=== PATIENT | male | born 1945 | race Caucasian/White ===

== ENCOUNTER → 2019-03-28 17:48 | Outpatient (CLI) | payer MEDICARE, SELFPAY ==
--- NOTE | ~2019-03-28 | XR_ITS ---
EXAMINATION: XR knee RT 2V DATE: 03/28/2019 19:00 INDICATION: Right knee pain TECHNIQUE: Anteroposterior, 2 oblique and crosstable lateral views of the right knee were obtained COMPARISON: None. FINDINGS: Slight lateral subluxation and mild genu varus at the right knee with severe joint space narrowing in the medial compartment. Small marginal osteophytes without evident joint space narrowing in the late ral and patellofemoral compartments. Large right knee joint effusion. Few loose osteochondral bodies at the posterior recess of the knee. No fracture. IMPRESSION: 1. Tricompartmental osteoarthritis, severe in the medial compartment, with large right knee joint eff usion. Reviewed, dictated and finalized at location A. OR AUDITOR IMPRESSION: 1. Tricompartmental osteoarthritis, severe in the medial compartment, with larg e right knee joint effusion.
--- NOTE | ~2019-03-28 | MR_ITS ---
EXAMINATION: MR knee RT wo con DATE: 03/28/2019 18:55 INDICATION: Right knee pain TECHNIQUE: Magnetic resonance imaging (MRI) of the right knee was performed without intravenous contr ast. Sequences included coronal PD-weighted FSE, coronal PD-weighted FS FSE, sagittal T2-weighted FS E, sagittal PD-weighted FS FSE and axial PD weighted fat saturated FSE. COMPARISON: None. FINDINGS: Medial compartment: Medial extrusion of the medial meniscus with complex tear of the body and posterior horn. Extensive f ull/near full-thickness chondral ulceration along significant portions of both the medial tibial plat eau and anterior weightbearing medial femoral condyle with underlying subarticular edema. Suggestion of early remodeling of the articular cortices. There is subtle curvilinear low signal underlying the articular cortex at the anterior weightbearing medial femoral condyle suspicious for a nondisplaced s ubarticular stress fracture line related to altered weight distribution. Lateral compartment: Lateral meniscal tear with longitudinal horizontal tear plane extending to the inferior articular ambrocio face near the free edge of the body and posterior horn. Suggestion of some secondary fraying along th e free edge. Small region of deep chondral ulceration along the medial aspect of the anterior weightb earing lateral femoral condyle with mild underlying subarticular edema. Juxtaposed partial-thickness cartilage loss without degenerative subarticular changes along the medial side of the lateral tibial plateau along the shoulder the intercondylar eminence. Shallow chondral fissuring with chondral surfa ce regularity along the lateral aspect of the lateral tibial plateau. Small central/subarticular oste ophytes at the site of an additional small region of deep chondral ulceration at the posterior margin of the weightbearing lateral femoral condyle. Patellofemoral compartment: Partial-thickness cartilage loss with deep fissuring without degenerative subarticular changes at the patellar apical ridge, the medial facet and medial side of the lateral facet. Partial-thickness dari dral fissuring along the medial trochlea. Ligaments and tendons: Anterior and posterior cruciate ligaments are normal. Mild thickening and increased signal at the pro ximal aspect of the medial and fibular collateral ligaments consistent with mild scarring related to chronic sprains. There is a small intrasubstance ganglion cyst extending between the otherwise intact appearing deep and superficial fibers of the proximal medial collateral ligament. The extensor mecha nism is normal. The visualized medial and lateral hamstring tendons as well as the iliotibial band ar e normal. Fluid: Large knee joint effusion with scattered mild to moderate synovitis. Small Alex's cyst. There are a couple loose osteochondral bodies within additional small ganglion cysts at the posterior aspect of t he knee. Extensive likely reactive soft tissue edema about the knee. IMPRESSION: 1. Medial and lateral meniscal tears. 2. Tricompartmental osteoarthritis, severe in the medial compartment and mild with regions of moderat e to high-grade chondromalacia in the lateral and patellofemoral compartments. 3. Prominent marrow edema along the anterior weightbearing medial femoral condyle surrounding a subar ticular likely stress fracture line. Reviewed, dictated and finalized at location A. RATORY DIRECTOR IMPRESSION: 1. Medial and lateral meniscal tears. 2. Tricompartmental osteoarthritis, severe in the medial compartment and mild w ith regions of moderate to high-grade chondromalacia in the lateral and patello femoral compartments. 3. Prominent marrow edema along the anterior weightbearing medial femoral condy le surrounding a subarticular
== END ==
PROVIDERS: Visit Provider Nurse Practitioner Family
DX: M17.11 Unilateral primary osteoarthritis, right knee (principal); S83.281A Other tear of lateral meniscus, current injury, right knee, initial encounter; S83.241A Other tear of medial meniscus, current injury, right knee, initial encounter; X58.XXXA Exposure to other specified factors, initial encounter
CPT/HCPCS: 73560; 73721

== ENCOUNTER → 2019-05-05 10:36 | Outpatient (CLI) | payer MEDICARE, SELFPAY ==
--- NOTE | ~2019-05-05 | XR_ITS ---
XR cervical spine min 6V DATE: 05/05/2019 12:09 INDICATION: Neck pain TECHNIQUE: Standing open-mouth, AP, lateral, swimmer's and bilateral oblique views COMPARISON: 11/19/2014 CT cervical spine FINDINGS: There is straightening of the cervical spine. There is interbody spinal fusion at C3-5 and C6-7. There is posterior cervical spine fusion by pedicle screws and rods at C7-T2. No recent fracture or dislocation or prevertebral soft tissue swelling is evident. C1 and C2 are norm ally aligned and the odontoid process is intact. IMPRESSION: Postoperative fusion of the cervical and upper thoracic spine Reviewed, dictated and finalized at location A.
--- NOTE | ~2019-05-05 | MR_ITS ---
EXAMINATION: MR shoulder RT wo con DATE: 05/05/2019 11:46 INDICATION: Right shoulder pain. TECHNIQUE: Magnetic resonance imaging (MRI) of the right shoulder was performed without intravenous c ontrast. Sequences included axial PD-weighted FS FSE, coronal oblique PD-weighted FS FSE and T2-weigh aydin FS FSE, and sagittal oblique T2-weighted FS FSE and T1-weighted FSE. COMPARISON: Right shoulder radiographs 05/05/2019 FINDINGS: Coracoacromial arch: The acromion undersurface is curved in morphology with anterior hook (type III). There are changes of distal clavicle resection. There is moderate subacromial/subdeltoid bursitis. There are loose bodies in subacromial/subdeltoid bursa measuring up to 2.1 cm. Rotator cuff: There is severe supraspinatus and infraspinatus tendinopathy. There are changes of rotator cuff repai r. There are interstitial tears of supraspinatus and infraspinatus tendons. The supraspinatus tendon tear measures 5 mm proximal to distal and up to 50% tendon thickness. There is mild teres minor tendi nopathy. There is severe subscapularis tendinopathy. There is mild fatty atrophy of teres minor muscl e belly, consistent with quadrilateral space syndrome. Biceps tendon and glenoid labrum: Biceps tendon is in bicipital groove. There is a partial tear of intra-articular biceps tendon. There is maceration of the glenoid labrum. Fluid: There is a small glenohumeral joint effusion with loose bodies measuring up to 2.4 cm. Bones/cartilage: There is extensive full-thickness cartilage loss of humeral head and glenoid with bone volume loss of humeral head and glenoid. IMPRESSION: 1. Advanced right glenohumeral joint osteoarthritis. 2. Severe rotator cuff tendinopathy with partial-thickness rotator cuff tears. 3. Small glenohumeral joint effusion with loose bodies. 4. Moderate subacromial/subdeltoid bursitis with loose bodies. 5. Mild fatty atrophy of teres minor muscle belly, consistent with quadrilateral space syndrome. Reviewed, dictated and finalized at location A. IMPRESSION: 1. Advanced right glenohumeral joint osteoarthritis. 2. Severe rotator cuff tendinopathy with partial-thickness rotator cuff tears. 3. Small glenohumeral joint effusion with loose bodies. 4. Moderate subacromial/subdeltoid bursitis with loose bodies. 5. Mild fatty atrophy of teres minor muscle belly, consistent with quadrilatera l space syndrome.
--- NOTE | ~2019-05-05 | XR_ITS ---
EXAMINATION: XR shoulder RT min 2V DATE: 05/05/2019 12:09 INDICATION: Right shoulder pain. TECHNIQUE: 4 views of right shoulder were obtained. COMPARISON: None. FINDINGS: Bone alignment is normal. No fracture. There is advanced glenohumeral joint osteoarthritis including bone volume loss of glenoid and humeral head. There are loose bodies in the glenohumeral estefania int and subacromial/subdeltoid bursa. There are likely changes of distal clavicle resection. There ar e changes of anterior and posterior fusion procedures in cervicothoracic spine. IMPRESSION: 1. Advanced right glenohumeral joint osteoarthritis with loose bodies. Reviewed, dictated and finalized at location A.
--- NOTE | ~2019-05-05 | MR_ITS ---
EXAMINATION: MR shoulder LT wo con DATE: 05/05/2019 11:46 INDICATION: Left shoulder pain. TECHNIQUE: Magnetic resonance imaging (MRI) of the left shoulder was performed without intravenous co ntrast. Sequences included axial PD-weighted FS FSE, coronal oblique PD-weighted FS FSE and T2-weight ed FS FSE, and sagittal oblique T2-weighted FS FSE and T1-weighted FSE. COMPARISON: Left shoulder radiographs 05/05/2019 FINDINGS: Coracoacromial arch: The acromion undersurface is curved in morphology (type II). There is severe acromioclavicular joint osteoarthritis. There is severe subacromial/subdeltoid bursitis with loose bodies. Rotator cuff: There is severe supraspinatus tendinopathy. There are articular sided and bursal sided partial-thickn ess tears of anterior supraspinatus tendon measuring 12 mm anterior to posterior by 2.1 cm proximal t o distal by up to 50% tendon thickness. There is mild infraspinatus tendinopathy. Teres minor tendon is normal. There is severe subscapularis tendinopathy with articular sided and bursal sided fraying. There is no asymmetric fatty atrophy of the rotator cuff muscle bellies. Biceps tendon and glenoid labrum: There is a complete tear of proximal biceps tendon. There is maceration of the glenoid labrum. Fluid: There is a moderate-sized glenohumeral joint effusion with loose bodies. Bones/cartilage: There is extensive full-thickness cartilage loss of humeral head and glenoid with bone volume loss of humeral head and glenoid. IMPRESSION: 1. Advanced left glenohumeral joint osteoarthritis. 2. Severe rotator cuff tendinopathy with partial-thickness tears. 3. Moderate-sized glenohumeral joint effusion with loose bodies. 4. Severe subacromial/subdeltoid bursitis with loose bodies. 5. Complete tear of proximal biceps tendon. 6. Severe acromioclavicular joint osteoarthritis. Reviewed, dictated and finalized at location A.
--- NOTE | ~2019-05-05 | XR_ITS ---
EXAMINATION: XR shoulder LT min 2V DATE: 05/05/2019 12:09 INDICATION: Left shoulder pain. TECHNIQUE: 4 views of left shoulder were obtained. COMPARISON: None. FINDINGS: Bone alignment is normal. No fracture. There is advanced glenohumeral joint osteoarthritis including bone volume loss of the glenoid. There is mild acromioclavicular joint osteoarthritis. Suba cromial spurring is noted. There are changes of anterior and posterior fusion procedures in cervical thoracic spine. IMPRESSION: 1. Advanced left glenohumeral joint osteoarthritis. Reviewed, dictated and finalized at location A.
== END ==
PROVIDERS: PCP Internal Medicine; Visit Provider Nurse Practitioner Family
DX: M54.2 Cervicalgia (principal); M19.011 Primary osteoarthritis, right shoulder; M24.011 Loose body in right shoulder; M24.012 Loose body in left shoulder; M19.012 Primary osteoarthritis, left shoulder; Z98.1 Arthrodesis status
CPT/HCPCS: 72052; 73030; 73221

== ENCOUNTER 2019-07-12 09:48 | Outpatient (CLI) | payer MEDICARE, SELFPAY ==
--- NOTE | ~2019-07-12 | MR_ITS ---
EXAMINATION: MR lumbar spine wo con DATE: 07/12/2019 10:32 INDICATION: Lumbar radiculopathy TECHNIQUE: Magnetic resonance imaging (MRI) of the lumbar spine was performed without intravenous con trast. Sequences included sagittal T2-weighted FSE, sagittal T2-weighted FS FSE, sagittal T1-weighted FSE, and axial T2-weighted FSE. COMPARISON: 09/24/2017 FINDINGS: 30 degree lumbar dextroscoliosis measured between L1 and L4. 4 mm retrolisthesis L5 on S1. 1-2 mm ret rolisthesis T12 on L1, L2 on L3, L3 on L4 and L4 on L5. Chronic mild anterior wedging at T12 and L1. Severe disc height loss at T12-L1 amount at the left side of L3-L4 and right side of L5-S1, each with degenerative fibrofatty and fibrovascular endplate changes.Marrow signal is otherwise normal. Modera te disc height loss at T11-T12, L1-L2, L2-L3 and L4-L5. The conus medullaris terminates at L2. There is normal signal in the caudal spinal cord. Right renal cyst. The following disc levels are specifica lly discussed: T12-L1: Moderate diffuse disc bulge. There is hypertrophy of the ligamentum flavum. There is severe bilateral facet joint osteoarthritis. There is moderate right and mild to moderate left neural forami nal stenosis. There is moderate central canal stenosis. L1-L2: Disc is mildly bulging with superimposed annular fissure and left paracentral disc extrusion w ith disc material extending a few millimeters caudal to the level of the superior endplate of L2. The re is hypertrophy of the ligamentum flavum. There is moderate bilateral facet joint osteoarthritis. T here is mild to moderate left neural foraminal stenosis. There is mild central canal stenosis. L2-L3: Disc is mildly bulging with superimposed annular fissure and left paracentral disc extrusion w ith disc material extending couple millimeter caudal to the level of the superior endplate of L3. The re is hypertrophy of the ligamentum flavum. There is mild bilateral facet joint osteoarthritis. There is mild left neural foraminal stenosis. There is mild central canal stenosis. L3-L4: Moderate to large diffuse disc bulge with superimposed annular fissure and central disc extrus ion with disc material extending up to 5 recalled the level of the superior endplate of L4. There is severe bilateral facet joint osteoarthritis. Suggestion of bilateral hemilaminotomies with resection of the ligamentum flavum. There is moderate bilateral neural foraminal stenosis. There is moderate ce ntral canal stenosis as well as moderate narrowing of the left and right lateral recesses. L4-L5: Diffuse disc bulge with superimposed annular fissure. There is severe bilateral facet joint os teoarthritis. There is moderate bilateral neural foraminal stenosis. Postoperative change of likely l eft hemilaminotomy with resection of the ligamentum flavum. There is moderate central canal stenosis. L5-S1: Disc is mildly bulging with superimposed annular fissure and small central disc extrusion with disc which will extending up to 3 mm caudal to the level of the superior endplate of S1. There is mo derate left and severe right facet joint osteoarthritis. There is mild left and moderate to severe ri ght neural foraminal stenosis. There is mild central canal stenosis as well as of the right lateral r ecess. IMPRESSION: 1. Moderate lumbar dextroscoliosis. 2. No significant interval change in severe lumbar and thoracolumbar spondylosis. Reviewed, dictated and finalized at location A. IMPRESSION: 1. Moderate lumbar dextroscoliosis. 2. No significant interval change in severe lumbar and thoracolumbar spondylosi s.
== END 2019-07-12 09:49 | disposition home or self-care (01) ==
PROVIDERS: PCP Internal Medicine; Visit Provider Internal Medicine
DX: M47.26 Other spondylosis with radiculopathy, lumbar region (principal); M47.814 Spondylosis without myelopathy or radiculopathy, thoracic region; M41.86 Other forms of scoliosis, lumbar region
CPT/HCPCS: 72148

== ENCOUNTER 2019-09-02 08:43 | Outpatient (CLI) | payer MEDICARE, SELFPAY ==
--- NOTE | ~2019-09-02 | CT_ITS ---
EXAMINATION:CT chest high resolution wo wy DATE: 09/02/2019 09:16 INDICATION: Shortness of breath and cough. TECHNIQUE: Computed tomography (CT) of the chest was performed without intravenous contrast. Automate d exposure control and iterative reconstruction technique were employed. The dose-length product (DLP ) was 405.53 mGy-cm. COMPARISON: Chest CT 09/22/2018 FINDINGS: There is mild atelectasis at right lung lower lobe. A calcified right lung nodule is consis tent with old granulomatous disease. No bronchiectasis or honeycombing. No pleural effusion. The hear t size is normal. There are coronary artery calcifications. No pericardial effusion. There is ectasia of ascending aorta measuring 4.5 cm. There are cysts in right kidney measuring up to 2.2 cm. There i s a small parenchymal calcification in left kidney. There is dextroscoliosis of cervicothoracic spine and levoscoliosis of thoracolumbar spine. There is severe thoracolumbar spondylosis. There are chacko es of anterior and posterior fusion procedures in cervicothoracic spine. IMPRESSION: 1. Mild atelectasis in right lower lobe. No evidence of chronic interstitial lung disease. 2. Stable ectasia of ascending aorta measuring 4.5 cm. Reviewed, dictated and finalized at location A. IMPRESSION: 1. Mild atelectasis in right lower lobe. No evidence of chronic interstitial kika ng disease. 2. Stable ectasia of ascending aorta measuring 4.5 cm.
== END 2019-09-02 08:44 | disposition home or self-care (01) ==
PROVIDERS: PCP Internal Medicine; Visit Provider Nurse Practitioner Family
DX: R05 Cough (principal); R06.02 Shortness of breath; Z77.090 Contact with and (suspected) exposure to asbestos; R91.8 Other nonspecific abnormal finding of lung field
CPT/HCPCS: 71250

== ENCOUNTER 2019-09-11 16:01 | Emergency (ER) | payer MEDICARE, SELFPAY ==
[2019-09-11] VITALS (7 sets, daily range): BP systolic 128–153; BP diastolic 72–87; PULSE 70–96; RESP 15–28; TEMP 36.9–37.2; O2SAT 94–100
--- NOTE | ~2019-09-11 | XR_ITS ---
EXAMINATION: XR chest 1V portable DATE: 09/11/2019 17:19 INDICATION: Shortness of breath. COVID-19 positive. TECHNIQUE: A single frontal view of the chest was obtained. COMPARISON: Chest 2 views 11/23/2014, chest CT 09/02/2019 FINDINGS: There is worsened mild elevation of right hemidiaphragm. There are airspace opacities in ri ght lower lung zone. No pleural effusion or pneumothorax. The heart size is normal. There are changes of anterior and posterior fusion procedures in cervical thoracic spine. IMPRESSION: 1. Airspace opacities in right lower lung zone, consistent with atelectasis versus pneumonia. Reviewed, dictated and finalized at location A. IMPRESSION: 1. Airspace opacities in right lower lung zone, consistent with atelectasis michael brittany pneumonia.
--- NOTE | 2019-09-11 16:24 | ECG_ITS ---
Measurements Intervals [place] Rate: 96 P: MN: 0 QRS: -65 QRSD: 142 T: 82 QT: 358 QTc: 453 Interpretive Statements SINUS RHYTHM ATRIAL COUPLETS, ATRIAL AND VENTRICULAR PREMATURE COMPLEXES LEFT AXIS DEVIATION LEFT BUNDLE BRANCH BLOCK MINIMAL Q WAVES- HIGH LATERAL LEADS BASELINE ARTIFACT- I, AVR, AVL ABNORMAL ECG Electronically Signed On 09-11-2019 16:48:07 CDT by Pablo Noble D.O.
[2019-09-11 16:46] LABS: Alanine Aminotransferase 82 U/L (4-50); Alkaline Phosphatase 202 U/L (38-126); Aspartate Amino Transferase 92 U/L (17-59); Bilirubin,Total 0.6 mg/dL (0.2-1.3); Blood Urea Nitrogen 14 mg/dL (9-20); Calcium 8.5 mg/dL (8.4-10.2); Carbon Dioxide 28 mmol/L (22-30); Chloride 90 mmol/L (98-107); Estimated CRCL calculation 78 ml/min; Estimated Glomerular Filt Rate > 60; Glucose 140 mg/dL (75-110); Sodium 130 mmol/L (137-145)
[2019-09-11 16:49] LABS: Eosinophils Percent Auto 0.5 % (0-4.4); Hematocrit 37.5 % (42.0-52.0); Hemoglobin 13.3 g/dL (14.0-18.0); Immature Granulocyte Absolute 0.01 K/mm3 (0.00-0.031); Immature Granulocyte Percent A 0.2 % (0-0.5); Lymphocytes Absolute Auto 0.47 K/mm3 (0.9-3.2); Lymphocytes Percent Auto 10.9 % (18.3-44.2); Mean Corpuscular HGB Conc 35.5 g/dl (32-36); Mean Corpuscular Hemoglobin 31.4 pg (26-34); Mean Corpuscular Volume 88.7 fl (80-100); Mean Platelet Volume 9.9 fl (7.4-10.4); Monocytes Absolute Auto 0.2 K/mm3 (0.1-0.6); Monocytes Percent Auto 5.1 % (2.6-8.5); Neutrophils Absolute Auto 3.6 K/mm3 (1.3-6.7); Neutrophils Percent Auto 83.3 % (45.5-73.1); Platelet Count Result 182 k/mm3 (150-375); Red Blood Count 4.23 M/mm3 (4.6-6.20); Red Cell Distribution Width 12.6 % (11.5-14.5); White Blood Count 4.3 K/mm3 (4.5-10.0)
[2019-09-11 16:57] LABS: Alveolar/Arterial O2 Gradient 38.3 mmHg; Base Excess ABG 2.1 mEq/l (+/-2.0); Carboxyhemoglobin 0.6 % THb (0-2.0); Fractional Inspired Oxygen 21 %; HCO3 ABG 24.5 mEq/l (22.0-26.0); Methemoglobin ABG 0.3 %THb (0-1.5); Oxygen Content ABG 17.8 %vol (16.0-22.0); Oxygen Saturation ABG 96.1 % (95.0-100.0); Oxyhemoglobin 94.2 % THb (90.0-100.0); PCO2 ABG 31.5 mmHg (35.0-45.0); PO2 ABG 73.7 mmHg (80.0-100.0); PO2 FiO2 Ratio Arterial Blood 3.51 %; Reduced Hemoglobin 4.9 %THb (0-5.0); Total Hemoglobin 13.4 g/dL (12.0-18.0); pH ABG 7.508 (7.350-7.450)
[2019-09-11 16:58] LABS: Device ROOM AIR; Modified Allen's Test Pass; Site Drawn RIGHT RADIAL
[2019-09-11 17:22] LABS: Lactic Acid Reflex 0.8 mmol/L (0.7-2.1)
[2019-09-11 17:25] LABS: CRP 6.7 mg/dL (<1.0); Magnesium 1.8 mg/dL (1.6-2.3)
--- NOTE | 2019-09-11 18:06 | ED.SOB ---
HPI - SOB/Dyspnea General Chief Complaint: Shortness of Breath/Dyspnea Stated Complaint: +COVID, FEELING WORSE Time Seen by Provider: 09/11/19 17:28 Source: patient Mode of arrival: ambulatory History of Present Illness HPI Narrative: This is a 74 year old male with history of hypertension who presents for evaluation of worsening breathing. PAtient reports he has had issues with sinus drainage, cough and chest congestion for several months. He reports 1 week ago he started feeling unwell so his doctor ordered a COVID test. PAtient reports he was found to be positive on . He reports he feels like he is dehydrated and weakness. He reports low grade fevers intermittently. He reports he sees Dr. Gtz. Related Data Home Medications Medication Instructions Recorded Confirmed doxycycline monohydrate 40 mg 40 mg PO DAILY 02/11/19 09/02/19 capsule,immediate - delay release esomeprazole magnesium 40 mg 40 mg PO DAILY 02/11/19 09/02/19 capsule,delayed release latanoprost 0.005 % eye drops 1 drop EACH EYE DAILY 02/11/19 09/02/19 aspirin 325 mg tablet 325 mg PO DAILY 09/02/19 09/02/19 Allergies Allergy/AdvReac Type Severity Reaction Status Date / Time levofloxacin [From Levaquin] Allergy Mild ''not feel Verified 09/11/19 16:39 right'' Review of Systems Review of Systems: All systems reviewed & are unremarkable except as noted in HPI and below Constitutional: Constitutional: Reports chills, Reports fatigue, Reports fever(s) and Reports weakness Cardiovascular: Cardiovascular: Reports chest pain (chronic) and Denies radiating jaw, neck or arm pain Respiratory: Respiratory: Reports cough and Reports dyspnea (chronic) Gastrointestinal: Gastrointestinal: Denies abdominal pain, Reports diarrhea and Denies nausea Musculoskeletal: Musculoskeletal: Reports myalgias and Reports muscle cramps Neurologic: Reports weakness PMFSH Past Medical History Medical History (Updated 09/12/19 @ 00:00 by [employer]) Essential hypertension Seasonal allergic rhinitis due to pollen Family History Family History (Updated 06/26/17 @ 11:50 by DOCTOR UNKNOWN) Mother Cerebrovascular accident Hypertension Father Malignant neoplasm of prostate Depression Patient's father is , Onset Age: 50 Family history of heart disease in male family member before age 55 Sibling Depression Family history of lymphoma Other Family history of malignant neoplasm of male breast Family history of sudden Social History Social History Smoking status: Never smoker Second hand tobacco smoke exposure: Yes Alcohol intake: current Exam Narrative: Exam Narrative: GENERAL: Well-appearing, well-nourished, and in no acute distress. HEAD: Normocephalic, atraumatic EYES: PERRLA and EOMI, conjunctiva clear without discharge s THROAT:Mucous membranes moist, Oropharynx normal without erythema, exudate, peritonsillar swelling or fluctuance NECK: Supple, without lymphadenopathy or mass RESPIRATORY: No respiratory distress, Airway patent, Respirations non-labored, Clear to auscultation without rales, rhonchi or wheeze HEART: Regular rate and rhythm. No murmur heard. Normal peripheral pulses. ABDOMEN: Soft, nontender, nondistended, normal active bowel sounds. No masses. No rebound or guarding, No organomegaly. EXTREMITIES: No edema, normal strength with full range of motion. SKIN: Warm, dry, normal color without rash NEURO: Alert and oriented x3. CN 2-12 grossly intact. No focal deficits. PSYCH: Normal mood and affect. Course Reevaluation(s) Reevaluation #1: PAtient states he feels better after IVF. Date: 09/11/19 Time: 20:37 Consultations Consultation #1: I Discussed case with Dr. Gtz who reviewed xray and CT scan. She agrees patient can be discharge with antibiotics. His chest xray is similar to CT scan performed last week which
[2019-09-11 18:09] LABS: Troponin I 0.019 ng/mL (0.000-0.034)
[2019-09-11] MEDS: SODIUM CHLORIDE 0.9% IV 1,000 ML 999 ML IV CONT (18:35)
[2019-09-11] MEDS: AZITHROMYCIN 250 MG TABLET 500 MG PO (20:21)
[2019-09-11] MEDS: ALBUTEROL SULFATE (*SP) AEROSOL 1 PUFF 6 PUFF INHALATION (20:27)
== END 2019-09-11 21:05 | disposition home or self-care (01) ==
PROVIDERS: Emergency Medicine; Emergency Provider General Practice
DX: U07.1 COVID-19 (principal); E86.0 Dehydration; I10 Essential (primary) hypertension; Z79.82 Long term (current) use of aspirin; R91.8 Other nonspecific abnormal finding of lung field; R00.8 Other abnormalities of heart beat; I44.7 Left bundle-branch block, unspecified; R94.31 Abnormal electrocardiogram [ECG] [EKG]
CPT/HCPCS: 36415; 36600; 71045; 80053; 82375; 82805; 83050; 83605; 83735; 84484; 85025; 86140; 87040; 93005; 96361; 96365; 99284; A9270; J0696; J7030

== ENCOUNTER 2019-09-15 17:52 | Emergency (ER) | payer MEDICARE, SELFPAY ==
[2019-09-15 18:02] VITALS: BP 169/93; PULSE 78; RESP 20; TEMP 36.9; O2SAT 100
[2019-09-15 20:20] LABS: Basophils Percent Auto 0.2 % (0.2-1.2); Eosinophils Absolute Auto 0.1 K/mm3 (0-0.3); Eosinophils Percent Auto 2.1 % (0-4.4); Hematocrit 35.3 % (42.0-52.0); Hemoglobin 12.5 g/dL (14.0-18.0); Immature Granulocyte Absolute 0.02 K/mm3 (0.00-0.031); Immature Granulocyte Percent A 0.4 % (0-0.5); Lymphocytes Absolute Auto 0.85 K/mm3 (0.9-3.2); Lymphocytes Percent Auto 16.4 % (18.3-44.2); Mean Corpuscular HGB Conc 35.4 g/dl (32-36); Mean Corpuscular Hemoglobin 31.4 pg (26-34); Mean Corpuscular Volume 88.7 fl (80-100); Mean Platelet Volume 9.2 fl (7.4-10.4); Monocytes Absolute Auto 0.3 K/mm3 (0.1-0.6); Monocytes Percent Auto 5.4 % (2.6-8.5); Neutrophils Absolute Auto 3.9 K/mm3 (1.3-6.7); Neutrophils Percent Auto 75.5 % (45.5-73.1); Platelet Count Result 286 k/mm3 (150-375); Red Blood Count 3.98 M/mm3 (4.6-6.20); Red Cell Distribution Width 12.6 % (11.5-14.5); White Blood Count 5.2 K/mm3 (4.5-10.0)
[2019-09-15 20:33] LABS: Anion Gap 12.1 mmol/L (7-16); Blood Urea Nitrogen 13 mg/dL (9-20); Calcium 9.1 mg/dL (8.4-10.2); Carbon Dioxide 28 mmol/L (22-30); Chloride 100 mmol/L (98-107); Estimated CRCL calculation 90 ml/min; Estimated Glomerular Filt Rate > 60; Glucose 103 mg/dL (75-110); Potassium 4.1 mmol/L (3.4-5.0); Sodium 136 mmol/L (137-145)
[2019-09-15 20:34] VITALS: BP 142/72; PULSE 60; RESP 19; O2SAT 97
--- NOTE | 2019-09-15 21:14 | ED.GENADULT ---
HPI - General Adult General Chief complaint: Upper Respiratory Infection Stated complaint: weak, dark stools Time Seen by Provider: 09/15/19 19:07 History of Present Illness HPI narrative: Patient is a 74-year-old male who presents ER with multiple complaints. Reports he started having symptoms of COVID-19 on 09/04/2019. He was tested about 1 week ago and it was positive. Since then he has been feeling weak and fatigued. He was seen in the ER and started on an antibiotic. However after 1 dose of antibiotic he had a dark black stool. He then stopped the antibiotic. He has had no additional dark black stools. He reports he has been having some jerking in his lower extremity for which he is taking Valium. This is a chronic issue for the last couple of months. No fevers or chills or sweats. Reports occasional possibility of shortness of breath but is not having to sit and rest for excessive amounts of time. Related Data Home Medications Medication Instructions Recorded Confirmed doxycycline monohydrate 40 mg 40 mg PO DAILY 02/11/19 09/02/19 capsule,immediate - delay release esomeprazole magnesium 40 mg 40 mg PO DAILY 02/11/19 09/02/19 capsule,delayed release latanoprost 0.005 % eye drops 1 drop EACH EYE DAILY 02/11/19 09/02/19 aspirin 325 mg tablet 325 mg PO DAILY 09/02/19 09/02/19 Allergies Allergy/AdvReac Type Severity Reaction Status Date / Time levofloxacin [From Levaquin] Allergy Mild ''not feel Verified 09/15/19 19:24 right'' Review of Systems Review of Systems: All systems reviewed & are unremarkable except as noted in HPI and below Constitutional: Constitutional: Denies chills, Reports fatigue, Denies fever(s) and Reports weakness ENT: Denies nasal congestion and Denies sore throat Cardiovascular: Cardiovascular: Denies chest pain and Denies radiating jaw, neck or arm pain Gastrointestinal: Gastrointestinal: Denies abdominal pain, Denies nausea and Denies vomiting Comments: 1 dark black stool Musculoskeletal: Musculoskeletal: Reports muscle cramps PMFSH Past Medical History Medical History (Updated 09/15/19 @ 21:44 by Go Abdul MD) Essential hypertension Seasonal allergic rhinitis due to pollen Family History Family History (Updated 06/26/17 @ 11:50 by DOCTOR UNKNOWN) Mother Cerebrovascular accident Hypertension Father Malignant neoplasm of prostate Depression Patient's father is , Onset Age: 50 Family history of heart disease in male family member before age 55 Sibling Depression Family history of lymphoma Other Family history of malignant neoplasm of male breast Family history of sudden Social History Social History Smoking status: Never smoker Second hand tobacco smoke exposure: Yes Alcohol intake: current Exam Narrative: Exam Narrative: GENERAL: Well-appearing, well-nourished, and in no acute distress. HEAD: Normocephalic, atraumatic. CHEST: Clear to auscultation. No respiratory distress. HEART: Regular rate and rhythm. Normal peripheral pulses. EXTREMITIES: Normal range of motion. No edema. SKIN: Warm, dry, no rash. NEURO: Alert and oriented x3. PSYCH: Normal mood and affect. Course Course Emergency Course: We will increase his Nexium from once a day to twice a day. Recommend follow-up with his PCP given drop in hemoglobin by one-point. Vital Signs Vital signs: Vital Signs Temperature 98.4 F 09/15/19 18:02 Pulse Rate 78 09/15/19 18:02 Respiratory Rate 20 09/15/19 18:02 Blood Pressure 169/93 H 09/15/19 18:02 Pulse Oximetry 100 09/15/19 18:02 Temperature 98.4 F 09/15/19 18:02 Pulse Rate 60 09/15/19 20:34 Respiratory Rate 19 09/15/19 20:34 Blood Pressure 142/72 H 09/15/19 20:34 Pulse Oximetry 97 09/15/19 20:34 Medical Decision Making Vital Signs Vital Signs: Vital Signs Temperature 98.4 F 09/15/19 18:02 Pulse R
[2019-09-15 22:15] VITALS: BP 194/79; PULSE 56; RESP 17; TEMP 37.2; O2SAT 100
== END 2019-09-15 22:20 | disposition home or self-care (01) ==
PROVIDERS: Emergency Provider Emergency Medicine; PCP Internal Medicine
DX: R53.83 Other fatigue (principal); R19.5 Other fecal abnormalities; U07.1 COVID-19; I10 Essential (primary) hypertension
CPT/HCPCS: 36415; 80048; 85025; 99283

== ENCOUNTER 2019-12-27 14:38 | Outpatient (CLI) | payer MEDICARE, SELFPAY ==
[2019-12-28 23:51] LABS: Amphetamines negative; Barbiturates negative; Benzodiazepines negative; Cocaine Metabolites negative; Marijuana Metabolites negative; PCP negative
== END 2019-12-27 14:39 | disposition home or self-care (01) ==
PROVIDERS: PCP Internal Medicine; Visit Provider Clinical Nurse Specialist
DX: Z79.899 Other long term (current) drug therapy (principal)
CPT/HCPCS: 80307

== ENCOUNTER 2020-01-09 07:38 | Outpatient (CLI) | payer MEDICARE, SELFPAY ==
--- NOTE | ~2020-01-09 | MR_ITS ---
EXAMINATION: MR MRCP wo/w con/w 3D wo ind DATE: 01/09/2020 09:17 INDICATION: Pancreatic IPMN TECHNIQUE: Magnetic resonance imaging (MRI) of the abdomen was performed without and with 17 mL Multi neto intravenous contrast. Sequences included coronal T2-weighted SS-FSE, coronal T2-weighted FS SS- FSE, coronal T2-weighted FS FIESTA, axial T2-weighted FS FIESTA, axial T2-weighted FIESTA, sagittal T 2-weighted SS-FSE, axial T1-weighted dual-echo FSPGR, axial T2-weighted SS-FSE, axial T1-weighted LAV A, axial T2-weighted STIR FSE. Thick-slab T2-weighted FRFSE-XL images were obtained for magnetic reso nance cholangiopancreatography (MRCP). Rotating maximum intensity projection 3-D reconstructions of t he volumetric data were created by the technologist. Postcontrast sequences included a time course of axial T1-weighted LAVA. COMPARISON: 11/23/2018 FINDINGS: ABDOMEN MRI: Heart size is normal. No pericardial or pleural effusion. No significant interval change in a 2 cm ma ss the right hepatic lobe with progressive enhancement which on an earlier MRI dated 08/13/2009 demons trated an interrupted peripheral puddling consistent with a hemangioma. 5 mm T2 hyperintense nonenhan cing cyst in segment 6 of the liver. Gallbladder, spleen and bilateral adrenal glands are normal. Tim ateral renal cysts, the largest on the right measuring 2.4 cm. Again seen is dilation of the main bosch creatic duct which measures up to 9 mm at the head and body of the pancreas. There are multiple dilat ed side branches which is most prominent at the pancreatic head and tail. At the uncinate process the re is an approximately 2.2 x 1.5 x 1.3 cm T2 hyperintense lesion which appears to communicate with th e main pancreatic duct which is T2 hyperintense but subtly less hyperintense than the fluid in the du cts and also likely related to duct demonstrates thin peripheral rim of calcification on CT dated 08/25 which suggests possible intrasubstance a cystic neoplasm with apparent tiny calcification at t he duct suggesting an intraductal papillary mucinous neoplasm (IPMN). No evident associated enhancing solid soft tissue component. Bowels are unremarkable. Bladder is normal. No pathologically enlarged abdominal lymphadenopathy. Approximately 30 degrees lumbar dextroscoliosis with severe spondylosis. ABDOMEN MRCP: Prominent dilation of the main pancreatic duct and multiple pancreatic ductal side branches as previo usly noted. The common bile duct measures up to 8 mm in maximal diameter which is at the upper limits of normal for age. No intraluminal filling defects to suggest obstructing stone or mucosal irregular ities/stricture. No intrahepatic biliary ductal dilation. IMPRESSION: 1. No significant interval change in a 2.2 x 1.5 x 1.3 cm peripherally calcified cystic lesion at the uncinate process of the pancreas with dilatation of the dilated main pancreatic duct. Differential w ould include intraductal papillary mucinous neoplasm (IPMN) and additional dilated pancreatic duct re lated to chronic pancreatitis. Reviewed, dictated and finalized at [facility]. 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 No significant interval change in a 2.2 x 1.5 x 1.3 cm peripherally calcifie d cystic lesion at the uncinate process of the pancreas with dilatation of the dilated main pancreatic duct. Differential would include intraductal papillary mucinous neoplasm (IPMN) and additional dilated pancreatic duct related to hospital product specialist yamil pancreatitis.
[2020-01-09 08:25] LABS: Estimated Glomerular Filt Rate > 60
== END 2020-01-09 07:39 | disposition home or self-care (01) ==
PROVIDERS: PCP Internal Medicine; Visit Provider Internal Medicine Gastroenterology
DX: D13.6 Benign neoplasm of pancreas (principal)
CPT/HCPCS: 74183; 76376; A9577

== ENCOUNTER 2020-02-20 07:47 | Outpatient (CLI) | payer MEDICARE, SELFPAY ==
--- NOTE | 2020-02-27 09:29 | WPDHOMESLEEP ---
Sleep Study - Home Unattended Date of Study: 02/20/20 Ordering Provider: Pablo Noble DO Interpreting Physician: Katheryn Gtz MD Home Sleep Study Type: Apnea Link Air Height: 1.8 m Weight: 86.183 kg Body Mass Index: 26.4 Neck Circumference (inches): 16.3 [place]: 3 Reason for Sleep Study history of DENISE on CPAP, then dental device, still with symptoms Sleep History Mike Barton is a 74 year old man who was referred by Dr Noble for re-evaluation of his sleep apnea. He had a sleep study about 5 years ago, was placed on Which he did not like. He used multiple masks, there was only 1/8 that he could tolerate. He was interested in the Inspire device* see below . A roughly 2 years ago he was put on a dental appliance which did not work. he spoke with Dr. Ferrera who is now at [facility] about using the Inspire. the patient has difficulty falling asleep, he wakes often during the night to use the bathroom, he has excessive daytime sleepiness and he wakes up in the office lead hours. He has seen an ENT about his sleep issues. He snores constantly but he currently sleeps alone so nobody complains about it. He rarely awakens at night with heartburn, belching or coughing. He does not awaken from sleep feeling short of breath. He occasionally has trouble sleep with a cold. He does not wake up gasping for breath at night. He rarely sweats excessively at night. He frequently notices his heart pounding or beating irregularly and night. He does not fall asleep during the day, involuntarily, while driving or during physical effort. He does not have loss of muscle tone with strong emotion. He is retired so does not have difficulties during the day due to excessive sleepiness. He does not have vivid dreamlike scenes upon waking or falling asleep and does not feel paralyzed on waking or falling asleep. He is not afraid to go to sleep. He rarely has nightmares and really remember his dreams. He constantly has racing thoughts, feelings of sadness, depression and anxiety. He frequently has muscular tension in various locations including his neck, back, knees, shoulders with history of surgery in these areas. he really notices parts of his body jerking and he rarely kicks at night. He frequently has crawling and aching feelings in his legs, frequently has numbness in his legs at night due to neuropathy. He rarely has morning jaw pain. He occasionally grind his teeth during sleep. He frequently is bothered by pain during the day, frequently is awakened by pain at night. He constantly wakes up feeling stiff in the morning, frequent was sore achy muscles and constant with pain in the neck and spine. he has palpitations, bowel disturbances, fatigue, sexual problems, insomnia, concentration difficulties. He is now feeling very alone more than ever during COVID. He rarely awakens feeling refreshed in the morning. He has lost 25 lb in the last year. Normal bedtime 10:00 p.m., takes 1 hour to fall asleep, multiple trips to the bathroom at night. He wakes the morning at 6:30 a.m. to 7:00 a.m.. We can does the same. He does not take naps. Naps are not refreshing. He is drowsy in the morning for 2 hours or longer. Habits: caffeine - 2 cups in the am; alcohol a few drinks a day, now cutting back to less; not a smoker. *Inspire device - This FDA-approved implantable upper airway stimulation device functions like a pacemaker and stabilizes a patient's throat during sleep in order to prevent obstruction. The device consists of three components: a programmable neuro-stimulator located in a chest pocket, a pressure sensing lead that detects patient's breathing, and a stimulator lead that delivers mild stimulation to the tongue nerve. This device is surgically implanted. [facility] Past Medical History Medical History (Updated 02/27/20 @ 09:52 by Katheryn Gtz MD) Anxiety CAD (coronary artery disease) Chronic pain Dyslipidemia Essential hypertension IBS (irritable costa
[2020-02-27 09:35] VITALS: BMI 26.4
== END 2020-02-20 07:48 | disposition home or self-care (01) ==
LOC: ANHCSM 07:48
PROVIDERS: PCP Internal Medicine; Visit Provider Internal Medicine Cardiovascular Disease
DX: G47.33 Obstructive sleep apnea (adult) (pediatric) (principal); Z99.89 Dependence on other enabling machines and devices
CPT/HCPCS: 95806

== ENCOUNTER 2020-03-20 14:33 | Outpatient (CLI) | payer MEDICARE, SELFPAY ==
--- NOTE | 2020-03-20 14:37 | ECHO_ITS ---
Patient Info Name: Mike Barton Age: 74 years : 1945 Gender: Male Ht: 71 in Wt: 195 lbs BSA: 2.12 m2 HR: 70 bpm BP: 154 / 100 mmHg Heart Rhythm: Sinus Arrhythmia Technical Quality: Good Exam Date: 03/20/2020 2:51 PM Exam Location: [facility] Pulmonary Patient Status: Outpatient Admit Date: 03/20/2020 Staff Ordering Physician: Katheryn Gtz MD Senior Animal Trainer: Carlos Lott RDCS Attending Provider: Katheryn Gtz MD Referring Physician: Ulisses BERNARD; Exam Type: CA echo doppler color flow Study Info Indications 780.57 - Sleep apnea Complete two-dimensional, color flow and Doppler transthoracic echocardiogram is performed. Strain analysis performed. History/Risk Factors Sleep apnea; Aortic regurgitation, palpitations. Summary 1. Complete two-dimensional, color flow and Doppler transthoracic echocardiogram is performed. 2. Left ventricular chamber dimension is normal. 3. Left ventricular systolic function is preserved, estimated at 50-55%. 4. There is mildly increased left ventricular wall thickness. 5. The left ventricular diastolic function is abnormal. 6. E/e' 11 is mildly elevated. 7. Global longitudinal strain is normal at -17.2%. 8. Left atrial chamber dimension is moderately enlarged. 9. Right atrial chamber dimension is moderately enlarged. 10. There is mild to moderate aortic valve regurgitation. 11. There is mild to moderate mitral valve regurgitation. 12. There is mild tricuspid valve regurgitation. 13. No pulmonary hypertension, estimated pulmonary arterial systolic pressure is 35 mmHg. 14. There is trace pulmonic regurgitation. 15. The aortic root size at the sinus of Valsalva is moderately dilated at 4.6 cm. Left Ventricle E/e' 11 is mildly elevated. Global longitudinal strain is normal at -17.2%. Left ventricular chamber dimension is normal. Left ventricular systolic function is preserved, estimated at 50-55%. There is mildly increased left ventricular wall thickness. The left ventricular diastolic function is abnormal. Right Ventricle Right ventricular systolic function is normal with normal TAPSE 3.4 cm. Right ventricular chamber dimension is normal. Left Atria Left atrial chamber dimension is moderately enlarged. Right Atria Right atrial chamber dimension is moderately enlarged. Aortic Valve The aortic valve is not well visualized. Cannot determine number of aortic valve leaflets. There is no aortic valve stenosis. There is mild to moderate aortic valve regurgitation. Pulmonic Valve There is trace pulmonic regurgitation. Mitral Valve There is no mitral valve stenosis. There is mild to moderate mitral valve regurgitation. Tricuspid Valve There is mild tricuspid valve regurgitation. No pulmonary hypertension, estimated pulmonary arterial systolic pressure is 35 mmHg. Pericardium/Pleural There is no pericardial effusion. Inferior Vena Cava Normal inferior vena cava with >50% collapse upon inspiration consistent with normal right atrial pressure, 5 mmHg. Aorta The aortic root size at the sinus of Valsalva is moderately dilated at 4.6 cm. Left Ventricular Outflow Tract Name Value Normal LVOT 2D LVOT Diameter
== END 2020-03-20 14:34 | disposition home or self-care (01) ==
PROVIDERS: PCP Internal Medicine; Visit Provider Internal Medicine Critical Care Medicine
DX: G47.31 Primary central sleep apnea (principal); I34.0 Nonrheumatic mitral (valve) insufficiency; I35.1 Nonrheumatic aortic (valve) insufficiency; I36.1 Nonrheumatic tricuspid (valve) insufficiency
CPT/HCPCS: 93306

== ENCOUNTER 2020-05-31 10:02 | Outpatient (CLI) | payer MEDICARE, SELFPAY ==
--- NOTE | 2020-05-31 14:20 | P.PCNPFT_ITS ---
PFT Interpretation This is a pulmonary function test with pre and post-bronchodilator spirometry, plethysmography and diffusing capacity. The test was performed and results interpreted in accordance with the 2019 and 2005 ATS/ERS Task Force guidelines respectively using the Global Lung Function Initiative-2012 reference equations. Patient demonstrated good effort and c ooperation. Reproducibility criteria were met. The quality of the pre bronchodilator spirometry maneuver was Grade A and post bronchodilator spirometry maneuver was Grade A. Findings: Spirometry: The contour of the inspiratory and expiratory flow tracing are normal. The pre bronchodilator FVC is 4.52 L, 106% predicted. The pre bronchodilator FEV1 is 3.06 L, 96% predicted. The FEV1: FVC ratio 68%. The post bronchodilator FVC is 4.38 L, representing a 3% decrease. The post bronchodilator FEV 1 is 3.19 L, representing a 4% increase. Plethysmography: The total lung capacity is 8.01 L, 111% predicted. Functional residual capacity is 4.50 L, 116% predicted. The residual volume is 3.49 L, 136% predicted. Diffusing capacity the absolute diffusion capacity is 22.6, 87% predicted. The diffusing capacity corrected for alveolar volume is 3.65, 96% predicted. In comparison to previous study in our laboratory which included only a pre bronchodilator spirometry on 11/09/2017 demonstrated that the FVC is unchanged from 4.30 L to 4.52 L. The FEV1 is unchanged from 3.09 L to 3.06 L. The total lung capacity is unchanged from 8.87 L to 8.01 L. The functional residual capacity is unchanged from 4.90 L to 4.50 L. The residual volume is decreased from 4.56 L to 3.49 L. The absolute diffusion capacity is unchanged from 22.7 to 22.6. The diffusing capacity corrected for alveolar volume is unchanged from 3.79 to 3.65. Impression: There is a mild obstructive abnormality with a normal FEV1 and without significant improvement after inhaling a single dose of albuterol. The increase in residual volume is consistent with air trapping from an obstructive abnormality. The diffusing capacity is normal. When compared to the prior pulmonary function test on 11/09/2017 there has been a greater than anticipated time dependent decrease in the residual volume with no change in the FVC, FEV1, total lung capacity, functional residual capacity, absolute diffusing capacity and the diffusing capacity corrected for alveolar volume. Clinical correlation is recommended. PFT Procedure Performed PFT Procedure Performed Spirometry with Pre/Post Bronchodilator Plethysmography (Lung Vol) Diffusing Cap (DLCO)
== END 2020-05-31 10:03 | disposition home or self-care (01) ==
PROVIDERS: PCP Internal Medicine; Visit Provider Internal Medicine Critical Care Medicine
DX: R06.02 Shortness of breath (principal); R94.2 Abnormal results of pulmonary function studies
CPT/HCPCS: 94060; 94726; 94729

== ENCOUNTER 2020-08-03 07:39 | Outpatient (CLI) | payer MEDICARE, SELFPAY ==
--- NOTE | ~2020-08-03 | CT_ITS ---
EXAMINATION: CT abdomen pelvis w con DATE: 08/03/2020 08:11 INDICATION: Fecal incontinence TECHNIQUE: Computed tomography (CT) of the abdomen and pelvis was performed with 100 cc Omnipaque 350 intravenous contrast. The dose-length product was 573.88 mGy-cm. Automated exposure control and iter ative reconstruction technique were employed. COMPARISON: MRI dated 01/09/2020. FINDINGS: No significant change to hypovascular lesion posterior segment right hepatic lobe, compatib le with hemangioma, measuring 1.8 cm maximum dimension. Gallbladder is moderately distended. Elevated right diaphragm. No significant pleural or pericardial effusion. Heart size is normal. The spleen, a drenal glands are unremarkable. There are small low-density lesions in both kidneys, most of which ar e too small to characterize, likely benign cysts. There is a partially calcified ill-defined mass of the pancreatic head at the uncinate process with dilation of the main pancreatic duct and common bile duct. Nonobstructive bowel gas pattern. Moderate colonic fecal loading. No significant lymphadenopat hy. No vascular abnormalities. Severe lower thoracic and lumbar spondylosis. There is scoliosis. Mode rate osteoarthritis of the hips. IMPRESSION: 1. Poorly circumscribed hypovascular lesion with calcifications, involving the uncinate process of th e pancreatic head, measuring approximately 3.8 x 2.7 cm greatest axial dimension. There is associated dilation of the main pancreatic duct and to lesser extent common bile duct. Differential diagnosis i ncludes intraductal papillary mucinous neoplasm and sequela of chronic pancreatitis. 2: Moderate gallbladder distention. 3: Stable hemangioma right hepatic lobe. Reviewed, dictated and finalized at location B. IMPRESSION: 1. Poorly circumscribed hypovascular lesion with calcifications, involving the uncinate process of the pancreatic head, measuring approximately 3.8 x 2.7 cm g reatest axial dimension. There is associated dilation of the main pancreatic du ct and to lesser extent common bile duct. Differential diagnosis includes intra ductal papillary mucinous neoplasm and sequela of chronic pancreatitis. 2: Moderate gallbladder distention. 3: Stable hemangioma right hepatic lobe.
[2020-08-03 08:02] LABS: Estimated Glomerular Filt Rate > 60
== END 2020-08-03 07:40 | disposition home or self-care (01) ==
PROVIDERS: PCP Internal Medicine; Visit Provider Clinical Nurse Specialist
DX: R15.9 Full incontinence of feces (principal)
CPT/HCPCS: 74177; Q9967

== ENCOUNTER 2020-08-15 11:30 | Outpatient (CLI) | payer MEDICARE, SELFPAY ==
--- NOTE | ~2020-08-15 | NM_ITS ---
EXAMINATION: NM hepatobiliary wo pharm DATE: 08/15/2020 13:53 INDICATION: Unspecified abdominal pain. COMPARISON: CT abdomen and pelvis dated 08/03/2020 TECHNIQUE: 5.1 mCi Tc-99m mebrofenin (Choletec) was administered intravenously. Scintigraphic images of the abdomen were obtained for one hour. At the 1 hour time point, the patient drank 8 oz Ensure, and imaging was continued for 60 minutes. Gallbladder ejection fraction was calculated by the technol ogbijal. FINDINGS: There is normal clearance of radiotracer from the blood pool. There is homogeneous tracer u ptake by the liver. Activity progresses to the bowel and gallbladder. The gallbladder ejection fract ion (GBEF) is 94%. Note that with this technique, normal GBEF >= 33%. IMPRESSION: 1. Normal hepatobiliary scan. Reviewed, dictated and finalized at location A.
== END 2020-08-15 11:31 | disposition home or self-care (01) ==
PROVIDERS: PCP Internal Medicine; Visit Provider Clinical Nurse Specialist
DX: R10.9 Unspecified abdominal pain (principal)
CPT/HCPCS: 78226; A9537

== ENCOUNTER 2020-10-03 06:58 | Day surgery (SDC) | payer MEDICARE, SELFPAY ==
[2020-10-01 11:17] VITALS: BMI 26.4
--- NOTE | 2020-10-03 10:12 | WPDGICN ---
Assessment and Plan Assessment and plan (1) Positive colorectal cancer screening using Cologuard test: Code(s): R19.5 - Other fecal abnormalities Status: Acute Assessment and Plan: Patient found to have positive Cologuard test. For this reason screening colonoscopy will be performed today. High-fiber diet advised otherwise. (2) IPMN (intraductal papillary mucinous neoplasm): Code(s): D49.0 - Neoplasm of unspecified behavior of digestive system Status: Acute Assessment and Plan: Pancreatic cystic lesion consistent with IPMN has been identified. Currently followed at [facility]. (3) Anxiety: Code(s): F41.9 - Anxiety disorder, unspecified Status: Acute GI Consult Note Consult date/time: 10/03/20 10:12 HPI: Mike Barton is a 75 year old male With anxiety. Presents for screening colonoscopy. Patient recently had Cologuard test that was found to be positive. Patient denies any obvious blood in his stools. He has recently been follow-up a pancreatic cyst. [place] to be an IPMN. Sees Dr. Dugan abdomen is [facility] [place] for follow-up of this. Screening colonoscopy to be performed today. Follow-up scan of the pancreas anticipated 6 months follow-up EUS since 1 year suggested. Review of Systems Review of Systems: All systems reviewed & are unremarkable except as noted in HPI and below PMFSH Past Medical History Medical History Anxiety CAD (coronary artery disease) Central sleep apnea Chronic pain Depression Dyslipidemia Essential hypertension IBS (irritable bowel syndrome) IPMN (intraductal papillary mucinous neoplasm) Obstructive sleep apnea PAT (paroxysmal atrial tachycardia) Seasonal allergic rhinitis due to pollen Seasonal allergies Family History Family History Mother Cerebrovascular accident Hypertension Father Malignant neoplasm of prostate Depression Patient's father is , Onset Age: 50 Family history of heart disease in male family member before age 55 Sibling Depression Family history of lymphoma Other Family history of malignant neoplasm of male breast Family history of sudden Social History Social History Smoking status: Never smoker Second hand tobacco smoke exposure: Yes Alcohol intake: current Drinks per week: 10 Substance use: never Living arrangements: alone Gender identity (if verbalized by the patient): Male Spiritual care concerns: No Agree to blood products: Yes Meds Home Medications and Allergies Home Medications Medication Instructions Recorded Confirmed Type latanoprost 0.005 % eye drops 1 drop EACH EYE DAILY 02/11/19 10/01/20 History acetaminophen 650 mg 650 mg PO Q6H PRN 03/29/20 10/01/20 History tablet,extended release fluticasone propionate 50 1 spray INTRANASAL DAILY PRN 03/29/20 10/01/20 History mcg/actuation nasal spray,suspension aspirin 325 mg tablet 81 mg PO DAILY tablet 08/28/20 10/01/20 History minoxidil 5 % topical foam 1 ea TOPICAL DAILY 08/28/20 10/01/20 History diazepam 5 mg tablet 5 mg PO DAILY PRN tablet 09/25/20 10/01/20 History doxazosin 4 mg PO DAILY 10/01/20 10/01/20 History famotidine 20 mg PO DAILY 10/01/20 10/01/20 History lisinopril-hydrochlorothiazide 1 tablet PO DAILY 10/01/20 10/01/20 History Allergies Allergy/AdvReac Type Severity Reaction Status Date / Time levofloxacin [From Levaquin] Allergy Mild ''not feel Verified 10/01/20 11:14 right'' Exam Narrative: Physical exam reveals patient be alert. Vital signs stable. HEENT exam is unremarkable. Patient anicteric. Lungs are clear to auscultation and percussion. Heart is without murmur or extra sounds. Abdominal exam bowel sounds present soft nontender with no organomegaly. Digital external rectal e
[2020-10-03 10:25] VITALS: BP 116/72; PULSE 73; RESP 16; TEMP 35.9; O2SAT 99; BMI 26.6
[2020-10-03] MEDS: LACTATED RINGERS 1,000 ML 150 ML IV CONT (10:40)
--- NOTE | 2020-10-03 10:47 | WPDANESEPPF ---
Anes - Initial Pre Proc Eval Procedure: Operation Date: 10/03/20 11:00 Proposed Procedures p Colonoscopy - Chaim Jackson MD Date/Time: 10/03/20 10:47 Surgeon: Chaim Jackson MD Pre Op Diagnosis: positive cologuard, melena Patient Data Age: 75 Gender: M Height: 1.8 m Weight: 86.5 kg Last Vital Signs Temp 35.9 C L 10/03/20 10:25 Pulse 73 10/03/20 10:25 Resp 16 10/03/20 10:25 BP 116/72 10/03/20 10:25 Pulse Ox 99 10/03/20 10:25 Allergies Allergy/AdvReac Type Severity Reaction Status Date / Time levofloxacin [From Levaquin] Allergy Mild ''not feel Verified 10/03/20 10:24 right'' Home Medications Medication Instructions Recorded Confirmed Type latanoprost 0.005 % eye drops 1 drop EACH EYE DAILY 02/11/19 10/03/20 History acetaminophen 650 mg 650 mg PO Q6H PRN 03/29/20 10/03/20 History tablet,extended release fluticasone propionate 50 1 spray INTRANASAL DAILY PRN 03/29/20 10/03/20 History mcg/actuation nasal spray,suspension aspirin 325 mg tablet 81 mg PO DAILY tablet 08/28/20 10/03/20 History minoxidil 5 % topical foam 1 ea TOPICAL DAILY 08/28/20 10/03/20 History diazepam 5 mg tablet 5 mg PO DAILY PRN tablet 09/25/20 10/03/20 History doxazosin 4 mg PO DAILY 10/01/20 10/03/20 History famotidine 20 mg PO DAILY 10/01/20 10/03/20 History lisinopril-hydrochlorothiazide 1 tablet PO DAILY 10/01/20 10/03/20 History Patient hx anesthesia problems: none Family hx anesthesia problems: none PMFSH Past Medical History Medical History Anxiety CAD (coronary artery disease) Central sleep apnea Chronic pain Depression Dyslipidemia Essential hypertension IBS (irritable bowel syndrome) IPMN (intraductal papillary mucinous neoplasm) Obstructive sleep apnea PAT (paroxysmal atrial tachycardia) Seasonal allergic rhinitis due to pollen Seasonal allergies Family History Family History Mother Cerebrovascular accident Hypertension Father Malignant neoplasm of prostate Depression Patient's father is , Onset Age: 50 Family history of heart disease in male family member before age 55 Sibling Depression Family history of lymphoma Other Family history of malignant neoplasm of male breast Family history of sudden Social History Social History Smoking status: Never smoker Second hand tobacco smoke exposure: Yes Alcohol intake: current Drinks per week: 10 Substance use: never Living arrangements: alone Gender identity (if verbalized by the patient): Male Spiritual care concerns: No Agree to blood products: Yes Anes - Eval Final PreProcedure Day of Procedure 10/03/20 10:47 Patient weight: normal Heart: regular rate and rhythm Lungs: clear to auscultation Airway: Mallampati scale class II Neurological: alert and oriented Last oral intake: >/= 8 hours ASA classification: III Emergent: no Anesthetic plan: proceed Anesthesia type and monitoring: general GIVS and standard monitoring Informed Consent: The patient's anesthetic plan and its attendant risks and benefits were discussed with the patient/family/POA. Questions were solicited and answers provided to the satisfaction of the patient/family/POA.
[2020-10-03 11:30] VITALS: BP 101/69; PULSE 77; RESP 25; O2SAT 98
[2020-10-03 11:40] VITALS: BP 100/70; PULSE 75; RESP 22; O2SAT 94
[2020-10-03 11:49] VITALS: BP 118/72; PULSE 71; RESP 22; O2SAT 100
== END 2020-10-03 12:08 | disposition home or self-care (01) ==
PROVIDERS: PCP Internal Medicine; Visit Provider Internal Medicine Gastroenterology
PROC: 0DJD8ZZ Inspection of Lower Intestinal Tract, Via Natural or Artificial Opening Endoscopic (ICD-10-PCS; CPT 45378; principal; 2020-10-03 11:00)
DX: Z12.11 Encounter for screening for malignant neoplasm of colon (principal); K64.8 Other hemorrhoids; R19.5 Other fecal abnormalities; D49.0 Neoplasm of unspecified behavior of digestive system; F41.9 Anxiety disorder, unspecified; I25.10 Atherosclerotic heart disease of native coronary artery without angina pectoris; I47.1 Supraventricular tachycardia; I10 Essential (primary) hypertension; E78.5 Hyperlipidemia, unspecified; F41.8 Other specified anxiety disorders; G47.33 Obstructive sleep apnea (adult) (pediatric); K58.9 Irritable bowel syndrome, unspecified; Z79.82 Long term (current) use of aspirin
CPT/HCPCS: G0121; J7120

== ENCOUNTER 2020-10-05 09:42 | Outpatient (CLI) | payer MEDICARE, SELFPAY ==
--- NOTE | ~2020-10-05 | NM_ITS ---
EXAMINATION: NM tyler stress w perfusion DATE: 10/05/2020 12:42 INDICATION: Dyspnea on exertion. TECHNIQUE: Rest images were obtained following intravenous administration of 9 mCi Tc99m tetrofosmin (Myoview). The patient was infused intravenously with Lexiscan (regadenoson). Then, 28.2 mCi Tc99m te trofosmin (Myoview) was administered intravenously, and supine and prone stress images were obtained. Data was reconstructed into short axis and horizontal and vertical long axis SPECT images. Gated SPE CT images were also obtained. COMPARISON: Myocardial perfusion imaging 05/19/2016 FINDINGS: There is a large, moderate-severity, fixed perfusion defect involving left ventricular apex , inferior wall, and mid to basal inferoseptal wall, consistent with infarct. No reversible component to suggest ischemia. There is no segmental wall motion abnormality. Left ventricular ejection fract ion measures 44%. IMPRESSION: 1. Large area of moderate-severity infarct involving left ventricular apex, inferior wall, and mid to basal inferoseptal wall. 2. Left ventricular ejection fraction measuring 44%. Reviewed, dictated and finalized at location A. IMPRESSION: 1. Large area of moderate-severity infarct involving left ventricular apex, inf erior wall, and mid to basal inferoseptal wall. 2. Left ventricular ejection fraction measuring 44%.
--- NOTE | 2020-10-05 09:45 | EST_ITS ---
Patient Info Name: Mike Barton Age: 75 years : 1945 Gender: Male Ht: 71 in Wt: 190 lbs BSA: 2.09 m2 Exam Date: 10/05/2020 11:14 AM Exam Location: [facility] Stress Patient Status: Outpatient Admit Date: 10/05/2020 Staff Ordering Physician: Pablo Noble DO Attending Provider: Pablo Noble DO Exercise Technologist: Medina Anguiano RDCS Exercise Physician: Pablo Noble DO Exam Type: CA stress tyler w NM Study Info Indications R06.00 - Dyspnea, unspecified A regadenoson stress test was performed. Summary 1. 1. Negative lexiscan stress test for ischemic ST changes by ECG criteria. 2. 2. Baseline hypertension. 3. 3. Nuclear scan to follow and will be reported separately. Please correlate with it. 4. 4. Patient informed of the above results. Protocol: Lexiscan Stress ECG Details Stage: REST Duration (min): 0 min : 46 sec HR (bpm): 71 SBP (mmHg): 146 DBP (mmHg): 84 Stage: REST Duration (min): 14 min : 10 sec HR (bpm): 69 SBP (mmHg): 146 DBP (mmHg): 84 Stage: STAGE 1 Duration (min): 0 min : 59 sec HR (bpm): 74 SBP (mmHg): 123 DBP (mmHg): 76 Stage: RECOVERY Duration (min): 1 min : 0 sec HR (bpm): 82 SBP (mmHg): 145 DBP (mmHg): 76 Stage: RECOVERY Duration (min): 2 min : 0 sec HR (bpm): 76 SBP (mmHg): 145 DBP (mmHg): 76 Stage: RECOVERY Duration (min): 3 min : 0 sec HR (bpm): 82 SBP (mmHg): 144 DBP (mmHg): 76 Stage: RECOVERY Duration (min): 3 min : 13 sec HR (bpm): 78 SBP (mmHg): 144 DBP (mmHg): 76 Rest HR: 69 bpm Peak HR: 85 bpm Rest Sys BP: 146 mmHg Peak Sys BP: 145 mmHg Max Pred HR: 147 bpm % Max Pred HR: 58 % Target HR: 125 bpm Max RPP: 12,325 bpm*mmHg Termination Reason: Completed protocol Cardiac Symptoms: Shortness of breath Total Time: 1 min : 0 sec Rest Diaz BP: 84 mmHg Peak Diaz BP: 76 mmHg Total Dose: 0.4 mg Resting ECG Sinus rhythm, IVCD, cannot r/o septal infarct, age indeterminate, borderline T wave in high lateral leads. Stress ECG No ST changes. Arrhythmias None. Report Signatures
== END 2020-10-05 09:43 | disposition home or self-care (01) ==
PROVIDERS: PCP Internal Medicine; Visit Provider Internal Medicine Cardiovascular Disease
DX: R06.00 Dyspnea, unspecified (principal); I21.9 Acute myocardial infarction, unspecified
CPT/HCPCS: 78452; 93017; A9502; J2785

== ENCOUNTER 2020-10-26 07:50 | Outpatient (CLI) | payer MEDICARE, SELFPAY ==
--- NOTE | 2020-10-26 07:56 | ECHO_ITS ---
Patient Info Name: Mike Barton Age: 75 years : 1945 Gender: Male Ht: 71 in Wt: 195 lbs BSA: 2.12 m2 HR: 68 bpm BP: 119 / 77 mmHg Technical Quality: Good Exam Date: 10/26/2020 8:16 AM Exam Location: [facility] Patient Status: Outpatient Admit Date: 10/26/2020 Staff Ordering Physician: Pablo Noble DO Dermatologist Managing Partner: Medina Anguiano RDCS Attending Provider: Pablo Noble DO Referring Physician: Real ROMERO; Exam Type: CA echo doppler color flow Study Info Indications R06.02 - Shortness of breath Complete two-dimensional, color flow and Doppler transthoracic echocardiogram is performed. Summary 1. Complete two-dimensional, color flow and Doppler transthoracic echocardiogram is performed. 2. Left ventricular chamber dimension is normal. 3. Left ventricular systolic function is normal, estimated at 60-65%. 4. The left ventricular diastolic function is abnormal. 5. E/e' 13 is mildly elevated. 6. There is mild aortic valve sclerosis. 7. There is mild aortic valve regurgitation. 8. There is mild mitral valve regurgitation. 9. No pulmonary hypertension, estimated pulmonary arterial systolic pressure is 31 mmHg. 10. The aortic root size at the sinus of Valsalva is moderately dilated at 4.6 cm. Left Ventricle E/e' 13 is mildly elevated. Left ventricular chamber dimension is normal. Left ventricular systolic function is normal, estimated at 60-65%. The left ventricular diastolic function is abnormal. Right Ventricle Right ventricular systolic function is normal and with normal TAPSE 2.6 cm. Right ventricular chamber dimension is normal. Left Atria Left atrial chamber dimension is normal. Right Atria Right atrial chamber dimension is normal. Aortic Valve The aortic valve is trileaflet. There is mild aortic valve sclerosis. There is no aortic valve stenosis. There is mild aortic valve regurgitation. Pulmonic Valve There is no pulmonic regurgitation. Mitral Valve There is no mitral valve stenosis. There is mild mitral valve regurgitation. Tricuspid Valve There is no tricuspid valve regurgitation. No pulmonary hypertension, estimated pulmonary arterial systolic pressure is 31 mmHg. Pericardium/Pleural There is no pericardial effusion. Inferior Vena Cava Normal inferior vena cava with >50% collapse upon inspiration consistent with normal right atrial pressure, 5 mmHg. Aorta The aortic root size at the sinus of Valsalva is moderately dilated at 4.6 cm. Left Ventricular Outflow Tract Name Value Normal LVOT 2D LVOT Diameter 2.3 cm LVOT Doppler LVOT Peak Gradient 4 mmHg LVOT Mean Gradient 2 mmHg LVOT VTI 24 cm LVOT VTI/AV VTI Ratio 0.8 LVOT Stroke Volume 98 ml LVOT CO 6.5 l/min LVOT CI 3.1 l/min/m2 Pulmonic Valve Name Value Normal ----
== END 2020-10-26 07:51 | disposition home or self-care (01) ==
PROVIDERS: PCP Internal Medicine; Visit Provider Internal Medicine Cardiovascular Disease
DX: R06.02 Shortness of breath (principal); I34.0 Nonrheumatic mitral (valve) insufficiency
CPT/HCPCS: 93306

== ENCOUNTER 2021-01-23 08:00 | Outpatient (CLI) | payer MEDICARE, SELFPAY ==
--- NOTE | 2021-02-12 15:28 | WPDSLEEPSTUD ---
Sleep Study Date of Study: 11/22/20 <Jeanie Arizmendi DO - Last Filed: 02/12/21 16:15> Ordering Provider: Katheryn Gtz MD <Jeanie Arizmendi DO - Last Filed: 02/12/21 16:15> Interpreting Physician: Jeanie Arizmendi DO <Jeanie Arizmendi DO - Last Filed: 02/12/21 16:15> Sleep Study Type: BiPAP Titration <Jeanie Arizmendi DO - Last Filed: 02/12/21 16:15> Height: 1.8 m <Jeanie Arizmendi DO - Last Filed: 02/12/21 16:15> Weight: 85.275 kg <Jeanie Arizmendi DO - Last Filed: 02/12/21 16:15> Body Mass Index: 26.2 <Jeanie Arizmendi DO - Last Filed: 02/12/21 16:15> Neck Circumference (inches): 16 <Jeanie Arizmendi DO - Last Filed: 02/12/21 16:15> [place]: 7 <Jeanie Arizmendi DO - Last Filed: 02/12/21 16:15> Reason for Sleep Study Patient has central sleep apnea and is currently compliant with PAP Therapy yet still has unrefreshing sleep. <Jeanie Arizmendi DO - Last Filed: 02/12/21 16:15> Sleep History The patient is a 75-year-old male with anxiety, depression, hypertension, coronary artery disease, hyperlipidemia, paroxysmal atrial tachycardia, IBS and known central sleep apnea that had a Pap titration study ordered by Dr. Gtz due to unrefreshing sleep despite being compliant with PAP therapy. The patient states that he rarely awakens from sleep short of breath. He rarely awakens at night with heartburn, belching or cough. He is unsure about his snoring habits. He occasionally has trouble sleeping when he has a cold. He denies waking up gasping for air throughout the night. He rarely sweats excessively at night. He occasionally notices heart palpitations or irregular heartbeats during the night. He denies falling asleep during the day and while driving. He occasionally experiences loss of muscle tone when extremely emotional. He denies sleep paralysis. He rarely experiences vivid dreamlike scenes upon awakening or falling asleep. He rarely has nightmares. He frequently has thoughts racing through his mind. He constantly feels sad, depressed and anxious. He frequently has muscular tension. He frequently notices parts of his body jerk. He occasionally kicks during the night. He constantly has crawling and aching feelings in his legs as well as leg pain during the night. He is unsure if he grinds his teeth but he rarely awakens with morning jaw pain. He is frequently bothered by pain during the day and frequently awakened by pain during the night. He frequently wakes up feeling stiff in the morning with sore and achy muscles. He constantly wakes up with pain in the neck, spine and other joints. The patient currently goes to bed at 9:00 p.m. on weekdays and 10:00 p.m. on the weekends. It occasionally takes him a couple hours to fall asleep. He typically wakes up between 6 and 8 times per night. When he awakens, he will walk around or exercise. He can usually fall asleep within 30 minutes. He will wake up between 70 and 8:00 a.m. on both weekdays and weekends. He typically gets at least 8 hours of sleep per night. He will stay in bed for an hour after waking up in the morning. He currently lives alone. He does not consume any caffeinated beverages within 2 hours of bedtime. He will occasionally do physical exercise before bedtime. He will watch television before falling asleep. He does not take naps in the afternoon or the evening. He drinks up to 2 caffeinated beverages per day. He will have anywhere from 5-15 alcoholic beverages per week. He denies tobacco and recreational drug use. <Jeanie Arizmendi, - Last Filed: 02/12/21 16:15> [facility] Past Medical History Medical History: Medical History Anxiety CAD (coronary artery disease) Central sleep apnea Chronic pain Depression Dyslipidemia Essential hypertension IBS (irritable bowel syndrome) IPMN (intra
[2021-02-12 15:46] VITALS: BMI 26.2
== END 2021-01-24 06:00 | disposition home or self-care (01) ==
LOC: ANHCSM 01-24 15:24
PROVIDERS: PCP Internal Medicine; Visit Provider Internal Medicine Critical Care Medicine
DX: G47.31 Primary central sleep apnea (principal); G25.81 Restless legs syndrome; I48.91 Unspecified atrial fibrillation
CPT/HCPCS: 95811

== ENCOUNTER 2021-02-27 13:36 | Outpatient (CLI) | payer MEDICARE, SELFPAY ==
--- NOTE | ~2021-02-27 | CT_ITS ---
EXAMINATION: CT abdomen pelvis w con DATE: 02/27/2021 14:21 INDICATION: Neoplasm of unspecified behavior of the digestive system TECHNIQUE: Computed tomography (CT) of the abdomen and pelvis was performed with 100 mL Omnipaque-350 intravenous contrast. Automated exposure control and iterative reconstruction technique were employe d. The dose-length product was 451.23 mGy-cm. COMPARISON: 08/03/2020 FINDINGS: Mild linear discoid atelectasis/scarring in the right lower lobe. Heart size is normal. No pericardia l or pleural effusion. Calcified epicardial lymph node consistent with old granulomatous disease. 2 c m hemangioma in the right hepatic lobe with characteristic enhancement pattern on prior MR studies da aydin 08/13/2009 gallbladder, spleen, bilateral adrenal glands are normal. Bilateral renal cysts, the la rgest on the right measuring 2.8 cm. Dilated main pancreatic duct and additional dilated serpiginous duct extending into the uncinate process where there is peripheral focal wall calcification. Diffuse mild pancreatic parenchymal atrophy. Bowels are unremarkable. Prostatomegaly. Bladder is normal. Smal l fat-containing left inguinal hernia. No free intraperitoneal gas or fluid. No pathologically enlarg ed abdominal or pelvic lymphadenopathy. 25 degrees lumbar dextroscoliosis with severe lumbar and lowe r thoracic spondylosis. IMPRESSION: 1. No interval change in dilation of the main pancreatic duct of a serpiginous dark with peripheral c alcification at the uncinate process of the pancreas without evident nodular soft tissue component. D ifferential includes intraductal papillary mucinous neoplasm (IPM and close and dilated ducts related to chronic pancreatitis. Reviewed, dictated and finalized at location B. NSIC SPECIALIST IMPRESSION: 1. No interval change in dilation of the main pancreatic duct of a serpiginous dark with peripheral calcification at the uncinate process of the pancreas with out evident nodular soft tissue component. Differential includes intraductal pa pillary mucinous neoplasm (IPM and close and dilated ducts related to chronic p ancreatitis.
[2021-02-27 14:14] LABS: Estimated Glomerular Filt Rate > 60
== END 2021-02-27 13:37 | disposition home or self-care (01) ==
LOC: ANHIMG 13:43
PROVIDERS: PCP Internal Medicine; Visit Provider Internal Medicine Gastroenterology
DX: D49.0 Neoplasm of unspecified behavior of digestive system (principal)
CPT/HCPCS: 74177; Q9967

== ENCOUNTER → 2021-04-19 06:56 | Outpatient (CLI) | payer MEDICARE, SELFPAY ==
--- NOTE | ~2021-04-19 | MR_ITS ---
EXAMINATION: MR lumbar spine wo con DATE: 04/19/2021 07:37 INDICATION: Low back pain. Right leg pain. TECHNIQUE: Magnetic resonance imaging (MRI) of the lumbar spine was performed without intravenous con trast. Sequences included sagittal T2-weighted FSE, sagittal T2-weighted FS FSE, sagittal T1-weighted FSE, and axial T2-weighted FSE. COMPARISON: Lumbar spine MRI 07/12/2019 FINDINGS: There is 36 degrees dextroscoliosis of lumbar spine. There is 3 mm retrolisthesis of L1 on L2, L2 on L3, and L3 on L4. Vertebral body heights are normal. There is severely decreased disc heigh t at T12-L1 and L1-L2, moderately decreased disc height at L2-L3, and severely decreased disc height from L3-L4 through L5-S1 with endplate remodeling. The distal spinal cord signal intensity is normal. The conus medullaris is at L2. There are cysts in the kidneys measuring up to 2.5 cm on the right. T he following disc levels are specifically discussed: L1-L2: The disc is bulging with superimposed left central extrusion. There is moderate bilateral face t joint osteoarthritis. There is mild left neural foraminal stenosis. There is mild central canal parker nosis. L2-L3: The disc is bulging and has an annular fissure. There is severe right and moderate left facet joint osteoarthritis. There is mild bilateral neural foraminal stenosis. There is mild central canal stenosis. L3-L4: The disc is bulging and has an annular fissure. There is severe bilateral facet joint osteoart hritis. There is mild right and moderate left neural foraminal stenosis. There is mild central canal stenosis. There is moderate stenosis of left lateral recess. L4-L5: The disc is bulging and has an annular fissure. There is severe bilateral facet joint osteoart hritis. There is moderate bilateral neural foraminal stenosis. There is mild central canal stenosis. There is severe stenosis of the lateral recesses. L5-S1: The disc is bulging and has an annular fissure. There is severe right and moderate left facet joint osteoarthritis. There is moderate right and mild left neural foraminal stenosis. There is mild central canal stenosis. IMPRESSION: 1. Severe lumbar spondylosis, stable from 07/12/2019. 2. Lumbar dextroscoliosis. Reviewed, dictated and finalized at location A. LHEAD CONSTRUCTION WORKER
== END ==
PROVIDERS: PCP Internal Medicine
DX: M79.604 Pain in right leg (principal); M47.896 Other spondylosis, lumbar region
CPT/HCPCS: 72148

== ENCOUNTER 2021-06-10 07:51 | Outpatient (CLI) | payer MEDICARE, SELFPAY ==
--- NOTE | ~2021-06-10 | CT_ITS ---
EXAMINATION: CT lumbar spine wo con DATE: 06/10/2021 08:29 INDICATION: Right leg pain. TECHNIQUE: Computed tomography (CT) of the lumbar spine was performed without intravenous contrast. A utomated exposure control and iterative reconstruction technique were employed. The dose-length produ ct was 1266.75 mGy-cm. COMPARISON: Lumbar spine MRI 04/19/2021 FINDINGS: There is a 2.7 cm cyst in right kidney. There is 25 degrees dextroscoliosis of lumbar spine . There is mild chronic anterior wedging of T12 and L1 vertebral bodies. There is severely decreased disc height at T12-L1, moderately decreased disc height at L1-L2 and L2-L3, severely decreased disc h eight at L3-L4, moderately decreased disc height at L4-L5, and severely decreased disc height at L5-S 1 with endplate remodeling. There is Baastrup disease from L2-L3 through L5-S1. The following disc le vels are specifically discussed: L1-L2: The disc is bulging. There is moderate bilateral facet joint osteoarthritis. There is mild lef t neural foraminal stenosis. There is mild central canal stenosis. L2-L3: The disc is bulging. There is severe right and moderate left facet joint osteoarthritis. There is mild bilateral neural foraminal stenosis. There is mild central canal stenosis. L3-L4: The disc is bulging. There is severe bilateral facet joint osteoarthritis. There is mild right and moderate left neural foraminal stenosis. There is mild central canal stenosis. L4-L5: The disc is bulging. There is severe bilateral facet joint osteoarthritis. There is moderate b ilateral neural foraminal stenosis. There is mild central canal stenosis. There is moderate stenosis of the lateral recesses. L5-S1: The disc is bulging. There is severe bilateral facet joint osteoarthritis. There is moderate r ight and mild left neural foraminal stenosis. There is mild central canal stenosis. IMPRESSION: 1. Severe lumbar spondylosis. 2. Lumbar dextroscoliosis. Reviewed, dictated and finalized at location B.
== END 2021-06-10 07:52 | disposition home or self-care (01) ==
LOC: ANHIMG 07:57
PROVIDERS: PCP Internal Medicine; Visit Provider Urology
DX: M47.817 Spondylosis without myelopathy or radiculopathy, lumbosacral region (principal); M79.604 Pain in right leg; N28.1 Cyst of kidney, acquired; M41.9 Scoliosis, unspecified; M48.07 Spinal stenosis, lumbosacral region; M48.55XA Collapsed vertebra, not elsewhere classified, thoracolumbar region, initial encounter for fracture
CPT/HCPCS: 72131

== ENCOUNTER → 2022-03-01 09:02 | Outpatient (CLI) | payer MEDICARE, SELFPAY ==
--- NOTE | ~2022-03-01 | MR_ITS ---
EXAMINATION: MR thoracic spine wo con DATE: 03/01/2022 10:05 INDICATION: Pain in thoracic spine, lower right leg pain since 11/2020, TECHNIQUE: Magnetic resonance imaging (MRI) of the thoracic spine was performed without intravenous c ontrast. COMPARISON: None FINDINGS: Exaggerated thoracic kyphosis. Thoracic scoliosis. Partially visualized posterior fusion hardware, li naveed terminating at the level of T1 and incompletely visualized. Multilevel mild anterior wedge defor mity in the midthoracic spine, presumably chronic based on lack of marrow edema. No suspicious focal or diffuse marrow signal. Multilevel severe disc space narrowing and marginal osteophytosis. Multilev el moderate facet arthropathy. Multilevel mild and moderate degrees of neural foraminal narrowing, mo st notably on the right at T9-10. Multilevel moderate central canal stenosis in the upper thoracic sp ine, from T2-3 through T5-6. And at T11-T12 through T12-S1 The cord is normal in signal and caliber. No suspicious focal or diffuse marrow signal. Conus terminates at L2. IMPRESSION: Multilevel severe degenerative disc disease in the thoracic spine. Multilevel mild and moderate degre es of neural foraminal narrowing and central canal narrowing, detailed above. Reviewed, dictated and finalized at location K. ORK ASSOCIATE IMPRESSION: Multilevel severe degenerative disc disease in the thoracic spine. Multilevel m ild and moderate degrees of neural foraminal narrowing and central canal narrow ing, detailed above.
== END ==
PROVIDERS: PCP Internal Medicine; Visit Provider Nurse Practitioner Family
DX: M51.34 Other intervertebral disc degeneration, thoracic region (principal)
CPT/HCPCS: 72146

== ENCOUNTER → 2022-03-06 13:46 | Outpatient (CLI) | payer MEDICARE, SELFPAY ==
--- NOTE | ~2022-03-06 | US_ITS ---
EXAMINATION: US thyroid DATE: 03/06/2022 14:04 INDICATION: Nontoxic single thyroid nodule. TECHNIQUE: Multiple ultrasound images of the thyroid were obtained. COMPARISON: Ultrasound 10/01/2017, 11/06/2017 FINDINGS: The right thyroid lobe measures 5.0 x 2.1 x 2.4 cm. The left thyroid lobe measures 4.7 x 2.4 x 1.7 c m. In the right thyroid lobe, there is a 1.1 cm mixed cystic and solid, isoechoic, wider than tall n odule with smooth margin without echogenic foci (TI-RADS TR2). In the right thyroid lobe, there is a 1.2 cm mixed cystic and solid, isoechoic, wider than tall nodule with smooth margin without echogenic foci (TR2). In the left thyroid lobe, there is a 1.7 cm solid, hypoechoic, wider than tall nodule wi th ill-defined margin without echogenic foci (TR4), stable from 11/06/17 when biopsy was benign. In th e left thyroid lobe, there is a 9 mm nodule with peripheral calcifications with shadowing that obscur es the nodule (TR4). IMPRESSION: 1. Thyroid nodules, likely not clinically significant. No follow-up is needed. Reviewed, dictated and finalized at location A. E ADMIN
== END ==
PROVIDERS: PCP Internal Medicine; Visit Provider Internal Medicine Endocrinology, Diabetes & Metabolism
DX: E04.1 Nontoxic single thyroid nodule (principal)
CPT/HCPCS: 76536

== ENCOUNTER 2022-03-31 13:44 | Outpatient (CLI) | payer MEDICARE, SELFPAY ==
--- NOTE | ~2022-03-31 | CT_ITS ---
EXAMINATION: CTA chest abdomen pelvis DATE: 03/31/2022 14:25 INDICATION: Ascending aortic aneurysm TECHNIQUE: Computed tomographic angiography (CTA) of the chest was performed with 100 mL Omnipque-350 intravenous contrast. Maximum intensity projection 3D-reconstructions of the aorta and other arterie s were constructed by the technologist on a separate workstation. Subsequent postcontrast images of t he abdomen and pelvis were obtained. The dose-length product (DLP) was 1371.62 mGy-cm. Automated expo sure control and iterative reconstruction technique were employed. COMPARISON: 02/27/2021, 09/22/2018 FINDINGS: CHEST CTA: A stable fusiform aneurysm of the ascending aorta measures 4.3 x 4.2 cm at the level of the main pulm onary artery. There is no thoracic aortic dissection. There is mild atelectasis of the lungs. Chronic elevation of the right hemidiaphragm is noted. No pleural effusion or pneumothorax. No pathologicall y enlarged thoracic lymph nodes are identified. The heart size is normal. There is advanced osteoarth ritis of the shoulders with calcified loose bodies on the right. Severe thoracic spondylosis is noted . There are changes of anterior and posterior fusion of the cervicothoracic spine. ABDOMEN AND PELVIS CTA: There is a 1.9 cm hemangioma of the right hepatic lobe. The gallbladder, spleen, and adrenal glands a re normal. Cysts of the kidneys measure up to 2.6 cm on the right. There is chronic mild dilation of the pancreatic duct in the body of the pancreas with generalized atrophy of the pancreas. There is no significant change in a peripherally calcified cystic lesion in the uncinate process of the pancreas which communicates with the main pancreatic duct. No pathologically enlarged abdominal or pelvic lym ph nodes are identified. No free intraperitoneal gas or evidence of bowel obstruction. There are fat- containing umbilical and left inguinal hernias. There is severe lumbar spondylosis. IMPRESSION: 1. Stable fusiform aneurysm of the ascending aorta without dissection 2. No acute abnormality of the abdomen or pelvis. 3. Stable peripherally calcified cystic lesion in the uncinate process of the pancreas with communica tion with the main pancreatic duct and mild enlargement of the pancreatic duct. Reviewed, dictated and finalized at location B. 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 Stable fusiform aneurysm of the ascending aorta without dissection 2. No acute abnormality of the abdomen or pelvis. 3. Stable peripherally calcified cystic lesion in the uncinate process of the p ancreas with communication with the main pancreatic duct and mild enlargement o f the pancreatic duct.
== END 2022-03-31 13:45 | disposition home or self-care (01) ==
PROVIDERS: PCP Internal Medicine; Visit Provider Internal Medicine Cardiovascular Disease
DX: K86.89 Other specified diseases of pancreas (principal); D49.0 Neoplasm of unspecified behavior of digestive system; I71.21 Aneurysm of the ascending aorta, without rupture
CPT/HCPCS: 71275; 74174; 74177; Q9967

== ENCOUNTER 2022-08-20 09:18 | Inpatient (IN) | payer MEDICARE, SELFPAY ==
[2022-08-20] VITALS (10 sets, daily range): BP systolic 115–139; BP diastolic 72–97; PULSE 69–90; RESP 15–18; TEMP 36.2–37.1; O2SAT 98–100; BMI 29.0; BMI 28.5
--- NOTE | 2022-08-20 10:39 | PC.NURSE ---
This patient, Mike Barton, was admitted to IMU Room 201-[address] at [address] Marino office . Patient/family oriented to hospital policies and general routines including ID bracelet, bed and alarms, visiting hours, pain management, procedures, bathroom and other care routines, personal items, smoking policy, room service/diet, and visiting hours. Information on how to activate the Rapid Response Team has been discussed. Patient/Family are encouraged to report perceived risks to care and to ask questions if they do not understand what they are told or what they should do.
--- NOTE | 2022-08-20 10:59 | ECG_ITS ---
Measurements Intervals Excel Rate: 80 P: 34 HI: 206 QRS: -64 QRSD: 142 T: 90 QT: 387 QTc: 448 Interpretive Statements SINUS RHYTHM WITH OCCASIONAL SUPRAVENTRICULAR PREMATURE COMPLEXES INTRAVENTRICULAR CONDUCTION DELAY [130+ ms QRS DURATION] LEFT AXIS DEVIATION ABNORMAL ECG COMPARED TO ECG 09/11/2019 16:29:43 INTRAVENTRICULAR CONDUCTION DELAY NOW PRESENT MYOCARDIAL INFARCT FINDING NOW PRESENT Electronically Signed On 08-20-2022 14:40:51 CDT by Christopher Smith M.D.
[2022-08-20 11:25] LABS: Hematocrit 39.5 % (42.0-52.0); Hemoglobin 13.5 g/dL (14.0-18.0); Mean Corpuscular HGB Conc 34.2 g/dl (32-36); Mean Corpuscular Hemoglobin 31.5 pg (26-34); Mean Corpuscular Volume 92.1 fl (80-100); Mean Platelet Volume 8.9 fl (7.4-10.4); Platelet Count Result 179 k/mm3 (150-375); Red Blood Count 4.29 M/mm3 (4.6-6.20); Red Cell Distribution Width 13.2 % (11.5-14.5); White Blood Count 5.8 K/mm3 (4.5-10.0)
[2022-08-20 11:38] LABS: Alanine Aminotransferase 27 U/L (6-50); Albumin Level 4.3 g/dL (3.5-5.1); Alkaline Phosphatase 50 U/L (38-126); Anion Gap 3 mmol/L (8-16); Aspartate Amino Transferase 36 U/L (17-59); Blood Urea Nitrogen 19 mg/dL (9-20); Calcium 9.3 mg/dL (8.4-10.2); Carbon Dioxide 34 mmol/L (22-30); Chloride 98 mmol/L (98-107); Estimated CRCL calculation 66 ml/min; Estimated Glomerular Filt Rate > 60; Glucose 83 mg/dL (65-110); Magnesium 2.1 mg/dL (1.6-2.3); Potassium 4.1 mmol/L (3.4-5.0); Sodium 135 mmol/L (137-145)
--- NOTE | 2022-08-20 11:52 | PM.IMHP ---
H&P: HPI History of Present Illness Date/Time: 08/20/22 11:52 Chief Complaint: Sotalol loading Narrative: 77 yr old man presents as a direct admit for Sotalol loading for frequent symptomatic atrial tachycardia. He has a history of PAT, PAF ablation, CAD, DENISE on nasal CPAP (followed by Dr. Gtz), COPD, dyslipidemia, Ascending aortic aneurysm. He had event monitor at [facility] EP a few months ago. He has fatigue and concerned about long acting Diltiazem causing it. He had ablation done at [facility] on 03/08/21 but he still had arrhythmia and had DC cardioversion on 03/20/21. He is on Amiodarone now and no further palpitations. He had right knee surgery on 12/04/20 and it went well. Reports he was diagnosed with pancreatic cyst that is being monitored and was found due to work up for diarrhea. He has chronic vague symptoms only which include low energy, depression, diffuse osteoarthritis.? He uses nasal CPAP and is sleeping well with it.? He can walk miles but limited by right knee pains and right hip pains then PLASENCIA. Denies palpitations, chest pain, sob, orthopnea, PND. CARDIOVASCULAR PROCEDURES ECHO/MUGA: 10/26/20 Echo: EF F60-65%, diastolic dysfunction (E/e' 13), mild AI/MR, Aortic root 4.6 cm. 03/20/20 Echo: EF 50-55%, mild LVH, diastolic dysfunction (E/e' 11), mod biatrial enlargement, mild-mod AI/MR, mild TR, trace PI, Aortic root 4.6 cm. Echo (EF 50-55%, mod LVH, diastolic dysfunction (E/E' 11), mild biatrial enlargement, mild-mod AI, mild MR, Ao root 4.8 cm.) - 09/15/2018 Echo (EF 60%, mild LVH, mild diastolic dysfunction (E/E' 10), mild LAE,mild MR/TR, mild-mod AI, trace PI.) - 11/24/2014 ELECTROPHYSIOLOGY: 03/10/22 13 days event monitor at [facility]: Sinus rhythm, 15% PAC's, .01% PVC's, 6,552 PAT, longest lasting 20 beats and fastest at 223 bpm, 1 pause at 2.6 seconds. 10/30/21 EKG:Sinus rhythm with PAC's, LBBB. 01/21/21 30 day event monitor: Sinus rhythm, HR range 41-178 bpm; average 71; 6% PAC's with intermittent atrial fibrillation with 21% burden, fastest at 178 bpm; episodes of PSVT with <1% burden and fastest at 157 bpm; 3% PVC's. 12/19/20 EKG: Sinus rhythm at 66 bpm, PAC, LBBB. Holter (Sinus rhythm, HR range 43-133 bpm; average 76 bpm; 15,668 PAC's, 1,409 couplets, 215 bigeminy, 849 trigeminy, 71 runs of atrial tachycardia, fastest at 156 bpm and longest 12 beats; 555 PVC's, 2 couplets, 11 trigeminy.) - 11/12/2018 Holter (Sinus rhythm, HR range 40-158 bpm; average HR 70; 19,113 PACs, 199 bigeminy, 1,523 trigeminy, 481 couplets; 37 atrial tachycardia fastest at 222 bpm and longest 149 beats; 393 PVC's, 12 couplets, 1 triple , 3 bigeminy and 3 trigeminy.) - 03/23/2017 EKG (Sinus rhythm at 63 bpm, supraventricular trigeminy, IVCD, delayed precordial r/s transition.) - 03/18/2017 Ablations (Had successful ablation for atrial flutter, atrial fibrillation and AVNRT at [facility].) - 10/19/2015 EVR (Event monitor from 03/07/15-03/28/15: Sinus rhythm HR 50-90 bpm; average 66 bpm; short run of atrial fib with occasional PVC's HR range 120-200 on 03/24/15 at 6:48 bpm while patient was exercising.) - 03/07/2015 EKG (Atrial flutter.) - 11/24/2014 STRESS TESTS: 10/05/20 Lexiscan myoview: Negative for ischemia. Large infarct of apex, inferior wall, mid-basilar inferoseptum. EF 47%. MPI (Lexiscan myoview: Negative for ischemia.) - 05/19/2016 VASCULAR: 03/31/22 CTA chest: Stable 4.3 cm ascending aortic aneurysm. 09/02/19 CTA chest: Stable Ascending aortic aneurysm at 4.5 cm. Thoracic Ao CTA (Ascending aorta 4.7 cm.) - 09/22/2018 Carotid Duplex (<50% stenosis Bilateral ICA.) - 09/06/2018 CT/MRI: Cardiac CTA (BJC: RCA with 30% prox stenosis, LAD with prox with 2 30% stenosis, 1st OM 30% stenosis; Calcium score 223. Ectasia of aortic root at 5.2 cm.) - 02/25/2018 OTHERS: 05/31/20 PFT: Mild COPD. 02/20/20 Sleep study: Mild central apnea. PFTs (Mild ventilatory defect primarily in the small airways.) - 11/09/2017 Sleep Study (Moderate sleep apnea.) - 04/12/2015 Review of Systems Review o
[2022-08-20] MEDS: SOTALOL HCL 80 MG TABLET PO ×2 (12:09→20:31)
[2022-08-20] MEDS: LIPASE/AMYLASE/PROTEASE 12,000 UNITS CAP 3 CAP PO ×3 (12:11→20:30)
[2022-08-20] MEDS: LATANOPROST 0.005% OP SOLN 2.5 ML BTL 1 DROP EACH EYE (20:29)
[2022-08-20] MEDS: PANTOPRAZOLE 40 MG TABLET PO (20:30)
[2022-08-20] MEDS: APIXABAN 5 MG TABLET PO (20:31)
[2022-08-20] MEDS: ACETAMINOPHEN 325 MG TABLET 650 MG PO (20:32)
[2022-08-20] MEDS: DOXAZOSIN MESYLATE 4 MG TABLET PO (20:33)
--- NOTE | 2022-08-20 21:25 | ECG_ITS ---
Measurements Intervals [place] Rate: 75 P: 45 [place]: 215 QRS: -60 QRSD: 146 T: 88 QT: 393 QTc: 441 Interpretive Statements SINUS RHYTHM WITH SINUS ARRHYTHMIA WITH FIRST DEGREE AV BLOCK INTRAVENTRICULAR CONDUCTION DELAY [130+ ms QRS DURATION] COMPARED TO ECG 08/20/2022 14:16:39 FIRST DEGREE AV BLOCK NOW PRESENT Electronically Signed On 08-21-2022 11:42:21 CDT by Sirisha Red M.D.
[2022-08-21] VITALS (13 sets, daily range): BP systolic 106–136; BP diastolic 67–89; PULSE 65–79; RESP 15–16; TEMP 35.9–36.2; O2SAT 97–100
[2022-08-21] MEDS: LIPASE/AMYLASE/PROTEASE 12,000 UNITS CAP 3 CAP PO ×4 (07:50→20:50)
[2022-08-21] MEDS: FAMOTIDINE 20 MG TABLET 40 MG PO (08:00)
[2022-08-21] MEDS: APIXABAN 5 MG TABLET PO ×2 (08:00→20:52)
[2022-08-21] MEDS: SOTALOL HCL 80 MG TABLET PO ×2 (08:00→20:50)
[2022-08-21] MEDS: metFORMIN HCL XR 500 MG TAB.SR.24H PO (08:00)
--- NOTE | 2022-08-21 08:54 | PM.PNCARD ---
Progress Note: A&P Assessment and Plan (1) PAT (paroxysmal atrial tachycardia): Code(s): I47.1 - Supraventricular tachycardia Status: Acute Assessment and Plan: 08/20/22 Started Sotalol loading 80 mg BID. Check EKG 1-2 hours post dose to check QT interval. Stopped Diltiazem. Anticipate 1 more night stay. (2) CAD (coronary artery disease): Qualifiers: Coronary Disease-Associated Artery/Lesion type: unspecified vessel or lesion type [place] vs. transplanted heart: unspecified whether [place] or transplanted heart Associated angina: angina presence unspecified Qualified Code(s): I25.10 - Atherosclerotic heart disease of [place] coronary artery without angina pectoris Code(s): I25.10 - Atherosclerotic heart disease of [place] coronary artery without angina pectoris Status: Acute Assessment and Plan: Stable. (3) Obstructive sleep apnea: Code(s): G47.33 - Obstructive sleep apnea (adult) (pediatric) Status: Acute Assessment and Plan: On CPAP. Followed by Dr. Gtz. (4) Ascending aortic aneurysm: Code(s): I71.21 - Aneurysm of the ascending aorta, without rupture Status: Acute Assessment and Plan: Stable. (5) PAF (paroxysmal atrial fibrillation): Code(s): I48.0 - Paroxysmal atrial fibrillation Status: Acute Assessment and Plan: S/P successful ablation. On Eliquis. Subjective Date/time seen: 08/21/22 08:55 Interval history: Denies chest pain or sob. Exam Const: General: cooperative, healthy appearing and comfortable Orientation/consciousness: oriented to person, oriented to place and oriented to time Resp: Auscultation: clear to auscultation bilaterally, no crackles, no rales, no rhonchi and no wheezes Cardio: Rate: regular rate Rhythm: regular rhythm Heart sounds: no murmurs Peripheral pulses: dorsalis pedis present Neuro: General: oriented to person, oriented to place and oriented to time Extrem: Right lower extremity: no edema Left lower extremity: no edema Objective Data Vital Signs Vital Signs: Vital Signs - 24 hr 08/20/22 10:00 08/20/22 12:09 08/20/22 12:00 Temperature 98 F 98.7 F Pulse Rate 84 82 82 Respiratory Rate 16 16 Blood Pressure 115/72 129/97 H Pulse Oximetry 99 98 Oxygen Delivery 08/20/22 12:00 08/20/22 10:00 08/20/22 12:00 Temperature Pulse Rate 82 78 Respiratory Rate Blood Pressure Pulse Oximetry Oxygen Delivery Room Air 08/20/22 14:00 08/20/22 16:00 08/20/22 16:00 Temperature Pulse Rate 80 90 Respiratory Rate Blood Pressure Pulse Oximetry Oxygen Delivery Room Air 08/20/22 16:00 08/20/22 18:00 08/20/22 19:43 Temperature 97.2 F L Pulse Rate 69 82 82 Respiratory Rate 18 18 Blood Pressure 139/80 Pulse Oximetry 100 100 Oxygen Delivery Room Air 08/20/22 20:00 08/20/22 20:31 08/20/22 20:00 Temperature 97.6 F Pulse Rate 79 82 75 Respiratory Rate 15 Blood Pressure 119/92 H Pulse Oximetry 98 Oxygen Delivery 08/20/22 22:00 08/21/22 00:00 08/21/22 00:00 Temperature 97.2 F L Pulse Rate 77 79 79 Respiratory Rate 16 16 Blood Pressure 129/67 Pulse Oximetry 97 97 Oxygen Delivery CPAP 08/21/22 00:00 08/21/22 02:00 08/21/22 04:00 Temperature Pulse Rate 71 70 70 Respiratory Rate 16 Blood Pressure Pulse Oximetry 97 Oxygen Delivery CPAP 08/21/22 04:00 08/21/22 04:00 08/21/22 06:00 Temperature 96.9 F L Pulse Rate 65 75 67 Respiratory Rate 16 Blood Pressure 121/78 Pulse Oximetry 100 Oxygen Delivery 08/21/22 08:00 08/21/22 08:00 Temperature 96.9 F L Pulse Rate 74 74 Respiratory Rate 16 Blood Pressure 106/72 Pulse Oximetry 99 Oxygen Delivery Intake/Output Intake/Output: Intake & Output 08/18/22 08/19/22 08/20/22 08/21/22 23:59 23:59 23:59 23:59 Intake Total 1302 500 Output Total 0458 9570 Balance -640 -6503 Meds/Result
--- NOTE | 2022-08-21 09:15 | ECG_ITS ---
Measurements Intervals [place] Rate: 73 P: 62 [place]: 218 QRS: -62 QRSD: 143 T: 89 QT: 411 QTc: 455 Interpretive Statements SINUS RHYTHM WITH FIRST DEGREE AV BLOCK WITH OCCASIONAL SUPRAVENTRICULAR PREMATURE COMPLEXES INTRAVENTRICULAR CONDUCTION DELAY [130+ ms QRS DURATION] COMPARED TO ECG 08/20/2022 21:39:32 NO SIGNIFICANT CHANGES Electronically Signed On 08-21-2022 11:49:17 CDT by Sirisha Red M.D.
[2022-08-21] MEDS: LATANOPROST 0.005% OP SOLN 2.5 ML BTL 1 DROP EACH EYE (20:49)
[2022-08-21] MEDS: PANTOPRAZOLE 40 MG TABLET PO (20:51)
[2022-08-21] MEDS: DOXAZOSIN MESYLATE 4 MG TABLET PO (20:52)
[2022-08-21] MEDS: ACETAMINOPHEN 325 MG TABLET 650 MG PO (20:52)
--- NOTE | 2022-08-21 21:49 | ECG_ITS ---
Measurements Intervals [place] Rate: 73 P: 53 [place]: 225 QRS: -60 QRSD: 144 T: 87 QT: 396 QTc: 437 Interpretive Statements SINUS RHYTHM WITH FIRST DEGREE AV BLOCK WITH OCCASIONAL SUPRAVENTRICULAR PREMATURE COMPLEXES INTRAVENTRICULAR CONDUCTION DELAY [130+ ms QRS DURATION] ABNORMAL ECG COMPARED TO ECG 08/21/2022 09:35:56 NO SIGNIFICANT CHANGES Electronically Signed On 08-22-2022 17:04:29 CDT by Sandeep Perez M.D.
[2022-08-22] VITALS: BP 129/76; PULSE 65; PULSE 67; PULSE 70; RESP 15; RESP 16; TEMP 36.3; O2SAT 98; O2SAT 99
[2022-08-22 02:00] VITALS: PULSE 75
[2022-08-22 04:00] VITALS: BP 142/78; PULSE 73; PULSE 77; RESP 16; TEMP 36.3; O2SAT 98; O2SAT 99
[2022-08-22 06:00] VITALS: PULSE 63
--- NOTE | 2022-08-22 07:49 | PM.DS ---
DS: Admitting Diagnosis Discharge Date 08/22/22 Admitting Diagnosis Sotalol loading for symptomatic paroxysmal atrial tachycardia DS: Discharge Diagnosis Discharge Diagnosis Plan Sotalol loading for symptomatic paroxysmal atrial tachycardia DS: Summary Hospital Course Reason for hospitalization: Sotalol loading Hospital Course: 77 yr old man with history of PAF s/p ablation has frequent bouts of PAT, history of CAD, hypertension, DM presents as a direct admit for sotalol loading for 2 nights. He tolerated Sotalol well with serial EKG performed showing normal QTc intervals. Denies chest pain, sob, orthopnea, PND, dizziness. Status at Discharge Functional status at discharge: independent ambulation Overall status at discharge: patient is back to baseline Time Spent with Patient Time attestation: Total time spent providing and/or coordinating discharge services: Time spent: Less than 30 minutes Exam Const: General: cooperative, healthy appearing and comfortable Orientation/consciousness: oriented to person, oriented to place and oriented to time Resp: Auscultation: clear to auscultation bilaterally, no crackles, no rales, no rhonchi and no wheezes Cardio: Rate: regular rate Rhythm: regular rhythm Heart sounds: no murmurs Peripheral pulses: dorsalis pedis present Neuro: General: oriented to person, oriented to place and oriented to time Extrem: Right lower extremity: no edema Left lower extremity: no edema Discharge Plan Discharge Attending physician on discharge: Pablo Noble Discharging Clinician: Pablo Noble Patient Disposition: Home, Self-Care Activity: as tolerated Diet: heart healthy Patient Instructions: Antibiotic Form Stand Alone Forms: General Discharge Information Follow-up/Referrals: Pablo Noble, [Physician] - (F/U with me in 1 week) Discharge Medications: New sotalol 80 mg tablet 80 mg PO BID Qty: 60 5RF Continued minoxidil [Rogaine] 5 % foam 1 ea topical DAILY acetaminophen 500 mg tablet 500 mg PO PRN PRN (Reason: Pain) Patient Comments: Patient takes Long acting 650mg Tylenol 6 times per day latanoprost 0.005 % drops 1 drp EACH EYE HS fluticasone propionate [Flonase Allergy Relief] 50 mcg/actuation spray,suspension 1 spray intranasal DAILY PRN (Reason: Allergic Symptoms) Rx Instructions: administer into each nostril loratadine [Claritin] 10 mg tablet 10 mg PO DAILY eszopiclone [Lunesta] 3 mg tablet 3 mg PO QHS PRN (Reason: insomnia) Qty: 15 1RF metformin 500 mg tablet extended release 24 hr 500 mg PO DAILY famotidine 40 mg tablet 40 mg PO DAILY Qty: 90 3RF Creon 36,000-114,000- 180,000 unit capsule,delayed release(DR/EC) 1 cap PO QID Rx Instructions: administer with meals and/or snacks loperamide [Imodium A-D] 2 mg capsule See Rx Instructions PO DAILY PRN (Reason: loose stool) Qty: 60 3RF Rx Instructions: orally daily PRN; Take 2 tabs at onset of diarrhea, then followed with 1 tab after f/u loose stool. Max 16 mg/day doxazosin 4 mg tablet 4 mg PO HS esomeprazole magnesium 20 mg capsule,delayed release(DR/EC) 20 mg PO QHS Eliquis 5 mg tablet 5 mg PO BID lisinopril-hydrochlorothiazide 20-12.5 mg tablet See Rx Instructions .ROUTE .COMPLEX Qty: 180 2RF Dose Instruction: TAKE 1 TABLET BY MOUTH TWICE A DAY Rx Instructions: TAKE 1 TABLET BY MOUTH ONCE A DAY No Action diltiazem HCl 30 mg tablet 30 mg PO TID Qty: 270 2RF Date of admission: 08/20/22 12:30 Primary Care Provider: Milan Black Admitting Provider: Pablo Noble Attending physician on admission: Pablo Noble Condition: Stable [facility] Discharge Hospital Discharge: 74238 Hosp D/C 30 Min
[2022-08-22 08:00] VITALS: BP 144/79; PULSE 66; PULSE 67; RESP 18; TEMP 36; O2SAT 100
[2022-08-22 08:07] VITALS: PULSE 69
[2022-08-22] MEDS: APIXABAN 5 MG TABLET PO (08:07)
[2022-08-22] MEDS: FAMOTIDINE 20 MG TABLET 40 MG PO (08:07)
[2022-08-22] MEDS: SOTALOL HCL 80 MG TABLET PO (08:07)
[2022-08-22] MEDS: LIPASE/AMYLASE/PROTEASE 12,000 UNITS CAP 3 CAP PO (08:07)
[2022-08-22] MEDS: metFORMIN HCL XR 500 MG TAB.SR.24H PO (08:08)
== END 2022-08-22 09:10 | disposition home or self-care (01) | DRG 310 ==
PROVIDERS: Admitting Provider Internal Medicine Cardiovascular Disease; PCP Internal Medicine; Visit Provider Internal Medicine Cardiovascular Disease
DX: I47.1 Supraventricular tachycardia (principal); I25.10 Atherosclerotic heart disease of native coronary artery without angina pectoris; I10 Essential (primary) hypertension; E11.9 Type 2 diabetes mellitus without complications; I48.0 Paroxysmal atrial fibrillation; G47.33 Obstructive sleep apnea (adult) (pediatric); I71.40 Abdominal aortic aneurysm, without rupture, unspecified; E78.5 Hyperlipidemia, unspecified; M19.90 Unspecified osteoarthritis, unspecified site; K58.0 Irritable bowel syndrome with diarrhea; Z98.1 Arthrodesis status
CPT/HCPCS: 36415; 80053; 83735; 85027; 93005; A9270

== ENCOUNTER → 2022-10-07 12:21 | Outpatient (CLI) | payer MEDICARE, SELFPAY ==
--- NOTE | ~2022-10-07 | DEXA_ITS ---
Bone Density Report Name: MARY RAMOS Age: 77 Sex: Male Ethnicity: White Date of : 1945 Indication: screening for osteoporosis; height loss; Referring Provider: Vernon, Merline Vazquez Study: Bone densitometry was performed. Exam Date: October 07, 2022 Accession number: [id number] Bone Density: Region BMD T-score Z-score Classification AP Spine (L1, L2, L3) 1.611 4.9 5.9 Normal Femoral Neck (Left) 0.799 -1.0 0.4 Normal Total Hip (Left) 1.056 0.2 1.0 Normal Femoral Neck (Right) 0.843 -0.6 0.7 Normal Total Hip (Right) 1.082 0.3 1.2 Normal Total Hip Mean 1.069 0.3 1.1 Normal World Health Organization criteria for BMD impression classify patients as: Normal (T-score at or above -1.0), Osteopenia (T-score between -1.0 and -2.5), or Osteoporosis (T-score at or below -2.5). 10-year Fracture Risk: FRAX not reported because: All T-scores for Spine Total, Hip Total, Femoral Neck at or above -1.0 Clinical Information Provided by Patient: Patient maximum height was 73.5 Drinks caffeinated beverages Impression: The patient has normal bone mass. Discussion: BONE DENSITY IS ABOVE THE MINIMUM DESIRABLE LEVEL AT ALL SKELETAL SITES TESTED. This patient?s bone mineral density is above the minimum desirable level (T-score -1.0 or better) at all sites measured. The patient should follow a healthful lifestyle (good nutrition with adequate calcium and vitamin D, and appropriate weight-bearing exercise). Follow-Up: Consider repeating this study in 5 years or sooner if there is some new clinical indication. Reported by: NOY on 10/07/2022 12:57:00 PM. Reviewed, dictated and finalized at location [facility]
== END ==
PROVIDERS: PCP Internal Medicine; Visit Provider Internal Medicine Endocrinology, Diabetes & Metabolism
DX: M81.0 Age-related osteoporosis without current pathological fracture (principal)
CPT/HCPCS: 77080

== ENCOUNTER 2023-04-02 14:53 | Outpatient (CLI) | payer MEDICARE, SELFPAY ==
--- NOTE | ~2023-04-02 | CT_ITS ---
EXAMINATION: CT abdomen w con DATE: 04/02/2023 16:33 INDICATION: Neoplasm of unspecified behavior of digestive system. TECHNIQUE: Computed tomography (CT) of the abdomen was performed with 100 mL Omnipaque 350 intravenou s contrast. Automated exposure control and iterative reconstruction technique were employed. The dose -length product was 1421.68 mGy-cm. COMPARISON: CT abdomen and pelvis 03/31/2022, 08/03/20, chest CT 09/22/18 FINDINGS: The visualized portions of the lung bases demonstrate mild atelectasis. No pleural effusion . The heart size is normal. There are coronary artery calcifications. No pericardial effusion. There is a 1.8 cm hyperenhancing mass in right hepatic lobe, stable from 08/03/20, likely a benign mass such as a hemangioma. The spleen, gallbladder, and adrenal glands are normal. There is a 3.5 cm cystic ma ss in the uncinate process of the pancreas with peripheral calcifications that communicates with the main pancreatic duct. The pancreatic duct is dilated to 8 mm. There is atrophy of the pancreas. There are cysts in the kidneys measuring up to 2.8 cm on the right. There is a 3 mm stone in left kidney. Aortic atherosclerosis is noted. There are no dilated loops of bowel. There are bilateral hernias of the posterior rectus sheath containing nonobstructed small bowel. There is an umbilical hernia contai robel fat. There are no pathologically enlarged lymph nodes. There is no free intraperitoneal fluid. T here is lumbar dextroscoliosis and severe spondylosis. IMPRESSION: 1. 3.5 cm cystic mass in the uncinate process of the pancreas with peripheral calcifications and comm unication with the main pancreatic duct, which is dilated. Findings stable from 09/22/18. This finding is most likely an intraductal papillary mucinous neoplasm (IPMN). Reviewed, dictated and finalized at location E. AND HAT PRODUCTION SUPERVISOR IMPRESSION: 1. 3.5 cm cystic mass in the uncinate process of the pancreas with peripheral c alcifications and communication with the main pancreatic duct, which is dilated . Findings stable from 09/22/18. This finding is most likely an intraductal daniel llary mucinous neoplasm (IPMN).
[2023-04-02 16:17] LABS: Estimated Glomerular Filt Rate > 60
== END 2023-04-02 14:54 | disposition home or self-care (01) ==
PROVIDERS: PCP Internal Medicine; Visit Provider Nurse Practitioner
DX: D49.0 Neoplasm of unspecified behavior of digestive system (principal)
CPT/HCPCS: 74160; Q9967

== ENCOUNTER 2023-06-04 09:00 | Outpatient (CLI) | payer MEDICARE, SELFPAY ==
--- NOTE | ~2023-06-04 | XR_ITS ---
EXAMINATION: XR abdomen/kub 1V DATE: 06/04/2023 09:44 INDICATION: Calcium kidney stone. Right back pain. TECHNIQUE: A supine view of the abdomen on 2 radiographs was obtained. COMPARISON: CT abdomen and pelvis 04/02/23, pelvis radiograph 01/08/2022 FINDINGS: There are no dilated loops of bowel. There are phleboliths in the pelvis. Surgical clips ov erlie the pelvis. IMPRESSION: 1. No visible urolithiasis. Reviewed, dictated and finalized at location A. IMPRESSION: 1. No visible urolithiasis.
== END 2023-06-04 09:01 | disposition home or self-care (01) ==
LOC: ANHIMG 09:03
PROVIDERS: PCP Internal Medicine; Visit Provider Urology
DX: N20.0 Calculus of kidney (principal)
CPT/HCPCS: 74018

== ENCOUNTER 2023-07-30 09:04 | Outpatient (CLI) | payer MEDICARE, SELFPAY ==
--- NOTE | ~2023-07-30 | US_ITS ---
EXAMINATION: US_VDOPREFBI_US DATE: 07/30/2023 09:58 INDICATION: Encounter for preprocedural cardiovascular exam. TECHNIQUE: Grayscale ultrasound images without and with compression and Doppler ultrasound images of the bilateral lower extremity veins were obtained. COMPARISON: None. FINDINGS: The visualized portions of right common femoral vein, profunda (deep) femoral vein, femoral vein, pop liteal vein, peroneal veins, and posterior tibial veins are patent. Right greater saphenous vein jasmin ures 6 mm in the upper thigh, 4 mm in the lower thigh, and 4 mm in the calf without reflux. Right sma ll saphenous vein measures 2 mm in the upper calf and 2 mm in the lower calf without reflux. The visualized portions of left common femoral vein, profunda femoral vein, femoral vein, popliteal v ein, peroneal veins, and posterior tibial veins are patent. Left greater saphenous vein measures 4 mm in the upper thigh, 4 mm in the lower thigh, and 2 mm in the calf without reflux. Left small sapheno us vein measures 2 mm in the upper calf and 2 mm in the lower calf without reflux. IMPRESSION: 1. No reflux. Reviewed, dictated and finalized at location A. IMPRESSION: 1. No reflux.
== END 2023-07-30 09:05 | disposition home or self-care (01) ==
PROVIDERS: PCP Internal Medicine; Visit Provider Clinical Nurse Specialist
DX: Z01.810 Encounter for preprocedural cardiovascular examination (principal); R60.0 Localized edema
CPT/HCPCS: 93970

== ENCOUNTER 2023-11-23 10:38 | Outpatient (CLI) | payer MEDICARE, SELFPAY ==
--- NOTE | ~2023-11-23 | MR_ITS ---
EXAMINATION: MR brain/brain stem wo/w con DATE: 11/23/2023 12:01 INDICATION: Other amnesia. TECHNIQUE: Magnetic resonance imaging (MRI) of the brain and brainstem was performed without and with 20 mL MultiHance intravenous contrast. COMPARISON: None. FINDINGS: There are scattered areas of nonspecific increased T2-weighted signal intensity in the cere bral white matter. There is no intracranial hemorrhage, acute infarction, or abnormal intracranial ma ss lesion. The ventricles are normal in size. There are likely changes of ocular lens replacement ambrocio geries. The paranasal sinuses are clear. There is a trace left mastoid effusion. IMPRESSION: 1. Moderate nonspecific cerebral white matter disease, which likely represents chronic small vessel i schemic disease. Reviewed, dictated and finalized at location A. IMPRESSION: 1. Moderate nonspecific cerebral white matter disease, which likely represents chronic small vessel ischemic disease.
== END 2023-11-23 10:39 | disposition home or self-care (01) ==
LOC: ANHIMG 10:42
PROVIDERS: PCP Internal Medicine; Visit Provider Clinical Nurse Specialist
DX: R41.3 Other amnesia (principal); R90.82 White matter disease, unspecified
CPT/HCPCS: 70553; A9577

== ENCOUNTER 2024-04-11 12:03 | Outpatient (CLI) | payer MEDICARE, SELFPAY ==
--- NOTE | ~2024-04-11 | MR_ITS ---
EXAMINATION: MR pituitary wo/w con DATE: 04/11/2024 13:03 INDICATION: Disorder of pituitary. TECHNIQUE: Magnetic resonance imaging (MRI) of the brain and brainstem was performed without and with 18 mL MultiHance intravenous contrast. COMPARISON: Brain MRI 11/23/2023 FINDINGS: The pituitary is normal in size with height of 5 mm. The infundibulum is at the midline. Th ere are scattered areas of nonspecific increased T2-weighted signal intensity in the cerebral white m atter. There is no intracranial hemorrhage, acute infarction, or abnormal intracranial mass lesion. T he ventricles are normal in size. There is mild mucosal thickening in the ethmoid sinuses. There are likely changes of ocular lens replacement surgeries. There is a trace left mastoid effusion. IMPRESSION: 1. Normal pituitary. 2. Stable moderate nonspecific cerebral white matter disease, which likely represents chronic small v essel ischemic disease. Reviewed, dictated and finalized at location A. T OR NUT FARMWORKER IMPRESSION: 1. Normal pituitary. 2. Stable moderate nonspecific cerebral white matter disease, which likely repr esents chronic small vessel ischemic disease.
== END 2024-04-11 12:04 | disposition home or self-care (01) ==
PROVIDERS: PCP Internal Medicine; Visit Provider Internal Medicine Endocrinology, Diabetes & Metabolism
DX: E23.7 Disorder of pituitary gland, unspecified (principal); R90.82 White matter disease, unspecified
CPT/HCPCS: 70553; A9577

== ENCOUNTER 2024-04-19 07:45 | Outpatient (CLI) | payer MEDICARE, SELFPAY ==
--- NOTE | ~2024-04-19 | MR_ITS ---
EXAMINATION: MR MRCP wo/w con/w 3D wo ind DATE: 04/19/2024 08:47 INDICATION: Pancreatic intraductal papillary mucinous neoplasm (IPMN). TECHNIQUE: Magnetic resonance imaging (MRI) of the abdomen was performed without and with 15 mL Multi neto intravenous contrast. Sequences included coronal T2-weighted SS-FSE, coronal T2-weighted FS SS- FSE, coronal T2-weighted FS FIESTA, axial T2-weighted FS FIESTA, axial T2-weighted FIESTA, sagittal T 2-weighted SS-FSE, axial T1-weighted dual-echo FSPGR, axial T2-weighted SS-FSE, axial T1-weighted LAV A, axial T2-weighted STIR FSE. Thick-slab T2-weighted FRFSE-XL images were obtained for magnetic reso nance cholangiopancreatography (MRCP). Rotating maximum intensity projection 3-D reconstructions of t he volumetric data were created by the technologist. Postcontrast sequences included a time course of axial T1-weighted LAVA. COMPARISON: CT dated 04/02/2023 and 03/31/2022 and MRI/MRCP dated 01/09/2020 FINDINGS: ABDOMEN MRI: Heart size is normal. No pericardial effusion. Tiny right pleural effusion. 0.9 x 1.6 cm T2 hyperintense lesion in segment 7 of the liver with discontiguous peripheral puddling of contrast which fills in on delayed imaging consistent with a hemangioma. Spleen and bilateral adrenal glands a re normal. The gallbladder is dilated to 5.2 cm diameter but appears otherwise normal with no wall th ickening or cholelithiasis. There are bilateral T2 hyperintense nonenhancing renal cysts the largest on the right measuring 3.3 cm. There is a prominent dilation of the main pancreatic duct which measur es up to 11 mm in maximal diameter with numerous small dilated sidebranches along the duct in the bod y and tail the pancreas likely sequela of chronic pancreatitis. Since the prior MRI there has been in terval coalescence of the previously more serpiginous tubular structure at the uncinate process of th e pancreas which is coalesced into a 2.8 x 2.1 x 2.4 cm cystlike structure with irregular side branch es which also appears contiguous with the main pancreatic duct. There are low signal intensity curvil inear coarse calcifications at the periphery of the cystic lesion which can be better appreciated on the prior CT. No discrete enhancing nodular components to the cystic structure. ABDOMEN MRCP: No intrahepatic biliary ductal dilation. The common bile duct is dilated to 8 mm and the common hepat ic duct up to 9 mm. No intraductal filling defects to suggest choledocholithiasis. There is an approx imately 6 mm long stricture at the distal common bile duct relatively abrupt transition to a luminal diameter of approximately 1 mm before dilating to 6 mm immediately proximal to the ampulla. There is no evident mass surrounding the stricture to elevate suspicion for malignancy. IMPRESSION: 1. Since prior MRI on 01/09/2020 there are has been some interval increase in size and interval coale scence of the previously more serpiginous tubular appearing lesion at the uncinate process of the bosch creas, now appearing more cystlike with irregular peripheral margins suggesting small bilateral side branches which now measures approximately 2.8 x 2.1 x 2.4 cm. This could represent an intraductal pap illary mucinous neoplasm (IPMN) however the additional extensive dilation of the main pancreatic duct throughout the remainder the pancreas with numerous pancreatic ductal side branches throughout its c ourse would favor that this represents evolving sequela of chronic recurrent pancreatitis. 2. Mild dilation of the gallbladder and common hepatic and bile ducts without evident cholelithiasis/ choledocholithiasis but which is likely related to a short stricture in the distal common bile duct. No evident surrounding enhancing mass and would favor scarring related to prior choledocholithiasis a nd pancreatitis as opposed to malignancy. Reviewed, dictated and finalized at location B. KLINE OPERATOR IMPRESSION: 1. Since prior MRI on 01/09/2020 there are has been some interval increase in s ize and interval coalescence of the previously more serpiginous tubular appeari ng lesion at the uncinate process of the pancreas, now appearing more cystlike with irregular peripheral margins suggesting small bilateral side branches whic h now measures approximately 2.8 x 2.1 x 2.4 cm. This could represent an intrad uctal papillary mucinous neoplasm (IPMN) however the additional extensive dilat ion of the main pancreatic duct throughout the remainder the pancreas with nume eugenio pancreatic ductal side branches throughout its course would favor that thi s represents evolving sequela of chronic recurrent pancreatitis. 2. Mild dilation of the gallbladder and common hepatic and bile ducts without e vident cholelithiasis/choledocholithiasis but which is likely related to a shor t stricture in the distal common bile duct. No evident surrounding enhancing ma ss and would favor scarring related to prior choledocholithiasis and pancreatit is as opposed to malignancy.
== END 2024-04-19 07:46 | disposition home or self-care (01) ==
LOC: MICIMG 07:46
PROVIDERS: PCP Internal Medicine; Visit Provider Nurse Practitioner
DX: K86.2 Cyst of pancreas (principal)
CPT/HCPCS: 74183; 76376; A9577

== ENCOUNTER 2024-08-29 15:29 | Emergency (ER) | payer MEDICARE, SELFPAY ==
[2024-08-29 15:32] VITALS: BP 135/65; PULSE 54; RESP 20; TEMP 36.5; O2SAT 97
--- NOTE | 2024-08-29 16:06 | ED_ITS ---
HPI - URI/Sore Throat General Chief Complaint: Upper Respiratory Infection Stated Complaint: Cough/Headache Time Seen by Provider: 08/29/24 15:52 Source: patient and RN notes reviewed Mode of arrival: ambulatory Limitations: no limitations History of Present Illness HPI Narrative: Patient with history of diabetes AFib, presents today with an 8 day history of productive cough, body aches cough, nasal congestion and sinus pressure. Denies fever, chest pain, shortness of breath. He has tried Mucinex, Tylenol, Claritin with some improvement. States his symptoms have improved since onset and he presents today wanting to make sure he does not need an antibiotic. Related Data Home Medications ?Medication ?Instructions ?Recorded ?Confirmed ?Last Taken ?Type latanoprost 0.005 % eye drops 1 drp EACH EYE HS 05/14/22 07/25/24 08/20/22 09:00 History 500 metformin 500 mg tablet 500 mg PO DAILY 12/16/23 07/25/24 Unknown History acetaminophen 500 mg tablet 500 mg PO Q6H PRN 06/01/24 07/25/24 Unknown History (Tylenol Extra Strength) tirzepatide 2.5 mg/0.5 mL 5 mg subcut WEEKLY 06/01/24 07/25/24 Unknown History subcutaneous pen injector (Mounjaro) omeprazole 20 mg capsule,delayed 20 mg PO DAILY 06/23/24 07/25/24 Unknown History release atorvastatin 10 mg tablet mg 08/29/24 Unknown History famotidine 40 mg tablet mg 08/29/24 Unknown History metformin 500 mg tablet,extended mg PO 08/29/24 Unknown History release 24 hr tirzepatide 5 mg/0.5 mL mg subcut 08/29/24 Unknown History subcutaneous pen injector (Mounjaro) Allergies Allergy/AdvReac Type Severity Reaction Status Date / Time levofloxacin (From Levaquin) Allergy Mild ''not feel Verified 08/29/24 15:53 right'' [facility] Past Medical History Medical History Urinary tract infection in male BMI 29.0-29.9,adult Diabetes mellitus without complication Milk intolerance Irritable bowel syndrome with diarrhea Pancreatic cyst Arthritis IBS (irritable bowel syndrome) Fatigue Fecal occult blood test positive Pancreatic insufficiency Dysuria Prediabetes H/O Mohs micrographic surgery for skin cancer Positive colorectal cancer screening using Cologuard test IPMN (intraductal papillary mucinous neoplasm) Depression Central sleep apnea Chronic pain IBS (irritable bowel syndrome) Seasonal allergies Obstructive sleep apnea Dyslipidemia CAD (coronary artery disease) PAT (paroxysmal atrial tachycardia) Anxiety Essential hypertension Seasonal allergic rhinitis due to pollen Surgical History Surgical History H/O cataract extraction History of shoulder surgery S/P ablation operation for arrhythmia 2015 [facility] for a fib; Mar 08, 2021 ablation via pulmonary vein isolation; additional linear ablation for a fib, cardioversion Mar 20 S/P right knee surgery 12/05/2020 Hx of spinal surgery 2009, C3-4, C4-5, C6-7 ant cervical decomp/fusion; 2012 C7-T1 posterior cervical decompression/fusion. H/O right knee surgery Family History Family History Mother Cerebrovascular accident Hypertension Father Malignant neoplasm of prostate Depression Patient's father is , Onset Age: 50 Family history of heart disease in male family member before age 55 Sibling Depression Family history of lymphoma Cancer Other Family history of malignant neoplasm of male breast Family history of sudden Social History Social History Smoking status: Never smoker Second hand tobacco smoke exposure: Yes Alcohol intake: current Drinks per week: 2 Substance use: never Substance use type: does not use Do You Feel Safe in your Home?: Yes Lack of Transportation: No Lack of Food: Never True Current Housing: I Have Housing Concerned About Future Housing: No Difficulty Paying Gas/Electric Bills: No Difficulty Paying for Meds: No Currently Unemployed: No Education: Master's Degree or Higher Difficulty w/ Childcare or Family Care: No Living arrangements: alone Occupation/Education: retired Additional occupation/education comments: [employer] Gender identity (if verbalized by the patient): Male Sexual Orientation (if Verbalized by the Patient): Straight or Heterosexual Spiritual care concerns: No Agree to blood products: Yes Comments At time of signature, I have reviewed and agree with nursing past medical, surgical, social and family history unless otherwise noted. Please see nursing chart for further information. There is no relevant family history pertinent to the presenting complaint Exam Narrative: GENERAL: Well-appearing, well-nourished, and in no acute distress. HEAD: Normocephalic, atraumatic. EYES: EOMI. No redness or drainage. Conjunctivae normal. ENT: Mucous membranes pink and moist. Nares mildly congested. No rhinorrhea. TMs normal bilaterally. Throat normal. Uvula midline. Bilateral frontal and maxillary sinus tenderness. NECK: Normal AROM. Supple. No lymphadenopathy. CHEST: No respiratory distress. Clear to auscultation. HEART: Regular rate and rhythm. No murmur appreciated. EXTREMITIES: Normal range of motion. No edema. SKIN: Warm, dry, no rash. Capillary refill normal. Normal skin turgor. NEURO: No focal deficits. Alert and oriented x3. Gait steady. PSYCH: Normal affect. No signs of depression or anxiety. Course Course Level of Care: Express Care Visit Vital Signs Vital signs: Vital Signs Temperature 97.7 F 08/29/24 15:32 Pulse Rate 54 L 08/29/24 15:32 Respiratory Rate 20 08/29/24 15:32 Blood Pressure 135/65 08/29/24 15:32 Pulse Oximetry 97 08/29/24 15:32 Oxygen Delivery Room Air 08/29/24 15:32 Temperature 97.7 F 08/29/24 15:32 Pulse Rate 54 L 08/29/24 15:32 Respiratory Rate 20 08/29/24 15:32 Blood Pressure 135/65 08/29/24 15:32 Pulse Oximetry 97 08/29/24 15:32 Oxygen Delivery Room Air 08/29/24 15:34 Reviewed MDM - URI/Sore Throat MDM Narrative Medical decision making narrative: 79-year-old male patient complaining of cough, nasal congestion, sinus pressure for 8 days. Symptoms likely viral in etiology as they are improving since onset, but will send prescription for amoxicillin that patient can start in 2 days if symptoms do not continue to improve. Patient agrees with plan. Vital signs stable. Heart rate 54. Patient has AFib and is taking flecainide, diltiazem. Anticipatory guidance given. Differential Diagnosis Differential diagnosis: Likely upper respiratory infection, sinusitis, viral infection, bronchitis and other (Pneumonia) Critical Care Time Critical Care Time Critical Care Time: No Discharge Plan Discharge Clinical Impression: Sinus congestion Cough Qualifiers: Cough type: acute Qualified Code(s): R05.1 - Acute cough Patient Disposition: Home Condition: Stable Instructions: Antibiotic Form, Sinusitis (ED) Additional Instructions: Please start the amoxicillin in 2 days if your symptoms do not seem to continue improving. Do continue taking [id number] medication for your symptoms such as Mucinex, Tylenol, and Claritin. Follow-up with your PCP as needed. Go to the ER if you develop chest pain, shortness of breath, fever greater than 100.3, or difficulty swallowing. Your blood pressure was elevated above 120/80 today at Urgent Care. This puts you above the threshold for follow up. Please schedule a followup visit with your personal physician as soon as possible, for further evaluation and t reatment. Even blood pressure exceeding 120/80 may indicate pre-hypertension. Patient Language: Greenlandic Prescriptions: New amoxicillin 875 mg tablet 875 mg PO Q12H 7 Days Qty: 14 0RF No Action atorvastatin 10 mg tablet famotidine 40 mg tablet metformin 500 mg tablet extended release 24 hr PO Mounjaro 5 mg/0.5 mL pen injector SUBCUT latanoprost 0.005 % drops 1 drp EACH EYE HS metformin 500 mg tablet 500 mg PO DAILY acetaminophen [Tylenol Extra Strength] 500 mg tablet 500 mg PO Q6H PRN Mounjaro 2.5 mg/0.5 mL pen injector 5 mg subcut WEEKLY Rx Instructions: for 4 weeks omeprazole 20 mg capsule,delayed release(DR/EC) 20 mg PO DAILY fluticasone propionate [Flonase Allergy Relief] 50 mcg/actuation spray,suspension 1 spray intranasal DAILY PRN (Reason: Allergic Symptoms) Qty: 16 5RF Rx Instructions: administer into each nostril lisinopril-hydrochlorothiazide 20-12.5 mg tablet See Rx Instructions .ROUTE .COMPLEX Qty: 90 2RF Dose Instruction: TAKE 1 TABLET BY MOUTH TWICE A DAY Rx Instructions: TAKE 1 TABLET BY MOUTH ONCE A DAY Eliquis 5 mg tablet See Rx Instructions .ROUTE .COMPLEX Qty: 180 2RF Dose Instruction: TAKE 1 TABLET BY MOUTH TWICE A DAY Rx Instructions: TAKE 1 TABLET BY MOUTH TWICE A DAY doxazosin 4 mg tablet See Rx Instructions .ROUTE .COMPLEX Qty: 90 1RF Dose Instruction: TAKE 1 TABLET BY MOUTH EVERYDAY AT BEDTIME Rx Instructions: TAKE 1 TABLET BY MOUTH EVERYDAY AT BEDTIME esomeprazole magnesium [Nexium] 20 mg capsule,delayed release(DR/EC) 20 mg PO BID Qty: 60 12RF flecainide 100 mg tablet See Rx Instructions .ROUTE .COMPLEX Qty: 180 2RF Dose Instruction: TAKE 1 TABLET BY MOUTH EVERY 12 HOURS Rx Instructions: TAKE 1 TABLET BY MOUTH EVERY 12 HOURS Creon 36,000-114,000- 180,000 unit capsule,delayed release(DR/EC) See Rx Instructions .ROUTE .COMPLEX Qty: 800 3RF Dose Instruction: TAKE 2 CAPSULES BY MOUTH FOUR TIMES DAILY. ADMINISTER 2 CAPS WITH MEALS AND ONE CAPSULE WITH SNACKS Rx Instructions: TAKE 2 CAPSULES BY MOUTH FOUR TIMES DAILY. ADMINISTER 2 CAPS WITH MEALS AND ONE CAPSULE WITH SNACKS diltiazem HCl [Tiadylt ER] 180 mg capsule,extended release 24hr See Rx Instructions .ROUTE .COMPLEX Qty: 90 2RF Dose Instruction: TAKE 1 CAPSULE BY MOUTH EVERY DAY Rx Instructions: TAKE 1 CAPSULE BY MOUTH EVERY DAY furosemide 20 mg tablet 20 mg PO QAM Qty: 30 5RF Follow-up/Referrals: Milan Black DO [Primary Care Provider] - Time of Disposition: 16:16
== END 2024-08-29 16:26 | disposition home or self-care (01) ==
PROVIDERS: Emergency Provider Nurse Practitioner; PCP Internal Medicine
DX: J34.9 Unspecified disorder of nose and nasal sinuses (principal); R05.1 Acute cough; E11.9 Type 2 diabetes mellitus without complications; Z79.84 Long term (current) use of oral hypoglycemic drugs; I25.10 Atherosclerotic heart disease of native coronary artery without angina pectoris; I10 Essential (primary) hypertension; E78.5 Hyperlipidemia, unspecified; Z85.828 Personal history of other malignant neoplasm of skin
CPT/HCPCS: 99213; G0463

== ENCOUNTER 2024-12-20 13:49 | Emergency (ER) | payer MEDICARE, SELFPAY ==
--- NOTE | 2024-12-20 13:52 | ED.URI ---
HPI - URI/Sore Throat General Chief Complaint: Upper Respiratory Infection Stated Complaint: BODY ACHES Source: patient and RN notes reviewed Mode of arrival: ambulatory Limitations: no limitations History of Present Illness HPI Narrative: Patient is a 79-year-old male who presents to the [facility] with complaints of body aches that have been present for approximately 2 weeks. Patient states that he began having body aches prior to getting a flu shot. He states that the body aches worsened after the flu shot but then started to improve. Patient states that he then got the COVID shot 2 days ago. He states that since he got the COVID shot, the body aches worsen. He also started having fevers, sweats, chills. He states that his symptoms worsened last night. He denies cough, chest pain, shortness of breath. Patient does have history of AFib and is on anticoagulation and rate control. 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 Related Data Home Medications ?Medication ?Instructions ?Recorded ?Confirmed ?Last Taken ?Type latanoprost 0.005 % eye drops 1 drp EACH EYE HS 05/14/22 12/07/24 08/20/22 09:00 History 500 metformin 500 mg tablet 500 mg PO DAILY 12/16/23 12/07/24 Unknown History acetaminophen 650 mg 650 mg PO Q8H 09/22/24 12/07/24 Unknown History tablet,extended release (Tylenol 8 Hour) tirzepatide 7.5 mg/0.5 mL 7.5 mg subcut 09/22/24 12/07/24 Unknown History subcutaneous pen injector (Mounjaro) lisinopril 20 tablet 12/20/24 Unknown History mg-hydrochlorothiazide 12.5 mg tablet Allergies Allergy/AdvReac Type Severity Reaction Status Date / Time levofloxacin (From Levaquin) Allergy Mild ''not feel Verified 12/20/24 13:53 right'' Review of Systems Review of Systems: CONSTITUTIONAL: Reports fever, chills, and sweats. EYES: Denies visual changes, redness, or discharge. ENT: Denies otalgia and sore throat CARDIOVASCULAR: Denies chest pain, palpitations, or edema. RESPIRATORY: Denies cough or dyspnea. GASTROINTESTINAL: Denies abdominal pain, nausea, vomiting, or diarrhea. GENITOURINARY: Denies dysuria or hematuria. SKIN: Denies rash or itching. MUSCULOSKELETAL: Reports generalized body aches. NEUROLOGIC: Denies headache, numbness, or weakness. Pertinent positives per HPI. [facility] Past Medical History Medical History Urinary tract infection in male BMI 29.0-29.9,adult Diabetes mellitus without complication Milk intolerance Irritable bowel syndrome with diarrhea Pancreatic cyst Arthritis IBS (irritable bowel syndrome) Fatigue Fecal occult blood test positive Pancreatic insufficiency Dysuria Prediabetes H/O Mohs micrographic surgery for skin cancer Positive colorectal cancer screening using Cologuard test IPMN (intraductal papillary mucinous neoplasm) Depression Central sleep apnea Chronic pain IBS (irritable bowel syndrome) Seasonal allergies Obstructive sleep apnea Dyslipidemia CAD (coronary artery disease) PAT (paroxysmal atrial tachycardia) Anxiety Essential hypertension Seasonal allergic rhinitis due to pollen Surgical History Surgical History H/O cataract extraction History of shoulder surgery S/P ablation operation for arrhythmia 2015 [facility] for a fib; Mar 08, 2021 ablation via pulmonary vein isolation; additional linear ablation for a fib, cardioversion Mar 20 S/P right knee surgery 12/05/2020 Hx of spinal surgery 2009, C3-4, C4-5, C6-7 ant cervical decomp/fusion; 2012 C7-T1 posterior cervical decompression/fusion. H/O right knee surgery Family History Family History Mother Cerebrovascular accident Hypertension Father Malignant neoplasm of prostate Depression Patient's father is , Onset Age: 50 Family history of heart disease in male family member before age 55 Sibling Depression Family history of lymphoma Cancer Other Family history of malignant neoplasm of male breast Family history of sudden Social History Social History Smoking status: Never smoker Second hand tobacco smoke exposure: Yes Alcohol intake: current Drinks per week: 2 Substance use: never Substance use type: does not use Do You Feel Safe in your Home?: Yes Lack of Transportation: No Lack of Food: Never True Current Housing: I Have Housing Concerned About Future Housing: No Difficulty Paying Gas/Electric Bills: No Difficulty Paying for Meds: No Currently Unemployed: No Education: Master's Degree or Higher Difficulty w/ Childcare or Family Care: No Living arrangements: alone Occupation/Education: retired Additional occupation/education comments: [employer] Gender identity (if verbalized by the patient): Male Sexual Orientation (if Verbalized by the Patient): Straight or Heterosexual Spiritual care concerns: No Agree to blood products: Yes Comments At the time of my signature, I reviewed and agree with the nursing past medical, surgical, social, and family history. There is no relevant family history pertinent to the patient complaint. Exam Narrative: GENERAL: This is a well-nourished, well-developed patient, in no apparent distress. HEAD: normocephalic, atraumatic. EYES: Sclera clear/white. Vision is grossly intact. EARS: External ears normal. Hearing grossly intact. NOSE: External nose normal with no obvious nasal discharge, nares without redness, no rhinorrhea. THROAT: Mucous membranes moist, posterior pharynx clear. NECK: Neck supple, non-tender without lymphadenopathy, masses or thyromegaly. CARDIOVASCULAR: Regular rate and rhythm without murmurs, gallops, or rubs. RESPIRATORY: Clear to auscultation. Breath sounds equal bilaterally. No wheezes, rales, or rhonchi. GASTROINTESTINAL: Abdomen soft, non-tender, nondistended. Bowel sounds are active. No hepato-splenomegaly, or palpable masses. No guarding. SKIN: warm, intact with no suspicious lesions or rash, good texture and turgor. NEURO: awake, alert, and oriented to person, place and time. There were no obvious focal neurologic abnormalities. Course Course Level of Care: Express Care Visit Vital Signs Vital signs: Reviewed MDM - URI/Sore Throat MDM Narrative Medical decision making narrative: Viral illness may last between 7-21 days; antibiotics do not cure viral illness and are NOT recommended at this time. Also, recommend symptomatic treatment includes: rest, fluids, and increase humidity of the air at home. Recommend Acetaminophen as directed on the bottle to reduce fever, pain, headache. Please schedule a follow-up visit with your personal physician for further evaluation and treatment within 3-5days. If your symptoms persist, change or worsen significantly before you can contact your personal physician then please, without delay, go to the emergency department for further evaluation. Differential Diagnosis Differential diagnosis: Likely upper respiratory infection, viral infection, influenza, pharyngitis and other (strep, covid) Lab Data Attestation: I reviewed the patient's lab results. Labs: Lab Results 12/20/24 Range/Units 14:15 POC Grp A Strep Screen Negative (Negative) Critical Care Time Critical Care Time Critical Care Time: No Discharge Plan Discharge Clinical Impression: Myalgia Patient Disposition: Home Condition: Stable Instructions: Viral Syndrome (ED) Additional Instructions: Viral illness may last between 7-21 days; antibiotics do not cure viral illness and are NOT recommended at this time. Also, recommend symptomatic treatment includes: rest, fluids, and increase humidity of the air at home. Recommend Acetaminophen as directed on the bottle to reduce fever, pain, headache. Please schedule a follow-up visit with your personal physician for further evaluation and treatment within 3-5days. If your symptoms persist, change or worsen significantly before you can contact your personal physician then please, without delay, go to the emergency department for further evaluation. Patient Language: Danish Prescriptions: No Action lisinopril-hydrochlorothiazide 20-12.5 mg tablet latanoprost 0.005 % drops 1 drp EACH EYE HS metformin 500 mg tablet 500 mg PO DAILY acetaminophen [Tylenol 8 Hour] 650 mg tablet extended release 650 mg PO Q8H Mounjaro 7.5 mg/0.5 mL pen injector 7.5 mg subcut fluticasone propionate [Flonase Allergy Relief] 50 mcg/actuation spray,suspension 1 spray intranasal DAILY PRN (Reason: Allergic Symptoms) Qty: 16 5RF Rx Instructions: administer into each nostril esomeprazole magnesium [Nexium] 20 mg capsule,delayed release(DR/EC) 20 mg PO BID Qty: 60 12RF flecainide 100 mg tablet See Rx Instructions .ROUTE .COMPLEX Qty: 180 2RF Dose Instruction: TAKE 1 TABLET BY MOUTH EVERY 12 HOURS Rx Instructions: TAKE 1 TABLET BY MOUTH EVERY 12 HOURS Creon 36,000-114,000- 180,000 unit capsule,delayed release(DR/EC) See Rx Instructions .ROUTE .COMPLEX Qty: 800 3RF Dose Instruction: TAKE 2 CAPSULES BY MOUTH FOUR TIMES DAILY. ADMINISTER 2 CAPS WITH MEALS AND ONE CAPSULE WITH SNACKS Rx Instructions: TAKE 2 CAPSULES BY MOUTH FOUR TIMES DAILY. ADMINISTER 2 CAPS WITH MEALS AND ONE CAPSULE WITH SNACKS diltiazem HCl [Tiadylt ER] 180 mg capsule,extended release 24hr See Rx Instructions .ROUTE .COMPLEX Qty: 90 2RF Dose Instruction: TAKE 1 CAPSULE BY MOUTH EVERY DAY Rx Instructions: TAKE 1 CAPSULE BY MOUTH EVERY DAY doxazosin 4 mg tablet See Rx Instructions .ROUTE .COMPLEX Qty: 90 1RF Dose Instruction: TAKE 1 TABLET BY MOUTH EVERYDAY AT BEDTIME Rx Instructions: TAKE 1 TABLET BY MOUTH EVERYDAY AT BEDTIME lisinopril 20 mg tablet 20 mg PO DAILY Qty: 90 2RF Eliquis 5 mg tablet See Rx Instructions .ROUTE .COMPLEX Qty: 180 2RF Dose Instruction: TAKE 1 TABLET BY MOUTH TWICE A DAY Rx Instructions: TAKE 1 TABLET BY MOUTH TWICE A DAY Follow-up/Referrals: Leah Valenzuela APRN, [facility] [Primary Care Provider, Internal Medicine] Time of Disposition: 14:24
[2024-12-20 13:55] VITALS: BP 143/64; PULSE 55; RESP 19; TEMP 37.6; O2SAT 98
[2024-12-20 14:16] LABS: EDSTREPNEGPOS1 Negative (Negative)
[2024-12-20 14:38] LABS: EDCOVIDSCREEN Negative (Negative); EDINFLUASCREEN Negative (Negative); EDINFLUBSCREEN Negative (Negative)
== END 2024-12-20 14:30 | disposition home or self-care (01) ==
PROVIDERS: Emergency Provider Nurse Practitioner; PCP Clinical Nurse Specialist
DX: M79.10 Myalgia, unspecified site (principal); Z20.822 Contact with and (suspected) exposure to COVID-19; I48.91 Unspecified atrial fibrillation; Z79.01 Long term (current) use of anticoagulants; E11.9 Type 2 diabetes mellitus without complications; Z79.84 Long term (current) use of oral hypoglycemic drugs; Z79.85 Long-term (current) use of injectable non-insulin antidiabetic drugs; I25.10 Atherosclerotic heart disease of native coronary artery without angina pectoris; I10 Essential (primary) hypertension; M19.90 Unspecified osteoarthritis, unspecified site; Z85.828 Personal history of other malignant neoplasm of skin
CPT/HCPCS: 87081; 87426; 87804; 87880; 99213; G0463

== ENCOUNTER 2024-12-23 09:19 | Outpatient (CLI) | payer MEDICARE, SELFPAY ==
--- OUTSIDE RECORDS SUMMARY | 2024-12-23 09:44 | XMS_ITS | Clinical Summary ---
Author Organization [facility] Address [address] [place] [id number] Care Team Providers Care Director Product Name Role Phone BreMilan taylor Dre LANDIS Primary Care Provider Allergies Active Allergy Reactions Criticality Noted Date Comments Levofloxacin Dizziness,Other (see comment),Unknown High 08/30/2020 b\ p drop Medications acetaminophen CR (TYLENOL 8 HOUR) 650 MG Tab CR 8 hr tablet 2 tab(s) orally every 8 hours Active TIADYLT ER 180 MG 24 hr capsule Take 1 capsule (180 mg total) by mouth daily. Active doxazosin (CARDURA) 4 MG tablet Take 1 tablet (4 mg total) by mouth nightly at bedtime. Active ELIQUIS 5 MG tablet Take 1 tablet (5 mg total) by mouth 2 (two) times daily. Active esomeprazole (NEXIUM) 20 MG capsule Take 1 capsule (20 mg total) by mouth daily. Active metFORMIN ER (GLUCOPHAGE-XR ) 500 MG 24 hr tablet TAKE 1 TABLET BY MOUTH EVERY DAY AT DINNER FOR 90 DAYS 4 Active CREON 78302-476470 units capsule TAKE 2 CAPSULES BY MOUTH FOUR TIMES DAILY. ADMINISTER 2 CAPS WITH MEALS AND ONE CAPSULE WITH SNACKS Active MOUNJARO 7.5 MG/0.5ML injection DIRECTED SUBCUTANEOUS WEEKLY 5 Active famotidine (PEPCID) 40 MG tablet Take 1 tablet (40 mg total) by mouth nightly as needed for Heartburn. 5 Active lisinopril (PRINIVIL) 20 MG tablet Take 1 tablet (20 mg total) by mouth daily. Active tadalafil (CIALIS) 5 MG tablet Take 1 tablet (5 mg total) by mouth as needed for Erectile Dysfunction. 5 Active flecainide (TAMBOCOR) 100 MG tablet Take 1 tablet (100 mg total) by mouth 2 (two) times daily. 180 tablet 5 Active flecainide (TAMBOCOR) 100 MG tablet Take 1 tablet (100 mg total) by mouth every 12 (twelve) hours. 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 Atypical atrial flutter 02/22/2015 Cardiac arrhythmia 12/14/2014 Dizziness 12/14/2014 Essential hypertension 12/14/2014 Encounters Date Type Department Care Team Description 12/19/2024 Telephone [facility], [place] [address] [place] [address] Irwin Salazar MD Refill Request (FLECAINIDE) 12/05/2024 Results Follow-Up [facility] [address] [place] [address] Yisel Hill RN CTA CHEST 11/23/2024 10:11 AM CDT - 11/23/2024 11:59 PM CDT Hospital [place] [address] Irwin Salazar MD Discharge Disposition: Home or Self Care (Routine Discharge) 11/23/2024 Travel 11/08/2024 Results Follow-Up [facility], [facility] [address] [place] [address] Joyce Martin ANP-BC XA [facility] POSS, USE TRANSESOPHAGEAL ECHO 11/07/2024 12:15 PM CDT Office Visit [facility] [address] [place] [address] Irwin Salazar MD Atrial Fibrillation (2-3MO) 11/07/2024 Travel 11/04/2024 9:23 AM CDT Anesthesia Event [facility] [place] [address] Eliel Kruse MD 11/04/2024 6:51 AM CDT - 11/04/2024 2:11 PM CDT Hospital Encounter [facility] [address] Joyce Martin ANP-BC Discharge Disposition: Home or Self Care (Routine Discharge) 11/04/2024 Travel 10/26/2024 9:04 AM CDT - 10/26/2024 11:59 PM CDT Hospital Encounter [facility] [address] Joyce Martin ANP-BC Discharge Disposition: Home or Self Care (Routine Discharge) 10/26/2024 8:30 AM CDT Procedure Only [facility], [address] [address] Khurram Kaplan MD 10/26/2024 Travel 10/26/2024 Orders Only [facility], [address] [address] Giuliana Muro, ANNELISE 10/03/2024 Hospital Orders Only [facility] [place] [address] Khurram Kaplan MD 10/03/2024 Hospital Orders Only [facility] [place] [address] Khurram Kaplan MD 10/03/2024 Telephone [facility], [address] [address] Joyce Martin, ANP-BC Results 09/29/2024 7:05 AM CDT - 09/29/2024 11:59 PM CDT Hospital Encounter [facility] [place] [address] Irwin Salazar MD Discharge Disposition: Home or Self Care (Routine Discharge) 09/29/2024 Travel from Last 3 Months Immunizations Immunization Administration Dates Next Due Influenza (Generic) 12/09/2018 Influenza Adult (Generic) 11/13/2019,11/12/2017, 09/23/2017 MODERNA COVID-19 (12+) MRNA, LNP-S, PF, 100 MCG/ 0.5 ML DOSE 11/20/2021,07/05/2021 Pneumococcal (Pneumovax 23) 10/20/2020, 5 Pneumococcal (Prevnar 7) 02/23/2013 Shingrix 10/08/2018,05/13/2018 Td (TDVAX) 07/01/2018 Zoster (Zostavax) [address] Unt/0.65Ml 10/08/2018, Social History Tobacco Use Types Packs/Day Years Used Date Smoking Tobacco: Never Smokeless Tobacco: Never Tobacco Cessation:Counseling Given: Not Answered Alcohol Use Standard Drinks/Week Comments Yes 7 (1 standard drink = 0.6 oz pur e alcohol) Sex and Gender Information Value Date Recorded Sex Assigned at Male 08/23/2024 8:48 AM CDT Legal Sex Male 1:55 AM CDT Gender Identity Not on file Sexual Orientation Not on file Last Filed Vital Signs Vital Sign Reading Time Taken Comments Blood Pressure 136/62 11/07/2024 12:29 PM CDT Pulse 57 11/07/2024 12:29 PM CDT Temperature 36.1 C (96.9 F) 11/04/2024 7:29 AM CDT Respiratory Rate 20 11/04/2024 1:30 PM CDT Oxygen Saturation 97% 11/07/2024 12:29 PM CDT Inhaled Oxygen Concentration - - Weight 87.6 kg (193 lb 3.2 oz) 11/07/2024 12:29 PM CDT Height 177.8 cm (5' 10) 11/07/2024 12:29 PM CDT Body Mass Index 27.72 11/07/2024 12:29 PM CDT Plan of Treatment Upcoming Encounters Date Type Department Care Team (Late st Contact Info) Description 01/09/2025 1:15 PM 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 Office Visit [facility] [address] [address] [place] [address] Irwin Salazar MD [facility] [address] [place] [address] Health Maintenance Due Date Last Done Comments ASCVD Statin 1945 Kidney Health Evaluation 1945 Diabetes: Retinopathy Eye Exam 05/23/1965 Hepatitis C 05/23/1965 Hemoglobin A1C 08/08/2011 02/06/2011 Annual Medicare Wellness Visit 05/23/2012 DTaP, Tdap and Td Vaccines (1 - Tdap) 07/02/2018 07/01/2018 Pneumococcal Vaccine: 50+ Years (2 of 2 - PCV) 10/20/2021 10/20/2020, 02/23/2014, 02/23/2013 RSV Immunization or 60+ Years (1 - 1-dose 75+ series) 05/23/2022 COVID-19 Vaccine ( season) 2024 11/20/2021, 07/05/2021, 01/11/2021, Additional history exists Influenza Adult (#1) 2024 11/13/2019, 12/09/2018, 11/12/2017, Additional history exists Lipid Panel 10/26/2025 10/26/2024, 02/06/2011 Zoster Vaccines Completed 10/08/2018, 09/23, 05/13/2018, Additional history exists Hepatitis A Vaccines Aged Out No long er eligible based on patient's age to complete this topic Meningococcal B Vaccine Aged Out No l onger eligible based on patient's age to complete this topic Meningococcal Vaccine Aged Out No rj cristina eligible based on patient's age to complete this topic RSV Immunizations Under 20 Months Aged Out No longer eligible based on patient's age to complete this topic Procedures Procedure Name Priority Date/Time Associated Diagnosis Comments CTA CHEST Routine 11/23/2024 10:56 AM CDT Dilated aortic root XA LHC POSS Routine 11/04/2024 10:27 AM CDT Abnormal stress test Other forms of angina pectoris SOB (shortness of breath) USE TRANSESOPHAGEAL ECHO Routine 025 10:00 AM CDT Moderate aortic regurgitation Mitral regurgitation SOB (shortness of breath) POCT GLUCOSE - DOCKED DEVICE Routine 11/04/2024 7:35 AM CDT ELECTROCARDIOGRAM (NON MIDMARK ACQUIRED) Routine 10/26/2024 9:40 AM CDT Atypical atrial flutter (CMS/HCC HHS/HCC) Paroxysmal atrial fibrillation (CMS/HCC HHS/HCC) Mitral regurgitation Abnormal stress test PROTHROMBIN TIME, VENOUS Routine 025 9:11 AM CDT Moderate aortic regurgitation Abnormal stress test Mitral regurgitation Other forms of angina pectoris SOB (shortness of breath) LIPID PANEL Routine 10/26/2024 9:11 AM CDT Screening for cholesterol level CBC W/DIFF AUTOMATED Routine 10/26/2024 9:11 AM CDT Moderate aortic regurgitation Abnormal stress test Mitral regurgitation Other forms of angina pectoris SOB (shortness of breath) BASIC METABOLIC PANEL Routine 10/26/2024 9:11 AM CDT Moderate aortic regurgitation Abnormal stress test Mitral regurgitation Other forms of angina pectoris SOB (shortness of breath) NM PHARM NUC STRESS TEST 1DAY W TRACING Routine 09/29/2024 9:29 AM CDT Chest pain CARDIOLOGY STRESS TEST ONLY, EXERCISE Routine 09/29/2024 7:05 AM CDT Obstructive sleep apnea syndrome Essential hypertension Dizziness Cardiac arrhythmia Atypical atrial flutter ([facility]/HCC HHS/HCC) LIPID PANEL Routine 02/06/2011 12:00 AM 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 DILATED AORTIC ROOT WITH FUSIFORM DILATATION OF THE ASCENDING THORACIC AORTA DESCRIBED. NO ACUTE THORACIC AORTIC ABNORMALITY DEMONSTRATED. 2. MILD CARDIOMEGALY WITH MODERATE CORONARY ATHEROSCLEROTIC CALCIFICATION. NO PERICARDIAL THICKENING OR PERICARDIAL EFFUSION. 3. NO ACUTE PULMONARY PARENCHYMAL OPACITY OR PLEURAL EFFUSION. Signed: Regino Shaffer MD Referred By: IRWIN SALAZAR Interpreted By: Regino Shaffer MD, 12/04/2024 12:53 PM Narrative 12/04/2024 12:59 PM CDT [address] [address] PATIENT NAME: MIKE RAMOS EXAM: CTA chest DATE OF EXAM: 11/23/2024 COMPARISON EXAM: None INDICATION: Dilated aortic root TECHNIQUE: Axial images obtained from level of lung apices to adrenal glands following intravenous injection of 80 mL Isovue 370 contrast using low-dose CTA thoracic aorta technique with sagittal and coronal MIP reconstruction. FINDINGS: There is no evidence of axillary nor supraclavicular lymphadenopathy. 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 No evidence of mediastinal nor hilar lymphadenopathy. There is moderate coronary atherosclerotic calcification. Cardiac chambers are mildly dilated in symmetrical fashion. No pericardial thickening or pericardial effusion. No significant hiatal hernia. There is evidence of a dilated aortic root. Thoracic aortic measurements as follows: Aortic valve annulus: 3.3 cm Sinus of Valsalva: 5.6 cm Sinotubular junction: 4.3 cm Ascending thoracic aorta: 4.3 cm Thoracic aortic arch: 3.5 cm Proximal descending thoracic aorta: 3.4 cm Distal descending thoracic aorta: 2.5 cm There is no evidence of acute aortic dissection. There is mild atherosclerotic calcification with no evidence of ulcerated plaque or intramural hematoma. Lung parenchymal images demonstrate no significant findings of emphysema nor bronchiectasis. No acute pulmonary parenchymal consolidation. No pleural effusion. 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 Procedure Note Regino Shaffer MD - 12/04/[address] [address] PATIENT NAME: MIKE RAMOS EXAM: CTA chest DATE OF EXAM: 11/23/2024 COMPARISON EXAM: None INDICATION: Dilated aortic root TECHNIQUE: Axial images obtained from level of lung apices to adrenalglands following intravenous injection of 80 mL Isovue 370 contrast usinglow-dose CTA thoracic aorta technique with sagittal and coronal MIPreconstruction. FINDINGS: There is no evidence of axillary nor supraclavicularlymphadenopathy. There are severe changes of chronic degenerativeosteoarthritis involving the glenohumeral joint bilaterally. No evidenceof mediastinal nor hilar lymphadenopathy. There is moderate coronaryatherosclerotic calcification. Cardiac chambers are mildly dilated insymmetrical fashion. No pericardial thickening or pericardial effusion.No significant hiatal hernia. There is evidence of a dilated aortic root. Thoracic aortic measurementsas follows: Aortic valve annulus: 3.3 cm Sinus of Valsalva: 5.6 cm Sinotubular junction: 4.3 cm Ascending thoracic aorta: 4.3 cm Thoracic aortic arch: 3.5 cm Proximal descending thoracic aorta: 3.4 cm Distal descending thoracic aorta: 2.5 cm There is no evidence of acute aortic dissection. There is mildatherosclerotic calcification with no evidence of ulcerated plaque orintramural hematoma. Lung parenchymal images demonstrate no significant findings of emphysemanor bronchiectasis. No acute pulmonary parenchymal consolidation. Nopleural effusion. Advanced chronic changes of degenerative disc diseaseand ossification of the anterior longitudinal ligament noted throughoutthe thoracic spine with thoracolumbar scoliosis convex to the right. IMPRESSION: 1. DILATED AORTIC ROOT WITH FUSIFORM DILATATION OF THE ASCENDING THORACICAORTA DESCRIBED. NO ACUTE THORACIC AORTIC ABNORMALITY DEMONSTRATED. 2. MILD CARDIOMEGALY WITH MODERATE CORONARY ATHEROSCLEROTICCALCIFICATION. NO PERICARDIAL THICKENING OR PERICARDIAL EFFUSION. 3. NO ACUTE PULMONARY PARENCHYMAL OPACITY OR PLEURAL EFFUSION. Signed: Regino Shaffer MD Referred By: IRWIN SALAZAR Interpreted By: Regino Shaffer MD, 12/04/2024 12:53 PM Irwin Salazar MD CT Final Res ult * XA [facility] POSS (11/04/2024 10:27 AM CDT) Anatomical Region Laterality Modality Cardiac Primary Montessori Teacher 11/04/2024 9:00 AM CDT Joyce Martin [facility] Final Resu lt * USE TRANSESOPHAGEAL ECHO (11/04/2024 10:00 AM CDT) Anatomical Region Laterality Modality Cardiac Primary Montessori Teacher 11/04/2024 9:22 AM CDT Narrative 11/07/2024 4:02 PM CDT LUKASZ Report Pat.Name: MIKE RAMOS Trey Pat.ID: [id number] St.Date: 11/04/2024 Refer.: [id number], joyce martin Exam Time: 9:22:00 AM Study Type:TRANSESOPHAGEAL ECHO (LUKASZ) Height: 70 in Weight: 184 lb BSA: 2.01 m2 Age: 3 1945,79Y Sex: M BP: 152/74 HR: 63 bpm Sonogrphr: Shy Lexikaterin [facility] Pat. Stat.:Outpatient Reason for Study:Aortic insufficiency and Mitral Vavle Regurgitation Procedures: 2D, 3 Dimensional imaging with full Doppler and color interigation, Doppler, Color Flow, Transesophageal, Probe # [id number] Race: X ++++++++++++++++++++++++++++++++++++ SUMMARY: ++++++++++++++++++++++++++++++++++++ The left ventricular size is normal. The left ventricular systolic function is normal. Estimated left ventricular ejection fraction is 55-60%. The right ventricular size is normal. Right ventricular systolic function is normal. Aortic root is mildly dilated. The aortic root measures 4.3 cm. Moderate eccentric aortic regurgitation. Moderate mitral regurgitation. There is mild prolapse of the posterior (P2) mitral valve leaflet. Mild to moderate pulmonic regurgitation. Mild to moderate tricuspid regurgitation. ++++++++++++++++++++++++++++++++++++ FINDINGS: ++++++++++++++++++++++++++++++++++++ LUKASZ: The patient was counseled and an informed consent was obtained. The transesophageal echo probe was inserted without difficulty. The patient tolerated the procedure well without any apparent complications. LV: The left ventricular size is normal. The left ventricular systolic function is normal. Estimated left ventricular ejection fraction is 55-60%. WM: Wall motion appears normal in all segments. RV: The right ventricular size is normal. Right ventricular systolic function is normal. LA: Left atrial appendage is normal. IAS: Atrial septum is normal. AO: Aortic root is mildly dilated. The aortic root measures 4.3 cm. AV: The aortic valve is trileaflet. No evidence of aortic valve stenosis. Moderate eccentric aortic regurgitation. MV: Moderate mitral regurgitation. No evidence of mitral valve stenosis. There is mild prolapse of the posterior (P2) mitral valve leaflet. PV: No evidence of pulmonic valve stenosis. Mild to moderate pulmonic regurgitation. TV: Mild to moderate tricuspid regurgitation. No evidence of tricuspid valve stenosis. ++++++++++++++++++++++++++++++++++++ LUKASZ: ++++++++++++++++++++++++++++++++++++ Pre LUKASZ BP HR Post LUKASZ BP HR 152/74 63 57 Meds: Propofol or Diprivan administered by Anesthesia Staff Condition: Good <Electronic Signature> 11/07/2024 04:02 PM Irwin Salazar M.D. Procedure Note Irwin Salazar MD - 11/07/2024 LUKASZ Report Pat.Name: MIKE RAMOS Pat.ID: [id number] .Date: 11/04/2024 Refer.MD: [id number] lori Exam Time: 9:22:00 AM Study Type:TRANSESOPHAGEAL ECHO (LUKASZ) Height: 70 in Weight: 184 lb BSA: 2.01 m2 Age: 3 1945,79Y Sex: M BP: 152/74 HR: 63 bpm Sonogrphr: Milady Begum [facility] Pat. Stat.:Outpatient Reason for Study:Aortic insufficiency and Mitral Vavle Regurgitation Procedures: 2D, 3 Dimensional imaging with full Doppler and color interigation, Doppler, Color Flow, Transesophageal, Probe # [id number] Race: X ++++++++++++++++++++++++++++++++++++ SUMMARY: ++++++++++++++++++++++++++++++++++++ The left ventricular size is normal. The left ventricular systolic function is normal. Estimated left ventricular ejection fraction is 55-60%. The right ventricular size is normal. Right ventricular systolic function is normal. Aortic root is mildly dilated. The aortic root measures 4.3 cm. Moderate eccentric aortic regurgitation. Moderate mitral regurgitation. There is mild prolapse of the posterior (P2) mitral valve leaflet. Mild to moderate pulmonic regurgitation. Mild to moderate tricuspid regurgitation. ++++++++++++++++++++++++++++++++++++ FINDINGS: ++++++++++++++++++++++++++++++++++++ LUKASZ: The patient was counseled and an informed consent was obtained. The transesophageal echo probe was inserted without difficulty. The patient tolerated the procedure well without any apparent complications. LV: The left ventricular size is normal. The left ventricular systolic function is normal. Estimated left ventricular ejection fraction is 55-60%. WM: Wall motion appears normal in all segments. RV: The right ventricular size is normal. Right ventricular systolic function is normal. LA: Left atrial appendage is normal. IAS: Atrial septum is normal. AO: Aortic root is mildly dilated. The aortic root measures 4.3 cm. AV: The aortic valve is trileaflet. No evidence of aortic valve stenosis. Moderate eccentric aortic regurgitation. MV: Moderate mitral regurgitation. No evidence of mitral valve stenosis. There is mild prolapse of the posterior (P2) mitral valve leaflet. PV: No evidence of pulmonic valve stenosis. Mild to moderate pulmonic regurgitation. TV: Mild to moderate tricuspid regurgitation. No evidence of tricuspid valve stenosis. ++++++++++++++++++++++++++++++++++++ LUKASZ: ++++++++++++++++++++++++++++++++++++ Pre LUKASZ BP HR Post LUKASZ BP HR 152/74 63 57 Meds: Propofol or Diprivan administered by Anesthesia Staff Condition: Good <Electronic Signature> 11/07/2024 04:02 PM Irwin Salazar M.D. Joyce Martin ANP-BC ECHO Final Resu lt * (ABNORMAL) POCT glucose (11/04/2024 7:35 AM CDT) GLUCOSE POC 103(H) 70 - 99 mg/dL 11/04/2024 7:36 AM CDT [facility] 11/04/2024 7:35 AM CDT Joyce Erickson Veronica ANP-BC POCT ORDERABLES - DEVICE F inal Result [facility] [address] [place] [address], * ELECTROCARDIOGRAM (10/26/2024 9:40 AM CDT) 10/26/2024 9:40 AM CDT Narrative [facility] - 10/29/2024 6:24 AM CDT [facility] Date: 2024-10-26 Pat Name: MIKE RAMOS Department: 112 Room: Gender: Male 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: shelbi LANDISB: 1945 Requested By: KHURRAM KAPLAN Order Number: [id number] Reading MD: Khurram Kaplan Measurements Intervals [place]asper Rate: 51 P: 71 CT: 205 QRS: -27 QRSD: 166 T: 90 QT: 447 QTc: 415 Interpretive Statements SINUS BRADYCARDIA BORDERLINE LEFT AXIS DEVIATION INTRAVENTRICULAR CONDUCTION DELAY Procedure Note Khurram Kaplan MD - 10/29/2024 [facility] Date: 2024-10-26 Pat Name: MIKE RAMOS Department: 112 Room: Gender: Male 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: shelbi : 1945 Requested By: KHURRAM KAPLAN Order Number: [id number] Reading [place] Kaplan Measurements Intervals [place]asper Rate: 51 P: 71 CT: 205 QRS: -27 QRSD: 166 T: 90 QT: 447 QTc: 415 Interpretive Statements SINUS BRADYCARDIA BORDERLINE LEFT AXIS DEVIATION INTRAVENTRICULAR CONDUCTION DELAY us Khurram Kaplan MD PROCEDURES-ORDERABLE NO CHARGE F inal Result [facility] * (ABNORMAL) PROTHROMBIN TIME, VENOUS (10/26/2024 9:11 AM CDT) PROTIME 14.9(H) 10.2 - 12.9 SEC 10/26/2024 9:47 AM CDT [facility] INR 1.3 10/26/2024 9:47 AM CDT [facility] Comment: Recommended INR Therapeutic Goals: 2.0-3.0 Routine Therapy 2.5-3.5 Mechanical Prosthetic Valves (High Risk) 10/26/2024 9:11 AM CDT us Joyce Martin [facility] Final Resu lt Performing Organization Address City/[facility]/ZIP Co de Phone Number [facility] [address] [place] [id number], [place] [phone] * (ABNORMAL) BASIC METABOLIC PANEL (10/26/2024 9:11 AM CDT) GLUCOSE 109(H) 70 - 99 MG/DL 10/26/2024 9:55 AM CDT [facility] BUN 24(H) 7 - 18 MG/DL 10/26/2024 9:55 AM CDT [facility] CREATININE S/P/B 0.99 0.7 - 1.3 MG/DL 10/26/2024 9:55 AM CDT [facility] SODIUM S/P/B 133(L) 136 - 145 MMOL/L 10/26/2024 9:55 AM CDT [facility] POTASSIUM S/P/B 3.6 3.5 - 5.1 MMOL/L 10/26/2024 9:55 AM CDT [facility] CHLORIDE S/P/B 98 97 - 115 MMOL/L 10/26/2024 9:55 AM CDT [facility] CO2 32.6(H) 21 - 32 MMOL/L 10/26/2024 9:55 AM CDT [facility] CALCIUM S/P/B 9.4 8.5 - 10.1 MG/DL 10/26/2024 9:55 AM CDT [facility] ANION GAP 2.4 2 - 10 MMOL/L 10/26/2024 9:55 AM CDT [facility] BUN CREATININE RATIO 24.2 6 - 26 10/26/2024 9:55 AM CDT [facility] GFR ESTIMATE 78(L) >90 ML/MIN/1.7 3 M2 10/26/2024 9:55 AM CDT [facility] Comment: NOTE: eGFR is not calculated for patients <18 years of age or gender unknown. This is an estimated GFR calculation using the new CKD EPI creatinine equation without race and so does not require a correction factor for race. This estimated GFR should not be used for calculating drug doses. 10/26/2024 9:11 AM CDT Joyce Martin [facility] Final Resu lt [facility] [address] [place] [address], [place] [phone] * LIPID PANEL (10/26/2024 9:11 AM CDT) Only the most recent of2 resultswithin the time period is included. CHOLESTEROL 157 <200 MG/DL 10/26/2024 9:55 AM CDT [facility] TRIGLYCERIDES 73 <150 MG/DL 10/26/2024 9:55 AM CDT [facility] HDL 97 >40.0 MG/DL 10/26/2024 9:55 AM CDT [facility] LDL (CALCULATED) 45 <100 MG/DL 10/27/19 9:55 AM CDT [facility] Comment:CALCULATED USING THE FRIEDEWALD EQUATION NON HDL CHOLESTEROL 60 <130 MG/DL 10/26 9:55 AM CDT [facility] CHOL/HDL RATIO 1.6 0.0 - 4.5 10/26/2024 9:55 AM CDT [facility] VLDL CALCULATION 15 5 - 55 MG/DL 10/26/2024 9:55 AM CDT [facility] LIPID INTERPRETATION 10/26/2024 9:55 AM CDT [facility] Comment: [facility] CONCENSUS REPORT RECOMMENDATIONS: ADULT CHILD LOW RISK: CHOLESTEROL <200 <170 TRIGLYCERIDE <150 --- HDL >=60 --- LDL <100 <110 BORDERLINE: CHOLESTEROL 200-239 170-199 TRIGLYCERIDE 150-199 --- HDL 40-59 --- LDL 100-159 110-129 HIGH RISK: CHOLESTEROL >=240 >=200 TRIGLYCERIDE >=200 --- HDL <40 --- LDL >=160 >=130 10/26/2024 9:11 AM CDT Joyce Martin [facility] Final Resu lt [facility] [address] [place] [address], [place] [phone] * (ABNORMAL) CBC W/DIFF AUTOMATED (10/26/2024 9:11 AM CDT) WBC 5.24 4.5 - 11.0 x10'3/uL 10/26/2024 9:26 AM CDT [facility] RBC 3.93(L) 4.70 - 6.10 x10'6/uL 10/26/2024 9:26 AM CDT [facility] HGB 12.7(L) 14.0 - 18.0 G/DL 10/26/2024 9:26 AM CDT [facility] HCT 35.8(L) 43.0 - 54.0 % 10/26/2024 9:26 AM CDT [facility] MCV 91.1 80.0 - 94.0 FL 10/26/2024 9:26 AM CDT [facility] MCH 32.3(H) 27.0 - 31.0 PG 10/26/2024 9:26 AM CDT [facility] MCHC 35.5 32.0 - 36.0 G/DL 10/26/2024 9:26 AM CDT [facility] RDW 12.5 11.5 - 14.5 % 10/26/2024 9:26 AM CDT [facility] PLT 192 130 - 400 x10'3/uL 10/26/2024 9:26 AM CDT [facility] MPV 8.9(L) 9.3 - 12.2 FL 10/26/2024 9:26 AM CDT [facility] DIFFERENTIAL TYPE AUTOMATED DIFFERENTIAL 10/26/2024 9:26 AM CDT [facility] NEUTROPHILS % 72.4 % 10/26/2024 9:26 AM CDT [facility] LYMPHOCYTES % 20.2 % 10/26/2024 9:26 AM CDT [facility] MONOCYTES % 5.3 % 10/26/2024 9:26 AM CDT [facility] EOSINOPHILS 1.5 % 10/26/2024 9:26 AM CDT [facility] BASOPHILS 0.2 % 10/26/2024 9:26 AM CDT [facility] IMMATURE GRANS % 0.4 % 10/27/19 9:26 AM CDT [facility] ABS. NEUTROPHILS 3.79 1.80 - 7.70 x10'3/uL 10/26/2024 9:26 AM CDT [facility] ABS. LYMPHOCYTES 1.06 1.00 - 4.80 x10'3/uL 10/26/2024 9:26 AM CDT [facility] ABS. MONOCYTES 0.28(L) 0.30 - 0.82 x10'3/uL 10/26/2024 9:26 AM CDT [facility] ABS. EOSINOPHILS 0.08 0.04 - 0.54 x10'3/uL 10/26/2024 9:26 AM CDT [facility] ABS. BASOPHILS 0.01 0.01 - 0.08 x10'3/uL 10/26/2024 9:26 AM CDT [facility] ABS. IMMATURE GRANULOCYTES 0.02 0.00 - 0.49 x10'3/uL 10/26/2024 9:26 AM CDT [facility] 10/26/2024 9:11 AM CDT Joyce Martin [facility] Final Resu lt [facility] [address] [place] [address], * NM PHARM NUC STRESS TEST 1 DAY W TRACING (09/29/2024 9:29 AM CDT) Anatomical Region Laterality Modality Cardiac Nuclear Medicine 09/29/2024 8:15 AM CDT Narrative 09/29/2024 3:31 PM CDT Myocardial Perfusion Imaging Pat.Name: MIKE RAMOS Pat.ID: [id number] .Date: 09/29/2024 Refer.: Sofia Exam Time: 8:15:00 AM Study Type:ROBER NC HT MUSCLE IMAGE SPECT MULTI Height: 70 in Weight: 200 lb BSA: 2.09 m2 Age: 3 1945,79Y Sex: M Sonogrphr: Tristen Esquivel RT(N) Pat. Stat.:Outpatient Reason for Study:Dizziness, Atrial flutter History / Clinical:Dizziness Sleep Apnea Procedures: Nuclear Stress Test with Lexiscan Race: X Surgery: Echocardiogram, LUKASZ, Cardioversion, Ablation ++++++++++++++++++++++++++++++++++++ SUMMARY: ++++++++++++++++++++++++++++++++++++ Stress conclusion: 1. Clinically positive for shortness of breath. 2. Electrocardiographically negative stress test for ischemia. 3. Scintigraphic images to follow. Perfusion conclusion: 1. Good study quality. No motion correction was applied to images. No attenuation is noted. Prone imaging was performed. 2. Moderately abnormal myocardial perfusion SPECT imaging. Images show a large area of irreversibility present in the inferior wall. There is also a moderate area of irreversibility in the apical wall. 3. Normal wall motion with an ejection fraction of 48%. Dilated left ventricle. 4. Stress test with myocardial perfusion imaging shows overall intermediate risk for a cardiac event. ++++++++++++++++++++++++++++++++++++ FINDINGS: ++++++++++++++++++++++++++++++++++++ Protocol: Lexiscan 0.4mg was given as a rapid injection IV over a period of 10 seconds with the radiopharmaceutical injected at 20 seconds. The images were processed using the standard SPECT technique. A gated study was performed on the stress images. Impression: SPECT images demonstrate a large irreversible perfusion abnormality present in the inferior region of moderate intensity. There is also a moderate irreversible perfusion defect present in the apical region of severe intensity. Heart Size: Dilated left ventricle. LV Wall Motion: The LVEF is calculated to be 48%. Gated SPECT images reveal normal wall motion. Transient Ischemic Dilatation: The TID is 0.95. There is no evidence of Transient Ischemic Dilatation. ++++++++++++++++++++++++++++++++++++ STRESS: ++++++++++++++++++++++++++++++++++++ Baseline Vital Signs: ECG: Sinus bradycardia, Left bundle branch block, Septal infarct HR: 56 bmp Rest BP: 148/88 Regadenoson Peak Dose: 0.4 mg Stress Test Results: Max HR: 78 bmp Target HR: 143 bmp % Target: 55 % Max BP: 150/67 Max RPP: [id number] O2 sat: 100 % Symptoms and Complications: Terminated: Protocol completed Symptoms: Shortness of breath, Lightheaded Stress ECG Interp: No significant changes, Sinus rhythm, rare PVC <Signed> 09/29/2024 09:53 AM Zandra Thornton M.D. Stress interpretation <Electronic Signature> 09/29/2024 03:31 PM Irwin Salazar M.D. Nuclear interpretation Procedure Note Irwin Salazar MD - 09/29/2024 Myocardial Perfusion Imaging Pat.Name: MIKE RAMOS Pat.ID: [id number] St.Date: 09/29/2024 Refer.MD: Soifa Exam Time: 8:15:00 AM Study Type:ROBER OR HT MUSCLE IMAGE SPECT MULTI Height: 70 in Weight: 200 lb BSA: 2.09 m2 Age: 3 1945,79Y Sex: M Sonogrphr: Tristen Esquivel RT(N) Pat. Stat.:Outpatient Reason for Study:Dizziness, Atrial flutter History / Clinical:Dizziness Sleep Apnea Procedures: Nuclear Stress Test with Lexiscan Race: X Surgery: Echocardiogram, LUKASZ, Cardioversion, Ablation ++++++++++++++++++++++++++++++++++++ SUMMARY: ++++++++++++++++++++++++++++++++++++ Stress conclusion: 1. Clinically positive for shortness of breath. 2. Electrocardiographically negative stress test for ischemia. 3. Scintigraphic images to follow. Perfusion conclusion: 1. Good study quality. No motion correction was applied to images. No attenuation is noted. Prone imaging was performed. 2. Moderately abnormal myocardial perfusion SPECT imaging. Images show a large area of irreversibility present in the inferior wall. There is also a moderate area of irreversibility in the apical wall. 3. Normal wall motion with an ejection fraction of 48%. Dilated left ventricle. 4. Stress test with myocardial perfusion imaging shows overall intermediate risk for a cardiac event. ++++++++++++++++++++++++++++++++++++ FINDINGS: ++++++++++++++++++++++++++++++++++++ Protocol: Lexiscan 0.4mg was given as a rapid injection IV over a period of 10 seconds with the radiopharmaceutical injected at 20 seconds. The images were processed using the standard SPECT technique. A gated study was performed on the stress images. Impression: SPECT images demonstrate a large irreversible perfusion abnormality present in the inferior region of moderate intensity. There is also a moderate irreversible perfusion defect present in the apical region of severe intensity. Heart Size: Dilated left ventricle. LV Wall Motion: The LVEF is calculated to be 48%. Gated SPECT images reveal normal wall motion. Transient Ischemic Dilatation: The TID is 0.95. There is no evidence of Transient Ischemic Dilatation. ++++++++++++++++++++++++++++++++++++ STRESS: ++++++++++++++++++++++++++++++++++++ Baseline Vital Signs: ECG: Sinus bradycardia, Left bundle branch block, Septal infarct HR: 56 bmp Rest BP: 148/88 Regadenoson Peak Dose: 0.4 mg Stress Test Results: Max HR: 78 bmp Target HR: 143 bmp % Target: 55 % Max BP: 150/67 Max RPP: [id number] O2 sat: 100 % Symptoms and Complications: Terminated: Protocol completed Symptoms: Shortness of breath, Lightheaded Stress ECG Interp: No significant changes, Sinus rhythm, rare PVC <Signed> 09/29/2024 09:53 AM Zandra Thornton M.D. Stress interpretation <Electronic Signature> 09/29/2024 03:31 PM Irwin Salazar M.D. Nuclear interpretation us Irwin Salazar MD NUC MED Final Res ult from Last 3 Months or Most Recently Relevant to [place] [address] [facility] MEDICARE Advance Directives Healthcare Agents on File Name Relationship Healthcare Agent Relationshi p Communication Chandu Henley Friend Health Care Agent Filiberto Schaefer Friend First Alternate Health Care Agent Ranulfo Stuart Friend Second Alternate Health Ca re Agent Care Teams Director Product Relationship Specialty Start Date End Date Milan Black DO [address] [facility] [address] [address] PCP - General INTERNAL MEDICINE 07/26/24
--- OUTSIDE RECORDS SUMMARY | 2024-12-23 09:44 | XMS_ITS | Clinical Summary ---
Author Organization [facility] Address [address] [place] [address] Phone Care Team Providers Care Director Media Name Role Phone Unavailable Unavailable Unavailable Reason for Visit and Chief Complaint GENERAL OFFICE VISIT Plan of Treatment No Plan of Treatment Recorded Assessments Includes: Assessments from this encounter No Assessments Recorded Medical Equipment - Implanted Devices Includes: Current Devices No Medical Equipment Recorded Medications Administered Includes: Administered Medications from this encounter No Administered Medications Recorded Results Includes: Results discussed during this encounter No Results Recorded For Specified Dates History of Present Illness Includes: History of Present Illness from this encounter No History of Present Illness Recorded Social History No Social History Recorded - Smoking Status Unknown Medical History Includes: Medical History addressed during this encounter No Medical History Recorded Family History Includes: Family History addressed during this encounter No Family History Recorded Review of Systems Includes: Review of Systems from this encounter No Review of Systems Recorded Mental Status Includes: Mental Status from this encounter No Mental Status Recorded Functional Status Includes: Functional Status from this encounter No Functional Status Recorded Physical Exam Includes: Physical Exam from this encounter No Physical Exam Recorded Encounters Encounter Provider Location Date Check-In Time Check- Out Time Diagnosis GENERAL OFFICE VISIT [facility] 0 3:35PM 11:59PM Clinical Notes Includes: Clinical Notes from this encounter No Clinical Notes Recorded
--- OUTSIDE RECORDS SUMMARY | 2024-12-23 09:44 | XMS_ITS | Clinical Summary ---
Author Organization [facility] Address [address] [place] [address] Phone Care Team Providers Care Well Logging Operator Mud Analysis Name Role Phone Unavailable Unavailable Unavailable Reason [...] Diagnosis GENERAL OFFICE VISIT [facility] 1 9:46AM 10:52AM Clinical Notes Includes: Clinical Notes from this encounter No Clinical Notes Recorded
--- OUTSIDE RECORDS SUMMARY | 2024-12-23 09:44 | XMS_ITS | Encounter Summary ---
Author Organization [facility] Address [address] [place] [address] Care Team Providers Care Residential Builder Name Role Phone Milan Black DO Primary Care Provider [phone] Encounter Details Date Type Department Care Team (Late st Contact Info) Description 10/03/2024 Hospital Orders Only [facility] [employer] [place], [place] [id number] Kirby Faulkner MD Three [facility]. 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 [address] [place], [place] [phone] Irwin Driscoll MD [facility], [address] [place] [address] documented as of this encounter Visit Diagnoses Not on filedocumented in this encounter Care Teams Residential Builder Relationship Specialty Start Date End Date Milan Black DO [address] [facility] [address] [place], [place] [id number] PCP - General INTERNAL MEDICINE 07/26/24 documented as of this encounter
--- OUTSIDE RECORDS SUMMARY | 2024-12-23 09:44 | XMS_ITS | Encounter Summary ---
Author Organization [facility] Address [address] [place] [address] Care Team Providers Care Carbon Dioxide Operator Name Role Phone Milan Black DO Primary Care Provider Encounter Details Date Type Department Care Team (Late st Contact Info) Description 10/03/[address] [facility] Web Content Manager [place], [place] [phone] Kirby Faulkner MD Three [facility]. 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
--- OUTSIDE RECORDS SUMMARY | 2024-12-23 09:44 | XMS_ITS | Clinical Summary ---
Author Organization [facility] Address [address] [place] [address] Care Team Providers Care Rock Drill Operator Name Role Phone Milan Black DO Primary Care Provider Allergies Active Allergy Reactions Criticality Noted Date Comments Levofloxacin Hypotension High 08/30/2020 Medications doxazosin (CARDURA) 4 mg tablet Take 1 tablet (4 mg total) by mouth daily 3 8 Active fluticasone (FLONASE) 50 mcg/actuation nasal spray SPRAY 2 SPRAYS IN EACH NOSTRIL EVERY DAY 1 8 Active lisinopril-hydr oCHLOROthiazide (PRINZIDE,ZESTO RETIC) 20-12.5 mg per tabletIndicatio ns:hypertension Take 1 tablet by mouth 2 (two) times a day 2 8 Active latanoprost (XALATAN) 0.005 % ophthalmic solutionIndicat ions:Atypical atrial flutter (HCC) Administer into both eyes daily. Active acetaminophen ER (TYLENOL) 650 mg 8 hr tabletIndicatio ns:Atypical atrial flutter (HCC) Take 1 tablet (650 mg total) by mouth every 8 (eight) hours as needed for pain Active diphenoxylate-a tropine (LOMOTIL) 2.5-0.025 mg per tablet 1 Active eszopiclone (LUNESTA) 3 mg tablet Take 1 tablet (3 mg total) by mouth nightly Active [place] 1,000 mcg pellet Insert 1 each (1,000 mcg total) into urethra as needed 1 Active diazePAM (VALIUM) 5 mg tablet Take 1 tablet (5 mg total) by mouth every 6 (six) hours as needed 2 Active Creon 36,000-114,000- 180,000 unit capsule Take 1 capsule by mouth 3 (three) times a day with meals 2 Active loratadine (CLARITIN ORAL) Take by mouth as needed Active loperamide (IMODIUM) 2 mg capsule Take 1 capsule (2 mg total) by mouth as needed for diarrhea Active diltiazem LA (CARDIZEM LA) 240 mg 24 hr tablet Take 180 mg by mouth daily Active metFORMIN (FORTAMET) 500 mg 24 hr tablet Take 1 tablet (500 mg total) by mouth with evening meal Active flecainide (TAMBOCOR) 100 mg tablet Take 1 tablet (100 mg total) by mouth 2 (two) times a day Active tirzepatide (Mounjaro) 5 mg/0.5 mL pen injector injection Inject 0.5 mL (5 mg total) under the skin Active aspirin 81 mg enteric coated tablet Take 1 tablet (81 mg total) by mouth daily 5 Active Eliquis 5 mg tablet Take 1 tablet (5 mg total) by mouth 2 (two) times a day 5 Active Active Problems Problem Noted Date Diagnosed Date Symptomatic varicose veins of left lower extremi ty 03/25/2024 Other secondary scoliosis, thoracolumbar region 08/19/2021 Hyposmia 08/09/2020 Persistent depressive disorder 05/10/2020 Assessment & Plan (05/10/2020 5:23 PM CDT): Trial of Lamotrigine 25 mg daily and increase 50 mg daily. Start for 1 week - before starting Buspirone. ALFA (generalized anxiety disorder) 05/10/2020 Assessment & Plan (05/10/2020 5:22 PM CDT): Trial of buspirone 10 mg twice daily. Osteoarthritis of knee 12/14/2018 Primary localized osteoarthrosis of shoulder reg ion 12/14/2018 Full thickness rotator cuff tear 11/25/2018 Seasonal allergies 04/12/2018 Thyroid nodule 04/12/2018 Severe recurrent major depre ssion without psychotic features 11/19/2016 History of open heart surgery 01/31/2016 Disorder of aorta 10/23/2015 Pulsatile abdomen 10/23/2015 Atypical atrial flutter 02/22/2015 Chronic pain 12/15/2014 Stenosis of intervertebral foramina 12/15/2014 Cardiac arrhythmia 12/14/2014 Glaucoma 12/14/2014 Arthritis 12/14/2014 Muscle pain 12/14/2014 Cephalalgia 12/14/2014 Dizziness 12/14/2014 Memory impairment 12/14/2014 Anxiety 12/14/2014 Suicidal ideation 12/14/2014 Hypertension 12/14/2014 Anaclitic depression 12/14/2014 Osteoarthritis of cervical spine 11/14/2014 Notalgia 05/08/2014 Lumbago 05/08/2014 Arthralgia of hip 05/08/2014 Osteoarthritis of cervical spine without myelopa thy 04/11/2014 Knee pain 02/21/2014 Surgical follow-up care 01/17/2014 Mechanical complication of i nternal orthopedic device, implant or graft 11/15/2013 Cervicalgia 11/11/2013 Non-toxic multinodular goiter 07/09/2013 Overview (05/30/2016): NONTOX MULTINODUL GOITER History of total knee arthroplasty 07/23/2012 Radiculopathy of cervicothoracic region 07/13/19 13 Foraminal stenosis of lumbar region 06/24/2012 Muscle weakness (generalized) 06/23/2012 Overview (03/28/2019): Overview: Bi lat arm weakness Back pain 06/23/2012 Neck pain 06/23/2012 Arthralgia of shoulder 02/20/2010 Overview (06/05/2017): Annotation: bilateral Encounters Date Type Department Care Team Description 12/08/2024 Telephone [facility] Medicine Scheduling [address] [place] [address] Doris Brownlee BS from Last 3 Months Immunizations Immunization Administration Dates Next Due Influenza, Quadrivalent, Hig h Dose, Preservative Free, Intrr 11/17/2019 Influenza, Quadrivalent, Rec ombinant, Egg Free, Preservative Free, Intramuscular 12/09/2018 Influenza, Trivalent, High D ose, Split, Preservative Free, Intramuscular 11/12/2017 Td, adsorbed 07/01/2018 ZOSTER Recombinant 10/08/2018,05/13/2018 Surgical History Surgery Date Site/Laterality Comments KNEE ARTHROPLASTY Knee replacement BACK SURGERY Back surgery SHOULDER SURGERY Shoulder Surgery - (Added by Conv) KNEE SURGERY Knee Surgery - (Added by ) NECK SURGERY Neck Surgery - (Added by ) [place] NJX AA&/STRD TFRML EPI CERVICAL/THORACIC 1 LEVEL Corticosteroid Inj Transforaminal Approach Cervical W/ Fluoroscopic Guidance - 12/14/14- Cervical Selective Nerve Root Injection, Left, C8 (Added by Conv) FLUORO GUIDED ASPIRATION OR INJECTION LARGE JOINT BILATERAL 09/23/2017 Bilateral UPPER GASTROINTESTINAL ENDOSCOPY COLONOSCOPY ABLATION cardiac ablation Medical History Medical History Date Comments Hx Other Medical cervical surger y Hx Other Medical shoulder surger y Disorder of thyroid Thyroid dise ase Paroxysmal atrial fibrillation (HCC) Paroxysmal atrial fibrillation - (Added by Conv) GERD (gastroesophageal reflux disease) Irritable bowel syndrome Liver cyst Kidney cysts Hypertension Asthma Depression Anxiety Allergic rhinitis Bleeds easily CA skin, basal cell IBS (irritable bowel syndrome) Hypertension BPH (benign prostatic hyperplasia) Hiatal hernia Sinusitis Sleep apnea uses bipap PONV (postoperative nausea and vomiting) Cervical stenosis (uterine cervix) Cervical disc disease Gastric reflux Glaucoma Disc disorder of lumbar region Lumbar stenosis Cataract Chronic diarrhea Arthritis Family History Medical History Relation Name Comments Depression Father Arthritis Mother Family history of arthritis - (Added by Conv) Blood Clot Mother Family history of blood clots - (Added by Conv) Cancer Mother Family history of malignant neoplasm - (Added by TW Conv) Heart disease Mother Family history of cardiac disorder - (Added by TW Conv) Stroke Mother Family history of cerebrovascular accident - (Added by TW Conv)/Family history of stroke - (Added by TW Conv) Depression Paternal Grandmother Cancer Sister 1 Thyroid disease Sister 1 Thyroid diso rder; Hypertension Sister 2 Family history of hypertension - (Added by Conv) Colon cancer Neg Hx Colon polyps Neg Hx Relation Name Status Comments Father Mother Paternal Grandmother Sister 1 Sister 2 Social History Tobacco Use Types Packs/Day Years Used Date Smoking Tobacco: Never Smokeless Tobacco: Never Tobacco Cessation:Counseling Given: Not Answered Alcohol Use Standard Drinks/Week Comments Yes 0 (1 standard drink = 0.6 oz pur e alcohol) AUDIT-C Answer Date Recorded Q1: How often do you have a drink containing alcohol? 4 or more times a week 09/09/2024 Q2: How many drinks containi ng alcohol do you have on a typical day when you are drinking? 1 or 2 Q3: How often do you have si x or more drinks on one occasion? Never 09/09/2024 Personal Safety Answer Date Recorded Have you ever been in or are you currently in a harmful physical or emotional relationship or is someone making you feel afraid or unsafe? 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 Gender Identity Not on file Sexual Orientation Not on file Occupation Industry Job Start Date Job End Date Retired Not on file Not on file Not on file Obstetrics History Last Filed Vital Signs Vital Sign Reading Time Taken Comments Blood Pressure 149/71 09/19/2024 11:13 AM CDT Pulse 68 09/19/2024 11:13 AM CDT Temperature 36.5 C (97.7 F) 09/19/2024 9:20 AM CDT Respiratory Rate 14 09/19/2024 11:13 AM CDT Oxygen Saturation 98% 09/19/2024 11:13 AM CDT Inhaled Oxygen Concentration - - Weight 88.5 kg (195 lb) 09/19/2024 9:20 AM CDT Height 177.8 cm (5' 10) 09/19/2024 9:20 AM CDT Body Mass Index 27.98 09/19/2024 9:20 AM CDT Plan of Treatment Health Maintenance Due Date Last Done Comments Depression Screening 1945 Hepatitis C Screening 1945 Hepatitis B Screening 05/23/1965 Pneumococcal vaccine 65+ (1 of 1 - PCV) 05/23/1997 Well Visit 65+ 05/23/2012 DTaP/Tdap/Td Vaccine (1 - Tdap) 07/02/2018 9 Influenza Vaccine (#1) 2024 0, 12/09/2018, 11/12/2017 Fall Risk Assessment 09/19/2025 09/19/2024, 05/08/19 21 Zoster Vaccine Completed 10/08/2018, 05/13/2018 Medical Devices Implanted Type Area Bottle Feeder Device Identifier Shelf Expiration Date Model / Serial / Lot Bilateral Knee Replacement Bilateral: Knee Urolift N/A: Bladder Cervical Spine Fixation- [id number] Implanted:2009 (Quantity not on file) N/A: Spine Cervical Insurance [facility] MEDIC[facility] Address: [facility] [address] [place] [address] [facility] [id number] [facility] MEDICARE ADVANTAGE [facility] MEDICARE [facility] Address: [address] [address] [place] [address] Advance Directives For more information, please contact: [phone] * Full Code (Latest Code Status on File) Date Activated Date Inactivated Comments 09/19/2024 9:08 AM 09/19/2024 3:31 PM * Full Code Date Activated Date Inactivated Comments 10/12/2023 10:00 AM 10/12/2023 4:14 PM * Full Code Date Activated Date Inactivated Comments 09/29/2022 9:41 AM 09/29/2022 4:00 PM * Full Code Date Activated Date Inactivated Comments 10/21/2021 8:13 AM 10/21/2021 3:30 PM * Full Code Date Activated Date Inactivated Comments 08/30/2020 9:03 AM 08/30/2020 5:16 PM Care Teams Rock Drill Operator Relationship Specialty Start Date End Date Milan Black DO PCP - General Internal Medicine 09/29/22
--- OUTSIDE RECORDS SUMMARY | 2024-12-23 09:44 | XMS_ITS | Clinical Summary ---
Author Organization [facility] Address [address] [place] [address] Care Team Providers Care Health Care Manager Name Role Phone BreMilan taylor DO Primary Care Provider [phone] Source Comments [facility],non-owned Affiliates and Associated Physician Practices is amultiple site organization consisting of ambulatory clinics and hospital sitesin [place] and [place]. This disclosure is being madepursuant to the Care Everywhere program and may not contain all information available regarding this patient. Last updated 17.[facility] Allergies No known active allergies Medications * Be aware that medications may not be up to date on this document. Alwaysverify current medications with the patient. lisinopril-hydr ochlorothiazide (PRINZIDE; ZESTORETIC) 10-12.5 MG tablet 2 times daily. Activ e Latanoprost (XALATAN OP) Instill into both eyes once daily. Active Diclofenac Sodium (DICLOFENAC IN PLO) 4 % cmp gel Active esomeprazole (NEXIUM) 40 MG capsule Take 40 mg by mouth daily before breakfast. Active doxazosin (CARDURA) 4 MG tablet Take 4 mg by mouth at bedtime. Active testosterone (ANDROGEL) 20.25 MG/ACT (1.62%) gel Use 2 Pump as instructed once daily. Apply to shoulders and upper arms Active diclofenac sodium (VOLTAREN) 50 MG tablet TBEC Take 1 Tab by mouth 2 times daily. 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 07/13/19 13 Foraminal stenosis of lumbar region 06/24/2012 Neck pain 06/23/2012 Back pain 06/23/2012 Muscle weakness (generalized) 06/23/2012 Overview (06/23/2012): Bi lat arm weakness Family History Medical History Relation Name Comments Stroke Mother Relation Name Status Comments Father Alive (Age 49) Mother (Age 70) Social History Tobacco Use Types Packs/Day Years Used Date Smoking Tobacco: Never Smokeless Tobacco: Never Tobacco Cessation:Counseling Given: No Alcohol Use Standard Drinks/Week Comments Yes 8.3 (1 standard drink = 0.6 oz p ure alcohol) Sex and Gender Information Value Date Recorded Sex Assigned at Not on file Legal Sex Male 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 Gender Identity Not on file Sexual Orientation Not on file Last Filed Vital Signs Vital Sign Reading Time Taken Comments Blood Pressure 121/80 01/16/2014 1:40 PM BORING MACHINE SET UP OPERATOR Pulse 76 01/16/2014 1:40 PM BORING MACHINE SET UP OPERATOR Temperature 36.3 C (97.4 F) 01/16/2014 1:40 PM BORING MACHINE SET UP OPERATOR Respiratory Rate 16 11/03/2013 8:33 AM CDT Oxygen Saturation 99% 11/03/2013 8:33 AM CDT Inhaled Oxygen Concentration - - Weight 88.5 kg (195 lb) 01/16/2014 1:40 PM BORING MACHINE SET UP OPERATOR Height 182.9 cm (6') 01/16/2014 1:40 PM BORING MACHINE SET UP OPERATOR Body Mass Index 26.45 01/16/2014 1:40 PM BORING MACHINE SET UP OPERATOR Plan of Treatment Health Maintenance Due Date Last Done Comments HEPATITIS C SCREENING 05/19/1965 DTAP/TDAP/TD VACCINES (1 - Tdap) 05/23/1966 PNEUMOCOCCAL VACCINE 50+ (1 of 1 - PCV) 05/23/1997 ZOSTER VACCINE (1 of 2) 05/23/1997 Respiratory Syncytial Virus (RSV) Vaccine Pt: or over 60 yrs (1 - 1-dose 75+ series) 05/23/2022 DEPRESSION SCREENING 02/24/2024 COVID-19 VACCINE (1 - 2023-2 5 season) 2024 INFLUENZA VACCINE (#1) 2024 HEPATITIS B VACCINE Aged Out No longe r eligible based on patient's age to complete this topic HIB VACCINE Aged Out No longer eligi ble based on patient's age to complete this topic HPV VACCINE Aged Out No longer eligi ble based on patient's age to complete this topic MENINGOCOCCAL (Group B) VACC INE SHARED DECISION-MAKING Aged Out No longer eligibl e based on patient's age to complete this topic MENINGOCOCCAL GROUPS A/C/Y/W VACCINE Aged Out No longer eligible b ased on patient's age to complete this topic Medical Devices Implanted Type Area Boating Safety Officer Device Identifier Shelf Expiration Date Model / Serial / Lot [id number] Implanted:Qty: 1 on 07/06/2012 by Juvenal Andres MD at [facility] N/A: Neck [employer] 09/26/2019 [id number] / / [id number] Alexander Putty Implanted:Qty: 1 on 07/06/2012 at [facility] [employer] [facility] 12/22/2013 [id number] / / [id number] Insurance MEDICARE MANAGED MEDICARE [facility]V [facility] Care Address: [facility] [address] [place] [address] Advance Directives Documents on File Type Date Recorded Patient Clinical Nurse Leader Expl anation Adv Directive/Living Will/POA 07/08/2012 6:29 AM * FULL RESUSCITATION (Latest Code Status on File) Date Activated Date Inactivated Comments 07/06/2012 5:38 PM 07/06/2012 11:37 PM Care Teams Health Care Manager Relationship Specialty Start Date End Date Milan Black DO PCP - General 07/10/20
--- OUTSIDE RECORDS SUMMARY | 2024-12-23 09:44 | XMS_ITS ---
Author Organization [facility] Address [address] [place] [address] Phone Care Team Providers Care Creative Coordinator Name Role Phone Unavailable Unavailable Unavailable Plan of Treatment No Plan of Treatment Recorded Assessments Includes: Assessments for all patient encounters No Assessments Recorded Medical Equipment - Implanted Devices Includes: Current and historical Devices No Medical Equipment Recorded Medications Administered Includes: Administered Medications in patient's chart No Administered Medications Recorded Results Includes: Results from 12/24/2023 through 12/23/2024 No Results Recorded For Specified Dates History of Present Illness History of Present Illness not supported for this document type No History of Present Illness Recorded Social History No Social History Recorded - Smoking Status Unknown Medical History Includes: Medical History in patient's chart No Medical History Recorded Family History Includes: Family History in patient's chart No Family History Recorded Review of Systems Review of Systems not supported for this document type No Review of Systems Recorded Mental Status No Mental Status Recorded Functional Status No Functional Status Recorded Physical Exam Physical Exam not supported for this document type No Physical Exam Recorded Clinical Notes Includes: Signed Clinical Notes starting from 03/14/2022 No Clinical Notes Recorded
--- OUTSIDE RECORDS SUMMARY | 2024-12-23 09:44 | XMS_ITS | Clinical Summary ---
Author Organization [facility] Address [address] [place] [address] Care Team Providers Care Svp Of Digital Name Role Phone Brebrandon Milan Esdras Primary Care Provider Social History Tobacco Use Types Packs/Day Years Used Date Smoking Tobacco: Never Assessed Sex and Gender Information Value Date Recorded Sex Assigned at Not on file Legal Sex Male 11:23 AM CDT Gender Identity Not on file Sexual Orientation Not on file Plan of Treatment Health Maintenance Due Date Last Done Comments Hepatitis C Virus (HCV) Screening 1945 TdaP Immunization 1945 Pneumococcal Immunization (50+ years) (2 of 2 - PCV) 10/20/2021 10/20/2020, 02/23/2014, 02/23/2013 Influenza Immunization (#1) 2024 10/0 08/2022, 11/15/2021, 11/06/2020, Additional history exists SARS-COV-2 Immunization (2024- season) 2024 12/03/2022, 11/20/2021, 07/05/2021, Additional history exists DTaP/Tdap/Td Immunization Discontinued 07/01/2018 Zoster Immunization Completed 10/08/2018, 9 Respiratory Syncytial Virus (RSV) Immunization (Adult) Completed 12/17/2022 Hepatitis B Immunization Aged Out No longer eligible based on patient's age to complete this topic Human Papillomavirus (HPV) Immunization Aged Out No longer eligible based on patient's age to complete this topic Meningococcal Immunization (ACWY) Aged Out No longer eligible based on patient's age to complete this topic Rotavirus Immunization Aged Out No lo nger eligible based on patient's age to complete this topic Insurance [employer] Care Teams Svp Of Digital Relationship Specialty Start Date End Date Milan Black DO [address] [address] PCP - General Internal Medicine 01/09/23
--- OUTSIDE RECORDS SUMMARY | 2024-12-23 09:44 | XMS_ITS ---
Care Plan - [facility] Created on: December 23, 2024 MARY RAMOS : 1945 Sex: Male Author Organization [facility] Address [address] [place] [address] Phone Care Team Providers Care Machine Operator Farmworker Name Role Phone Unavailable Unavailable Unavailable
--- OUTSIDE RECORDS SUMMARY | 2024-12-23 09:44 | XMS_ITS | Clinical Summary ---
Author Organization [facility] [id number] [place] [address] [address] [address] [place] [address] Care Team Providers Care Pot Washer Name Role Phone Milan Black DO Primary Care Provider Allergies Active Allergy Reactions Criticality Noted Date Comments Levofloxacin Other (See Comments),Dizziness,Hypotension High 08/30/2020 b\ p drop Medications acetaminophen (TYLENOL ARTHRITIS) 650 mg Extended Release tablet Take 650 mg by mouth. 2 Active albuterol sulfate HFA 90 mcg/actuation aerosol inhaler Take 2 Puffs by inhalation every 4 hours as needed. Active Eliquis 5 mg tablet Take 5 mg by mouth 2 times daily. 1 Active diazePAM (VALIUM) 2 mg tablet Take 2 mg by mouth every 6 hours as needed. 4 Active diltiaZEM (CARDIZEM LA) 120 mg Extended Release 24 hour tablet Take 120 mg by mouth daily. 4 Active famotidine (PEPCID) 40 mg tablet Take 1 Tablet by mouth daily. Active metFORMIN (GLUCOPHAGE XR) 500 mg Extended Release 24 hour tablet Take 500 mg by mouth daily with breakfast. Active sotaloL (BETAPACE) 80 mg tablet Take 1 Tablet by mouth 2 times daily. Active Active Problems No known active problems Encounters Date Type Department Care Team Description 12/14/2024 External Device Data [facility] ABSTRACTION Provider, Abstract 12/13/2024 External Device Data [facility]STRACTION Provider, Abstract 11/29/2024 External Device Data [facility] ABSTRACTION Provider, Abstract 11/08/2024 External Device Data [facility]STRACTION Provider, Abstract 11/08/2024 External Device Data [facility] ABSTRACTION Provider, Abstract 10/25/2024 External Device Data [facility] ABSTRACTION Provider, Abstract 10/11/2024 External Device Data [facility] ABSTRACTION Provider, Abstract 10/11/2024 External Device Data [facility] ABSTRACTION Provider, Abstract from Last 3 Months Family History Medical History Relation Name Comments Cancer Brother Depression Brother Depression Father Depression Mother Hypertension Mother Cancer Sister Depression Sister Relation Name Status Comments Brother Father Mother Sister Social History Tobacco Use Types Packs/Day Years Used Date Smoking Tobacco: Never Smokeless Tobacco: Never Tobacco Cessation:Counseling Given: No Alcohol Use Standard Drinks/Week Comments Yes 0 (1 standard drink = 0.6 oz pur e alcohol) Sex and Gender Information Value Date Recorded Sex Assigned at Not on file Legal Sex Male 11:53 PM CDT Gender Identity Not on file Sexual Orientation Not on file Last Filed Vital Signs Vital Sign Reading Time Taken Comments Blood Pressure 147/74 11/10/2023 1:35 PM CDT Pulse 61 11/10/2023 1:35 PM CDT Temperature - - Respiratory Rate - - Oxygen Saturation - - Inhaled Oxygen Concentration - - Weight 95.3 kg (210 lb) 11/10/2023 1:35 PM CDT Height 177.8 cm (5' 10) 11/10/2023 1:35 PM CDT Body Mass Index 30.13 11/10/2023 1:35 PM CDT Plan of Treatment Health Maintenance Due Date Last Done Comments DTAP/TDAP/TD VACCINES (1 - Tdap) 05/23/1966 PNEUMOCOCCAL VACCINE 50+ YEA RS (1 of 1 - PCV) 05/23/1997 RSV VACCINE (60+ or ) (1 - 1-dose 75+ series) 05/23/2022 INFLUENZA VACCINE (#1) 2024 0, 12/09/2018, 11/12/2017 ZOSTER VACCINE Completed 10/08/2018, 05/13/2018 Insurance [facility] [id number] [facility] Care Teams Pot Washer Relationship Specialty Start Date End Date Milan Black DO [address] [address] PCP - General Internal Medicine 10/01/23
[2024-12-23 14:19] LABS: Hematocrit 34.9 % (42.0-52.0); Hemoglobin 11.5 g/dL (14.0-18.0); Immature Granulocyte Percent A 0.2 % (0-0.5); Lymphocytes Absolute Auto 0.88 K/mm3 (0.9-3.2); Mean Corpuscular HGB Conc 33.0 g/dl (32-36); Mean Corpuscular Hemoglobin 31.7 pg (26-34); Mean Corpuscular Volume 96.1 fl (80-100); Nucleated Red Blood Cells Absolute Auto 0.000 K/mm3 (0.0-0.012); Nucleated Red Blood Cells Perc 0.0 % (0.0-0.2); Platelet Count Result 174 k/mm3 (150-375); Red Blood Count 3.63 M/mm3 (4.6-6.20); White Blood Count 4.2 K/mm3 (4.5-10.0)
[2024-12-23 14:46] LABS: Alanine Aminotransferase 19 U/L (6-50); Albumin Level 3.9 g/dL (3.5-5.1); Alkaline Phosphatase 60 U/L (38-126); Anion Gap 7 mmol/L (4-12); Aspartate Amino Transferase 34 U/L (17-59); Bilirubin,Total 0.9 mg/dL (0.2-1.3); Blood Urea Nitrogen 19 mg/dL (9-20); Calcium 9.0 mg/dL (8.4-10.2); Carbon Dioxide 29 mmol/L (22-30); Chloride 101 mmol/L (98-107); Estimated Glomerular Filt Rate > 60; Glucose 117 mg/dL (65-110); Potassium 4.1 mmol/L (3.4-5.0); Sodium 137 mmol/L (137-145); Total Protein 6.4 g/dL (6.3-8.2)
[2024-12-26 16:08] LABS: EBV Nuclear Antigen Ab, IgG 31.1 U/mL (0.0-17.9)
== END 2024-12-23 09:20 | disposition home or self-care (01) ==
LOC: ANHGOSHLAB 09:19
PROVIDERS: PCP Clinical Nurse Specialist; Visit Provider Clinical Nurse Specialist
DX: E78.5 Hyperlipidemia, unspecified (principal); T50.B95A Adverse effect of other viral vaccines, initial encounter; R53.83 Other fatigue; I48.91 Unspecified atrial fibrillation
CPT/HCPCS: 36415; 80053; 85025; 86664; 86665

== ENCOUNTER 2024-12-23 09:32 | Outpatient (CLI) | payer MEDICARE, SELFPAY ==
--- NOTE | ~2024-12-23 | XR_ITS ---
EXAMINATION: XR chest 2V, 12/23/2024 9:38 CDT HISTORY: Shortness of breath, fever, weakness x 3 weeks COMPARISON: No comparisons available. Technique: 2 views obtained. Findings: The lungs are clear, no effusion. No pneumothorax. Heart is normal size. Mediastinal and hilar contours are within normal limits. Bony thorax no acute abnormality. Impression: No acute cardiopulmonary abnormality. Reviewed, dictated and finalized at location P. Impression: No acute cardiopulmonary abnormality.
== END 2024-12-23 09:33 | disposition home or self-care (01) ==
LOC: GOSHIMG 09:33
PROVIDERS: PCP Internal Medicine Cardiovascular Disease; Visit Provider Clinical Nurse Specialist
DX: R06.02 Shortness of breath (principal)
CPT/HCPCS: 71046

== ENCOUNTER 2025-01-03 10:28 | Outpatient (CLI) | payer MEDICARE, SELFPAY ==
--- OUTSIDE RECORDS SUMMARY | 2024-03-16 04:00 | XMS_ITS ---
Author Organization [facility] Address [address] [place] [address] Care Team Providers Care Cell Maker Name Role Phone Merline Junior Primary Care Provider Lizzie Ruggiero Unavailable [phone] REASON FOR VISIT 6 week f/u laura Encounters Encounter Location Date Provider Diagnosis [address] [address] 03/16/2024 Lizzie Ruggiero Plan Of Treatment Next Appt Details Provider Name:Merline Junior, 01:00:00 PM, [address] [place] [address], [phone], Progress Notes * Kong BARTONOB:1945 ( 79 yo M)Acc No.[id number]:03/16/2024 Progress Notes Patient: Mike Benites Provider: Chela Ruggiero NP :1945 A ge:78 Y S ex:Male Date:03/16/2024 Address:[address] [place], [place] [phone] Pcp:Merline Junior Subjective: * Chief Complaints: * 6 week f/u laura * Electronic signature of Zee Ruggiero on 01/03/2025 at 11:02 AM WEB APPLICATION DEVELOPER Sign off status: Pending * Provider: Chela Ruggiero NP Date: 0 03/16/2024 Generated for Printi ng/Faxing/eTransmitting on: 1 03/05/2024 11:02 AM WEB APPLICATION DEVELOPER
--- OUTSIDE RECORDS SUMMARY | 2024-03-17 08:30 | XMS_ITS ---
Author Organization [facility] Address [address] [place], [place] [address] Care Team Providers Care Hearing Therapy Director Name Role Phone Merline Junior Primary Care Provider [phone] REASON FOR VISIT 3 month f/u laura Encounters Encounter Location Date Provider Diagnosis [facility] Dr[facility] Junior [address] [place] [phone] 03/17/2024 Merline Junior Plan Of Treatment Next Appt Details Provider Name:Merline Junior, 01:00:00 PM, [address] [place] [address], [phone], Progress Notes * Kong BARTONOB:1945 ( 79 yo M)Acc No.[id number]:03/17/2024 Progress Notes Patient: Mike Benites Provider: Louisa Junior MD :1945 A ge:78 Y S ex:Male Date:03/17/2024 Address:[address] [place], [place] [phone] Subjective: * Chief Complaints: * 3 month f/u laura * Electronic signature of Kristian Junior MD on 01/03/2025 at 11:01 AM COMPLEX DIRECTOR Sign off status: Pending * Provider: Louisa Junior MD Date: 03/17/2024 Generated for Rita mccarthy/Katharine/eTransmitting on: 03/05/2024 11:01 AM COMPLEX DIRECTOR
--- OUTSIDE RECORDS SUMMARY | 2024-03-24 05:40 | XMS_ITS ---
Author Organization [facility] Address [address] [place], [place] [address] Care Team Providers Care Apron Operator Name Role Phone Vernon Merline Primary Care Provider [phone] REASON FOR VISIT Lab Review Medications Medication SIG (Take, Route, Frequency, Duration) Notes Start Date End Date Status Doxazosin Mesylate 4 MG Tablet 1 tab(s) orally once a day Unknown Mounjaro 2.5 MG/0.5ML Solution Auto-injector inject 2.5 mg subcutaneously once a week; Duration: 30 days Unknown metFORMIN HCl ER 500 MG Tablet Extended Release 24 Hour 1 tablet with evening meal Orally Once a day; Duration: 90 days 01/25/2024 Unknown Eliquis 5 MG Tablet as directed orally 2 times a day Unknown dilTIAZem HCl 240 MG/24 HOURS CAPSULE, EXTENDED RELEASE 1 CAP(S) ORALLY ONCE A DAY *Please review and pick correct strength-formula tion from [employer] options. If intended option is not shown, discontinue and re-order from Quick Search* *Pick strength-form from [employer] for eRX* Unknown NexIUM 40 MG Capsule Delayed Release 1 cap(s) orally once a day Unknown Famotidine 40 MG Tablet 1 tab(s) orally once a day (at bedtime) Unknown Tylenol 8 Hour Arthritis Pain 650 MG Tablet Extended Release 2 tab(s) orally every 8 hours Unknown Xalatan 0.005 % Solution 1 gtt in each eye once a day (in the evening) Unknown Dry Eye Relief PRESERVED SOLUTION 1 GTT IN EACH EYE 4 TIMES A DAY *Please review and pick correct strength-formula tion from [employer] options. If intended option is not shown, discontinue and re-order from Quick Search* *Reorder from [employer] for eRx and Interaction Alerts* Unknown Mounjaro 2.5 MG/0.5ML Solution Auto-injector inject 0.5ml Subcutaneous weekly; Duration: 90 days 02/10/2024 Not-Taking metFORMIN HCl 500 MG Tablet 1 tab(s) orally Once a day Not-Taking dexAMETHasone 1 MG Tablet 1 tab(s) orally at 10 pm night before 8 am cortisol; Duration: 1 days 12/22/2023 Not-Taking Lisinopril-hydroCHL OROthiazide 20-12.5 MG Tablet 1 tab(s) orally once a day Unknown Encounters Encounter Location Date Provider Diagnosis [facility]MO Dr. Junior [address] [place] [phone] 03/24/2024 Merline Junior Plan Of Treatment Next Appt Details Provider Name:Merline Junior, 01:00:00 PM, [address] [place] [address], [phone], Progress Notes * Kong BARTONOB:1945 ( 79 yo M)Acc No.[id number]:03/24/2024 Progress Notes Patient: Mike Benites Provider: Louisa Junior MD :1945 A ge:78 Y S ex:Male Date:03/24/2024 Address:[address] [place] [address] Subjective: * Chief Complaints: * L ab Review * Medications: N ot-TakingMounjaro 2.5 MG/0.5ML Solution Auto-injector inject 0.5ml Subcutaneous weekly metFORMIN HCl 500 MG Tablet 1 tab(s) orally Once a day dexAMETHasone 1 MG Tablet 1 tab(s) orally at 10 pm night before 8 am cortisol Not-Taking Mounjaro 2.5 MG/0.5ML Solution Auto-injector inject 0.5ml Subcutaneous weekly Not-Taking metFORMIN HCl 500 MG Tablet 1 tab(s) orally Once a day Not-Taking dexAMETHasone 1 MG Tablet 1 tab(s) orally at 10 pm night before 8 am cortisol UnknownLisinopril-hydroCHLOROthiazide 20-12.5 MG Tablet 1 tab(s) orally once a day Xalatan 0.005 % Solution 1 gtt in each eye once a day (in the evening) Dry Eye Relief PRESERVED SOLUTION 1 GTT IN EACH EYE 4 TIMES A DAY , Notes to Pharmacist: *Please review and pick correct strength-formulation from [employer] options. If intended option is not shown, discontinue and re-order from Quick Search* *Reorder from [employer] for eRx and Interaction Alerts*Tylenol 8 Hour Arthritis Pain 650 MG Tablet Extended Release 2 tab(s) orally every 8 hours NexIUM 40 MG Capsule Delayed Release 1 cap(s) orally once a day Famotidine 40 MG Tablet 1 tab(s) orally once a day (at bedtime) Eliquis 5 MG Tablet as directed orally 2 times a day dilTIAZem HCl 240 MG/24 HOURS CAPSULE, EXTENDED RELEASE 1 CAP(S) ORALLY ONCE A DAY , Notes to Pharmacist: *Please review and pick correct strength-formulation from [employer] options. If intended option is not shown, discontinue and re-order from Quick Search* *Pick strength-form from [employer] for eRX*Doxazosin Mesylate 4 MG Tablet 1 tab(s) orally once a day Mounjaro 2.5 MG/0.5ML Solution Auto-injector inject 2.5 mg subcutaneously once a week metFORMIN HCl ER 500 MG Tablet Extended Release 24 Hour 1 tablet with evening meal Orally Once a day Unknown Lisinopril-hydroCHLOROthiazide 20-12.5 MG Tablet 1 tab(s) orally once a day Unknown Xalatan 0.005 % Solution 1 gtt in each eye once a day (in the evening) Unknown Dry Eye Relief PRESERVED SOLUTION 1 GTT IN EACH EYE 4 TIMES A DAY , Notes to Pharmacist: *Please review and pick correct strength-formulation from [employer] options. If intended option is not shown, discontinue and re-order from Quick Search* *Reorder from [employer] for eRx and Interaction Alerts*Unknown Tylenol 8 Hour Arthritis Pain 650 MG Tablet Extended Release 2 tab(s) orally every 8 hours Unknown NexIUM 40 MG Capsule Delayed Release 1 cap(s) orally once a day Unknown Famotidine 40 MG Tablet 1 tab(s) orally once a day (at bedtime) Unknown Eliquis 5 MG Tablet as directed orally 2 times a day Unknown dilTIAZem HCl 240 MG/24 HOURS CAPSULE, EXTENDED RELEASE 1 CAP(S) ORALLY ONCE A DAY , Notes to Pharmacist: *Please review and pick correct strength-formulation from [employer] options. If intended option is not shown, discontinue and re-order from Quick Search* *Pick strength-form from [employer] for eRX*Unknown Doxazosin Mesylate 4 MG Tablet 1 tab(s) orally once a day Unknown Mounjaro 2.5 MG/0.5ML Solution Auto-injector inject 2.5 mg subcutaneously once a week Unknown metFORMIN HCl ER 500 MG Tablet Extended Release 24 Hour 1 tablet with evening meal Orally Once a day * Electronic signature of Kristian Junior MD on 01/03/2025 at 11:01 AM X RAY DEVELOPER Sign off status: Pending * Provider: Louisa Junior MD Date: 0 03/24/2024 Generated for Rita mccarthy/Katharine/Filemon on: 03/05/2024 11:01 AM X RAY DEVELOPER
--- OUTSIDE RECORDS SUMMARY | 2024-03-28 04:00 | XMS_ITS ---
Author Organization [facility] Address [address] [place], [place] [address] Care Team Providers Care Microphone Operator Name Role Phone Merline Junior Primary Care Provider REASON FOR VISIT lab f/u laura Encounters Encounter Location Date Provider Diagnosis [facility]MO Dr. Junior [address] [place] [phone] 03/28/2024 Merline Junior Plan Of Treatment Next Appt Details Provider Name:Merline Junior, 01:00:00 PM, [address] [place] [address], [phone], Progress Notes * Kong BARTONOB:1945 ( 79 yo M)Acc No.[id number]:03/28/2024 Progress Notes Patient: Mike Benites Provider: Louisa Junior MD :1945 A ge:78 Y S ex:Male Date:03/28/2024 Address:[address] [place], [place] [phone] Subjective: * Chief Complaints: * L ab f/u laura * Electronic signature of Kristian Junior MD on 01/03/2025 at 11:02 AM PLASTIC MACHINE OPERATOR Sign off status: Pending * Provider: Louisa Junior MD Date: 0 03/28/2024 Generated for Rita mccarthy/Katharine/eTransmitting on: 1 03/05/2024 11:02 AM PLASTIC MACHINE OPERATOR
--- OUTSIDE RECORDS SUMMARY | 2024-09-12 14:40 | XMS_ITS ---
Author Organization [facility] Address [address] [place] [address] Care Team Providers Care Citrus Peeler Name Role Phone Merline Junior Primary Care Provider [phone] Results Component Value Reference Range Flag Notes INSULIN (561) Reviewed date:09/16/2024 08:52:47 AM Interpretation: Performing Lab:[id number] Melisa Vines, [id number] Gregorio Shah MD Notes/Report: FASTING:UNKNOWN FASTING: UNKNOWN INSULIN 9.8 N Reference Range < or = 18.4 Risk: Optimal < or = 18.4 Moderate NA High >18.4 Adult cardiovascular event risk category cut points (optimal, moderate, high) are based on Insulin Reference Interval studies performed at [facility] in 2021. DHEA SULFATE (402) Reviewed date:09/16/2024 08:51:50 AM Interpretation: Performing Lab:[facility][id number] Melisa Vines, [id number] Gregorio Shah MD Notes/Report: FASTING:UNKNOWN FASTING: UNKNOWN DHEA SULFATE 90 3-225 mcg/dL N VITAMIN D Reviewed date:09/15/2024 11:49:20 AM Interpretation: Performing Lab: Notes/Report: VITAMIN D 40.53 30-100 ng/mL VITAMIN B-12 Reviewed date:09/15/2024 11:49:26 AM Interpretation: Performing Lab: Notes/Report: VITAMIN B-12 377 200-1,100 pg/mL T4, FREE Reviewed date:09/15/2024 11:49:35 AM Interpretation: Performing Lab: Notes/Report: T4, FREE 0.93 0.8-1.8 ng/dL T3, FREE Reviewed date:09/15/2024 11:49:41 AM Interpretation: Performing Lab: Notes/Report: T3, FREE 2.68 2.3-4.2 pg/mL A1c% Reviewed date:09/15/2024 11:49:47 AM Interpretation: Performing Lab: Notes/Report: HEMOGLOBIN A1c % 5.47 4.5-6.3 % TSH Reviewed date:09/16/2024 08:51:44 AM Interpretation: Performing Lab: Notes/Report: TSH 0.431 0.40-4.50 mIU/L LIPID PANEL Reviewed date:09/15/2024 11:55:03 AM Interpretation: Performing Lab: Notes/Report: CHOLESTEROL 147 0-200 mg/dL LDL Direct 66.0 0-100 mg/dL TRIGLYCERIDES 60 0-150 mg/dL HDL CHOLESTEROL 77 40 mg/dL CHOL/HDL RATIO 1.91 COMP. METABOLIC Reviewed date:09/15/2024 11:54:58 AM Interpretation: Performing Lab: Notes/Report: SODIUM 137 135-146 mmol/L POTASSIUM 3.7 3.5-5.3 mmol/L CHLORIDE 100 98-110 mmol/L CO2 30 20-32 mmol/L BUN 15 7-25 mg/dL CALCIUM 9.2 8.6-10.3 mg/dL CREATININE 0.95 0.70-1.28 mg/dL GLUCOSE 128 65-139 mg/dL ALK PHOSPHATASE 57 35-144 IU/L ALT 17 9-46 IU/L AST 21 10-35 IU/L TOTAL BILIRUBIN 0.8 0.2-1.2 mg/dL ALBUMIN 4.3 3.6-5.1 g/dL TOTAL PROTEIN 6.3 6.1-8.1 g/dL eGFR 82.3 >60 mL/min BUN/CREA RATIO 15.8 9-28 Ratio GLOBULIN 2.00 2.0-5.0 g/dL A/G RATIO 2.2 1.1-2.5 Ratio CBC + AutoDiff 5 Reviewed date:09/15/2024 11:28:33 AM Interpretation: Performing Lab: Notes/Report: WBC 4.22 3.53-9.52 10*3/ul RBC 3.68 4.33-5.72 10*6/ul L HGB 11.95 12.55-16.99 g/dL L HCT 36.8 38.3-49.3 % L MCV 99.9 78.3-95.5 fL H MCH 32.5 25.9-33.2 pg MCHC 32.5 33-35.3 g/dL L RDW 16.9 12.9-15.9 % H RDW-SD 58.7 38.9-48.3 fL H PLATELETS 184.3 146.5-351.5 10^3/uL MPV 8.51 7.42-10.65 fL LYMPHOCYTES % 15.17 20.23-43.53 % L LYMPHOCYTES # 0.64 1.15-3.13 10^3/uL L MONOCYTES % 4.67 5.23-13.22 % L MONOCYTES # 0.20 0.25-1.06 10^3/uL L EOSINOPHILS % 2.35 0.84-7.67 % EOSINOPHILS # 0.10 0.04-0.42 10^3/uL BASOPHILS % 0.18 0.11-0.53 % BASOPHILS # 0.01 0.01-0.04 10^3/uL NEUTROPHILS % 77.63 40.62-70.51 % H NEUTROPHILS # 3.28 1.85-5.94 10^3/uL REASON FOR VISIT blood draw Medications Medication SIG (Take, Route, Frequency, Duration) Notes Start Date End Date Status Dry Eye Relief PRESERVED SOLUTION 1 GTT IN EACH EYE 4 TIMES A DAY *Please review and pick correct strength-formulatio n from [employer] options. If intended option is not shown, discontinue and re-order from Quick Search* *Reorder from [employer] for eRx and Interaction Alerts* Active Mounjaro 5 MG/0.5ML Solution Auto-injector as directed Subcutaneous Active dilTIAZem HCl ER 180 MG Tablet Extended Release 24 Hour 1 tablet Orally Once a day Active Lisinopril-hydroCHL OROthiazide 20-12.5 MG Tablet 1 tab(s) orally once a day once daily Active Xalatan 0.005 % Solution 1 gtt in each eye once a day (in the evening) Active Eliquis 5 MG Tablet as directed orally 2 times a day Active Doxazosin Mesylate 4 MG Tablet 1 tab(s) orally once a day Active Creon [id number] UNIT Capsule Delayed Release Particles as directed Orally three times daily Acti ve metFORMIN HCl 500 MG Tablet 1 tab(s) orally Once a day; Duration: 90 days Active Mounjaro 7.5 MG/0.5ML Solution Auto-injector as directed Subcutaneous weekly; Duration: 90 days 09/12/2024 Active Tylenol 8 Hour Arthritis Pain 650 MG Tablet Extended Release 2 tab(s) orally every 8 hours Active NexIUM 40 MG Capsule Delayed Release 1 cap(s) orally once a day Active Famotidine 40 MG Tablet 1 tab(s) orally once a day (at bedtime) Active Problems Problem Type SNOMED Code ICD Code Onset Dates Problem Status W/U Status Risk Notes Problem Mixed hyperlipidemia (414058878) Mixed hyperlipidemia (E78.2) Active confirmed Problem Menopausal syndrome (810379926) Menopausal syndrome (N95.1) Active confirmed Encounters Encounter Location Date Provider Diagnosis [facility] [address] [place] [address] 09/12/2024 Merline Junior Mixed hyperlipidemia E78.2 ; Menopausal syndrome N95.1 ; Fatigue R53.83 and Abnormal glucose R73.09 Assessments Encounter Date Diagnosis (ICD Code) Assessment Notes Treatment Notes Treatment Clinical Notes Section Notes 09/12/2024 Mixed hyperlipidemia (ICD-10 - E78.2) 09/12/2024 Menopausal syndrome (ICD-10 - N95.1) 09/12/2024 Fatigue (ICD-10 - R53.83) 09/12/2024 Abnormal glucose (ICD-10 - R73.09) Plan Of Treatment Next Appt Details Provider Name:Merline Junior, 01:00:00 PM, [address] [place] [address], [phone], Progress Notes * Kong BARTONOB:1945 ( 79 yo M)Acc No.[id number]:09/12/2024 Patient: Danita markelMike robles Provider: Louisa Junior MD :1945 A ge:79 Y S ex:Male Date:09/12/2024 Address:[address] [place] [address] Subjective: * Chief Complaints: * B lood draw * Medications: T akingCreon [id number] UNIT Capsule Delayed Release Particles as directed Orally , Notes to Pharmacist: three times dailyMounjaro 5 MG/0.5ML Solution Auto-injector as directed Subcutaneous dilTIAZem HCl ER 180 MG Tablet Extended Release 24 Hour 1 tablet Orally Once a day Lisinopril-hydroCHLOROthiazide 20-12.5 MG Tablet 1 tab(s) orally once a day , Notes to Pharmacist: once dailyXalatan 0.005 % Solution 1 gtt in each eye once a day (in the evening) Dry Eye Relief PRESERVED SOLUTION 1 GTT IN EACH EYE 4 TIMES A DAY , Notes to Pharmacist: *Please review and pick correct strength-formulation from [employer] options. If intended option is not shown, discontinue and re-order from Quick Search* *Reorder from [employer] for eRx and Interaction Alerts*Tylenol 8 Hour Arthritis Pain 650 MG Tablet Extended Release 2 tab(s) orally every 8 hours NexIUM 40 MG Capsule Delayed Release 1 cap(s) orally once a day Famotidine 40 MG Tablet 1 tab(s) orally once a day (at bedtime) Eliquis 5 MG Tablet as directed orally 2 times a day Doxazosin Mesylate 4 MG Tablet 1 tab(s) orally once a day metFORMIN HCl 500 MG Tablet 1 tab(s) orally Once a day Mounjaro 7.5 MG/0.5ML Solution Auto-injector as directed Subcutaneous weekly Taking Creon [address]2625-97033 UNIT Capsule Delayed Release Particles as directed Orally , Notes to Pharmacist: three times dailyTaking Mounjaro 5 MG/0.5ML Solution Auto-injector as directed Subcutaneous Taking dilTIAZem HCl ER 180 MG Tablet Extended Release 24 Hour 1 tablet Orally Once a day Taking Lisinopril-hydroCHLOROthiazide 20-12.5 MG Tablet 1 tab(s) orally once a day , Notes to Pharmacist: once dailyTaking Xalatan 0.005 % Solution 1 gtt in each eye once a day (in the evening) Taking Dry Eye Relief PRESERVED SOLUTION 1 GTT IN EACH EYE 4 TIMES A DAY , Notes to Pharmacist: *Please review and pick correct strength-formulation from [employer] options. If intended option is not shown, discontinue and re-order from Quick Search* *Reorder from [employer] for eRx and Interaction Alerts*Taking Tylenol 8 Hour Arthritis Pain 650 MG Tablet Extended Release 2 tab(s) orally every 8 hours Taking NexIUM 40 MG Capsule Delayed Release 1 cap(s) orally once a day Taking Famotidine 40 MG Tablet 1 tab(s) orally once a day (at bedtime) Taking Eliquis 5 MG Tablet as directed orally 2 times a day Taking Doxazosin Mesylate 4 MG Tablet 1 tab(s) orally once a day Taking metFORMIN HCl 500 MG Tablet 1 tab(s) orally Once a day Taking Mounjaro 7.5 MG/0.5ML Solution Auto-injector as directed Subcutaneous weekly Assessment: * Assessment: 1. M enopausal syndrome - N95.1 (Primary) 2 . M ixed hyperlipidemia - E78.2? 3. F atigue - R53.83 4 . A bnormal glucose - R73.09 ? Plan: * Treatment: Value Reference Range V ITAMIN D 40.53 30-100 - ng/mL * Merline Junior 09/14/2024 04:36 :17 PM CDT >can we please let patient know he does have evidence of low iron/ iron deficiency anemia which can cause fatigue; has he had a colonoscopy in the last few years and if not we might need to get him to a gastric specialist; but from what I understand he will be seeing one so we might need to get him the labwork for his specialists for his visit so they understand his levels are lower otherwise his cholesterol and a1c look great which is great news, thank you 2.?Mixed hyperlipidemia?LAB: LIPID PANEL (Collection Date & Time - 09/12/2024 03:29 PM)* Value Reference Range C HOLESTEROL 147 0-200 - mg/dL * L DL Direct 66.0 0-100 - mg/dL * T RIGLYCERIDES 60 0-150 - mg/dL * H DL CHOLESTEROL 77 40 - mg/dL * C HOL/HDL RATIO 1.91 - Ratio * Vernon Merline 09/14/2024 04:36 :17 PM CDT >can we please let patient know he does have evidence of low iron/ iron deficiency anemia which can cause fatigue; has he had a colonoscopy in the last few years and if not we might need to get him to a gastric specialist; but from what I understand he will be seeing one so we might need to get him the labwork for his specialists for his visit so they understand his levels are lower otherwise his cholesterol and a1c look great which is great news, thank you 3.?Fatigue?LAB: CBC + AutoDiff 5 (Collection Date & Time - 09/12/2024 03:29 PM)* Value Reference Range W BC 4.22 3.53-9.52 - 10*3/ul * R BC 3.68 L 4.33-5.72 - 10*6/ul * H GB 11.95 L 12.55-16.99 - g/dL * H CT 36.8 L 38.3-49.3 - % * M CV 99.9 H 78.3-95.5 - fL * M CH 32.5 25.9-33.2 - pg * M CHC 32.5 L 33-35.3 - g/dL * R DW 16.9 H 12.9-15.9 - % * R DW-SD 58.7 H 38.9-48.3 - fL * P LATELETS 184.3 146.5-351.5 - 10^3/u L * M PV 8.51 7.42-10.65 - fL * L YMPHOCYTES % 15.17 L 20.23-43.53 - % * L YMPHOCYTES # 0.64 L 1.15-3.13 - 10^3/uL * M ONOCYTES % 4.67 L 5.23-13.22 - % * M ONOCYTES # 0.20 L 0.25-1.06 - 10^3/uL * E OSINOPHILS % 2.35 0.84-7.67 - % * E OSINOPHILS # 0.10 0.04-0.42 - 10^3/uL * B ASOPHILS % 0.18 0.11-0.53 - % * B ASOPHILS # 0.01 0.01-0.04 - 10^3/uL * N EUTROPHILS % 77.63 H 40.62-70.51 - % * N EUTROPHILS # 3.28 1.85-5.94 - 10^3/uL * Merline Junior 09/14/2024 04:36 :17 PM CDT >can we please let patient know he does have evidence of low iron/ iron deficiency anemia which can cause fatigue; has he had a colonoscopy in the last few years and if not we might need to get him to a gastric specialist; but from what I understand he will be seeing one so we might need to get him the labwork for his specialists for his visit so they understand his levels are lower otherwise his cholesterol and a1c look great which is great news, thank you ?LAB: COMP. METABOLIC (Collection Date & Time - 09/12/2024 03:29 PM)* Value Reference Range S ODIUM 137 135-146 - mmol/L * P OTASSIUM 3.7 3.5-5.3 - mmol/L * C HLORIDE 100 98-110 - mmol/L * C O2 30 20-32 - mmol/L * B UN 15 7-25 - mg/dL * C ALCIUM 9.2 8.6-10.3 - mg/dL * C REATININE 0.95 0.70-1.28 - mg/dL * G LUCOSE 128 65-139 - mg/dL * A LK PHOSPHATASE 57 35-144 - IU/L * A LT 17 9-46 - IU/L * A ST 21 10-35 - IU/L * T OTAL BILIRUBIN 0.8 0.2-1.2 - mg/dL * A LBUMIN 4.3 3.6-5.1 - g/dL * T OTAL PROTEIN 6.3 6.1-8.1 - g/dL * Merline Junior 09/14/2024 04:36 :17 PM CDT >can we please let patient know he does have evidence of low iron/ iron deficiency anemia which can cause fatigue; has he had a colonoscopy in the last few years and if not we might need to get him to a gastric specialist; but from what I understand he will be seeing one so we might need to get him the labwork for his specialists for his visit so they understand his levels are lower otherwise his cholesterol and a1c look great which is great news, thank you ?LAB: T4, FREE (Collection Date & Time - 09/12/2024 03:29 PM)* Value Reference Range T 4, FREE 0.93 0.8-1.8 - ng/dL * Merline Junior 09/14/2024 04:36 :17 PM CDT >can we please let patient know he does have evidence of low iron/ iron deficiency anemia which can cause fatigue; has he had a colonoscopy in the last few years and if not we might need to get him to a gastric specialist; but from what I understand he will be seeing one so we might need to get him the labwork for his specialists for his visit so they understand his levels are lower otherwise his cholesterol and a1c look great which is great news, thank you ?LAB: T3, FREE (Collection Date & Time - 09/12/2024 03:29 PM)* Value Reference Range T 3, FREE 2.68 2.3-4.2 - pg/mL * Merline Junior 09/14/2024 04:36 :17 PM CDT >can we please let patient know he does have evidence of low iron/ iron deficiency anemia which can cause fatigue; has he had a colonoscopy in the last few years and if not we might need to get him to a gastric specialist; but from what I understand he will be seeing one so we might need to get him the labwork for his specialists for his visit so they understand his levels are lower otherwise his cholesterol and a1c look great which is great news, thank you ?LAB: VITAMIN B-12 (Collection Date & Time - 09/12/2024 03:29 PM)* Value Reference Range V ITAMIN B-12 377 200-1,100 - pg/mL * Merline Junior 09/14/2024 04:36 :17 PM CDT >can we please let patient know he does have evidence of low iron/ iron deficiency anemia which can cause fatigue; has he had a colonoscopy in the last few years and if not we might need to get him to a gastric specialist; but from what I understand he will be seeing one so we might need to get him the labwork for his specialists for his visit so they understand his levels are lower otherwise his cholesterol and a1c look great which is great news, thank you ?LAB: TSH (Collection Date & Time - 09/12/2024 03:29 PM)* Value Reference Range T SH 0.431 0.40-4.50 - mIU/L * Merline Junior 09/14/2024 04:36 :17 PM CDT >can we please let patient know he does have evidence of low iron/ iron deficiency anemia which can cause fatigue; has he had a colonoscopy in the last few years and if not we might need to get him to a gastric specialist; but from what I understand he will be seeing one so we might need to get him the labwork for his specialists for his visit so they understand his levels are lower otherwise his cholesterol and a1c look great which is great news, thank you ?LAB: INSULIN (561) (Collection Date & Time - 09/13/2024 04:25 PM)* Value Reference Range I NSULIN 9.8 - uIU/mL ?LAB: DHEA SULFATE (402) (Collection Date & Time - 09/13/2024 04:25 PM)* Value Reference Range D HEA SULFATE 90 3-225 - mcg/dL 4.?Abnormal glucose?LAB: A1c% (Collection Date & Time - 09/12/2024 03:29 PM)* Value Reference Range H EMOGLOBIN A1c % 5.47 4.5-6.3 - % * Merline Junior 09/14/2024 04:36 :17 PM CDT >can we please let patient know he does have evidence of low iron/ iron deficiency anemia which can cause fatigue; has he had a colonoscopy in the last few years and if not we might need to get him to a gastric specialist; but from what I understand he will be seeing one so we might need to get him the labwork for his specialists for his visit so they understand his levels are lower otherwise his cholesterol and a1c look great which is great news, thank you ?LAB: INSULIN (561) (Collection Date & Time - 09/13/2024 04:25 PM)* Value Reference Range I NSULIN 9.8 - uIU/mL * Procedure Codes: 8 2306 ASSAY OF VITAMIN [id number] VITAMIN [id number] ASSAY OF FREE [id number] FREE ASSAY (FT-3)21670 COMPLETE CBC W/AUTO DIFF [id number] COMPREHEN METABOLIC [id number] LIPID [id number] ASSAY THYROID STIM [id number] GLYCATED HEMOGLOBIN [id number] VENIPUNCT, ROUTINE* Billing Information: * Procedure Codes: 69857 ASSAY OF VITAMIN D. 11325 VITAMIN B-12. 28650 ASSAY OF FREE THYROXINE. 27369 FREE ASSAY (FT-3). 92209 COMPLETE CBC W/AUTO DIFF WBC. 05652 COMPREHEN METABOLIC PANEL. 67200 LIPID PANEL. 36184 ASSAY THYROID STIM HORMONE. 75427 GLYCATED HEMOGLOBIN TEST. 78549 VENIPUNCT, ROUTINE*. * Electronic signature of Kristian Junior MD on 01/03/2025 at 11:01 AM ACCOUNT ADJUSTER Sign off status: Pending * Provider: Louisa Junior MD Date: 0 09/12/2024 Generated for Rita mccarthy/Katharine/Filemon on: 1 03/05/2024 11:01 AM ACCOUNT ADJUSTER
--- OUTSIDE RECORDS SUMMARY | 2025-01-03 11:02 | XMS_ITS | Patient Health Record ---
Author Organization [facility] [employer] [facility] Address [address] [facility] [address] [place] [address] Care Team Providers Care Osteopathic Neurologist Name Role Phone Milan Black DO Primary Care Provider Jyoti Alvarado Unavailable [phone] Erlin Schaefer Unavailable [phone] Laura Schneider Unavailable [phone] Allergies Allergen (clinical drug ingredient) Drug/Non Drug Allergy documented on EMR Reaction Allergy Type Onset Date Status Levaquin light headed Drug Allergy Acti ve Reason For Referral No Information Medications Medication SIG (Take, Route, Frequency, Duration) Notes Start Date End Date Status Sotalol HCl 80 MG Tablet TAKE 1 TABLET B Y MOUTH TWICE A DAY Oral; Duration: 90 Days Active buPROPion HCl ER (XL) 150 MG Tablet Extended Release 24 Hour 1 tablet in the morning Orally Once a day; Duration: 30 days 12/10/2023 Active Cyclobenzaprine HCl 5 MG Tablet TAKE 1 TABLET BY MOUTH THREE TIMES A DAY NEEDED FOR MUSCLE SPASM Oral; Duration: 7 Days PRN Active Doxazosin Mesylate 4 MG Tablet Oral; Duration: 90 Days Active Creon [id number] UNIT Capsule Delayed Release Particles Oral; Duration: 80 Days Active Fluticasone Propionate 50 MCG/ACT Suspension USE 1 SPRAY INTRANASALLY DAILY NEEDED FOR ALLERGIC SYMPTOMS ADMINISTER INTO EACH NOSTRIL Nasal; Duration: 90 Days Not-Taking Famotidine 40 MG Tablet Oral; Duration: 90 Days Active Loperamide HCl 2 MG Capsule TAKE 2 TABS AT ONSET OF DIARRHEA, THEN TAKE 1 TAB AFTER FOR EVERY LOOSE STOOL AFTER. MAX 16 MG/DAY Oral; Duration: 10 days As needed PRN Active Testosterone 50 MG/5GM (1%) Gel Transdermal; Duration: 30 Days Not-Taking Lisinopril-hydroCHLOROthia zide 20-12.5 MG Tablet TAKE 1 TABLET BY MOUTH TWICE A DAY Oral; Duration: 90 Days Active traZODone HCl 50 MG Tablet TAKE 1 TABLET BY MOUTH AT BEDTIME FOR DEPRESSION/ANXIETY Oral; Duration: 30 Days Not-Taking Eliquis 5 MG Tablet one tablet Oral twic e a day; Duration: 90 days Active Fluticasone Propionate 50 MCG/ACT Suspension USE 1 SPRAY INTRANASALLY DAILY NEEDED FOR ALLERGIC SYMPTOMS ADMINISTER INTO EACH NOSTRIL Nasal; Duration: 90 Days Not-Taking Latanoprost 0.005 % Solution Ophthalmic; Duration: 90 Days Active traMADol HCl 50 MG Tablet TAKE 1 TABLET EVERY 6 HOURS NEEDED FOR PAIN Oral; Duration: 7 Days Not-Taking NexIUM 20 MG Capsule Delayed Release 1 capsule 1/2 to 1 hour before morning meal Orally Once a day Active metFORMIN HCl ER 500 MG Tablet Extended Release 24 Hour 1 tablet with evening meal Oral Once a day; Duration: 90 days Active Tylenol 325 MG Tablet 1 tablet as needed Orally every 6 hrs As needed Active Tadalafil 5 MG Tablet Oral; Duration: 90 Days Not-Taking Immunizations Vaccine Route Administration Date Status Comme nts Influenza virus vaccine, quadrivalent (IIV4), split virus, 0.25 mL dosage Unknown 09/23/2017 Administered Influenza virus vaccine, quadrivalent (IIV4), split virus, 0.25 mL dosage Unknown 12/09/2018 Administered Influenza virus vaccine, quadrivalent (IIV4), split virus, 0.25 mL dosage Unknown 11/13/2019 Administered Influenza, high dose seasonal Unknown 11/12/2017 Admini stered Influenza, high-dose seasona l, quadrivalent, preservative free >65 yrs Unknown 11/17/2019 Administered Moderna Covid-19 Vaccine 1st dose Unknown 04/05/2020 Ad ministered Moderna Covid-19 Vaccine 1st dose Unknown 05/14/2020 Ad ministered Moderna Covid-19 Vaccine 1st dose Unknown 01/11/2021 Ad ministered Moderna Covid-19 Vaccine 1st dose Unknown 07/05/2021 Ad ministered Moderna Covid-19 Vaccine 1st dose Unknown 11/20/2021 Ad ministered Pneumococcal conjugate PCV 7 Unknown 02/23/2013 Adminis tered Pneumococcal polysaccharide PPV23 Unknown 02/23/2014 Ad ministered Td (adult), adsorbed Unknown 07/01/2018 Administered Zoster Unknown 05/13/2018 Administered Zoster Unknown 10/08/2018 Administered Social History Tobacco Use: Social History Observation Description Date Details (start date - stop date) Never Smoker NA - NA Sex Assigned At : Social History Observation Description Sex Assigned At Male Social History Tobacco Use: Social Info Question Answer Notes Tobacco Control (Standard) Tobacco use: Nonsmoker Additional Details Category Social Info Options Details Migrated Social History Migrated Social History Alcohol Intake: Occasional 07/06/2018,Tobacco Years: Never smoker 04/26/2018 Drug/Alcohol: Do you smoke marijuana? Den ies Do you drink alcohol? Yes, coupl e 3 times a week maybe Problems Problem Type SNOMED Code ICD Code Onset Dates Problem Status W/U Status Risk Notes Problem Severe recurrent major depression without psychotic features (34171747) Major depressive disorder, recurrent severe without psychotic features (F33.2) 4 Active confirmed Problem Generalized anxiety disorder (14360660) Generalized anxiety disorder (F41.1) 4 Active confirmed Problem Cognitive decline (449923233) Cognitive decline (R41.89) Active confirmed Encounters Encounter Location Date Provider Diagnosis [facility] [employer] [facility] [place] [id number] [address] 01/04/2024 Laura Schneider [facility] [facility] [place] [address] [address] 04/07/2024 Jyoti Hall [facility] [employer] [facility] [address] [address] 06/01/2024 Erlin Schaefer Plan Of Treatment No Information Insurance Providers Payer Name Payer Address Payer Phone Subscriber Number Group Number Insured Name Patient Relationship to Insured Coverage Start Date Coverage End Date [facility] Medicare Replacement/ Advantage - Ppo [address] [address] [place] [address] [id number] DANILO RAMOS Self - patient is the insured Medical (General) History Medical History History ICD Code Problems: Attention deficit hyperactivity disorder, predominantly inattentive type Central sleep apnea syndrome Generalized anxiety disorder Primary erectile dysfunction Primary insomnia Severe recurrent major depression withou t psychotic features atrial flutter Pancreatic cyst Prostate issues diabetic Surgical History Surgery Date(Month/Year) 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
--- OUTSIDE RECORDS SUMMARY | 2025-01-03 11:02 | XMS_ITS | Clinical Summary ---
Author Organization [facility] Address [address] [place] [address] Care Team Providers Care Rail Car Unloader Name Role Phone Milan Black DO Primary Care Provider [phone]- [phone] Allergies Active Allergy Reactions Criticality Noted Date [...] (3 mg total) by mouth nightly Active [place] 1,000 mcg pellet Insert 1 each (1,000 [...] Type Department Care Team Description 12/08/2024 Telephone [facility] Medicine Scheduling [address] [place] [address] Doris Brownlee BS from Last [...] SURGERY Neck Surgery - (Added by ) SD NJX AA&/STRD TFRML EPI CERVICAL/THORACIC 1 LEVEL [...] on file Legal 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:58 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 Gender Identity Not on file Sexual Orientation Not on file Occupation Industry Job Start Date Job End Date Retired Not on file Not on file Not on file Last Filed Vital Signs [...] 10/08/2018, 05/13/2018 Medical Devices Implanted Type Area Nailhead Operator Device Identifier Shelf Expiration Date Model / Serial / Lot Bilateral Knee Replacement Bilateral: Knee Urolift N/A: Bladder Cervical Spine Fixation- 010 Implanted:2009 (Quantity not on file) N/A: Spine Cervical Insurance [facility] MEDICARE ADVANTAGE [facility] MEDICARE [id number] [facility] MEDICARE ADVANTAGE [employer] MEDICARE ADVANTAGE Advance Directives For more information, please contact: [phone] * Full Code (Latest Code Status on [...] 9:03 AM 08/30/2020 5:16 PM Care Teams Rail Car Unloader Relationship Specialty Start Date End Date Milan Black DO PCP - General Internal Medicine 09/29/22
--- OUTSIDE RECORDS SUMMARY | 2025-01-03 11:02 | XMS_ITS | Clinical Summary ---
Author Organization [facility] [employer] Address [address] [place] [address] Care Team Providers Care Delivery Tech Name Role Phone BreMilan taylor DO Primary Care Provider [phone]- [phone] Source Comments [facility] [employer],non-owned Affiliates and Associated Physician Practices is amultiple site organization consisting of ambulatory clinics and hospital sitesin [place], [place], [place] and [place]. This disclosure is being madepursuant to the Care Everywhere program and may not contain all information available regarding this patient. Last updated 17.[facility] [employer] Allergies No known active allergies Medications * [...] on file Legal Sex Male 6:32 AM DRESSMAKING TEACHER Gender Identity Not on file Sexual Orientation Not on file Last Filed Vital Signs Vital Sign Reading Time Taken Comments Blood Pressure 121/80 01/16/2014 1:40 PM DRESSMAKING TEACHER Pulse 76 01/16/2014 1:40 PM DRESSMAKING TEACHER Temperature 36.3 C (97.4 F) 01/16/2014 1:40 PM DRESSMAKING TEACHER Respiratory Rate 16 11/03/2013 8:33 AM CDT Oxygen Saturation 99% 11/03/2013 8:33 AM CDT Inhaled Oxygen Concentration - - Weight 88.5 kg (195 lb) 01/16/2014 1:40 PM DRESSMAKING TEACHER Height 182.9 cm (6') 01/16/2014 1:40 PM DRESSMAKING TEACHER Body Mass Index 26.45 01/16/2014 1:40 PM DRESSMAKING TEACHER Plan of Treatment Health Maintenance Due Date [...] this topic Medical Devices Implanted Type Area Conference Coordinator Device Identifier Shelf Expiration Date Model / Serial / Lot [id number] Implanted:Qty: 1 on 07/06/2012 by Juvenal Andres MD at [facility] N/A: Neck [employer] 09/26/2019 [id number] / / [id number] [place] [employer] Implanted:Qty: 1 on 07/06/2012 at [facility] [employer] 12/22/2013 [id number] / / [id number] Insurance MEDICARE MANAGED MEDICARE [facility] Care Address: [facility] [id number] [place] [address] Advance Directives Documents on File Type Date Recorded Patient Bell Attendant Expl anation Adv Directive/Living Will/POA 07/08/2012 6:29 AM * FULL RESUSCITATION (Latest Code Status on File) Date Activated Date Inactivated Comments 07/06/2012 5:38 PM 07/06/2012 11:37 PM Care Teams Delivery Tech Relationship Specialty Start Date End Date Milan Black DO PCP - General 07/10/20
--- OUTSIDE RECORDS SUMMARY | 2025-01-03 11:02 | XMS_ITS | Clinical Summary ---
Author Organization [facility] Address [address] [place] [address] Care Team Providers Care Market President Name Role Phone Brebrandon Milan Esdras Primary [...] this topic Insurance [employer] Care Teams Market President Relationship Specialty Start Date End Date Milan Black DO [address] [place] [address] PCP - General Internal Medicine 01/09/23
--- OUTSIDE RECORDS SUMMARY | 2025-01-03 11:03 | XMS_ITS | Patient Health Record ---
Author Organization [facility] Address [address] [place] [address] Care Team Providers Care Mill Hand Name Role Phone Merline Junior Primary Care Provider Migration, Provider Unavailable Unavailable Lizzie Ruggiero Unavailable [phone] Allergies Allergen (clinical drug ingredient) Drug/Non Drug Allergy documented on EMR Reaction Allergy Type Onset Date Status levofloxacin levoFLOXacin Unknown Drug Allergy A ctive Results Component Value Reference Range Flag Notes INSULIN (561) Reviewed date:09/16/2024 08:52:47 AM Interpretation: Performing Lab:[facility]-[id number] Melisa Vines, [id number] Gregorio Shah MD Notes/Report: FASTING:UNKNOWN FASTING: UNKNOWN INSULIN 9.8 N Reference Range < or = 18.4 High >18.4 Adult cardiovascular event risk category Risk: Optimal < or = 18.4 Moderate NA cut points (optimal, moderate, high) are based on Insulin Reference Interval studies performed at [facility] in 2021. DHEA SULFATE (402) Reviewed date:09/16/2024 08:51:50 AM Interpretation: Performing Lab:[facility]-[id number] Melisa Vines, [id number] Gregorio Shah MD Notes/Report: FASTING:UNKNOWN FASTING: UNKNOWN DHEA SULFATE 90 3-225 mcg/dL N CBC + AutoDiff 5 Reviewed date:09/15/2024 11:28:33 [...] CHOLESTEROL 77 40 mg/dL CHOL/HDL RATIO 1.91 VITAMIN D Reviewed date:09/15/2024 11:49:20 AM Interpretation: Performing Lab: Notes/Report: VITAMIN D 40.53 30-100 ng/mL T4, FREE Reviewed date:09/15/2024 11:49:35 AM Interpretation: Performing Lab: Notes/Report: T4, FREE 0.93 0.8-1.8 ng/dL T3, FREE Reviewed date:09/15/2024 11:49:41 AM Interpretation: Performing Lab: Notes/Report: T3, FREE 2.68 2.3-4.2 pg/mL VITAMIN B-12 Reviewed date:09/15/2024 11:49:26 AM Interpretation: Performing Lab: Notes/Report: VITAMIN B-12 377 200-1,100 pg/mL TSH Reviewed date:09/16/2024 08:51:44 AM Interpretation: Performing Lab: Notes/Report: TSH 0.431 0.40-4.50 mIU/L A1c% Reviewed date:09/15/2024 11:49:47 AM Interpretation: Performing Lab: Notes/Report: HEMOGLOBIN A1c % 5.47 4.5-6.3 % COPY(IES) SENT TO: Reviewed date:09/16/2024 08:52:53 AM Interpretation: Performing Lab: Notes/Report: FASTING:UNKNOWN FASTING: UNKNOWN COPY(IES) SENT TO: [facility] [address] [place] [address] COPY RECEIVED FROM: Reviewed date:09/22/2024 01:05:14 PM Interpretation: Performing Lab: Notes/Report: FASTING:UNKNOWN FASTING: UNKNOWN COPY RECEIVED FROM: [facility] [id number] [place] [id number] Reason For Referral No Information Medications Medication SIG (Take, Route, Frequency, Duration) Notes Start Date End Date Status Xalatan 0.005 % Solution 1 gtt in each eye once a day (in the evening) Active Eliquis 5 MG Tablet as directed orally 2 times a day Active Doxazosin Mesylate 4 MG Tablet 1 tab(s) orally once a day Active Creon 11599-[address]228 UNIT Capsule Delayed Release Particles as directed Orally three times daily Acti ve metFORMIN HCl 500 MG Tablet 1 tab(s) orally Once a day; Duration: 90 days Active Mounjaro 5 MG/0.5ML Solution Auto-injector as directed Subcutaneous Active Mounjaro 7.5 MG/0.5ML Solution Auto-injector as directed Subcutaneous weekly; Duration: 90 days 09/12/2024 Active Dry Eye Relief PRESERVED SOLUTION 1 GTT IN EACH EYE 4 TIMES A DAY *Please review and pick correct strength-formulat ion from goBalto options. If intended option is not shown, discontinue and re-order from Quick Search* *Reorder from goBalto for eRx and Interaction Alerts* Active Tylenol 8 Hour Arthritis Pain 650 MG Tablet Extended Release 2 tab(s) orally every 8 hours Active NexIUM 20 MG Capsule Delayed Release 1 cap(s) orally once a day Active Famotidine 40 MG Tablet 1 tab(s) orally once a day (at bedtime) Not-Taking dilTIAZem HCl ER 180 MG Tablet Extended Release 24 Hour 1 tablet Orally Once a day Active dexAMETHasone 1 MG Tablet 1 tablet AT 10PM FOR A 9AM LAB DRAW Orally ONCE; Duration: 1 days 09/14/2024 Not-Taking Lisinopril-hydroCHL OROthiazide 20-12.5 MG Tablet 1 tab(s) orally once a day once daily Active Social History Social History Additional Details Category Social Info Options Details Migrated Social History Migrated Social History (Alcohol:):yes (Recreational drug use:):no (Smoking:):no Section Notes: Non-Contributory Problems Problem Type SNOMED Code ICD Code Onset Dates Problem Status W/U Status Risk Notes Problem Hyperglycemia due to type 2 diabetes mellitus (178368157335319) Type 2 diabetes mellitus with hyperglycemia (E11.65) Active confirmed Problem Disorder of pituitary gland (245998919) Disorder of pituitary gland, unspecified (E23.7) Active confirmed Problem Obesity (341627796) Obesity, unspecified (E66.9) Active confirmed Problem Mixed hyperlipidemia (322929975) Mixed hyperlipidemia (E78.2) Active confirmed Problem Obstructive sleep apnea syndrome (disorder) (08852577) Obstructive sleep apnea (adult) (pediatric) (G47.33) Active confirmed Problem Essential hypertension (88655091) Essential (primary) hypertension (I10) Active confirmed Problem Atypical atrial flutter (3734879473254431 7) Atypical atrial flutter (I48.4) Active confirmed Problem Attention deficit hyperactivity disorder, predominantly inattentive type (disorder) (33857614) Attention and concentration deficit (R41.840) Active confirmed Problem Lower urinary tract symptoms due to benign prostatic hypertrophy (93630576421579) Benign prostatic hyperplasia with lower urinary tract symptoms (N40.1) Active confirmed Problem Menopausal syndrome (984611041) Menopausal syndrome (N95.1) Active confirmed Problem Dyslipidemia (512290266) Dyslipidemia (E78.5) Active confirmed Vital Signs Heart Rate 71 /min 12/22/2024 Height-cm 177.8 cm 12/22/2024 Blood pressure diastolic 70 mm Hg 12/22/2024 Weight-kg 87.63 kg 12/22/2024 Height 70 in 12/22/2024 Blood pressure systolic 133 mm Hg 12/22/2024 Weight 193.2 lbs 12/22/2024 BMI 27.72 kg/m2 12/22/2024 Encounters Encounter Location Date Provider Diagnosis [address] [id number] 01/09/2024 Provider Migration Type 2 diabetes mellitus with hyperglycemia E11.65 ; Attention and concentration deficit R41.840 and Other fatigue R53.[address] [phone] 09/12/2024 Merline Junior Mixed hyperlipidemia E78.2 ; Menopausal syndrome N95.1 ; Fatigue R53.83 and Abnormal glucose R73.[address] Junior [id number] [place] [phone] 01/18/2024 Lizzie Ruggiero Type 2 diabetes mellitus with hyperglycemia E11.65 ; Attention and concentration deficit R41.840 ; Atypical atrial flutter I48.4 ; Essential (primary) hypertension I10 ; Benign prostatic hyperplasia with lower urinary tract symptoms N40.1 and Obstructive sleep apnea (adult) (pediatric) G47.[address] Junior [address] [place] [address] 03/24/2024 Merline Junior Type 2 diabetes mellitus with hyperglycemia E11.65 ; Attention and concentration deficit R41.840 ; Obesity, unspecified E66.9 and Disorder of pituitary gland, unspecified E23.[address] Junior [address] [place] [phone] 05/16/2024 Merline Junior Type 2 diabetes mellitus with hyperglycemia E11.65 ; Attention and concentration deficit R41.840 ; Essential (primary) hypertension I10 ; Obstructive sleep apnea (adult) (pediatric) G47.33 ; Dyslipidemia E78.5 and Dietary counseling and surveillance Z71.[address] Junior [address] [place] [phone] 09/12/2024 Merline Junior Type 2 diabetes mellitus with hyperglycemia E11.65 ; Essential (primary) hypertension I10 ; Obstructive sleep apnea (adult) (pediatric) G47.33 ; Dyslipidemia E78.5 ; Dizziness R42 and Dietary counseling and surveillance Z71.[address] Junior [address] [place], [place] [phone] 12/22/2024 Merline Junior Type 2 diabetes mellitus with hyperglycemia E11.65 ; Essential (primary) hypertension I10 ; Mixed hyperlipidemia E78.2 and Dietary counseling and surveillance Z71.3 AMMO [facility] [address] [place] [phone] 01/07/[address] Junior [address] [place] [phone] 01/25/2024 Merline Junior Type 2 diabetes mellitus with hyperglycemia E11.[address] Junior [address] [place] [phone] 02/10/2024 Merline Junior Type 2 diabetes mellitus with hyperglycemia E11.[address] Junior [address] [place] [phone] 03/14/2024 Merline Junior [address] [place] [phone] 03/14/[address] Junior [address] [place] [phone] 03/21/2024 Merline SERRATO [facility] [address] [place] [phone] 03/24/2024 Merline SERRATO [facility] [address] [place] [phone] 03/31/2024 Merline SERRATO [facility] [address] [place] [phone] 04/18/2024 Merline SERRATO [facility] [address] [place] [phone] 05/15/2024 Merline Junior [address] [place] [phone] 07/19/2024 Merline Junior [address] [place] [phone] 07/25/2024 Merline SERRATO [facility] [address] [place] [phone] 09/14/2024 Merline Junior [address] [place] [phone] 09/23/2024 Merline SERRATO [facility] [address] [place] [phone] 12/22/2024 Merline Junior Assessments Encounter Date Diagnosis (ICD Code) Assessment Notes Treatment Notes Treatment Clinical Notes Section Notes 02/10/2024 Type 2 diabetes mellitus with hyperglycemia (ICD-10 - E11.65) 03/24/2024 Type 2 diabetes mellitus with hyperglycemia (ICD-10 - E11.65) 03/24/2024 Attention and concentration deficit (ICD-10 - R41.840) 09/12/2024 Type 2 diabetes mellitus with hyperglycemia (ICD-10 - E11.65) 09/12/2024 Essential (primary) hypertension (ICD-10 - I10) 09/12/2024 Mixed hyperlipidemia (ICD-10 - E78.2) 09/12/2024 Menopausal syndrome (ICD-10 - N95.1) 12/22/2024 Type 2 diabetes mellitus with hyperglycemia (ICD-10 - E11.65) 05/16/2024 Type 2 diabetes mellitus with hyperglycemia (ICD-10 - E11.65) 05/16/2024 Attention and concentration deficit (ICD-10 - R41.840) 01/18/2024 Type 2 diabetes mellitus with hyperglycemia (ICD-10 - E11.65) 01/18/2024 Attention and concentration deficit (ICD-10 - R41.840) 01/09/2024 Type 2 diabetes mellitus with hyperglycemia (ICD-10 - E11.65) 01/09/2024 Attention and concentration deficit (ICD-10 - R41.840) 01/09/2024 Other fatigue (ICD-10 - R53.83) 01/25/2024 Type 2 diabetes mellitus with hyperglycemia (ICD-10 - E11.65) 01/18/2024 Atypical atrial flutter (ICD-10 - I48.4) 05/16/2024 Essential (primary) hypertension (ICD-10 - I10) 12/22/2024 Essential (primary) hypertension (ICD-10 - I10) 09/12/2024 Fatigue (ICD-10 - R53.83) 03/24/2024 Obesity, unspecified (ICD-10 - E66.9) 09/12/2024 Obstructive sleep apnea (adult) (pediatric) (ICD-10 - G47.33) 03/24/2024 Disorder of pituitary gland, unspecified (ICD-10 - E23.7) 09/12/2024 Dyslipidemia (ICD-10 - E78.5) 09/12/2024 Abnormal glucose (ICD-10 - R73.09) 12/22/2024 Mixed hyperlipidemia (ICD-10 - E78.2) 05/16/2024 Obstructive sleep apnea (adult) (pediatric) (ICD-10 - G47.33) 01/18/2024 Essential (primary) hypertension (ICD-10 - I10) 01/18/2024 Benign prostatic hyperplasia with lower urinary tract symptoms (ICD-10 - N40.1) 05/16/2024 Dyslipidemia (ICD-10 - E78.5) 12/22/2024 Dietary counseling and surveillance (ICD-10 - Z71.3) Spent 15 minutes preventative counseling patient on dietary recommendations and changes in setting of hyperglycemia- need to restrict refined sugars and processed foods and incorporate up to 150 minutes of moderate level activity weekly. 09/12/2024 Dizziness (ICD-10 - R42) 05/16/2024 Dietary counseling and surveillance (ICD-10 - Z71.3) Spent 15 minutes preventative counseling patient on dietary recommendations and changes in setting of hyperglycemia- need to restrict refined sugars and processed foods and incorporate up to 150 minutes of moderate level activity weekly. 01/18/2024 Obstructive sleep apnea (adult) (pediatric) (ICD-10 - G47.33) 09/12/2024 Dietary counseling and surveillance (ICD-10 - Z71.3) Spent 15 minutes preventative counseling patient on dietary recommendations and changes in setting of hyperglycemia- need to restrict refined sugars and processed foods and incorporate up to 150 minutes of moderate level activity weekly. 01/18/2024 Other Assessment and Plan: 1. Heart issues and atrial flutter- Continue diltiazem and HCTZ as prescribed- Discontinue metoprolol due to excessive lowering of heart rate- Monitor heart rate and symptoms with the heart monitor for 2 more days- Follow up with watch dial maker Dr. Goins for possible ablation- Avoid Adderall due to heart concerns 2. Weight loss and appetite suppression- Continue Mounjaro for weight loss- Monitor blood sugar levels to prevent hypoglycemia- Encourage high-protein snacks and balanced meals- Goal to lose an additional 20 pounds 3. Diabetes/pre-diabetes- Continue metformin as prescribed- Check blood sugar levels during the visit- Monitor A1c levels regularly 4. Gastrointestinal issues- Continue tirzepatide 2.5 mg dose- Avoid heavy processed or fried foods to prevent nausea- Continue Creon for digestion- Monitor for constipation and adjust Metamucil pills as needed 5. Urinary issues and enlarged prostate- Continue regular urologist visits- Manage symptoms with Depend for leakage- Monitor for urinary infections, especially after long periods of sitting 6. Sleep apnea and related heart issues- Continue using CPAP for central sleep apnea- Monitor heart rate fluctuations and symptoms 7. PTSD, depression, and anxiety- Continue current treatment plan for mental health- Avoid stress and triggers for flashbacks and nightmares 8. Memory and aging concerns- Participate in the [facility] memory and aging study- Monitor for changes in cognitive function and memory 9. Follow-up- Schedule a follow-up appointment in six weeks, around mid-February- [facility] appointment on March 18 Dear Barton, Thank you for visiting today and for your dedication to improving your health. It was great to hear about your progress and discuss your ongoing health management. Here's a summary of the lieberman instructions from today's consultation: - Continue with Mounjaro (tirzepatide) injections, extending the interval as discussed, from every 2.5 days to possibly every 10 days. Monitor for any signs of low blood sugar and adjust the frequency as necessary.- Incorporate high-protein snacks into your diet to manage your appetite and nutritional intake effectively.- Maintain regular monitoring of your heart condition with your watch dial maker, Dr. Goins, and follow his guidance regarding the use of diltiazem and HCTZ for your heart rate and blood pressure.- Discontinue Metoprolol as advised by Dr. Goins due to its effect of lowering your heart rate excessively.- Keep using the heart monitor as prescribed and report any significant changes through the cherri connected to your phone.- Manage constipation by continuing with Metamucil pills, taking four or five with each meal as you have been doing.- Schedule a follow-up appointment in six weeks, around mid-February, to reassess your treatment plan and progress.- We performed a check on your blood sugar levels today as requested. Please feel free to reach out if you have any questions or concerns before our next appointment. Best regards, Lizzie Ruggiero [facility] Patient assessment and plan of care discussed with Dr. Junior. 03/24/2024 Other Assessment and Plan: HypercortisolismPatient' s cortisol level is elevated at 2.1 (cutoff 1.8), with ACTH nearly 40, indicating potential hypercortisolism. This may explain weight fluctuations, anxiety, and sleep issues. Differential diagnoses include pituitary adenoma or other causes of Octavio's syndrome. Previous history of goiter and current thyroid nodules are noted, though thyroid function is currently normal. Order MRI of the pituitary gland Order 24-hour urine cortisol test Order salivary cortisol test (two samples between 11 pm and midnight on different nights) Schedule follow-up in 4-6 weeks to review test results Consider low-dose cortisol young if no pituitary lesion is found Obesity/type 2 DM well controlledPatient's weight has been fluctuating: started at 215 lbs, decreased to 190 lbs, but regained 6-7 lbs over the holidays. Currently on tirzepatide 2.5 mg, reporting increased appetite. Weight gain may be related to potential hypercortisolism. Increase tirzepatide dose to 5 mg Continue weight monitoring Venous InsufficiencyPatient reports unsuccessful sclerotherapy 2 months ago. Presents with a bubble on big toe and another above it, hard spot on left kneecap. Wears compression socks but reports toe discomfort. Veins breaking possibly due to Eliquis use. Referral to vein surgeon (Dr. Henderson) at [facility] for follow-up Sleep ApneaPatient uses Bi-Pap machine but reports occasional issues with water supply and mask fit. Has tried 10 different CPAP masks. Recent nasal dryness due to running machine without water. Encourage consistent use of CPAP with proper water supply Consider referral for mask fitting if issues persist HypogonadismPatient reports consistently low free testosterone levels. Currently receiving testosterone therapy from a men's clinic, applying to scrotum with reported better efficacy. Low testosterone may be related to potential hypercortisolism. Continue current testosterone therapy Reassess testosterone levels after evaluation of cortisol status Atrial FibrillationPatient discontinued Adderall due to cardiac rhythm issues. Previously on sotalol, now taking flecainide 100 mg twice daily for rhythm control. Continue flecainide 100 mg twice daily Monitor for cardiac symptoms Follow-up:Schedule a follow-up appointment in 4 to 6 weeks to review test results and assess the response to interventionsEncourage patient to contact the clinic if any new or worsening symptoms occur Spent 25 minutes preparing to see the patient (ex review of tests/chart), obtaining and / or reviewing separately obtained history, performing a medically appropriate examination and/or evaluation, counseling and educating the patient/family/caregiver , ordering medications, tests, or procedures, referring and communicating with other health career development coordinator/teacher, documenting clinical information in the electronic or other health record, independently interpreting results and communicating results to the patient/family/caregiver and care coordinating patient plan. Patient alert and oriented x 4 and aware of discussion noted above and in agreeance to plan in management of type 2 DM/well controlled, mild obesity/weight management, anxiety/insomnia and concern for elevated cortisol/high ACTH-need for mri pituitary. Due to the nature of telemedicine, the ability to do physical assessment was limited to what can be accomplished by patient directed telehealth visit based on instruction. Those limits are understood by the patient and myself. Impression is based on history, available information, and physical findings accomplished with telehealth visit. Chronic disease/problem list/ medication list reviewed and updated where indicated. Discussed diagnosis, plan including risks, benefits, and options of treatment. Advised to call for new, worsening, or persistent symptoms. Level of patient risk was of moderate complexity due to the documented nature of presentation, the information assessment required and the nature of the development of an evaluation and treatment plan as documented. PMH, FHx, SHx, Surgical Hx, Quality management review carried out and addressed as documented today as part of this visit. Medication list was reviewed and adjusted as indicated. Medication requiring a refill was addressed. Risk and benefits of any new medications were discussed and all questions were answered. 05/16/2024 Other Assessment and Plan: 1. Weight management- Patient is currently on tirzepatide/mounjaro 5 mg for weight management. He has lost 15-17 pounds since starting treatment, with current weight around 195 lbs (down from 210-220 lbs). The patient expresses a desire to reach 175 lbs due to joint issues. He reports good blood sugar control with fasting levels around 100 mg/dL and post-prandial levels around 120 mg/dL. A1C has been consistently under 6%.- Continue tirzepatide 5 mg weekly- Continue metformin (dose not specified)- Consider increasing tirzepatide dose if further weight loss is desired- Monitor A1C and blood glucose levels 2. Obstructive Sleep Apnea- Patient uses CPAP regularly but reports issues with mask fit and comfort. He experiences persistent fatigue, brain fog, and daytime sleepiness despite CPAP use. These symptoms may be contributing to his reported memory issues and missed appointments.- Encourage continued CPAP use- Recommend follow-up with sleep medicine specialist for mask fitting and optimization of therapy 3. Exocrine Pancreatic Insufficiency- Patient has been taking Creon 36,000 units three times daily with meals for 2-3 years due to pancreatic insufficiency. He reports a history of diarrhea prior to starting Creon. A pancreatic cyst in the uncinate process is being monitored, with a recent MRI showing slight enlargement compared to the previous year.- Continue Creon 36,000 units, 2 capsules with each meal and snacks (8 capsules total per day)- Follow up with pancreatic specialist Dr. Romano in September for scope and biopsy 4. Atrial Fibrillation- Patient is on lifelong anticoagulation with Eliquis as recommended by residential case manager. He is also taking diltiazem 180 mg for rate control. Patient reports irregular heartbeats on his home blood pressure monitor.- Continue Eliquis (dose not specified) for lifelong anticoagulation- Continue diltiazem 180 mg daily- Monitor for symptoms of atrial fibrillation and adjust treatment as needed 5. Hypertension- Patient is currently on lisinopril-hydrochloroth iazide 20-12.5 mg once daily. He reports good blood pressure control but with some fluctuations.- Continue lisinopril-hydrochloroth iazide 20-12.5 mg once daily- Encourage home blood pressure monitoring 6. Benign Prostatic Hyperplasia (BPH)- Patient is taking doxazosin at bedtime for BPH symptoms. He reports improved sleep and reduced nocturia with this medication.- Continue doxazosin at bedtime (dose not specified) 7. Shoulder Pain- Patient reports bilateral shoulder pain. Dr. Lozada at [facility] has recommended complete shoulder replacements.- Consider referral to orthopedic surgeon for evaluation and discussion of shoulder replacement options 8. Venous Insufficiency- Patient presents with new bumps on legs, likely related to venous insufficiency. Symptoms started in December, about 3 years after knee replacement surgery. Patient wears toeless compression socks due to discomfort from neuropathy.- Continue use of compression socks as tolerated- Apply diclofenac cream topically to affected areas (use sparingly due to potential drug interactions)- Monitor for progression of symptoms 9. Low Testosterone- Patient reports a history of low free testosterone levels. He has been using testosterone cream as prescribed by his urologist, Dr. Rascon.- Continue testosterone cream as prescribed (application to testicles)- Monitor testosterone levels, including free testosterone Spent 25 minutes preparing to see the patient (ex review of tests/chart), obtaining and / or reviewing separately obtained history, performing a medically appropriate examination and/or evaluation, counseling and educating the patient/family/caregiver , ordering medications, tests, or procedures, referring and communicating with other health career development coordinator/teacher, documenting clinical information in the electronic or other health record, independently interpreting results and communicating results to the patient/family/caregiver and care coordinating patient plan. Patient alert and oriented x 4 and aware of discussion noted above and in agreeance to plan in management of well controlled type 2 DM, hypertension, DENISE/need to stay compliant with therapy/as cortisol likely falsely elevated (MRI pitutiary was normal), dyslipidemia. 09/12/2024 Other Assessment and Plan: 1. Diabetes Mellitus Type 2- Increase Mounjaro to 7.5 mg subcutaneously weekly- Order A1C test- Continue metformin- Advised patient to restart Mounjaro after upcoming procedures, can extend dosing interval to 10-14 days if needed- Follow up after A1C results are available 2. Pancreatic Cyst- Proceed with scheduled pancreatic biopsy and EUS next week- Follow up after procedure for results and further management 3. Gastroesophageal Reflux Disease (GERD)- Continue current PPI therapy- Vocational Aide to evaluate esophagus during upcoming endoscopic procedure 4. Atrial Fibrillation and Atrial Flutter- Continue diltiazem 180 mg- Proceed with scheduled chemical stress test and echocardiogram with new watch dial maker- Order carotid ultrasound 5. Hypertension- Continue lisinopril-HCTZ one pill daily- Continue diltiazem 180 mg- Monitor blood pressure at home 6. Obstructive Sleep Apnea- Continue CPAP use nightly- Advised patient to follow up with DME provider for mask fitting issues 7. Renal Cysts- Advised to limit alcohol intake, particularly in relation to kidney pain- Monitor renal function with upcoming lab work 8. Basal Cell Carcinoma- Follow up with Dr. Walsh for management of new basal cell carcinoma Follow-up:- Order laboratory tests: Complete blood count, A1C, thyroid function tests, cortisol level- Retrieve previous [facility] results from last spring/summer- Follow up after A1C results are available- Follow up after pancreatic biopsy and EUS procedure for results Spent 25 minutes preparing to see the patient (ex review of tests/chart), obtaining and / or reviewing separately obtained history, performing a medically appropriate examination and/or evaluation, counseling and educating the patient/family/caregiver , ordering medications, tests, or procedures, referring and communicating with other health career development coordinator/teacher, documenting clinical information in the electronic or other health record, independently interpreting results and communicating results to the patient/family/caregiver and care coordinating patient plan. Patient alert and oriented x 4 and aware of discussion noted above and in agreeance to plan in management of type 2 DM, hypertension, DENISE, dyslipidemia and dizziness/need for carotid u/s. 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 Possible HypercortisolismAssessme nt: Patient underwent dexamethasone suppression test at [facility] on Thursday with results pending. Previous psychiatric evaluation years ago included cortisol testing. Current symptoms of fatigue, brain fog, depression, weakness, and sleep disturbances are consistent with possible hypercortisolism. Pituitary imaging from last year showed increased white matter activity. Normal cortisol suppression should result in levels of 1 or less; values of 1.2-1.8 would be concerning for inadequate suppression despite appearing low.Plan:- Await dexamethasone suppression test results from [facility]- Will call patient if cortisol levels are abnormal (subclinical 1.0-1.2)-had normal MRI pituitary from 04/19- If moderately positive (1.2-1.8), will order urine and salivary cortisol studies for further evaluation- Consider repeat pituitary imaging given previous findings and current symptomatology Type 2 diabetes mellitusAssessment: Well-controlled diabetes with A1C of 5.6 on current regimen of Mounjaro and metformin. Patient reports stable weight at 189-190 pounds but experiencing significant GI side effects from Mounjaro including severe constipation alternating with diarrhea. Lower dose of 2.5 mg was more effective than current 5 mg dose. Blood glucose levels remain stable.Plan:- Reduce Mounjaro frequency to every 2 weeks to improve GI tolerance- Continue metformin (stopping may worsen constipation)- Continue Metamucil tablets and powder for fiber supplementation- Patient to consider discontinuing Mounjaro given side effects and good glycemic control HypogonadismAssessment: Recent testosterone level of 363 with symptoms of fatigue, weakness, and lack of energy. Patient restarted testosterone cream 2.[address] Black but reports no improvement in symptoms yet. Hemoglobin levels are adequate.Plan:- Continue testosterone cream as prescribed- Monitor response to therapy Atrial fibrillation with valvular diseaseAssessment: Recent cardiac evaluation at [facility] including stress test, cardiac catheterization, and LUKASZ revealed AFib and two leaking heart valves. Coronary vessels are clear. Previous heart monitor showed initial normal results but subsequent testing revealed abnormalities. Possible prior myocardial infarction, potentially COVID-related. Current symptoms include shortness of breath and weakness.Plan:- Continue cardiac monitoring- Valves may require replacement if condition worsens Chronic constipation and diarrheaAssessment: Severe constipation alternating with diarrhea, likely related to Mounjaro therapy. Patient takes Creon for pancreatic insufficiency and multiple fiber supplements. Recent Ex-Lax use resulted in incontinence episode. Previous colonoscopy 3 years ago showed polyps but shop mechanic advised no concern.Plan:- Continue Metamucil tablets and powder- Reduce Mounjaro frequency to improve symptoms- Avoid overuse of stimulant laxatives like Ex-Lax Fatigue and brain fogAssessment: Persistent fatigue, brain fog, lightheadedness, depression, joint pain, and weakness. Unable to perform weight training due to lack of energy. Symptoms may be related to multiple factors including possible [place]'s syndrome, recent vaccinations (flu shot 2.5 weeks ago, COVID shot), or hormonal issues. Recent urgent care visit for fever following vaccinations.Plan:- Continue magnesium supplementation (one pill daily) for muscle function and aches- Await cortisol testing results to evaluate for [place]'s syndrome- Monitor symptom progression Sleep disturbancesAssessment: Difficulty with sleep maintenance due to nocturia, body aches, and environmental factors (noisy neighbor). Uses CPAP device. Has not used Lunesta recently. Sleep issues may be related to cortisol excess if [place]'s syndrome is confirmed.Plan:- Address underlying causes including possible cortisol excess- Patient planning to move due to noise issues- Continue CPAP therapy Spent 25 minutes preparing to see the patient (ex review of tests/chart), obtaining and / or reviewing separately obtained history, performing a medically appropriate examination and/or evaluation, counseling and educating the patient/family/caregiver , ordering medications, tests, or procedures, referring and communicating with other health career development coordinator/teacher, documenting clinical information in the electronic or other health record, independently interpreting results and communicating results to the patient/family/caregiver and care coordinating patient plan. Patient alert and oriented x 4 and aware of discussion noted above and in agreeance to plan in management of type 2 DM, hypertension, mixed dyslipidemia Plan Of Treatment Pending Test Test Name Order Date CAROTID DOPPLER ULTRASOUND [id number] -MRI ABDOMEN W&W/O CONTST 03/24/2024 Next Appt Details Provider Name:Merline Junior, 01:00:00 PM, [address] [place] [address], [id number], Insurance Providers Payer Name Payer Address Payer Phone Subscriber Number Group Number Insured Name Patient Relationship to Insured Coverage Start Date Coverage End Date [facility] [address] [place] [address] [id number] Mike Barton Self - patient is the insured Medical (General) History Medical History History ICD Code hypertension diabetes mallitus Arthritis thyroid disease PTSD Surgical History Surgery Date(Month/Year) Knee surgeries x3 Shoulder surgery x3 Neck Surgery x3 Lower back surgery- 2006
--- OUTSIDE RECORDS SUMMARY | 2025-01-03 11:03 | XMS_ITS | Clinical Summary ---
Author Organization [facility] [id number] [place] [address] Address [address] [place] [address] Care Team Providers Care Cisco Network Architect Name Role Phone Milan Black DO Primary [...] 11/12/2017 ZOSTER VACCINE Completed 10/08/2018, 05/13/2018 Insurance [facility] [id number] [facility] Care Teams Cisco Network Architect Relationship Specialty Start Date End Date Milan Black DO [address] [address] PCP - General Internal Medicine 10/01/23
[2025-01-03 13:07] LABS: Hematocrit 35.3 % (42.0-52.0); Hemoglobin 11.8 g/dL (14.0-18.0); Immature Granulocyte Percent A 0.5 % (0-0.5); Lymphocytes Absolute Auto 0.97 K/mm3 (0.9-3.2); Mean Corpuscular HGB Conc 33.4 g/dl (32-36); Mean Corpuscular Hemoglobin 32.0 pg (26-34); Mean Corpuscular Volume 95.7 fl (80-100); Nucleated Red Blood Cells Absolute Auto 0.000 K/mm3 (0.0-0.012); Nucleated Red Blood Cells Perc 0.0 % (0.0-0.2); Platelet Count Result 199 k/mm3 (150-375); Red Blood Count 3.69 M/mm3 (4.6-6.20); White Blood Count 4.3 K/mm3 (4.5-10.0)
== END 2025-01-03 10:29 | disposition home or self-care (01) ==
LOC: ANHGOSHLAB 10:29
PROVIDERS: PCP Internal Medicine Cardiovascular Disease; Visit Provider Clinical Nurse Specialist
DX: D64.9 Anemia, unspecified (principal)
CPT/HCPCS: 36415; 85025

== ENCOUNTER 2025-01-08 19:08 | Emergency (ER) | payer MEDICARE, SELFPAY ==
--- OUTSIDE RECORDS SUMMARY | 2010-01-03 18:00 | XMS_ITS | Continuity of Care Document ---
Author Organization [facility] [place] Address [address] [place] [phone] Phone Care Team Providers Care Vp Respiratory Name Role Phone Brett Chew Unavailable Unavailable Procedures Procedure Date Visual Field Examination-Professional No Visual Field Examination-Technical Oct-2 Office/outpatient Visit, Est Optic Nerve Head Eval IPO Reduced 15% Fundus Photography W/ Report Office/outpatient Visit, Est Optic Nerve Head Eval IPO Reduced 15% Office/outpatient Visit, Est Optic Nerve Head Eval IPO Reduced 15% No Script Visual Field Examination-Professional Au Visual Field Examination(s) Office/outpatient Visit, Est Optic Nerve Head Eval IPO Reduced 15% No Script No Script Post-op Follow-up Visit Laser Surgery Of Eye Office/outpatient Visit, Est Optic Nerve Head Eval IPO Reduced 15% Script Printed/Phoned Pt Requ Or Pharm N ot Availab Fundus Photography W/ Report Office/outpatient Visit, Est Optic Nerve Head Eval Visual Field Examination(s) Office/outpatient Visit, Est Office/outpatient Visit, Est Visual Field Examination(s) Office/outpatient Visit, Est Fundus Photography W/ Report Advance Directives Directive Yes / No Effective Date File Name No Information Encounters Encounter Description Practice Location Reason(s) For Visit Diagnoses Date Provider Providers Copied [facility]counter [facility] [address] [place] [address] [address], [place], [place], [id number], tel:[phone] [facility] No Information 2-201 0 Jeevan West. [facility] [place] , [address], [place], [place], [facility], . tel:[phone] Referring Provider: Kaya Ceron [facility] [address], [place], [facility]. tel:[phone] [facility], [address] [place] [address] [address], [place], [place], [address], tel:[phone] [facility] No Information 5-201 0 Jeevan West. [facility] [address], [address], [place], [facility], [place]. tel:[phone] Referring Provider: Kaya Ceron [facility] [address], [place], [facility]. tel:[phone] Office/outpat ient Visit, Est [facility], [address] [place] [address] [address], [place], [place], [address], tel:[phone] [facility] No Information 3-201 0 Jeevan West. Kaya [facility] [address], [place], [facility], [place]. tel:[phone] Referring Provider: Kaya Ceron [facility] [address], [place], [facility]. tel:[phone] Office/outpat ient Visit, Est [facility], [address] [place] [address] [address], [place], [place], [address], [place] tel:[phone] [facility] No Information 201 0 Jeevan West. [address] [place], [place] [address]ate Center , [address], [place], [facility], . tel:[phone] Office/outpat ient Visit, Est [facility], [address] [place] [address] [address], [place], [place], [address], [place] tel:[phone] [facility] No Information 200 9 Jeevan West. [address] [place], [place] [address]ate Center , [address], [place], [facility], . tel:[phone] [facility], [address] [place] [address] [address], [place], [place], [address], [place] tel:[phone] SEC [facility] [place] No Information 9 Jeevan West. [address] [place], [place] [address]ate Center , [address], [place], [facility], [place]. tel:[phone] Referring Provider: Brett Santoyo, [facility] [address], [place], [facility]. tel:[phone] [facility], [address] [place] [address] [address], [place], [place], [address], [place] tel:[phone] [facility] [place] No Information 9 Jeevan West. [address] [place], [place] [address]ate Center , [address], [place], [facility], [place]. tel:[phone] Referring Provider: Brett Santoyo, [facility] [address], [place], [facility]. tel:[phone] Office/outpat ient Visit, Est [facility], [address], [place], [place], [address], [place] tel:[phone] [facility] No Information Tom-0 1-200 9 Doivernon Edvenu. [address] [facility] [address] , [address], [place], [address], [place]. tel:[phone] [facility], [address], [place], [place], [address], [place] tel:[phone] [facility] No Information May-1 3-200 9 Doivernon Edvenu. [address] [facility] [address] , [address], [place], [facility], [place]. tel:[phone] [facility], [address], [place], [place], [address], [place] tel:[phone] [facility] No Information May-0 5-200 9 Jeevan Edvenu. [address] [facility] [address] , [address], [place], [facility], [place]. tel:[phone] Office/outpat ient Visit, Est [facility], [address], [place], [place], [address], [place] tel:[phone] [place] [address] No Information Apr-0 1-200 9 Jeevan Edvenu. [address] [facility] [address], [address], [place], [address], [place]. tel:[phone] Referring Provider: Brett Santoyo, [facility] [address], [place], [facility]. tel:[phone] Office/outpat ient Visit, Est [facility], [address], [place], [place], [address], [place] tel:[phone] [place] [address] No Information Oct-2 2-200 8 Jeevan West. [address] [facility] [address], [address], [place], [address], [place]. tel:[phone] [facility], [address], [place], [place], [address], [place] tel:[phone] [facility] No Information 6200 8 Jeevan West. [facility] [address], [address], [place], [facility], . tel:[phone] Referring Provider: Brett Santoyo, Kaya [facility] [address], [place], [facility]. tel:[phone] Office/outpat ient Visit, [facility], [address] [place] [address] [address], [place], [place], [address], [place] tel:[phone] [facility] No Information 200 8 Jeevan West. [facility] [address], [address], [place], [facility], [place]. tel:[phone] Office/outpat ient Visit, [facility], [address] [place] [address] [address], [place], [place], [address], [place] tel:[phone] [facility] No Information Aug-2 9-200 7 Doivernon Edvenu. [facility] [address], [address], [place], [facility], [place]. tel:[phone] [facility], [address], [place], [place], [address], [place] tel:[phone] [facility] No Information May-3 0-200 7 Jeevan West. [facility] [address], [address], [place], [facility], [place]. tel:[phone] Referring Provider: Brett Santoyo, Kaya [facility] [address], [place], [facility]. tel:[phone] Office/outpat ient Visit, [facility], [address] [place] [address] [address], [place], [place], [address], [place] tel:[phone] [facility] No Information Dec-2 7-200 6 Doivernon West. [address] , [address], [place], [address], [place]. tel:[phone] Referring Provider: Kaya Ceron [facility] [address], [place], [address]. tel:[phone] Family History Family Member Type Diagnosis Age At Onset No Information Payers Payer name Insurance type Covered democrat ID Authoriza timelchor(s) [place] [id number] [facility] [place] BL [id number] Social History Type Description Quantity Date Captured Comments Sex Male Smoking Status No Information Chief Complaint And Reason For Visit No Information Reason For Referral Reason For Referral No Information History Of Present Illness Encounter Date Complaint History Of Prese nt Illness No Information Functional Status Date Functional Assessmen t No Information Instructions Date Instruction Additional Infor mation No Information Assessments Type Assessment Date No Information Patient Care Teams Name Effective Dates (start - stop) Status Members No Information
--- OUTSIDE RECORDS SUMMARY | 2010-01-03 18:00 | XMS_ITS | Continuity of Care Document ---
Author Organization [facility] [place] Address [address] [place] [phone] Phone Care Team Providers Care Parts Room Associate Name Role Phone Brett Chew Unavailable Unavailable [...] Diagnoses Date Provider Providers Copied on Encounter [facility], [address] [place] [address] [address], [place], [place], [address], tel:[phone] [facility] No Information 2-201 0 Jeevan West. Kaya [facility] [place] , [address], [place], [facility], . tel:[phone] Referring Provider: Kaya Ceron [facility] [address], [place], [facility]. tel:[phone] [facility], [address] [place] [address] [address], [place], [place], [address], tel:[phone] [facility] No Information 5-201 0 Jeevan West. Kaya [facility] [address], [address], [place], [facility], [place]. tel:[phone] Referring Provider: Kaya [facility]eron [facility] [address], [place], [facility]. tel:[phone] Office/outpat ient Visit, Est [facility], [address] [place] [address] [address], [place], [place], [address], tel:[phone] [facility] No Information 3-201 0 Jeevan West. Kaya [facility] [address], [place], [facility], [place]. tel:[phone] Referring Provider: Kaya [facility]eron [facility] [address], [place], [facility]. tel:[phone] Office/outpat ient Visit, Est [facility], [address] [place] [address] [address], [place], [place], [address], [place] tel:[phone] SEC [facility] No Information 201 0 Jeevan West. [address] [place], [place] [address]ate Center , [address], [place], [facility], . tel:[phone] Office/outpat ient Visit, Est [facility], [address] [place] [address] [address], [place], [place], [address], [place] tel:[phone] SEC [facility] No Information 200 9 Jeevan West. [address] [place], [place] [address]ate Center , [address], [place], [facility], . tel:[phone] [facility], [address] [place] [address] [address], [place], [place], [address], [place] tel:[phone] SEC [facility] [place] No Information 9 Jeevan West. [address] [place], [place] [address]ate Center , [address], [place], [facility], [place]. tel:[phone] Referring Provider: Brett Santoyo, On license of [facility] [address], [place], [facility]. tel:[phone] [facility], [address] [place] [address] [address], [place], [place], [address], [place] tel:[phone] SEC [facility] [place] No Information 9 Jeevan West. [address] [place], [place] [address]ate Center , [address], [place], [facility], [place]. tel:[phone] Referring Provider: Brett Santoyo, On license of [facility] [address], [place], [facility]. tel:[phone] Office/outpat ient Visit, Est [facility], [address] [place] [address], [place], [place], [address], [place] tel:[phone] [facility] No Information Tom-0 1-200 9 Doivernon Edvenu. [address] [facility] , [address], [place], [address], [place]. tel:[phone] [facility], [address] [place] [address], [place], [place], [address], [place] tel:[phone] [facility] No Information May-1 3-200 9 Doivernon Edvenu. [address] [facility] , [address], [place], [facility], [place]. tel:[phone] [facility], [address] [place] [address], [place], [place], [address], [place] tel:[phone] [facility] No Information May-0 5-200 9 Jeevan Edvenu. [address] [facility] , [address], [place], [facility], [place]. tel:[phone] Office/outpat ient Visit, Est [facility], [address] [place] [address], [place], [place], [address], [place] tel:[phone] [place] [address] No Information Apr-0 1-200 9 Jeevan Edvenu. [address] [facility] [address], [address], [place], [address], [place]. tel:[phone] Referring Provider: Brett Santoyo, On license of [facility] [address], [place], [facility]. tel:[phone] Office/outpat ient Visit, Est [facility], [address] [place] [address], [place], [place], [address], [place] tel:[phone] [place] [address] No Information Oct-2 2-200 8 Jeevan West. [address] [facility] [address], [address], [place], [address], [place]. tel:[phone] [facility], [address] [place] [address], [place], [place], [address], [place] tel:[phone] SEC [facility] No Information 6200 8 Jeevan West. On license of [facility] [address], [address], [place], [facility], . tel:[phone] Referring Provider: Brett Santoyo, K[facility] [address], [place], [facility]. tel:[phone] Office/outpat ient Visit, [facility], [address] [place] [address] [address], [place], [place], [address], [place] tel:[phone] SEC [facility] No Information 200 8 Jeevan West. On license of [facility] Denis [address], [address], [place], [facility], [place]. tel:[phone] Office/outpat ient Visit, [facility], [address] [place] [address] [address], [place], [place], [address], [place] tel:[phone] SEC [facility] No Information Aug-2 9-200 7 Doivernon Edvenu. On license of [facility] [address], [address], [place], [facility], [place]. tel:[phone] [facility], [address] [place] [address], [place], [place], [address], [place] tel:[phone] [facility] No Information May-3 0-200 7 Jeevan West. On license of [facility] [address], [address], [place], [facility], [place]. tel:[phone] Referring Provider: Brett Santoyo, [facility] [address], [place], [facility]. tel:[phone] Office/outpat ient Visit, [facility], [address] [place] [address] [address], [place], [place], [address], [place] tel:[phone] SEC [facility] No Information Dec-2 7-200 6 Doivernon West. [address] , [address], [place], [address], [place]. tel:[phone] Referring Provider: Kaya Ceron [facility] [address], [place], [address]. tel:[phone] Family History Family Member Type Diagnosis Age At Onset No Information Payers Payer name Insurance type Covered democrat ID Authoriza timelchor(s) [place] [id number] [facility] Commercial BL [id number] Social History Type Description Quantity Date Captured [...]
--- OUTSIDE RECORDS SUMMARY | 2010-01-03 18:00 | XMS_ITS | Continuity of Care Document ---
Author Organization [facility] Address [address] [facility] [address] [place] [id number] Phone Care Team Providers Care Shipping Team Leader Name Role Phone Brett Chew Unavailable Unavailable [...] Date Provider Providers Copied on Encounter [facility], [address] [place] [address] [address], [place], [place], [id number], tel:[phone] [facility] No Information 2-201 0 Jeevan West. [facility] [place] , [address], [place], [place], [facility], . tel:[phone] Referring Provider: Kaya Ceron [facility] Denis [address]es[address], [place], [facility]. tel:[phone] [facility], [address] [place] [address] [address], [place], [place], [address], tel:[phone] [facility] No Information 5-201 0 Jeevan West. [facility] Denis Montesinos, [address], [place], [place], [facility], [place]. tel:[phone] Referring Provider: Kaya Ceron [facility] [address], [place], [facility]. tel:[phone] Office/outpat ient Visit, Est [facility], [address] [place] [address] [address], [place], [place], [id number], tel:[phone] [facility] No Information 3-201 0 Jeevan West. K[facility] Denis [address], [place], [facility], [place]. tel:[phone] Referring Provider: Kaya Ceron [facility] [address], [place], [facility]. tel:[phone] Office/outpat ient Visit, Est [facility], [address] [place] [address] [address], [place], [place], [address], [place] tel:[phone] [facility] No Information 201 0 Jeevan West. [address] [place], [place] [address]ate Center , [address], [place], [facility], . tel:[phone] Office/outpat ient Visit, Est [facility], [address] [place] [address] [address], [place], [place], [address], [place] tel:[phone] [facility] No Information 200 9 Jeevan West. [address] [place], [place] [address]ate Center , [address], [place], [facility], . tel:[phone] [facility], [address] [place] [address] [address], [place], [place], [address], [place] tel:[phone] [facility] [place] No Information 9 Jeevan West. [address] [place], [place] [address]ate Center , [address], [place], [facility], [place]. tel:[phone] Referring Provider: Brett Santoyo, [facility] [address], [place], [facility]. tel:[phone] [facility], [address] [place] [address] [address], [place], [place], [address], [place] tel:[phone] [facility] [place] No Information 9 Jeevan West. [address] [place], [place] [address]ate Center , [address], [place], [facility], [place]. tel:[phone] Referring Provider: Brett Santoyo, [facility] [address], [place], [facility]. tel:[phone] Office/outpat ient Visit, Est [facility], [address], [place], [place], [address], [place] tel:[phone] [facility] No Information Tom-0 1-200 9 Doivernon Edvenu. [address] [facility] , [address], [place], [address], [place]. tel:[phone] [facility], [address], [place], [place], [address], [place] tel:[phone] [facility] No Information May-1 3-200 9 Doivernon Edvenu. [address] [facility] , [address], [place], [facility], [place]. tel:[phone] [facility], [address], [place], [place], [address], [place] tel:[phone] [facility] No Information May-0 5-200 9 Jeevan Edvenu. [address] [facility] , [address], [place], [facility], [place]. tel:[phone] Office/outpat ient Visit, Est [facility], [address], [place], [place], [address], [place] tel:[phone] [place] [address] No Information Apr-0 1-200 9 Jeevan Edvenu. [address] [facility] Denis [address], [address], [place], [address], [place]. tel:[phone] Referring Provider: Brett Santoyo, [facility] Corporate Denis [address], [place], [facility]. tel:[phone] Office/outpat ient Visit, Est [facility], [address], [place], [place], [address], [place] tel:[phone] [place] [address] No Information Oct-2 2-200 8 Jeevan West. [address] [facility] Denis [address]inos, [address], [place], [address], [place]. tel:[phone] [facility], [address], [place], [place], [address], [place] tel:[phone] [facility] No Information 6200 8 Jeevan West. [facility] Denis Montesinos, [address], [place], [facility], . tel:[phone] Referring Provider: Brett Santoyo, K[facility] [address], [place], [facility]. tel:[phone] Office/outpat ient Visit, [facility], [address] [place] [address] [address], [place], [place], [address], [place] tel:[phone] [facility] No Information 200 8 Jeevan West. [facility] Denis Montesinos, [address], [place], [facility], [place]. tel:[phone] Office/outpat ient Visit, [facility], [address] [place] [address] [address], [place], [place], [address], [place] tel:[phone] [facility] No Information Aug-2 9-200 7 Doivernon Edvenu. [facility] Denis [address]esinos, [address], [place], [facility], [place]. tel:[phone] [facility], [address], [place], [place], [address], [place] tel:[phone] [facility] No Information May-3 0-200 7 Jeevan West. [facility] Denis Montesinos, [address], [place], [facility], [place]. tel:[phone] Referring Provider: Brett Santoyo, [facility] [address], [place], [facility]. tel:[phone] Office/outpat ient Visit, [facility], [address] [place] [address] [address], [place], [place], [address], [place] tel:[phone] [facility] No Information Dec-2 7-200 6 Doivernon West. [address] , [address], [place], [address], [place]. tel:[phone] Referring Provider: Kaya Ceron [facility] [address], [place], [address]. tel:[phone] Family History Family Member Type Diagnosis Age At Onset No Information Payers Payer name Insurance type Covered libertarian ID Authoriza timelchor(s) [place] [id number] [facility] Commercial [place] [id number] Social History Type Description Quantity Date Captured [...]
--- OUTSIDE RECORDS SUMMARY | 2010-01-03 18:00 | XMS_ITS | Continuity of Care Document ---
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 Kaya [facility] [place] , [address], [place], [facility], . tel:[phone] Referring Provider: Kaya Ceron [facility] [address], [place], [facility]. tel:[phone] [facility], [address] [place] [address] [address], [place], [place], [address], tel:[phone] [facility] No Information 5-201 0 Jeevan West. Kaya [facility] Denis [place], [address], [place], [facility], [place]. tel:[phone] Referring Provider: Kaya Ceron [facility] [address], [place], [facility]. tel:[phone] Office/outpat ient Visit, Est [facility], [address] [place] [address] [address], [place], [place], [address], tel:[phone] [facility] No Information 3-201 0 Jeevan West. Kaya [facility] [address], [place], [facility], [place]. tel:[phone] Referring Provider: Kaya Ceron [facility] [address], [place], [facility]. tel:[phone] Office/outpat ient Visit, Est [facility], [address] [place] [address] [address], [place], [place], [address], [place] tel:[phone] [facility] No Information 201 0 Jeevan West. [address] [place], [place] [address]ate Center , [address], [place], [facility], . tel:[phone] Office/outpat ient Visit, Est [facility], [address] [place] [address] [address], [place], [place], [address], [place] tel:[phone] [facility] No Information 200 9 Jeevan West. [address] [place], [place] [address]ate Center , [address], [place], [facility], . tel:[phone] [facility], [address] [place] [address] [address], [place], [place], [address], [place] tel:[phone] [facility] [place] No Information 9 Jeevan West. [address] [place], [place] [address]ate Center , [address], [place], [facility], [place]. tel:[phone] Referring Provider: Brett Santoyo, [facility] [address], [place], [facility]. tel:[phone] [facility], [address] [place] [address] [address], [place], [place], [address], [place] tel:[phone] [facility] [place] No Information 9 Jeevan West. [address] [place], [place] [address]ate Center , [address], [place], [facility], [place]. tel:[phone] Referring Provider: Brett Santoyo, [facility] [address], [place], [facility]. tel:[phone] Office/outpat ient Visit, Est [facility], [address], [place], [place], [address], [place] tel:[phone] [facility] No Information Tom-0 1-200 9 Doivernon Edvenu. [address] [facility] [address] , [address], [place], [address], [place]. tel:[phone] [facility], [address], [place], [place], [address], [place] tel:[phone] [facility] No Information May-1 3-200 9 Doivernon Edvenu. [address] [facility] , [address], [place], [facility], [place]. tel:[phone] [facility], [address], [place], [place], [address], [place] tel:[phone] [facility] No Information May-0 5-200 9 Jeevan Edvenu. [address] [facility] , [address], [place], [facility], [place]. tel:[phone] Office/outpat ient Visit, Est [facility], [address], [place], [place], [address], [place] tel:[phone] [place] [address] No Information Apr-0 1-200 9 Jeevan Edvenu. [address] [facility] [address], [address], [place], [address], [place]. tel:[phone] Referring Provider: Brett Santoyo, [facility] Corporate Denis [address], [place], [facility]. tel:[phone] Office/outpat ient Visit, Est [facility], [address], [place], [place], [address], [place] tel:[phone] [place] [address] No Information Oct-2 2-200 8 Jeevan West. [address] [facility] Denis [address]es[address], [address], [place], [address], [place]. tel:[phone] [facility], [address], [place], [place], [address], [place] tel:[phone] [facility] No Information 6200 8 Jeevan West. [facility] Denis [place]inos, [address], [place], [facility], . tel:[phone] Referring Provider: Brett Santoyo, Kaya [facility] [address], [place], [facility]. tel:[phone] Office/outpat ient Visit, [facility], [address] [place] [address] [address], [place], [place], [address], [place] tel:[phone] [facility] No Information 200 8 Jeevan West. [facility] Denis [address]inos, [address], [place], [facility], [place]. tel:[phone] Office/outpat ient Visit, [facility], [address] [place] [address] [address], [place], [place], [address], [place] tel:[phone] [facility] No Information Aug-2 9-200 7 Doivernon Edvenu. [facility] Denis [address], [address], [place], [facility], [place]. tel:[phone] [facility], [address], [place], [place], [address], [place] tel:[phone] [facility] No Information May-3 0-200 7 Jeevan West. [facility] Denis [address], [address], [place], [facility], [place]. tel:[phone] Referring Provider: Brett Santoyo, Kaya [facility] [address], [place], [facility]. tel:[phone] Office/outpat ient Visit, [facility], [address] [place] [address] [address], [place], [place], [address], [place] tel:[phone] [facility] No Information Dec-2 7-200 6 Doivernon West. [address] , [address], [place], [address], [place]. tel:[phone] Referring Provider: Kaya Ceron [facility] [address], [place], [address]. tel:[phone] Family History Family Member Type Diagnosis Age At Onset No Information Payers Payer name Insurance type Covered alliance party ID Authoriza timelchor(s) [place] [id number] [facility] Commercial [place] [id number] Social History Type Description Quantity Date Captured [...]
--- OUTSIDE RECORDS SUMMARY | 2010-01-03 18:00 | XMS_ITS | Continuity of Care Document ---
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 Kaya [facility] [place] , [address], [place], [facility], . tel:[phone] Referring Provider: Kaya Ceron [facility] [address], [place], [facility]. tel:[phone] [facility], [address] [place] [address] [address], [place], [place], [address], tel:[phone] [facility] No Information 5-201 0 Jeevan West. Kaya [facility] Denis [address]es[address], [address], [place], [facility], [place]. tel:[phone] Referring Provider: Kaya Ceron [facility] [address], [place], [facility]. tel:[phone] Office/outpat ient Visit, Est [facility], [address] [place] [address] [address], [place], [place], [address], tel:[phone] [facility] No Information 3-201 0 Jeevan West. Kaya [facility] [address], [place], [facility], [place]. tel:[phone] Referring Provider: Kaya Ceron [facility] [address], [place], [facility]. tel:[phone] Office/outpat ient Visit, Est [facility], [address] [place] [address] [address], [place], [place], [address], [place] tel:[phone] [facility] No Information 201 0 Jeevan West. [address] [place], [place] [address]ate Center , [address], [place], [facility], . tel:[phone] Office/outpat ient Visit, Est [facility], [address] [place] [address] [address], [place], [place], [address], [place] tel:[phone] [facility] No Information 200 9 Jeevan West. [address] [place], [place] [address]ate Center , [address], [place], [facility], . tel:[phone] [facility], [address] [place] [address] [address], [place], [place], [address], [place] tel:[phone] [facility] [place] No Information 9 Jeevan West. [address] [place], [place] [address]ate Center , [address], [place], [facility], [place]. tel:[phone] Referring Provider: Brett Santoyo, [facility] Center [address], [place], [facility]. tel:[phone] [facility], [address] [place] [address] [address], [place], [place], [address], [place] tel:[phone] [facility] [place] No Information 9 Jeevan West. [address] [place], [place] [address]ate Center , [address], [place], [facility], [place]. tel:[phone] Referring Provider: Brett Santoyo, [facility] Center [address], [place], [facility]. tel:[phone] Office/outpat ient Visit, Est [facility], [address], [place], [place], [address], [place] tel:[phone] [facility] No Information Tom-0 1-200 9 Doivernon Edvenu. 2421 [facility] Center , [address], [place], [address], [place]. tel:[phone] [facility], [address], [place], [place], [address], [place] tel:[phone] [facility] No Information May-1 3-200 9 Doivernon Edvenu. 2421 [facility] Center , [address], [place], [facility], [place]. tel:[phone] [facility], [address], [place], [place], [address], [place] tel:[phone] [facility] No Information May-0 5-200 9 Jeevan Edvenu. 2421 [facility] Center , [address], [place], [facility], [place]. tel:[phone] Office/outpat ient Visit, Est [facility], [address], [place], [place], [address], [place] tel:[phone] [place] [address] No Information Apr-0 1-200 9 Jeevan Edvenu. 2421 [facility] Denis Montesinos, [address], [place], [address], [place]. tel:[phone] Referring Provider: Brett Santoyo, [facility] [address], [place], [facility]. tel:[phone] Office/outpat ient Visit, Est [facility], [address], [place], [place], [address], [place] tel:[phone] [place] [address] No Information Oct-2 2-200 8 Jeevan West. 2421 [facility] Denis Montesinos, [address], [place], [address], [place]. tel:[phone] [facility], [address], [place], [place], [address], [place] tel:[phone] [facility] No Information 6200 8 Jeevan West. [facility] Denis Montesinos, [address], [place], [facility], . tel:[phone] Referring Provider: Brett Santoyo, Kaya [facility] [address], [place], [facility]. tel:[phone] Office/outpat ient Visit, [facility], [address] [place] [address] [address], [place], [place], [address], [place] tel:[phone] [facility] No Information 200 8 Jeevan West. [facility] Denis Montesinos, [address], [place], [facility], [place]. tel:[phone] Office/outpat ient Visit, [facility], [address] [place] [address] [address], [place], [place], [address], [place] tel:[phone] [facility] No Information Aug-2 9-200 7 Doivernon Edvenu. [facility] Denis [address]es[address], [address], [place], [facility], [place]. tel:[phone] [facility], [address], [place], [place], [address], [place] tel:[phone] [facility] No Information May-3 0-200 7 Jeevan West. [facility] Denis [address]esinos, [address], [place], [facility], [place]. tel:[phone] Referring Provider: Brett Santoyo, Kaya [facility] [address], [place], [facility]. tel:[phone] Office/outpat ient Visit, [facility], [address] [place] [address] [address], [place], [place], [address], [place] tel:[phone] [facility] No Information Dec-2 7-200 6 Doivernon West. [address] Center , [address], [place], [address], [place]. tel:[phone] Referring Provider: Kaya Ceron [facility] Center [address], [place], [address]. tel:[phone] Family History Family Member Type Diagnosis Age At Onset No Information Payers Payer name Insurance type Covered constitution party ID Authoriza timelchor(s) [place] [id number] [facility] Commercial BL [id number] Social History Type Description Quantity Date Captured [...]
--- OUTSIDE RECORDS SUMMARY | 2010-01-03 18:00 | XMS_ITS | Continuity of Care Document ---
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 Kaya [facility] [place] , [address], [place], [facility][note 2], . tel:[phone] Referring Provider: Kaya Ceron [facility] Denis [address]es[address], [place], [facility][note 2]. tel:[phone] [facility], [address] [place] [address] [address], [place], [place], [address], tel:[phone] [facility] No Information 5-201 0 Jeevan West. Kaya [facility] e[facility]nis [address]es[place], [address], [place], [facility][note 2], [place]. tel:[phone] Referring Provider: Kaya Ceron [facility] Denis [address], [place], [facility][note 2]. tel:[phone] Office/outpat ient Visit, Est [facility], [address] [place] [address] [address], [place], [place], [address], tel:[phone] [facility] No Information 3-201 0 Jeevan West. Kaya [facility] Denis [address]es[address], [place], [facility][note 2], [place]. tel:[phone] Referring Provider: Kaya Ceron [facility] Denis [address], [place], [facility][note 2]. tel:[phone] Office/outpat ient Visit, Est [facility], [address] [place] [address] [address], [place], [place], [address], [place] tel:[phone] [facility] No Information 201 0 Jeevan West. [address] [place], [place] [address]ate Center , [address], [place], [facility][note 2], . tel:[phone] Office/outpat ient Visit, Est [facility], [address] [place] [address] [address], [place], [place], [address], [place] tel:[phone] [facility] No Information 200 9 Jeevan West. [address] [place], [place] [address]ate Center , [address], [place], [facility][note 2], . tel:[phone] [facility], [address] [place] [address] [address], [place], [place], [address], [place] tel:[phone] [facility] [place] No Information 9 Jeevan West. [address] [place], [place] [address]ate Center , [address], [place], [facility][note 2], [place]. tel:[phone] Referring Provider: Brett Santoyo, [facility] [address], [place], [facility][note 2]. tel:[phone] [facility], [address] [place] [address] [address], [place], [place], [address], [place] tel:[phone] [facility] [place] No Information 9 Jeevan West. [address] [place], [place] [address]ate Center , [address], [place], [facility][note 2], [place]. tel:[phone] Referring Provider: Brett Santoyo, [facility] [address], [place], [facility][note 2]. tel:[phone] Office/outpat ient Visit, Est [facility], [address], [place], [place], [address], [place] tel:[phone] [facility] No Information Tom-0 1-200 9 Doivernon Edvenu. 24[address] [facility] , [address], [place], [address], [place]. tel:[phone] [facility], [address], [place], [place], [address], [place] tel:[phone] [facility] No Information May-1 3-200 9 Doivernon Edvenu. 2421 [facility] , [address], [place], [facility][note 2], [place]. tel:[phone] [facility], [address], [place], [place], [address], [place] tel:[phone] [facility] No Information May-0 5-200 9 Jeevan Edvenu. 24[address] [facility] Center , [address], [place], [facility][note 2], [place]. tel:[phone] Office/outpat ient Visit, Est [facility], [address], [place], [place], [address], [place] tel:[phone] [place] [address] No Information Apr-0 1-200 9 Jeevan Edvenu. 24[address] [facility] Denis [address]esinos, [address], [place], [address], [place]. tel:[phone] Referring Provider: Brett Santoyo, [facility] Denis [address], [place], [facility][note 2]. tel:[phone] Office/outpat ient Visit, Est [facility], [address], [place], [place], [address], [place] tel:[phone] [place] [address] No Information Oct-2 2-200 8 Jeevan West. 24[address] [facility] Denis [place], [address], [place], [address], [place]. tel:[phone] [facility], [address], [place], [place], [address], [place] tel:[phone] [facility] No Information 6200 8 Jeevan West. [facility] Denis [place], [address], [place], [facility][note 2], . tel:[phone] Referring Provider: Brett Santoyo, Kaya [facility] [address], [place], [facility][note 2]. tel:[phone] Office/outpat ient Visit, [facility], [address] [place] [address] [address], [place], [place], [address], [place] tel:[phone] [facility] No Information 200 8 Jeevan West. [facility] Denis Montesinos, [address], [place], [facility][note 2], [place]. tel:[phone] Office/outpat ient Visit, [facility], [address] [place] [address] [address], [place], [place], [address], [place] tel:[phone] [facility] No Information Aug-2 9-200 7 Doivernon Edvenu. [facility] Denis [place]esinos, [address], [place], [facility][note 2], [place]. tel:[phone] [facility], [address], [place], [place], [address], [place] tel:[phone] [facility] No Information May-3 0-200 7 Jeevan West. [facility] Denis [place], [address], [place], [facility][note 2], [place]. tel:[phone] Referring Provider: Brett Santoyo, K[facility] [address], [place], [facility][note 2]. tel:[phone] Office/outpat ient Visit, [facility], [address] [place] [address] [address], [place], [place], [address], [place] tel:[phone] [facility] No Information Dec-2 7-200 6 Doivernon West. [address] , [address], [place], [address], [place]. tel:[phone] Referring Provider: Kaya Ceron [facility] [address], [place], [address]. tel:[phone] Family History Family Member Type Diagnosis Age At Onset No Information Payers Payer name Insurance type Covered constitution party ID Authoriza timelchor(s) [place] [id number] [facility] Commercial BL [id number] Social History Type Description Quantity Date Captured [...]
--- OUTSIDE RECORDS SUMMARY | 2010-01-03 18:00 | XMS_ITS | Continuity of Care Document ---
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 [facility] [place] , [address], [place], [place], [facility], . tel:[phone] Referring Provider: Kaya Ceron [facility] Denis [address]es[address], [place], [facility]. tel:[phone] [facility], [address] [place] [address] [address], [place], [place], [address], tel:[phone] [facility] No Information 5-201 0 Jeevan West. [facility] Denis Montesinos, [address], [place], [facility], [place]. tel:[phone] Referring Provider: Kaya [facility] [address], [place], [facility]. tel:[phone] Office/outpat ient Visit, Est [facility], [address] [place] [address] [address], [place], [place], [address], tel:[phone] [facility] No Information 3-201 0 Jeevan West. [facility] Denis [address], [place], [facility], [place]. tel:[phone] Referring Provider: Kaya [facility]eron [facility] Denis [address], [place], [facility]. tel:[phone] Office/outpat ient Visit, Est [facility], [address] [place] [address] [address], [place], [place], [address], [place] tel:[phone] [facility] No Information 201 0 Jeevan West. [address] [place], [place] [address]ate Center , [address], [place], [facility], . tel:[phone] Office/outpat ient Visit, [facility], [address] [place] [address] [address], [place], [place], [address], [place] tel:[phone] [facility] No Information 200 9 Jeevan West. [address] [place], [place] [address]ate Center , [address], [place], [facility], . tel:[phone] [facility], [address] [place] [address] [address], [place], [place], [address], [place] tel:[phone] [facility] [place] No Information 9 Jeevan West. [address] [place], [place] [address]ate Center , [address], [place], [facility], [place]. tel:[phone] Referring Provider: Brett Santoyo, [facility] [address], [place], [facility]. tel:[phone] [facility], [address] [place] [address] [address], [place], [place], [address], [place] tel:[phone] [facility] [place] No Information 9 Jeevan West. [address] [place], [place] [address]ate Center , [address], [place], [facility], [place]. tel:[phone] Referring Provider: Brett Santoyo, [facility] [address], [place], [facility]. tel:[phone] Office/outpat ient Visit, [facility], [address], [place], [place], [address], [place] tel:[phone] [facility] No Information Tom-0 1-200 9 Doivernon Edvenu. [address] [facility] , [address], [place], [address], [place]. tel:[phone] [facility], [address], [place], [place], [address], [place] tel:[phone] [facility] No Information May-1 3-200 9 Doivernon Edvenu. [address] [facility] , [address], [place], [facility], [place]. tel:[phone] [facility], [address], [place], [place], [address], [place] tel:[phone] [facility] No Information May-0 5-200 9 Jeevan Edvenu. [address] [facility] , [address], [place], [facility], [place]. tel:[phone] Office/outpat ient Visit, [facility], [address], [place], [place], [address], [place] tel:[phone] [place] [address] No Information Apr-0 1-200 9 Jeevan Edvenu. [address] [facility] Denis Montesinos, [address], [place], [address], [place]. tel:[phone] Referring Provider: Brett Santoyo, [facility] [address], [place], [facility]. tel:[phone] Office/outpat ient Visit, [facility], [address] [address], [place], [place], [address], [place] tel:[phone] [place] [address] No Information Oct-2 2-200 8 Jeevan West. [address] [facility] Denis Montesinos, [address], [place], [address], [place]. tel:[phone] [facility], [address], [place], [place], [address], [place] tel:[phone] [facility] No Information 6200 8 Jeevan West. [facility] Denis Montesinos, [address], [place], [facility], . tel:[phone] Referring Provider: Bertt Santoyo, [facility] [address], [place], [facility]. tel:[phone] Office/outpat ient Visit, [email or web address], [address] [place] [address] [address], [place], [place], [address], [place] tel:[phone] [facility] No Information 200 8 Jeevan West. [facility] Denis Montesinos, [address], [place], [facility], [place]. tel:[phone] Office/outpat ient Visit, [facility], [address] [place] [address] [address], [place], [place], [address], [place] tel:[phone] [facility] No Information Aug-2 9-200 7 Doivernon Edvenu. [facility] Denis Montesinos, [address], [place], [facility], [place]. tel:[phone] [facility], [address] [address], [place], [place], [address], [place] tel:[phone] [facility] No Information May-3 0-200 7 Jeevan West. [facility] Deins Montesinos, [address], [place], [facility], [place]. tel:[phone] Referring Provider: Brett Santoyo, [facility] Denis [address], [place], [facility]. tel:[phone] Office/outpat ient Visit, [facility], [address] [place] [address] [address], [place], [place], [address], [place] tel:[phone] [facility] No Information Dec-2 7-200 6 Doivernon West. [address] , [address], [place], [address], [place]. tel:[phone] Referring Provider: Kaya Ceron [facility] [address], [place], [address]. tel:[phone] Family History Family Member Type Diagnosis Age At Onset No Information Payers Payer name Insurance type Covered green party ID Authoriza timelchor(s) [place] [id number] [facility] [place] [id number] Social History Type Description Quantity Date Captured [...]
--- OUTSIDE RECORDS SUMMARY | 2016-10-24 01:30 | XMS_ITS | Continuity of Care Document ---
Author Organization [email or web address] [place] Address [address] [place] [address] [address] [place] [address] Phone Care Team Providers Care Engineering Production Liaison Name Role Phone Gio MS, OTR/L, CHT, Laura Unavailable Unavailable Procedures Procedure Date Therapeutic Exercise Therapeutic Activities Manual Therapy Hot or Cold Pack Carrying, Moving And Handling Objects-Cu rrent Carrying, Moving And Handling Objects-Go al Carrying, Moving And Handling Objects-Di scharge Therapeutic Exercise Therapeutic Activities Hot or Cold Pack Carrying, Moving And Handling Objects-Cu rrent Carrying, Moving And Handling Objects-Go al Therapeutic Exercise Therapeutic Activities Manual Therapy Therapeutic Exercise Therapeutic Activities Manual Therapy Therapeutic Exercise Therapeutic Activities Neuromuscular Re-Ed Manual Therapy Hot or Cold Pack Carrying, Moving And Handling Objects-Cu rrent Carrying, Moving And Handling Objects-Go al Therapeutic Exercise Therapeutic Activities Neuromuscular Re-Ed Manual Therapy Hot or Cold Pack Therapeutic Exercise Therapeutic Activities Neuromuscular Re-Ed Hot or Cold Pack Therapeutic Activities Manual Therapy [facility] Cool Caleb Thumb Splint OT Evaluation Moderate Complexity Therapeutic Exercise Hot or Cold Pack Carrying, Moving And Handling Objects-Cu rrent Carrying, Moving And Handling Objects-Go al OT RE-EVALUATION THERAPEUTIC EXERCISES NEUROMUSCULAR RE-ED FUNC ACTIVITY Carrying, Moving And Handling Objects-Di scharge Carrying, Moving And Handling Objects-Go al Medications Name Dose Freq Route DOC Jan Theraputty THERAPEUTIC EXERCISES NEUROMUSCULAR RE-ED FUNC ACTIVITY Medications Name Dose Freq Route DOC Jan THERAPEUTIC EXERCISES NEUROMUSCULAR RE-ED FUNC ACTIVITY Medications Name Dose Freq Route DOC Jan OT RE-EVALUATION THERAPEUTIC EXERCISES NEUROMUSCULAR RE-ED FUNC ACTIVITY Carrying, Moving And Handling Objects-Cu rrent Carrying, Moving And Handling Objects-Go al Medications Name Dose Freq Route DOC Jan THERAPEUTIC EXERCISES NEUROMUSCULAR RE-ED FUNC ACTIVITY Medications Name Dose Freq Route DOC Jan THERAPEUTIC EXERCISES NEUROMUSCULAR RE-ED FUNC ACTIVITY Medications Name Dose Freq Route DOC Jan THERAPEUTIC EXERCISES NEUROMUSCULAR RE-ED FUNC ACTIVITY Medications Name Dose Freq Route DOC Jan THERAPEUTIC EXERCISES NEUROMUSCULAR RE-ED FUNC ACTIVITY Medications Name Dose Freq Route DOC Jan THERAPEUTIC EXERCISES NEUROMUSCULAR RE-ED FUNC ACTIVITY Medications Name Dose Freq Route DOC Jan THERAPEUTIC EXERCISES NEUROMUSCULAR RE-ED FUNC ACTIVITY Medications Name Dose Freq Route DOC Dec THERAPEUTIC EXERCISES NEUROMUSCULAR RE-ED FUNC ACTIVITY Medications Name Dose Freq Route DOC Dec OT RE-EVALUATION THERAPEUTIC EXERCISES NEUROMUSCULAR RE-ED FUNC ACTIVITY Carrying, Moving And Handling Objects-Cu rrent Carrying, Moving And Handling Objects-Go al Medications Name Dose Freq Route DOC Dec THERAPEUTIC EXERCISES NEUROMUSCULAR RE-ED FUNC ACTIVITY Medications Name Dose Freq Route DOC Dec THERAPEUTIC EXERCISES NEUROMUSCULAR RE-ED FUNC ACTIVITY Medications Name Dose Freq Route DOC Dec THERAPEUTIC EXERCISES NEUROMUSCULAR RE-ED FUNC ACTIVITY Medications Name Dose Freq Route DOC Dec THERAPEUTIC EXERCISES NEUROMUSCULAR RE-ED FUNC ACTIVITY THERAPEUTIC EXERCISES NEUROMUSCULAR RE-ED FUNC ACTIVITY Medications Name Dose Freq Route DOC Dec THERAPEUTIC EXERCISES NEUROMUSCULAR RE-ED FUNC ACTIVITY Medications Name Dose Freq Route DOC Nov THERAPEUTIC EXERCISES NEUROMUSCULAR RE-ED FUNC ACTIVITY Medications Name Dose Freq Route DOC Nov OT EVALUATION THERAPEUTIC EXERCISES NEUROMUSCULAR RE-ED FUNC ACTIVITY Carrying, Moving And Handling Objects-Cu rrent Carrying, Moving And Handling Objects-Go al Medications Name Dose Freq Route DOC Nov Pain Assess Positive DOC 2013 BMI High F/U Plan DOC No Falls or 1 Fall w/o Injury Screened f or Fall Risk Functional Outcome Assessmen t documented, deficits identified, treatment plan es Advance Directives Directive Yes / No Effective Date File Name No Information Encounters Encounter Description Practice Location Reason(s) For Visit Diagnoses Date Provider Providers Copied on Encounter [facility] [address], [place], [place], [address], tel:[phone] [place] No Information 7 Hauschild Laura. [address] [place] [address], [address], [place], [place], [facility], [place]. tel:[phone] [place] [address] [address] [facility] [address], [place], [place], [address], tel:[phone] [place] No Information 7 Hauschild Laura. [address] [place] [address], [address], [place], [facility], . tel:[phone] [place] [address] [address] [facility], [place], [place], [address], tel:[phone] [place] No Information 7 Hauschild Laura. [address] [place] [address], [address], [place], [facility], [place]. tel:[phone] [place] [address] [address] [facility], [place], [place], [address], tel:[phone] [place] No Information 7 Hauschild Laura. [address] [place] [address], [address], [place], [facility], [place]. tel:[phone] [place] [address] [address] [facility], [place], [place], [address], [place] tel:[phone] [place] No Information 7 Hauschild Laura. [address] [place] [address], [address], [place], [facility], [place]. tel:[phone] [place], [place] [address] [facility], [place], [place], [address], tel:[phone] [place] No Information 0 7 ePri Seymour. . [facility], [address] [facility], [place], [place], [address], tel:[phone] [place] No Information 4201 7 Hauschild Laura. [address] [place] [address], [address], [place], [facility], . tel:[phone] [place] [address] [address] [facility], [place], [place], [address], tel:[phone] [place] No Information 7201 7 Hauschild Laura. [address] [place] [address], [address], [place], [facility], . tel:[phone] [place] [address] [place] [address], [place], [address], tel:[phone] [place] Pain in left finger(s)Stif fness of left hand, not elsewhere classifiedOth symptoms and signs involving the musculoskelet al systemOther specified health statusUnil primary osteoarth of first carpometacarp joint, l hand 0-201 7 Hauschild Laura. [address] [place] [address], [address], [place], [facility], . tel:[phone] [place] [address] [address] [facility] [address], [place], [address], tel:[phone] [place] No Information 9-201 4 Hauschild Laura. [address] [place] [address], [address], [place], [facility], [place]. tel:[phone] [place], [place] [address] [facility], [place], [address], tel:[phone] [place] No Information 6-201 4 Hauschild Laura. [address] [place] [address], [address], [place], [facility], . tel:[phone] [place] [address], [address], [place], [place], [address], [place] tel:[phone] [place] No Information Dec-2 2-201 4 Hauschild Laura. [address] [place] [address], [address], [place], [address], [place]. tel:[phone] [facility] [address], [place], [place], [address], [place] tel:[phone] [place] No Information Dec-1 9-201 4 Hauschild Laura. [address] [place] [address], [address], [place], [address], [place]. tel:[phone] [place] [address], [address], [place], [place], [address], [place] tel:[phone] [place] No Information Dec-1 5-201 4 Hauschild Laura. [address] [place] [address], [address], [place], [address], [place]. tel:[phone] [place] [address] [place], [place] [address], [place], [place], [address], [place] tel:[phone] [place] No Information Dec-1 2-201 4 Hauschild Laura. [address] [place] [address], [address], [place], [address], [place]. [phone] [place] [address] [facility] [address], [place], [place], [address], [place] tel:[phone] [place] No Information Dec-0 8-201 4 Hauschild Laura. [address] [place] [address], [address], [place], [address], [place]. tel:[phone] [place] [address], [address], [place], [place], [address], [place] tel:[phone] [place] No Information Dec-0 5-201 4 Hauschild Laura. [address] [place] [address], [address], [place], [address], [place]. tel:[phone] [facility], [address], [place], [place], [address], [place] tel:[phone] [place] No Information Dec-0 1-201 4 Hauschild Laura. [address] [place] [address], [address], [place], [address], [place]. tel:[phone] [facility], [address], [place], [place], [address], [place] tel:[phone] [place] No Information Nov-2 8-201 4 Hauschild Laura. [address] [place] [address], [address], [place], [address], [place]. tel:[phone] [facility], [address], [place], [place], [address], [place] tel:[phone] [place] No Information Nov-2 4-201 4 Faye Perkins. [address] [place] [address], [address], [place], [address], [place]. tel:[phone] [place] [address], [address], [place], [place], [address], [place] tel:[phone] [place] No Information Dec-2 1-201 4 Hauschild Laura. [address] [place] [address], [address], [place], [address], [place]. tel:[phone] [facility], [place], [place], [address], [place] tel:[phone] [place] No Information 7-201 4 Hauschild Laura. [address] [place] [address], [address], [place], [address], [place]. tel:[phone] [facility], [address], [place], [place], [address], [place] tel:[phone] [place] No Information Nov-1 4-201 4 Hauschild Laura. [address] [place] [address], [address], [place], [address], [place]. tel:[phone] [place] [address], [address], [place], [address], [place] tel:[phone] [place] No Information Nov-1 0-201 4 Hauschild Laura. [address] [place] [address], [address], [place], [facility], [place]. tel:[phone] [place] [address] [facility] [address], [place], [place], [address], [place] tel:[phone] [place] No Information Nov-0 7-201 4 Tenny Annie. [address] [place] [address], [address], [place], [facility], [place]. tel:[phone] [place] [address], [facility] [address], [place], [place], [address], tel:[phone] [place] No Information Nov-0 3-201 4 Hauschild Laura. [address] [place] [address], [address], [place], [facility], [place]. tel:[phone] [place] [address], [address], [place], [place], [address], [place] tel:[phone] [place] No Information Oct-3 1-201 4 Hauschild Laura. [address] [place] [address], [address], [place], [facility], [place]. tel:[phone] [place] [address] [address], [place], [place], [address], [place] tel:[phone] [place] No Information Nov-2 7-201 4 Hauschild Laura. [address] [place] [address], [address], [place], [facility], [place]. tel:[phone] [place] [address], [address], [place], [address], [place] tel:[phone] [place] Pain in joint involving hand Oct-2 3-201 4 Hauschild Laura. [address] [place] [address], [address], [place], [address], [place]. tel:[phone] Family History Family Member Type Diagnosis Age At Onset No Information Payers Payer name Insurance type Covered alliance party ID Authoriza timelchor(s) [place] [id number] [facility] [id number] Social History Type Description Quantity Date Captured [...]
--- OUTSIDE RECORDS SUMMARY | 2016-10-24 01:30 | XMS_ITS | Continuity of Care Document ---
Author Organization [facility] Address [address] [place] [address] [address] [place] [address] Phone Care Team Providers Care Client Portfolio Manager Name Role Phone Gio MS, OTR/L, CHT, [...] Diagnoses Date Provider Providers Copied on Encounter [facility] [address], [place], [place], [id number], tel:[phone] [place] No Information 7 Hauschild Laura. [address] [place] [address], [address], [place], [place], [facility], [place]. tel:[phone] [place] [address] 2121 [facility] 300, [place], [place], [address], tel:[phone] [place] No Information 7 Hauschild Laura. [address] [place] [address], [address], [place], [facility], . tel:[phone] [place] [address] [address] [facility], [place], [place], [address], tel:[phone] [place] No Information 7 Hauschild Laura. [address] [place] [address], [address], [place], [facility], [place]. tel:[phone] [place] [address] [address] [facility], [place], [place], [address], tel:[phone] [place] No Information 7 Hauschild Laura. [address] [place] [address], [address], [place], [facility], [place]. tel:[phone] [place] [address] [address] [facility], [place], [address], [place] tel:[phone] [place] No Information 7 Hauschild Laura. [address] [place] [address], [address], [place], [facility], [place]. tel:[phone] [place] [address] [facility], [place], [place], [address], tel:[phone] [place] No Information 0 7 Peri Seymour. . [facility], [address] [facility], [place], [place], [address], tel:[phone] [place] No Information 4201 7 Hauschild Laura. [address] [place] [address], [address], [place], [facility], . tel:[phone] [place] [address] [address] [facility], [place], [place], [address], tel:[phone] [place] No Information 7201 7 Hauschild Laura. [address] [place] [address], [address], [place], [facility], . tel:[phone] [place] [address] [place] [address], [place], [address], tel:[phone] [place] Pain in left finger(s)Stif fness of left hand, not elsewhere classifiedOth symptoms and signs involving the musculoskelet al systemOther specified health statusUnil primary osteoarth of first carpometacarp joint, l hand 0-201 7 Hauschild Laura. [address] [place] [address], [address], [place], [facility], . tel:[phone] [place] [address] 2121 [facility] [address], [address], tel:[phone] [place] No Information 9-201 4 Hauschild Laura. [address] [place] [address], [address], [place], [facility], [place]. tel:[phone] [employer] [address] [facility], [place], [place], [address], tel:[phone] [place] No Information 6-201 4 Hauschild Laura. [address] [place] [address], [address], [place], [facility], . tel:[phone] [place] [address], [address], [place], [place], [address], [place] tel:[phone] [place] No Information Dec-2 2-201 4 Hauschild Laura. [address] [place] [address], [address], [place], [address], [place]. tel:[phone] [facility] [address], [place], [place], [address], [place] tel:[phone] [place] No Information Dec-1 9-201 4 Hauschild Laura. [address] [place] [address], [address], [place], [address], [place]. tel:[phone] [place] [address], [address], [place], [place], [address], [place] tel:[phone] [place] No Information Dec-1 5-201 4 Hauschild Laura. [address] [place] [address], [address], [place], [address], [place]. tel:[phone] [place] [address] [place], [place] [address], [place], [address], [place] tel:[phone] [place] No Information Dec-1 2-201 4 Hauschild Laura. [address] [place] [address], [address], [place], [address], [place]. [phone] [place] [address] [facility] [address], [place], [place], [address], [place] tel:[phone] [place] No Information Dec-0 8-201 4 Hauschild Laura. [address] [place] [address], [address], [place], [address], [place]. tel:[phone] [place] [address], [address], [place], [place], [address], [place] tel:[phone] [place] No Information Dec-0 5-201 4 Hauschild Laura. [address] [place] [address], [address], [place], [address], [place]. tel:[phone] [facility], [address], [place], [place], [address], [place] tel:[phone] [place] No Information Dec-0 1-201 4 Hauschild Laura. [address] [place] [address], [address], [place], [address], [place]. tel:[phone] [facility], [address], [place], [place], [address], [place] tel:[phone] [place] No Information Nov-2 8-201 4 Hauschild Laura. [address] [place] [address], [address], [place], [address], [place]. tel:[phone] [facility], [address], [place], [place], [address], [place] tel:[phone] [place] No Information Nov-2 4-201 4 Faye Perkins. [address] [place] [address], [address], [place], [address], [place]. tel:[phone] [place] [address], [address], [place], [place], [address], [place] tel:[phone] [place] No Information Dec-2 1-201 4 Hauschild Laura. [address] [place] [address], [address], [place], [address], [place]. tel:[phone] [facility], [place], [place], [address], [place] tel:[phone] [place] No Information 7-201 4 Hauschild Laura. [address] [place] [address], [address], [place], [address], [place]. tel:[phone] [facility], [address], [place], [place], [address], [place] tel:[phone] [place] No Information Nov-1 4-201 4 Hauschild Laura. [address] [place] [address], [address], [place], [address], [place]. tel:[phone] [place] [address], [address], [place], [place], [address], [place] tel:[phone] [place] No Information Nov-1 0-201 4 Hauschild Laura. [address] [place] [address], [address], [place], [facility], [place]. tel:[phone] [place] [address] [facility] [address], [place], [place], [address], [place] tel:[phone] [place] No Information Nov-0 7-201 4 Tenny Annie. [address] [place] [address], [address], [place], [facility], [place]. tel:[phone] [place] [address], [facility] [address], [place], [place], [address], tel:[phone] [place] No Information Nov-0 3-201 4 Hauschild Laura. [address] [place] [address], [address], [place], [facility], [place]. tel:[phone] [place] [address], [address], [place], [place], [address], [place] tel:[phone] [place] No Information Oct-3 1-201 4 Hauschild Laura. [address] [place] [address], [address], [place], [facility], [place]. tel:[phone] [place] [address] [address], [place], [place], [address], [place] tel:[phone] [place] No Information Nov-2 7-201 4 Hauschild Laura. [address] [place] [address], [address], [place], [facility], [place]. tel:[phone] [place] [address], [address], [place], [place], [address], [place] tel:[phone] [place] Pain in joint involving hand Oct-2 3-201 4 Hauschild Laura. [address] [place] [address], [address], [place], [address], [place]. tel:[phone] Family History Family Member Type Diagnosis Age At Onset No Information Payers Payer name Insurance type Covered alliance party ID Authoriza timelchor(s) [place] [id number] [facility] [id number] Social History Type Description Quantity Date Captured [...]
--- OUTSIDE RECORDS SUMMARY | 2016-10-24 01:30 | XMS_ITS | Continuity of Care Document ---
Author Organization [facility] Address [address] [place] [address] [address] [place] [address] Phone Care Team Providers Care Captain Fishing Vessel Name Role Phone Gio MS, OTR/L, CHT, [...] Diagnoses Date Provider Providers Copied on Encounter [facility] [address], [place], [place], [address], tel:[phone] [place] No Information 7 Hauschild Laura. [address] [place] [address], [address], [place], [facility], [place]. tel:[phone] [place] [address] 2121 [facility] 300, [place], [place], [address], tel:[phone] [place] No Information 7 Hauschild Laura. [address] [place] [address], [address], [place], [facility], . tel:[phone] [place] [address] [address] [facility], [place], [place], [address], tel:[phone] [place] No Information 7 Hauschild Laura. [address] [place] [address], [address], [place], [facility], [place]. tel:[phone] [place] [address] [address] [facility] [address], [place], [place], [address], tel:[phone] [place] No Information 7 Hauschild Laura. [address] [place] [address], [address], [place], [facility], [place]. tel:[phone] [place] [address] [address] [facility], [place], [place], [address], [place] tel:[phone] [place] No Information 7 Hauschild Laura. [address] [place] [address], [address], [place], [facility], [place]. tel:[phone] [place] [address] [facility], [place], [place], [address], tel:[phone] [place] No Information 0 7 Peri Seymour. . [facility], [address] [facility], [place], [place], [address], tel:[phone] [place] No Information 4201 7 Hauschild Laura. [address] [place] [address], [address], [place], [facility], . tel:[phone] [place] [address] [address] [facility], [place], [place], [address], tel:[phone] [place] No Information 7201 7 Hauschild Laura. [address] [place] [address], [address], [place], [facility], . tel:[phone] [place] [address] [place] [address], [place], [address], tel:[phone] [place] Pain in left finger(s)Stif fness of left hand, not elsewhere classifiedOth symptoms and signs involving the musculoskelet al systemOther specified health statusUnil primary osteoarth of first carpometacarp joint, l hand 0-201 7 Hauschild Laura. [address] [place] [address], [address], [place], [facility], . tel:[phone] [place] [address] 2121 [facility] [address], [address], tel:[phone] [place] No Information 9-201 4 Hauschild Laura. [address] [place] [address], [address], [place], [facility], [place]. tel:[phone] [place], [place] [address] [facility], [place], [place], [address], tel:[phone] [place] No Information 6-201 4 Hauschild Laura. [address] [place] [address], [address], [place], [facility], . tel:[phone] [place] [address], [address], [place], [place], [address], [place] tel:[phone] [place] No Information Dec-2 2-201 4 Hauschild Laura. [address] [place] [address], [address], [place], [address], [place]. tel:[phone] [facility] [address], [place], [place], [address], [place] tel:[phone] [place] No Information Dec-1 9-201 4 Hauschild Laura. [address] [place] [address], [address], [place], [address], [place]. tel:[phone] [place] [address], [address], [place], [place], [address], [place] tel:[phone] [place] No Information Dec-1 5-201 4 Hauschild Laura. [address] [place] [address], [address], [place], [address], [place]. tel:[phone] [place] [address] [place], [place] [address], [place], [place], [address], [place] tel:[phone] [place] No Information Dec-1 2-201 4 Hauschild Laura. [address] [place] [address], [address], [place], [address], [place]. [phone] [place] [address] [facility] [address], [place], [place], [address], [place] tel:[phone] [place] No Information Dec-0 8-201 4 Hauschild Laura. [address] [place] [address], [address], [place], [address], [place]. tel:[phone] [place] [address], [address], [place], [place], [address], [place] tel:[phone] [place] No Information Dec-0 5-201 4 Hauschild Laura. [address] [place] [address], [address], [place], [address], [place]. tel:[phone] [facility], [address], [place], [place], [address], [place] tel:[phone] [place] No Information Dec-0 1-201 4 Hauschild Laura. [address] [place] [address], [address], [place], [address], [place]. tel:[phone] [facility], [address], [place], [place], [address], [place] tel:[phone] [place] No Information Nov-2 8-201 4 Hauschild Laura. [address] [place] [address], [address], [place], [address], [place]. tel:[phone] [facility], [address], [place], [place], [address], [place] tel:[phone] [place] No Information Nov-2 4-201 4 Faye Perkins. [address] [place] [address], [address], [place], [address], [place]. tel:[phone] [place] [address], [address], [place], [place], [address], [place] tel:[phone] [place] No Information Dec-2 1-201 4 Hauschild Laura. [address] [place] [address], [address], [place], [address], [place]. tel:[phone] [facility], [place], [place], [address], [place] tel:[phone] [place] No Information 7-201 4 Hauschild Laura. [address] [place] [address], [address], [place], [address], [place]. tel:[phone] [facility], [address], [place], [place], [address], [place] tel:[phone] [place] No Information Nov-1 4-201 4 Hauschild Laura. [address] [place] [address], [address], [place], [address], [place]. tel:[phone] [place] [address], [address], [place], [place], [address], [place] tel:[phone] [place] No Information Nov-1 0-201 4 Hauschild Laura. [address] [place] [address], [address], [place], [facility], [place]. tel:[phone] [place] [address] [facility] [address], [place], [place], [address], [place] tel:[phone] [place] No Information Nov-0 7-201 4 Tenny Annie. [address] [place] [address], [address], [place], [facility], [place]. tel:[phone] [place] [address], [facility] [address], [place], [place], [address], tel:[phone] [place] No Information Nov-0 3-201 4 Hauschild Laura. [address] [place] [address], [address], [place], [facility], [place]. tel:[phone] [place] [address], [address], [place], [place], [address], [place] tel:[phone] [place] No Information Oct-3 1-201 4 Hauschild Laura. [address] [place] [address], [address], [place], [facility], [place]. tel:[phone] [place] [address] [address], [place], [place], [address], [place] tel:[phone] [place] No Information Nov-2 7-201 4 Hauschild Laura. [address] [place] [address], [address], [place], [facility], [place]. tel:[phone] [place] [address], [address], [place], [place], [address], [place] tel:[phone] [place] Pain in joint involving hand Oct-2 3-201 4 Hauschild Laura. [address] [place] [address], [address], [place], [address], [place]. tel:[phone] Family History Family Member Type Diagnosis Age At Onset No Information Payers Payer name Insurance type Covered constitution party ID Authoriza timelchor(s) [place] [id number] [facility] [id number] Social History Type Description Quantity Date Captured [...]
--- OUTSIDE RECORDS SUMMARY | 2016-10-24 01:30 | XMS_ITS | Continuity of Care Document ---
Author Organization [employer] [place] Address [address] [place] [address] [address] [place] [address] Phone Care Team Providers Care Rn Interventional Name Role Phone Gio MS, OTR/L, CHT, [...] Diagnoses Date Provider Providers Copied on Encounter [facility] [address], [place], [place], [address], tel:[phone] [place] No Information 7 Hauschild Laura. [address] [place] [address], [address], [place], [place], [facility], [place]. tel:[phone] [place] [address] 2121 [facility] 300, [place], [place], [address], tel:[phone] [place] No Information 7 Hauschild Laura. [address] [place] [address], [address], [place], [facility], . tel:[phone] [place] [address] [address] [facility], [place], [place], [address], tel:[phone] [place] No Information 7 Hauschild Laura. [address] [place] [address], [address], [place], [facility], [place]. tel:[phone] [place] [address] [address] [facility], [place], [place], [address], tel:[phone] [place] No Information 7 Hauschild Laura. [address] [place] [address], [address], [place], [facility], [place]. tel:[phone] [place] [address] [address] [facility], [place], [place], [address], [place] tel:[phone] [place] No Information 7 Hauschild Laura. [address] [place] [address], [address], [place], [facility], [place]. tel:[phone] [place], [place] [address] [facility], [place], [place], [address], tel:[phone] [place] No Information 0 7 Peri Seymour. . [facility], [address] [facility], [place], [place], [address], tel:[phone] [place] No Information 4201 7 Hauschild Laura. [address] [place] [address], [address], [place], [facility], . tel:[phone] [place] [address] [address] [facility], [place], [address], tel:[phone] [place] No Information 7201 7 Hauschild Laura. [address] [place] [address], [address], [place], [facility], . tel:[phone] [place] [address] [place] [address], [place], [address], tel:[phone] [place] Pain in left finger(s)Stif fness of left hand, not elsewhere classifiedOth symptoms and signs involving the musculoskelet al systemOther specified health statusUnil primary osteoarth of first carpometacarp joint, l hand 0-201 7 Hauschild Laura. [address] [place] [address], [address], [place], [facility], . tel:[phone] [place] [address] 2121 [facility] [address], [place], [address], tel:[phone] [place] No Information 9-201 4 Hauschild Laura. [address] [place] [address], [address], [place], [facility], [place]. tel:[phone] [place] [address] [facility], [place], [place], [address], tel:[phone] [place] No Information 6-201 4 Hauschild Laura. [address] [place] [address], [address], [place], [facility], . tel:[phone] [place] [address], [address], [place], [place], [address], [place] tel:[phone] [place] No Information Dec-2 2-201 4 Hauschild Laura. [address] [place] [address], [address], [place], [address], [place]. tel:[phone] [facility] [address], [place], [place], [address], [place] tel:[phone] [place] No Information Dec-1 9-201 4 Hauschild Laura. [address] [place] [address], [address], [place], [address], [place]. tel:[phone] [place] [address], [address], [place], [place], [address], [place] tel:[phone] [place] No Information Dec-1 5-201 4 Hauschild Laura. [address] [place] [address], [address], [place], [address], [place]. tel:[phone] [place] [address] [place], [place] [address], [place], [place], [address], [place] tel:[phone] [place] No Information Dec-1 2-201 4 Hauschild Laura. [address] [place] [address], [address], [place], [address], [place]. [phone] [place] [address] [facility] [address], [place], [place], [address], [place] tel:[phone] [place] No Information Dec-0 8-201 4 Hauschild Laura. [address] [place] [address], [address], [place], [address], [place]. tel:[phone] [place] [address], [address], [place], [place], [address], [place] tel:[phone] [place] No Information Dec-0 5-201 4 Hauschild Laura. [address] [place] [address], [address], [place], [address], [place]. tel:[phone] [facility], [address], [place], [place], [address], [place] tel:[phone] [place] No Information Dec-0 1-201 4 Hauschild Laura. [address] [place] [address], [address], [place], [address], [place]. tel:[phone] [facility], [address], [place], [place], [address], [place] tel:[phone] [place] No Information Nov-2 8-201 4 Hauschild Laura. [address] [place] [address], [address], [place], [address], [place]. tel:[phone] [facility], [address], [place], [place], [address], [place] tel:[phone] [place] No Information Nov-2 4-201 4 Faye Perkins. [address] [place] [address], [address], [place], [address], [place]. tel:[phone] [place] [address], [address], [place], [place], [address], [place] tel:[phone] [place] No Information Dec-2 1-201 4 Hauschild Laura. [address] [place] [address], [address], [place], [address], [place]. tel:[phone] [facility], [place], [place], [address], [place] tel:[phone] [place] No Information 7-201 4 Hauschild Laura. [address] [place] [address], [address], [place], [address], [place]. tel:[phone] [facility], [address], [place], [place], [address], [place] tel:[phone] [place] No Information Nov-1 4-201 4 Hauschild Laura. [address] [place] [address], [address], [place], [address], [place]. tel:[phone] [place] [address], [address], [place], [address], [place] tel:[phone] [place] No Information Nov-1 0-201 4 Hauschild Laura. [address] [place] [address], [address], [place], [facility], [place]. tel:[phone] [place] [address] [facility] [address], [place], [place], [address], [place] tel:[phone] [place] No Information Nov-0 7-201 4 Tenny Annie. [address] [place] [address], [address], [place], [facility], [place]. tel:[phone] [place] [address], [facility] [address], [place], [place], [address], tel:[phone] [place] No Information Nov-0 3-201 4 Hauschild Laura. [address] [place] [address], [address], [place], [facility], [place]. tel:[phone] [place] [address], [address], [place], [place], [address], [place] tel:[phone] [place] No Information Oct-3 1-201 4 Hauschild Laura. [address] [place] [address], [address], [place], [facility], [place]. tel:[phone] [place] [address] [address], [place], [place], [address], [place] tel:[phone] [place] No Information Nov-2 7-201 4 Hauschild Laura. [address] [place] [address], [address], [place], [facility], [place]. tel:[phone] [place] [address], [address], [place], [place], [address], [place] tel:[phone] [place] Pain in joint involving hand Oct-2 3-201 4 Hauschild Laura. [address] [place] [address], [address], [place], [address], [place]. tel:[phone] Family History Family Member Type Diagnosis Age At Onset No Information Payers Payer name Insurance type Covered alliance party ID Authoriza timelchor(s) [place] [id number] [facility] [id number] Social History Type Description Quantity Date Captured [...]
--- OUTSIDE RECORDS SUMMARY | 2016-10-24 01:30 | XMS_ITS | Continuity of Care Document ---
Author Organization [employer] [place] Address [address] [place] [address] [address] [place] [address] Phone Care Team Providers Care Mapping Engineer Name Role Phone Gio MS, OTR/L, CHT, [...] Diagnoses Date Provider Providers Copied on Encounter [facility] [address], [place], [place], [address], tel:[phone] [place] No Information 7 Hauschild Laura. [address] [place] [address], [address], [place], [facility], [place]. tel:[phone] [place] [address] 2121 [facility] 300, [place], [place], [address], tel:[phone] [place] No Information 7 Hauschild Laura. [address] [place] [address], [address], [place], [facility], . tel:[phone] [place] [address] [address] [facility], [place], [place], [address], tel:[phone] [place] No Information 7 Hauschild Laura. [address] [place] [address], [address], [place], [facility], [place]. tel:[phone] [place] [address] [address] [facility], [place], [place], [address], tel:[phone] [place] No Information 7 Hauschild Laura. [address] [place] [address], [address], [place], [facility], [place]. tel:[phone] [place] [address] [address] [facility], [place], [address], [place] tel:[phone] [place] No Information 7 Hauschild Laura. [address] [place] [address], [address], [place], [facility], [place]. tel:[phone] [place], [place] [address] [facility], [place], [place], [address], tel:[phone] [place] No Information 0 7 Peri Seymour. . [facility], [address] [facility] [address], [place], [place], [address], tel:[phone] [place] No Information 4201 7 Hauschild Laura. [address] [place] [address], [address], [place], [facility], . tel:[phone] [place] [address] [address] [facility] [address], [place], [place], [address], tel:[phone] [place] No Information 7201 7 Hauschild Laura. [address] [place] [address], [address], [place], [facility], . tel:[phone] [place] [address] [place] [address], [place], [address], tel:[phone] [place] Pain in left finger(s)Stif fness of left hand, not elsewhere classifiedOth symptoms and signs involving the musculoskelet al systemOther specified health statusUnil primary osteoarth of first carpometacarp joint, l hand 0-201 7 Hauschild Laura. [address] [place] [address], [address], [place], [facility], . tel:[phone] [place] [address] 2[address] [facility] [address], [place], [address], tel:[phone] [place] No Information 9-201 4 Hauschild Laura. [address] [place] [address], [address], [place], [facility], [place]. tel:[phone] [place] [address] [facility], [place], [place], [address], tel:[phone] [place] No Information 6-201 4 Hauschild Laura. [address] [place] [address], [address], [place], [facility], . tel:[phone] [place] [address], [address], [place], [place], [address], [place] tel:[phone] [place] No Information Dec-2 2-201 4 Hauschild Laura. [address] [place] [address], [address], [place], [address], [place]. tel:[phone] [facility] [address], [place], [place], [address], [place] tel:[phone] [place] No Information Dec-1 9-201 4 Hauschild Laura. [address] [place] [address], [address], [place], [address], [place]. tel:[phone] [place] [address], [address], [place], [place], [address], [place] tel:[phone] [place] No Information Dec-1 5-201 4 Hauschild Laura. [address] [place] [address], [address], [place], [address], [place]. tel:[phone] [place] [address] [place], [place] [address], [place], [place], [address], [place] tel:[phone] [place] No Information Dec-1 2-201 4 Hauschild Laura. [address] [place] [address], [address], [place], [address], [place]. [phone] [place] [address] [facility] [address], [place], [place], [address], [place] tel:[phone] [place] No Information Dec-0 8-201 4 Hauschild Laura. [address] [place] [address], [address], [place], [address], [place]. tel:[phone] [place] [address], [address], [place], [place], [address], [place] tel:[phone] [place] No Information Dec-0 5-201 4 Hauschild Laura. [address] [place] [address], [address], [place], [address], [place]. tel:[phone] [facility], [address], [place], [place], [address], [place] tel:[phone] [place] No Information Dec-0 1-201 4 Hauschild Laura. [address] [place] [address], [address], [place], [address], [place]. tel:[phone] [facility], [address], [place], [place], [address], [place] tel:[phone] [place] No Information Nov-2 8-201 4 Hauschild Laura. [address] [place] [address], [address], [place], [address], [place]. tel:[phone] [facility], [address], [place], [place], [address], [place] tel:[phone] [place] No Information Nov-2 4-201 4 Faye Perkins. [address] [place] [address], [address], [place], [address], [place]. tel:[phone] [place] [address], [address], [place], [place], [address], [place] tel:[phone] [place] No Information Dec-2 1-201 4 Hauschild Laura. [address] [place] [address], [address], [place], [address], [place]. tel:[phone] [facility], [place], [place], [address], [place] tel:[phone] [place] No Information 7-201 4 Hauschild Laura. [address] [place] [address], [address], [place], [address], [place]. tel:[phone] [facility], [address], [place], [place], [address], [place] tel:[phone] [place] No Information Nov-1 4-201 4 Hauschild Laura. [address] [place] [address], [address], [place], [address], [place]. tel:[phone] [place] [address], [address], [place], [place], [address], [place] tel:[phone] [place] No Information Nov-1 0-201 4 Hauschild Laura. [address] [place] [address], [address], [place], [facility], [place]. tel:[phone] [place] [address] [facility] [address], [place], [place], [address], [place] tel:[phone] [place] No Information Nov-0 7-201 4 Tenny Annie. [address] [place] [address], [address], [place], [facility], [place]. tel:[phone] [place] [address], [facility] [address], [place], [place], [address], tel:[phone] [place] No Information Nov-0 3-201 4 Hauschild Laura. [address] [place] [address], [address], [place], [facility], [place]. tel:[phone] [place] [address], [address], [place], [place], [address], [place] tel:[phone] [place] No Information Oct-3 1-201 4 Hauschild Laura. [address] [place] [address], [address], [place], [facility], [place]. tel:[phone] [place] [address] [address], [place], [place], [address], [place] tel:[phone] [place] No Information Nov-2 7-201 4 Hauschild Laura. [address] [place] [address], [address], [place], [facility], [place]. tel:[phone] [place] [address], [address], [place], [place], [address], [place] tel:[phone] [place] Pain in joint involving hand Oct-2 3-201 4 Hauschild Laura. [address] [place] [address], [address], [place], [address], [place]. tel:[phone] Family History Family Member Type Diagnosis Age At Onset No Information Payers Payer name Insurance type Covered democrat ID Authoriza timelchor(s) [place] [id number] [facility] [id number] Social History Type Description Quantity Date Captured [...]
--- OUTSIDE RECORDS SUMMARY | 2016-10-24 01:30 | XMS_ITS | Continuity of Care Document ---
Author Organization [employer] [place] Address [address] [place] [address] [address] [place] [address] Phone Care Team Providers Care Rebar Bender Name Role Phone Gio MS, OTR/L, CHT, [...] Diagnoses Date Provider Providers Copied on Encounter [facility] [address], [place], [place], [id number], tel:[phone] [place] No Information 7 Hauschild Laura. [address] [place] [address], [address], [place], [place], [facility], [place]. tel:[phone] [place] [address] 2121 [facility] 300, [place], [place], [address], tel:[phone] [place] No Information 7 Hauschild Laura. [address] [place] [address], [address], [place], [facility], . tel:[phone] [place] [address] 2[address] [facility], [place], [place], [address], tel:[phone] [place] No Information 7 Hauschild Laura. [address] [place] [address], [address], [place], [facility], [place]. tel:[phone] [place] [address] [address] [facility], [place], [place], [address], tel:[phone] [place] No Information 7 Hauschild Laura. [address] [place] [address], [address], [place], [facility], [place]. tel:[phone] [place] [address] [address] [facility], [place], [place], [address], [place] tel:[phone] [place] No Information 7 Hauschild Laura. [address] [place] [address], [address], [place], [facility], [place]. tel:[phone] [place], [place] [address] [facility], [place], [place], [address], tel:[phone] [place] No Information 0 7 Peri Seymour. . [facility], [address] [facility], [place], [place], [address], tel:[phone] [place] No Information 4201 7 Hauschild Laura. [address] [place] [address], [address], [place], [facility], . tel:[phone] [place] [address] [facility], [place], [address], tel:[phone] [place] No Information 7201 7 Hauschild Laura. [address] [place] [address], [address], [place], [facility], . tel:[phone] [place] [address] [place] [address], [place], [address], tel:[phone] [place] Pain in left finger(s)Stif fness of left hand, not elsewhere classifiedOth symptoms and signs involving the musculoskelet al systemOther specified health statusUnil primary osteoarth of first carpometacarp joint, l hand 0-201 7 Hauschild Laura. [address] [place] [address], [address], [place], [facility], . tel:[phone] [place] [address] 2121 [facility] [address], [place], [address], tel:[phone] [place] No Information 9-201 4 Hauschild Laura. [address] [place] [address], [address], [place], [facility], [place]. tel:[phone] [place], [place] [address] [facility], [place], [place], [address], tel:[phone] [place] No Information 6-201 4 Hauschild Laura. [address] [place] [address], [address], [place], [facility], . tel:[phone] [place] [address], [address], [place], [place], [address], [place] tel:[phone] [place] No Information Dec-2 2-201 4 Hauschild Laura. [address] [place] [address], [address], [place], [address], [place]. tel:[phone] [facility] [address], [place], [place], [address], [place] tel:[phone] [place] No Information Dec-1 9-201 4 Hauschild Laura. [address] [place] [address], [address], [place], [address], [place]. tel:[phone] [place] [address], [address], [place], [place], [address], [place] tel:[phone] [place] No Information Dec-1 5-201 4 Hauschild Laura. [address] [place] [address], [address], [place], [address], [place]. tel:[phone] [place] [address] [place], [place] [address], [place], [place], [address], [place] tel:[phone] [place] No Information Dec-1 2-201 4 Hauschild Laura. [address] [place] [address], [address], [place], [address], [place]. [phone] [place] [address] [facility] [address], [place], [place], [address], [place] tel:[phone] [place] No Information Dec-0 8-201 4 Hauschild Laura. [address] [place] [address], [address], [place], [address], [place]. tel:[phone] [place] [address], [address], [place], [place], [address], [place] tel:[phone] [place] No Information Dec-0 5-201 4 Hauschild Laura. [address] [place] [address], [address], [place], [address], [place]. tel:[phone] [facility], [address], [place], [place], [address], [place] tel:[phone] [place] No Information Dec-0 1-201 4 Hauschild Laura. [address] [place] [address], [address], [place], [address], [place]. tel:[phone] [facility], [address], [place], [place], [address], [place] tel:[phone] [place] No Information Nov-2 8-201 4 Hauschild Laura. [address] [place] [address], [address], [place], [address], [place]. tel:[phone] [facility], [address], [place], [place], [address], [place] tel:[phone] [place] No Information Nov-2 4-201 4 Faye Perkins. [address] [place] [address], [address], [place], [address], [place]. tel:[phone] [place] [address], [address], [place], [place], [address], [place] tel:[phone] [place] No Information Dec-2 1-201 4 Hauschild Laura. [address] [place] [address], [address], [place], [address], [place]. tel:[phone] [facility], [place], [place], [address], [place] tel:[phone] [place] No Information 7-201 4 Hauschild Laura. [address] [place] [address], [address], [place], [address], [place]. tel:[phone] [facility], [address], [place], [place], [address], [place] tel:[phone] [place] No Information Nov-1 4-201 4 Hauschild Laura. [address] [place] [address], [address], [place], [address], [place]. tel:[phone] [place] [address], [address], [place], [place], [address], [place] tel:[phone] [place] No Information Nov-1 0-201 4 Hauschild Laura. [address] [place] [address], [address], [place], [facility], [place]. tel:[phone] [place] [address] [facility] [address], [place], [place], [address], [place] tel:[phone] [place] No Information Nov-0 7-201 4 Tenny Annie. [address] [place] [address], [address], [place], [facility], [place]. tel:[phone] [place] [address], [facility] [address], [place], [place], [address], tel:[phone] [place] No Information Nov-0 3-201 4 Hauschild Laura. [address] [place] [address], [address], [place], [facility], [place]. tel:[phone] [place] [address], [address], [place], [place], [address], [place] tel:[phone] [place] No Information Oct-3 1-201 4 Hauschild Laura. [address] [place] [address], [address], [place], [facility], [place]. tel:[phone] [place] [address] [address], [place], [place], [address], [place] tel:[phone] [place] No Information Nov-2 7-201 4 Hauschild Laura. [address] [place] [address], [address], [place], [facility], [place]. tel:[phone] [place] [address], [address], [place], [place], [address], [place] tel:[phone] [place] Pain in joint involving hand Oct-2 3-201 4 Hauschild Laura. [address] [place] [address], [address], [place], [address], [place]. tel:[phone] Family History Family Member Type Diagnosis Age At Onset No Information Payers Payer name Insurance type Covered alliance party ID Authoriza timelchor(s) [place] [id number] [facility] [id number] Social History Type Description Quantity Date Captured [...]
--- OUTSIDE RECORDS SUMMARY | 2016-10-24 01:30 | XMS_ITS | Continuity of Care Document ---
Author Organization [email or web address] [place] Address [address] [place] [address] [address] [place] [address] Phone Care Team Providers Care Counter Server Name Role Phone Gio MS, OTR/L, CHT, [...] Diagnoses Date Provider Providers Copied on Encounter [facility] [address], [place], [place], [address], tel:[phone] [place] No Information 7 Hauschild Laura. [address] [place] [address], [address], [place], [facility], [place]. tel:[phone] [place] [address] 2121 [facility] 300, [place], [place], [address], tel:[phone] [place] No Information 7 Hauschild Laura. [address] [place] [address], [address], [place], [facility], . tel:[phone] [place] [address] [address] [facility], [place], [place], [address], tel:[phone] [place] No Information 7 Hauschild Laura. [address] [place] [address], [address], [place], [facility], [place]. tel:[phone] [place] [address] [address] [facility], [place], [address], tel:[phone] [place] No Information 7 Hauschild Larua. [address] [place] [address], [address], [place], [facility], [place]. tel:[phone] [place] [address] [address] [facility], [place], [address], [place] tel:[phone] [place] No Information 7 Hauschild Laura. [address] [place] [address], [address], [place], [facility], [place]. tel:[phone] [place] [address] [facility], [place], [address], tel:[phone] [place] No Information 0 7 Peri Seymour. . [facility], [address] [facility], [place], [address], tel:[phone] [place] No Information 4201 7 Hauschild Laura. [address] [place] [address], [address], [place], [facility], . tel:[phone] [place] [address] [address] [facility], [place], [address], tel:[phone] [place] No Information 7201 7 Hauschild Laura. [address] [place] [address], [address], [place], [facility], . tel:[phone] [place] [address] [place] [address], [place], [address], tel:[phone] [place] Pain in left finger(s)Stif fness of left hand, not elsewhere classifiedOth symptoms and signs involving the musculoskelet al systemOther specified health statusUnil primary osteoarth of first carpometacarp joint, l hand 0-201 7 Hauschild Laura. [address] [place] [address], [address], [place], [facility], . tel:[phone] [place] [address] 2121 [facility] [address], [place], [address], tel:[phone] [place] No Information 9-201 4 Hauschild Laura. [address] [place] [address], [address], [place], [facility], [place]. tel:[phone] [place] [address] [facility], [place], [place], [address], tel:[phone] [place] No Information 6-201 4 Hauschild Laura. [address] [place] [address], [address], [place], [facility], . tel:[phone] [place] [address], [address], [place], [address], [place] tel:[phone] [place] No Information Dec-2 2-201 4 Hauschild Laura. [address] [place] [address], [address], [place], [address], [place]. tel:[phone] [facility] [address], [place], [place], [address], [place] tel:[phone] [place] No Information Dec-1 9-201 4 Hauschild Laura. [address] [place] [address], [address], [place], [address], [place]. tel:[phone] [place] [address], [address], [place], [place], [address], [place] tel:[phone] [place] No Information Dec-1 5-201 4 Hauschild Laura. [address] [place] [address], [address], [place], [address], [place]. tel:[phone] [place] [address] [place], [place] [address], [place], [address], [place] tel:[phone] [place] No Information Dec-1 2-201 4 Hauschild Laura. [address] [place] [address], [address], [place], [address], [place]. [phone] [place] [address] [facility] [address], [place], [place], [address], [place] tel:[phone] [place] No Information Dec-0 8-201 4 Hauschild Laura. [address] [place] [address], [address], [place], [address], [place]. tel:[phone] [place] [address], [address], [place], [place], [address], [place] tel:[phone] [place] No Information Dec-0 5-201 4 Hauschild Laura. [address] [place] [address], [address], [place], [address], [place]. tel:[phone] [facility], [address], [place], [place], [address], [place] tel:[phone] [place] No Information Dec-0 1-201 4 Hauschild Laura. [address] [place] [address], [address], [place], [address], [place]. tel:[phone] [facility], [address], [place], [place], [address], [place] tel:[phone] [place] No Information Nov-2 8-201 4 Hauschild Laura. [address] [place] [address], [address], [place], [address], [place]. tel:[phone] [facility], [address], [place], [address], [place] tel:[phone] [place] No Information Nov-2 4-201 4 Faye Perkins. [address] [place] [address], [address], [place], [address], [place]. tel:[phone] [place] [address], [address], [place], [place], [address], [place] tel:[phone] [place] No Information Dec-2 1-201 4 Hauschild Laura. [address] [place] [address], [address], [place], [address], [place]. tel:[phone] [facility], [place], [place], [address], [place] tel:[phone] [place] No Information 7-201 4 Hauschild Laura. [address] [place] [address], [address], [place], [address], [place]. tel:[phone] [facility], [address], [place], [place], [address], [place] tel:[phone] [place] No Information Nov-1 4-201 4 Hauschild Laura. [address] [place] [address], [address], [place], [address], [place]. tel:[phone] [place] [address], [address], [place], [address], [place] tel:[phone] [place] No Information Nov-1 0-201 4 Hauschild Laura. [address] [place] [address], [address], [place], [facility], [place]. tel:[phone] [place] [address] [facility] [address], [place], [place], [address], [place] tel:[phone] [place] No Information Nov-0 7-201 4 Tenny Annie. [address] [place] [address], [address], [place], [facility], [place]. tel:[phone] [place] [address], [facility] [address], [place], [place], [address], tel:[phone] [place] No Information Nov-0 3-201 4 Hauschild Laura. [address] [place] [address], [address], [place], [facility], [place]. tel:[phone] [place] [address], [address], [place], [place], [address], [place] tel:[phone] [place] No Information Oct-3 1-201 4 Hauschild Laura. [address] [place] [address], [address], [place], [facility], [place]. tel:[phone] [place] [address] [address], [place], [address], [place] tel:[phone] [place] No Information Nov-2 7-201 4 Hauschild Laura. [address] [place] [address], [address], [place], [facility], [place]. tel:[phone] [place] [address], [address], [place], [place], [address], [place] tel:[phone] [place] Pain in joint involving hand Oct-2 3-201 4 Hauschild Laura. [address] [place] [address], [address], [place], [address], [place]. tel:[phone] Family History Family Member Type Diagnosis Age At Onset No Information Payers Payer name Insurance type Covered republican ID Authoriza timelchor(s) [place] [id number] [facility] [id number] Social History Type Description Quantity Date Captured [...]
--- OUTSIDE RECORDS SUMMARY | 2024-03-16 04:00 | XMS_ITS ---
Author Organization [facility] Address [address] [place] [address] Care Team Providers Care Specimen Processor Name Role Phone Merline Junior Primary Care Provider Lizzie Ruggiero Unavailable [phone] REASON FOR VISIT 6 week f/u laura Encounters Encounter Location Date Provider Diagnosis [address] [address] 03/16/2024 Lizzie Ruggiero Plan Of Treatment Next Appt Details Provider Name:Merline Junior, 01:00:00 PM, [address] [place] [address], [phone], Progress Notes * Kong BARTONOB:1945 ( 79 yo M)Acc No.[id number]:03/16/2024 Progress Notes Patient: Mike Benites Provider: Chela Ruggiero NP :1945 A ge:78 Y S ex:Male Date:03/16/2024 Address:[address] [place], [place] [id number] Pcp:Merline Junior Subjective: * Chief Complaints: * 6 week f/u laura * Electronic signature of Zee Ruggiero on 01/08/2025 at 07:14 PM ENGINEER SPECIALIST Sign off status: Pending * Provider: Chela Ruggiero NP Date: 0 03/16/2024 Generated for Printi ng/Faxing/eTransmitting on: 1 03/10/2024 07:14 PM ENGINEER SPECIALIST
--- OUTSIDE RECORDS SUMMARY | 2024-03-17 08:30 | XMS_ITS ---
Author Organization [facility] Address [address] [place], [place] [address] Care Team Providers Care Burglar Alarm Superintendent Name Role Phone Merline Junior Primary Care Provider [phone] REASON FOR VISIT 3 month f/u laura Encounters Encounter Location Date Provider Diagnosis [facility] Junior [address] [place] [phone] 03/17/2024 Merline Junior Plan Of Treatment Next Appt Details Provider Name:Merline Junior, 01:00:00 PM, [address] [place] [address], [phone], Progress Notes * Kong BARTONOB:1945 ( 79 yo M)Acc No.[id number]:03/17/2024 Progress Notes Patient: Mike Benites Provider: Louisa Junior MD :1945 A ge:78 Y S ex:Male Date:03/17/2024 Address:[address] [place], [place] [phone] Subjective: * Chief Complaints: * 3 month f/u laura * Electronic signature of Kristian Junior MD on 01/08/2025 at 07:13 PM FLORICULTURE PROFESSOR Sign off status: Pending * Provider: Louisa Junior MD Date: 03/17/2024 Generated for Rita mccarthy/Katharine/eTransmitting on: 03/10/2024 07:13 PM FLORICULTURE PROFESSOR
--- OUTSIDE RECORDS SUMMARY | 2024-03-24 05:40 | XMS_ITS ---
Author Organization [facility] Address [address] [place], [place] [address] Care Team Providers Care Residential Framing Carpenter Name Role Phone Vernon Merline Primary Care Provider REASON FOR VISIT Lab Review Medications Medication [...] review and pick correct strength-formula tion from [employer] options. If intended option is not shown, discontinue and re-order from Quick Search* *Pick strength-form from [employer] for eRX* Unknown NexIUM 40 MG Capsule [...] review and pick correct strength-formula tion from [employer] options. If intended option is not shown, [...] Location Date Provider Diagnosis AMMO Dr. Junior [address] [place] [phone] 03/24/2024 Merline Junior Plan Of Treatment Next Appt Details Provider Name:Merline Junior, 01:00:00 PM, [address] [place] [address], [phone], Progress Notes * Kong BARTONOB:1945 ( 79 yo M)Acc No.[id number]:03/24/2024 Progress Notes Patient: Mike Benites Provider: Louisa Junior MD :1945 A ge:78 Y S ex:Male Date:03/24/2024 Address:[address] [place] [address] Subjective: * Chief Complaints: * L ab [...] *Please review and pick correct strength-formulation from [employer] options. If intended option is not shown, discontinue and re-order from Quick Search* *Reorder from [employer] for eRx and Interaction Alerts*Tylenol 8 Hour [...] *Please review and pick correct strength-formulation from [employer] options. If intended option is not shown, discontinue and re-order from Quick Search* *Pick strength-form from [employer] for eRX*Doxazosin Mesylate 4 MG Tablet 1 [...] *Please review and pick correct strength-formulation from [employer] options. If intended option is not shown, discontinue and re-order from Quick Search* *Reorder from [employer] for eRx and Interaction Alerts*Unknown Tylenol 8 [...] re-order from Quick Search* *Pick strength-form from [employer] for eRX*Unknown Doxazosin Mesylate 4 MG Tablet 1 tab(s) orally once a day Unknown Mounjaro 2.5 MG/0.5ML Solution Auto-injector inject 2.5 mg subcutaneously once a week Unknown metFORMIN HCl ER 500 MG Tablet Extended Release 24 Hour 1 tablet with evening meal Orally Once a day * Electronic signature of Kristian Junior MD on 01/08/2025 at 07:12 PM AUTOMATION TEST DEVELOPER Sign off status: Pending * Provider: Louisa Junior MD Date: 0 03/24/2024 Generated for Rita mccarthy/Katharine/Filemon on: 03/10/2024 07:12 PM AUTOMATION TEST DEVELOPER
--- OUTSIDE RECORDS SUMMARY | 2024-03-28 04:00 | XMS_ITS ---
Author Organization [facility] Address [address] [place], [place] [address] Care Team Providers Care Electronic Science Teacher Name Role Phone Merline Junior Primary Care Provider REASON FOR VISIT lab f/u laura Encounters Encounter Location Date Provider Diagnosis [facility]MO Dr. Junior [address] [place] [phone] 03/28/2024 Merline Junior Plan Of Treatment Next Appt Details Provider Name:Merline Junior, 01:00:00 PM, [address] [place] [address], [phone], Progress Notes * Kong BARTONOB:1945 ( 79 yo M)Acc No.[id number]:03/28/2024 Progress Notes Patient: Mike Benites Provider: Louisa Junior MD :1945 A ge:78 Y S ex:Male Date:03/28/2024 Address:[address] [place], [place] [phone] Subjective: * Chief Complaints: * L ab f/u laura * Electronic signature of Kristian Junior MD on 01/08/2025 at 07:15 PM TRAILER DRIVER Sign off status: Pending * Provider: Louisa Junior MD Date: 0 03/28/2024 Generated for Rita mccarthy/Katharine/eTransmitting on: 1 03/10/2024 07:15 PM TRAILER DRIVER
--- OUTSIDE RECORDS SUMMARY | 2024-09-12 14:40 | XMS_ITS ---
Author Organization [facility] Address [address] [place] [address] Care Team Providers Care Senior Recruiter Name Role Phone VernonMerline Primary Care Provider Results Component Value Reference Range Flag Notes CBC + AutoDiff 5 Reviewed date:09/15/2024 11:28:33 [...] % H NEUTROPHILS # 3.28 1.85-5.94 10^3/uL COMP. METABOLIC Reviewed date:09/15/2024 11:54:58 AM Interpretation: [...] 2.0-5.0 g/dL A/G RATIO 2.2 1.1-2.5 Ratio LIPID PANEL Reviewed date:09/15/2024 11:55:03 AM Interpretation: Performing Lab: Notes/Report: CHOLESTEROL 147 0-200 mg/dL LDL Direct 66.0 0-100 mg/dL TRIGLYCERIDES 60 0-150 mg/dL HDL CHOLESTEROL 77 40 mg/dL CHOL/HDL RATIO 1.91 TSH Reviewed date:09/16/2024 08:51:44 AM Interpretation: Performing Lab: Notes/Report: TSH 0.431 0.40-4.50 mIU/L A1c% Reviewed date:09/15/2024 11:49:47 AM Interpretation: Performing Lab: Notes/Report: HEMOGLOBIN A1c % 5.47 4.5-6.3 % T3, FREE Reviewed date:09/15/2024 11:49:41 AM Interpretation: Performing Lab: Notes/Report: T3, FREE 2.68 2.3-4.2 pg/mL T4, FREE Reviewed date:09/15/2024 11:49:35 AM Interpretation: Performing Lab: Notes/Report: T4, FREE 0.93 0.8-1.8 ng/dL VITAMIN B-12 Reviewed date:09/15/2024 11:49:26 AM Interpretation: Performing Lab: Notes/Report: VITAMIN B-12 377 200-1,100 pg/mL VITAMIN D Reviewed date:09/15/2024 11:49:20 AM Interpretation: Performing Lab: Notes/Report: VITAMIN D 40.53 30-100 ng/mL DHEA SULFATE (402) Reviewed date:09/16/2024 08:51:50 AM Interpretation: Performing Lab:[facility] [employer] Ricarda-[id number] Paul [id number] Gregorio Shah MD Notes/Report: FASTING:UNKNOWN FASTING: UNKNOWN DHEA SULFATE 90 3-225 mcg/dL N INSULIN (561) Reviewed date:09/16/2024 08:52:47 AM Interpretation: Performing Lab:T[facility] [id number] Jessica [id number] Gregorio Shah MD Notes/Report: FASTING:UNKNOWN FASTING: UNKNOWN INSULIN 9.8 N Reference Range < or = 18.4 High >18.4 Adult cardiovascular event risk category Risk: Optimal < or = 18.4 Moderate NA cut points (optimal, moderate, high) are based on Insulin Reference Interval studies performed at [employer] in 2021. REASON FOR VISIT blood draw Medications Medication SIG (Take, Route, Frequency, Duration) Notes Start Date End Date Status Dry Eye Relief PRESERVED SOLUTION 1 GTT IN EACH EYE 4 TIMES A DAY *Please review and pick correct strength-formulatio n from [employer] options. If intended option is not shown, discontinue and re-order from Quick Search* *Reorder from [employer] for eRx and Interaction Alerts* Active Mounjaro [...] tab(s) orally once a day Active Creon [id number] UNIT Capsule Delayed Release Particles as directed [...] W/U Status Risk Notes Problem Mixed hyperlipidemia (697343691) Mixed hyperlipidemia (E78.2) Active confirmed Problem Menopausal syndrome (978740907) Menopausal syndrome (N95.1) Active confirmed Encounters Encounter Location Date Provider Diagnosis [facility] [address] [place] [address] 09/12/2024 Merline Junior Mixed hyperlipidemia E78.2 ; [...] Details Provider Name:Merline Junior, 01:00:00 PM, [address] [place] [address], [phone], Progress Notes * Kong BARTONOB:1945 ( 79 yo M)Acc No.[id number]:09/12/2024 Patient: Danita markelMike robles Provider: Louisa Junior MD :1945 A ge:79 Y S ex:Male Date:09/12/2024 Address:[address] [place] [address] Subjective: * Chief Complaints: * B lood draw * Medications: T akingCreon 559[address] UNIT Capsule Delayed Release Particles as directed [...] *Please review and pick correct strength-formulation from [employer] options. If intended option is not shown, discontinue and re-order from Quick Search* *Reorder from [employer] for eRx and Interaction Alerts*Tylenol 8 Hour [...] Auto-injector as directed Subcutaneous weekly Taking Creon 19612-08300 UNIT Capsule Delayed Release Particles as directed [...] *Please review and pick correct strength-formulation from [employer] options. If intended option is not shown, discontinue and re-order from Quick Search* *Reorder from [employer] for eRx and Interaction Alerts*Taking Tylenol 8 [...] Procedure Codes: 8 2306 ASSAY OF VITAMIN L03279 VITAMIN [id number] ASSAY OF FREE [id number] FREE ASSAY (FT-3)31312 COMPLETE CBC W/AUTO DIFF [id number] COMPREHEN METABOLIC [id number] LIPID [id number] ASSAY THYROID STIM [id number] GLYCATED HEMOGLOBIN [id number] VENIPUNCT, ROUTINE* Billing Information: * Procedure Codes: 05125 ASSAY OF VITAMIN D. 56704 VITAMIN B-12. 61173 ASSAY OF FREE THYROXINE. 07058 FREE ASSAY (FT-3). 20974 COMPLETE CBC W/AUTO DIFF WBC. 88534 COMPREHEN METABOLIC PANEL. 71417 LIPID PANEL. 35600 ASSAY THYROID STIM HORMONE. 83564 GLYCATED HEMOGLOBIN TEST. 30241 VENIPUNCT, ROUTINE*. * Electronic signature of Kristian Junior MD on 01/08/2025 at 07:12 PM CATTLE AND WHEAT FARMER Sign off status: Pending * Provider: Louisa Junior MD Date: 0 09/12/2024 Generated for Rita mccarthy/Katharine/Filemon on: 1 03/10/2024 07:12 PM CATTLE AND WHEAT FARMER
--- NOTE | ~2025-01-08 | CT_ITS ---
EXAM/PROCEDURE: CT cervical spine wo con HISTORY: FALL, HIT HEAD ON ELIQUIS COMPARISON: None available. TECHNIQUE: Cervical spine CT FINDINGS: No fracture lucency or traumatic malalignment C1-C7. Posterior fusion hardware C7-T2 appears intact. Straightening of the cervical spine present. Disc grafts are present at C3-4, C4-5, and C6-7. No traumatic malalignment seen. No gross prevertebral or paraspinal soft tissue swelling or hematoma seen. Multilevel degenerative changes with no large disc herniation or spinal canal stenosis seen. Several subcentimeter nodules are incidentally noted within the thyroid. IMPRESSION: No fracture lucency C1-C7. Thyroid nodules can be better evaluated with follow- up thyroid ultrasound. NOTE: Preliminary radiologist interpretation provided by [facility] radiologist/physician. Reviewed, dictated and finalized at location A. S BOX CUSTODIAN IMPRESSION: No fracture lucency C1-C7. Thyroid nodules can be better evaluated with follow- up thyroid ultrasound. NOTE: Preliminary radiologist interpretation provided by [facility] radiologist/mina john.
--- NOTE | ~2025-01-08 | CT_ITS ---
EXAMINATION: CT brain wo con DATE: 01/08/2025 20:46 INDICATION: Fall. TECHNIQUE: Computed tomography (CT) of the head was performed without intravenous contrast. The mA was adjusted according to patient size. Iterative reconstruction technique was employed. The dose-length product was 681.00 mGy-cm. COMPARISON: Head CT 07/28/2003 FINDINGS: There are scattered areas of low attenuation in the cerebral white matter. There is no intracranial hemorrhage, acute infarction, or abnormal intracranial mass lesion. The ventricles are normal in size. There is frontal scalp soft tissue swelling. There are likely changes of ocular lens replacement surgeries. There is mild mucosal thickening in the paranasal sinuses. The mastoid air cells are normal. IMPRESSION: 1. Moderate nonspecific cerebral white matter disease, which likely represents chronic small vessel ischemic disease. Reviewed, dictated and finalized at location E. IGHT RULING MACHINE OPERATOR
--- OUTSIDE RECORDS SUMMARY | 2025-01-08 19:13 | XMS_ITS | Encounter Summary ---
Author Organization [facility] Address [address] [place] [address] Care Team Providers Care Catalyst Concentration Operator Name Role Phone Milan Black DO Primary Care Provider Encounter Details Date Type Department Care Team (Late st Contact Info) Description 10/03/2024 Hospital Orders Only [facility] Rehab Consultant [place], [place] [id number] Kirby Faulkner MD Three [facility]. [facility] [address] [place], [place] [id number] Social History Tobacco Use Types Packs/Day Years [...] st Contact Info) Description 01/09/2025 1:15 PM RETREAD OPERATOR Office Visit [facility] [address] [place], [place] [phone] Irwin Driscoll MD [facility], [address] [place] [address] documented as of this encounter Visit Diagnoses Not on filedocumented in this encounter Care Teams Catalyst Concentration Operator Relationship Specialty Start Date End Date Milan Black DO [address] [facility] [address] [place], [place] [id number] PCP - General INTERNAL MEDICINE 07/26/24 documented as of this encounter
--- OUTSIDE RECORDS SUMMARY | 2025-01-08 19:13 | XMS_ITS | Encounter Summary ---
Author Organization [facility] Address [address] [place] [address] Care Team Providers Care Cosmetic Chemist Name Role Phone Milan Black DO Primary Care Provider Encounter Details Date Type Department Care Team (Late st Contact Info) Description 10/03/2024 Hospital Orders Only [facility] [employer] [facility] [place], [place] [phone] Kirby Faulkner MD Three [facility]. [facility] [address] [place], [place] [phone] Social History Tobacco Use Types Packs/Day Years [...] st Contact Info) Description 01/09/2025 1:15 PM COMMERCIAL ANNOUNCER Office Visit [facility] [address] [place], [place] [phone] Irwin Driscoll MD [facility], [address] [place] [address] documented as of this encounter Visit Diagnoses Not on filedocumented in this encounter Care Teams Cosmetic Chemist Relationship Specialty Start Date End Date Milan Black DO [address] [facility] [address] [place], [place] [phone] PCP - General INTERNAL MEDICINE 07/26/24 documented as of this encounter
[2025-01-08 19:14] VITALS: BP 175/76; PULSE 73; RESP 16; TEMP 36.5; O2SAT 99
--- OUTSIDE RECORDS SUMMARY | 2025-01-08 19:14 | XMS_ITS | Clinical Summary ---
Author Organization [facility] Address [address] [place] [address] Care Team Providers Care Sole Blacker Name Role Phone BreMilan taylor DO Primary Care Provider [phone] Source Comments [facility],non-owned Affiliates and Associated Physician Practices is amultiple site organization consisting of ambulatory clinics and hospital sitesin [place], [place], [place] and [place]. This disclosure is being madepursuant to the Care Everywhere program and may not contain all information available regarding this patient. Last updated 17.[facility] Allergies No known active allergies Medications * [...] on file Legal Sex Male 6:32 AM LITIGATION DOCKET MANAGER Gender Identity Not on file Sexual Orientation Not on file Last Filed Vital Signs Vital Sign Reading Time Taken Comments Blood Pressure 121/80 01/16/2014 1:40 PM LITIGATION DOCKET MANAGER Pulse 76 01/16/2014 1:40 PM LITIGATION DOCKET MANAGER Temperature 36.3 C (97.4 F) 01/16/2014 1:40 PM LITIGATION DOCKET MANAGER Respiratory Rate 16 11/03/2013 8:33 AM CDT Oxygen Saturation 99% 11/03/2013 8:33 AM CDT Inhaled Oxygen Concentration - - Weight 88.5 kg (195 lb) 01/16/2014 1:40 PM LITIGATION DOCKET MANAGER Height 182.9 cm (6') 01/16/2014 1:40 PM LITIGATION DOCKET MANAGER Body Mass Index 26.45 01/16/2014 1:40 PM LITIGATION DOCKET MANAGER Plan of Treatment Health Maintenance Due Date Last Done Comments HEPATITIS C SCREENING 05/19/1965 DTAP/TDAP/TD VACCINES (1 - Tdap) 05/23/1966 PNEUMOCOCCAL VACCINE 50+ (1 of 1 - PCV) 05/23/1997 ZOSTER VACCINE (1 of 2) 05/23/1997 Respiratory Syncytial Virus (RSV) Vaccine Pt: or over 60 yrs (1 - 1-dose 75+ series) 05/23/2022 DEPRESSION SCREENING 02/24/2024 COVID-19 VACCINE ( - 2024-2 6 season) 2024 INFLUENZA VACCINE (#1) 2024 HEPATITIS [...] this topic Medical Devices Implanted Type Area Streetcar Motorman Device Identifier Shelf Expiration Date Model / Serial / Lot [id number] Implanted:Qty: 1 on 07/06/2012 by Juvenal Andres MD at [facility] N/A: Neck [employer] 09/26/2019 [id number] / / [id number] [place] [employer] Implanted:Qty: 1 on 07/06/2012 at [facility] Musculoskeletal Transplant [employer] 12/22/2013 [id number] / / [id number] Insurance MEDICARE MANAGED MEDICARE [facility] Care Address: [facility] [id number] [place] [address] Advance Directives Documents on File Type Date Recorded Patient Premium Cancellation Clerk Expl anation Adv Directive/Living Will/POA 07/08/2012 6:29 AM * FULL RESUSCITATION (Latest Code Status on File) Date Activated Date Inactivated Comments 07/06/2012 5:38 PM 07/06/2012 11:37 PM Care Teams Sole Blacker Relationship Specialty Start Date End Date Milan Black DO PCP - General 07/10/20
--- OUTSIDE RECORDS SUMMARY | 2025-01-08 19:14 | XMS_ITS | Data Portability ---
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 he has not been having much pain but the stiffness from his arthritis has been affecting his pinching and gripping strength specifically with the distal thumb. We discussed possible treatment options including bracing, steroid injections, surgical intervention. Patient is agreeable to bracing and injections at this time. using standard technique and sterile protocol 1 cc ropivacaine and 1 cc of Kenalog was injected into the IP joint of the right thumb. Patient was provided and fitted for a right [place] thumb spica brace. He may use topical anti-inflammatori es to help with his arthritis. Advised him to discuss oral anti-inflammatori es such as Celebrex and meloxicam with his sheep sticker and primary care provider to see if he is able to take those while taking Eliquis. If his symptoms persist or worsen we may consider surgical intervention with IP joint arthrodesis. Will follow-up as needed. [email or web address] Not available 07/09/2022 16:58:47 10/21/2024 10/21/2024 The patient has olecranon bursitis left elbow. There does not appear to be any evidence of infection by his report or on his exam today. Today talked about treatment options with him in detail I have recommended aspiration and compression and icing along with oral steroids. He wanted to proceed we will get him set up with a prescription for prednisone burst and taper. After discussing the procedure in detail today and after sterile prep I injected 3 cc of 0.5% bupivacaine subcutaneously over the left olecranon region once the area was numb I then was able to aspirate 20 cc of serous straw-colored fluid with a bloody tinge to it. There was no evidence of cloudiness or pus it does not appear to be septic. This decompressed the sac very nicely. After the procedure there was no drainage or blood from the puncture site from the aspiration. The patient tolerated procedure well. I then placed a Band-Aid over the aspiration site and placed a sterile gauze pad. I then wrapped the elbow with an Yang wrap snugly to keep the sac compressed. I have advised the patient to try to wear the Yang wrap for 4-5 days to keep the area compressed hopefully it will not fill back up with fluid. I will see him back in 1 week. He will check the skin in the elbow daily to make sure it does not look red hot or swollen. If he starts to develop symptoms of an infection including fevers chills night sweats constitutional symptoms erythema heat drainage etc. he will call. He will also ice the area several times a day as instructed. The patient is on blood thinners so he can not take NSAIDs. We will see how he does over the course of the next week. He voiced understanding agrees with the above plan he will call for any further problems difficulties or questions. Not available 10/21/2024 14:50:26 10/28/2024 10/28/2024 The patient has resolved olecranon bursitis after an aspiration last week at the left elbow. I have advised him to continue to avoid leaning on it if he is going to do anything where he does need to lean on the elbow he should have a pillow or a well-padded area and avoid excessive leaning and try to avoid bumping it. Overall it looks good. If it starts to swell back up fill with fluid or look infected he should call immediately. For now he is dismissed he voiced understanding and agreed with the above plan he will call for any further problems difficulties or questions. 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 We talked about treatment options today he wanted to have this drained again therefore under sterile conditions I injected 3 cc of 0.5% bupivacaine subcutaneously over the olecranon bursa once this was numbed up I used an 18 gauge needle to aspirate 20 cc of watery serous fluid that was slightly blood-tinged. Otherwise clear no evidence of infection or cloudiness was noted. This completely decompressed the area no bleeding or drainage was noted after the aspiration was done. I reapplied a sterile compression dressing I have advised him to try to use this for the next few days also avoid leaning on it. He will use some ice when necessary and avoid his workouts for now. Give it time to calm down if this continues to recur or if it becomes infected he can call us back at any time the only other option would be surgical intervention hopefully this will resolve. He voiced understanding agrees above plan will call for any further problems difficulties or questions. Not available 11/21/2024 10:50:37 Plan of Treatment Reminders Order Date Submit Date Provider Last Modified By Organization Details Last Modified Time Details Appointments None recorded. Lab None recorded. Referral None recorded. Procedures injection/ aspiration joint/burs a (PROC) 2024 025 [email or web address] In-Office Order, Internal Use Only DO Not Attach Compendium DO Not Attach Compendium, Do Not Delete/merge, [id number] 09:41:33 injection/ aspiration joint/burs a (PROC) 2024 025 [email or web address] In-Office Order, Internal Use Only DO Not Attach Compendium DO Not Attach Compendium, Do Not Delete/merge, [id number] 12:45:17 injection/ aspiration joint/burs a (PROC) - in office procedure, administer ed by provider 2022 023 [email or web address] In-Office Order, Internal Use Only DO Not Attach Compendium DO Not Attach Compendium, Do Not Delete/merge, [id number] 3 16:10:07 Surgeries None recorded. Imaging XR, elbow 2024 025 [email or web address] [facility], [address], [place], [address], 5 15:10:47 XR, hand 2022 023 [email or web address] [facility] [place], [address], [place], [address], 3 16:57:58 Medication Orders bupivacain e HCl 0.5 % (5 mg/mL) injection solution 2024 025 [email or web address], [address] [place] [address], [address], 5 10:01:31 bupivacain e HCl 0.5 % (5 mg/mL) injection solution 2024 025 [email or web address] [facility], [address] [place] [address], [address], 5 15:10:47 prednisone 10 mg tablets in a dose pack 2024 025 [email or web address] [facility], [address] [place] [address], [address], 5 15:10:47 Mounjaro 5 mg/0.5 mL subcutaneo us pen injector 2022 023 [email or web address] [facility], [address] [place] [address], [address], 5 12:31:23 metformin ER 500 mg tablet,ext ended release 24 hr 2022 023 [email or web address] [facility], [address] [place] [address], [address], 5 12:30:31 Kenalog 10 mg/mL suspension for injection 2022 023 [email or web address] [facility], [address] [place], [address], 3 14:05:02 ropivacain e (PF) 5 mg/mL (0.5 %) injection solution 2022 023 [email or web address] [facility], [address] [place], [address], 5 12:31:52 Patient TargetsNo targets recorded. Patient InstructionsNo instructions recorded. Reason for Referral None Reported. Results Created Date Observation Date Name Description Value Unit Range Abnormal Flag Note LastModifiedBy Organization Detail LastModifiedTime 07/10/19 XR, hand No observ ation record ed. [email or web address] [facility] [address], [place], [address], 07/09/2022 16:57:57 10/11/19 23 10/07/2022 bone densi ty No observ ation record ed. [email or web address] [facility] [address], [place], [address], 10/13/2022 17:10:21 10/31/19 23 10/07/2022 bone densi ty No observ ation record ed. [email or web address] [facility] [address], [place], [address], 11/03/2022 17:55:28 04/11/19 25 04/11/2024 imagi ng inter preta tion No observ ation record ed. [email or web address] [facility] [address], [place], [address], 12/06/2024 16:58:42 10/22/19 25 XR, elbow No observ ation record ed. [email or web address] [facility] [address], [place], [address], 10/21/2024 14:51:45 Result Notes None recorded. Problems Name Problem SNOMED Code Status Onset Date Resolution Date Notes Provider Name and Address Organization Details Recorded Time Pain in limb 43771015 Active Not Available [facility] 3 12:33:33 Thyroid nodule 391261633 Active 2018 Not Available [facility] 3 12:33:33 Hypertensi ve disorder 92974905 Active 2018 Not Available [facility] 3 12:33:33 Seasonal allergy 749399662 Active 2018 Not Available [facility] 3 12:33:33 Full thickness rotator cuff tear 943097723 Active 2018 Not Available [facility] 3 12:33:33 Knee pain Active 2018 Not Available [facility] 3 12:33:33 History of total knee arthroplas ty 6686011853864 Active 2018 Not Available [facility] 3 12:33:33 Localized, primary osteoarthr itis of the shoulder region 482303322 Active 2018 Not Available [facility] 3 12:33:33 Localized, primary osteoarthr itis of the shoulder region 618210390 Active 2018 Not Available [facility] 3 12:33:33 Osteoarthr itis of knee 253584559 Active 2018 Not Available [facility] 3 12:33:33 Pain of shoulder region 53207162 Active 2018 Not Available [facility] 3 12:33:33 Prediabete s 973744897 Active 2022 Not Available [facility] 3 12:33:33 Well controlled type 2 diabetes mellitus 912143763 Active 2022 Not Available [facility] 3 12:33:33 Exocrine pancreatic insufficie ncy 01704085 Active 2022 Not Available [facility] 3 12:33:33 Vitamin B12 deficiency (non anemic) 70615118 Active 2022 Not Available [facility] 3 12:33:33 Osteoarthr osis of the carpometac arpal joint of the thumb 52200582 Active 2022 Not Available [facility] 3 12:33:33 Pain of right hand 3613266781949 09 Active 2022 Not Available [facility] 3 12:33:33 Arthritis of first carpometac arpal joint of right hand 7091548740286 100 Active 2022 Not Available [facility] 3 12:33:33 Pain of left elbow joint 3348119228567 9104 Active 2024 JENNIFER David [facility] [employer] [facility] 5 12:25:56 Bursitis of olecranon of left elbow 2167364845868 01 Active 2024 BECKI Sorensen [address] [place] [address], [place], [address] , [facility] [employer] [facility] [employer] [facility] 5 14:52:03 Problem Notes None recorded. Procedures Surgical History Date Name Laterality Status Provider Name and Address Organization Details Recorded Time Knee Surgery completed Ofelia Cantu [facility] [employer] [facility] [employer] [facility] 07/09/2022 15:20:27 procedure on shoulder completed Ofelia Cantu [facility] [employer] [facility] [employer] [facility] 07/09/2022 15:21:04 Imaging Results None recorded. Procedure Notes None recorded. Medical Equipment None Reported. Allergies Allergen ID Allergen Name Allergen Category Reaction Reaction Severity Criticality Documentation Date Start Date Code Code System Note Provider Name and Address Organization Details Recorded Time 94660 Levaquin medicatio n decreased blood pressure dizziness mild Not available Not available 04/23/2022 18022 2 RxNorm Not Available [facility] 3 07:38:24 Medications Name Sig Start Date Stop Date Status Note LastModified by Organization Details LastModified Time celecoxib 200 mg capsule TAKE 1 CAPSULE BY MOUTH EVERY DAY 01/02 completed Not Available Not Available Not Available amoxicill in 500 mg capsule TAKE 4 CAPSULES BY MOUTH 1 HOUR PRIOR TO APPOINTM ENT 11/28 completed Not Available Not Available Not Available latanopro st 0.005 % eye drops INSTILL 1 DROP INTO BOTH EYES AT BEDTIME active Not Available Not Available No t Available buspirone 5 mg tablet 09/28 completed Not Available Not Available Not Available lamotrigi ne 150 mg tablet TAKE 1 TABLET BY MOUTH EVERY DAY 10/24 completed Not Available Not Available Not Available metformin 500 mg tablet TAKE 1 TABLET BY MOUTH EVERY DAY active Not Available Not Available No t Available diclofena c 3 % topical gel APPLY TO AFFECTED AREA TWICE A DAY 12/22 completed Not Available Not Available Not Available prednison e 10 mg tablet TAKE 1 TAB BY MOUTH 3 TIMES A DAY X3 DAYS, 1 TAB 2 TIMES A DAY X2 DAYS, 1 TAB ONCE A DAY FOR 1 DAY active Not Available Not Available No t Available oxybutyni n chloride ER 15 mg tablet,ex tended release 24 hr 10/24 completed Not Available Not Available Not Available doxycycli ne hyclate 100 mg capsule 09/28 completed Not Available Not Available Not Available loperamid e 2 mg capsule TAKE 2 TABS AT ONSET OF DIARRHEA , THEN TAKE 1 TAB AFTER FOR EVERY LOOSE STOOL AFTER. MAX 16 MG/DAY PRN active Not Available Not Available No t Available trazodone 50 mg tablet 10/24 completed Not Available Not Available Not Available mecobalam in (bulk) 100 % powder 09/28 completed Not Available Not Available Not Available atorvasta tin 10 mg tablet TAKE ONE TABLET BY MOUTH EVERY DAY AT BEDTIME 10/21 completed Not Available Not Available Not Available lisinopri l 20 mg-hydroc hlorothia zide 12.5 mg tablet TAKE 1 TABLET BY MOUTH EVERY DAY active Not Available Not Available No t Available oxybutyni n chloride ER 10 mg tablet,ex tended release 24 hr 01/14 completed Not Available Not Available Not Available azithromy majo 250 mg tablet TAKE 2 TABLETS BY MOUTH TODAY, THEN TAKE 1 TABLET DAILY FOR 4 DAYS 10/24 completed Not Available Not Available Not Available aspirin 325 mg tablet Take 1 tablet every day by oral route. 11/17 completed Not Available Not Available Not Available ofloxacin 0.3 % eye drops INSTILL 1 DROP 3 TIMES A DAY STARTING 2 DAYS BEFORE SURGERY AND CONTINUI NG FOR 1 WEEK 07/09 completed Not Available Not Available Not Available amiodaron e 200 mg tablet TAKE 1 TABLET BY MOUTH TWICE A DAY 03/03 completed Not Available Not Available Not Available hydrocodo ne 5 mg-acetam inophen 325 mg tablet 09/28 completed Not Available Not Available Not Available sotalol 80 mg tablet TAKE 1 TABLET BY MOUTH TWICE A DAY 10/21 completed Not Available Not Available Not Available minocycli ne 100 mg capsule 09/28 completed Not Available Not Available Not Available lisinopri l 20 mg tablet TAKE 1 TABLET BY MOUTH EVERY DAY active Not Available Not Available No t Available famotidin e 40 mg tablet TAKE 1 TABLET BY MOUTH EVERY DAY PRN active Not Available Not Available No t Available bupivacai ne HCl 0.5 % (5 mg/mL) injection solution Take 15 mg by injectio n route. 2024 active Not Available Not Available Not Avai lable prednison e 20 mg tablet 09/28 completed Not Available Not Available Not Available dextroamp hetamine- amphetami ne 10 mg tablet 10/24 completed Not Available Not Available Not Available diphenoxy late-atro pine 2.5 mg-0.025 mg tablet Take 2 tablets 4 times a day by oral route. active Not Available Not Available No t Available metronida zole 500 mg tablet TAKE 1 TABLET BY MOUTH EVERY 8 HOURS 10/24 completed Not Available Not Available Not Available acetamino phen 300 mg-codein e 30 mg tablet 09/28 completed Not Available Not Available Not Available ciproflox acin 500 mg tablet TAKE 1 TABLET BY MOUTH TWICE A DAY FOR 14 DAYS 10/21 completed Not Available Not Available Not Available tramadol 50 mg tablet TAKE 1 TABLET BY MOUTH EVERY 6 TO 8 HOURS NEEDED 07/09 completed Not Available Not Available Not Available sildenafi l 100 mg tablet TAKE 1 TABLET BY MOUTH ONCE DAILY NEEDED 07/09 completed Not Available Not Available Not Available lamotrigi ne 25 mg tablet TAKE 1 TAB (25 MG) DAILY FOR 2 WEEKS. AFTER 2 WEEKS, INCREASE TO 2 TABS (50 MG) DAILY THEREAFT ER. 10/24 completed Not Available Not Available Not Available ketorolac 10 mg tablet 10/24 completed Not Available Not Available Not Available ketorolac 0.5 % eye drops INSTILL 1 DROP 3 TIMES A DAY STARTING 2 DAYS BEFORE SURGER, CONTINUE FOR 2 WEEKS AFTER 07/09 completed Not Available Not Available Not Available prednison e 10 mg tablets in a dose pack Take 1 tab by mouth, 3 times a day for 3 daysTake 1 tab by mouth 2 times a day for 2 daysTake 1 tab by mouth once a day for 1 day 2024 active Not Available Not Available Not Avai lable meloxicam 7.5 mg tablet TAKE 1 TABLET BY MOUTH EVERY DAY 10/24 completed Not Available Not Available Not Available oxycodone -acetamin ophen 5 mg-325 mg tablet 09/28 completed Not Available Not Available Not Available alprazola m 0.5 mg tablet TAKE 1 TABLET BY MOUTH TWICE A DAY NEEDED FOR 30 DAYS. 12/14 completed Not Available Not Available Not Available amoxicill in 875 mg tablet TAKE 1 TABLET BY MOUTH EVERY 12 HOURS FOR 7 DAYS 10/21 completed Not Available Not Available Not Available prednisol one acetate 1 % eye drops,brittany pension INSTILL 1 DROP 3 TIMES A DAY STARTING AFTER SURGERY AND CONTINUE FOR 3 WEEKS 07/08 completed Not Available Not Available Not Available methocarb esha 750 mg tablet TAKE 1 TABLET BY MOUTH EVERY DAY AT BEDTIME NEEDED FOR MUSCLE SPASM active Not Available Not Available No t Available tamsulosi n 0.4 mg capsule 09/28 completed Not Available Not Available Not Available trazodone 100 mg tablet 10/24 completed Not Available Not Available Not Available ropinirol e 0.25 mg tablet 10/24 completed Not Available Not Available Not Available Kenalog 10 mg/mL suspensio n for injection in office 11/[address] [facility]: [phone] 4-20 Not Available Not Available Not Available dexametha sone 1 mg tablet 1 TABLET AT 10PM FOR A 9AM LAB DRAW ORALLY ONCE 10/21 completed Not Available Not Available Not Available diazepam 2 mg tablet TAKE 1 TABLET BY MOUTH EVERYDAY AT BEDTIME NEEDED. MUST LAST 30 DAYS 07/08 completed Not Available Not Available Not Available baclofen 10 mg tablet 09/28 completed Not Available Not Available Not Available amlodipin e 10 mg tablet 09/28 completed Not Available Not Available Not Available cephalexi n 500 mg capsule DNC 04/12 completed Not Available Not Available Not Available pantopraz ole 40 mg tablet,de layed release TAKE 1 TABLET BY MOUTH TWICE A DAY 03/03 completed Not Available Not Available Not Available erythromy majo 5 mg/gram (0.5 %) eye ointment APPLY 1 RIBBON (1 CM) TO INNER LOWER EYELID(S ) EVERY 2 HOURS WHILE AWAKE active Not Available Not Available No t Available hyoscyami ne sulfate 0.125 mg tablet TAKE 1 TABLET BY MOUTH EVERY 6 HOURS NEEDED FOR ABDOMINA L PAIN 07/09 completed Not Available Not Available Not Available cyanocoba lexus (vit B-12) 1,000 mcg/mL injection solution INJECT 1 ML EVERY 2 WEEKS BY INTRAMUS CULAR ROUTE IN THE MORNING FOR 30 DAYS. 10/21 completed Not Available Not Available Not Available esomepraz ole magnesium 40 mg capsule,d elayed release TAKE 1 CAPSULE BY MOUTH EVERY DAY 10/21 completed Not Available Not Available Not Available buspirone 10 mg tablet TAKE 1 TABLET BY MOUTH TWICE A DAY 10/24 completed Not Available Not Available Not Available promethaz ine 25 mg tablet 09/28 completed Not Available Not Available Not Available Ripplemead 1,000 mcg intra-ure thral supposito ry 1 (ONE) PELLET INTO URETHRA DAILY, NEEDED 10/24 completed Not Available Not Available Not Available bupropion HCl 75 mg tablet TAKE 1 TABLET EVERY DAY BY ORAL ROUTE FOR 30 DAYS. 10/24 completed Not Available Not Available Not Available flecainid e 100 mg tablet TAKE 1 TABLET BY MOUTH EVERY 12 HOURS active Not Available Not Available No t Available metoprolo l tartrate 50 mg tablet TAKE 1 TABLET BY MOUTH TWICE A DAY 10/21 completed Not Available Not Available Not Available triamcino lone acetonide 0.025 % topical ointment PLEASE SEE ATTACHED FOR DETAILED DIRECTIO NS 10/24 completed Not Available Not Available Not Available Ripplemead 500 mcg intra-ure thral supposito ry INSERT 1 PELLET INTO URETHRA NEEDED. 01/14 completed Not Available Not Available Not Available omeprazol e 20 mg capsule,d elayed release TAKE 1 CAPSULE BY MOUTH TWICE A DAY 10/21 completed Not Available Not Available Not Available doxazosin 4 mg tablet TAKE 1 TABLET BY MOUTH EVERYDAY AT BEDTIME active Not Available Not Available No t Available dextroamp hetamine- amphetami ne ER 10 mg 24hr capsule,e xtend release TAKE 1 CAPSULE BY MOUTH EVERY DAY 10/24 completed Not Available Not Available Not Available diclofena c sodium 50 mg tablet,de layed release 09/28 completed Not Available Not Available Not Available zolpidem 5 mg tablet active Not Available Not Available Not Available furosemid e 20 mg tablet TAKE 1 TABLET BY MOUTH EVERY DAY IN THE MORNING 10/21 completed Not Available Not Available Not Available mirtazapi ne 15 mg tablet 10/24 completed Not Available Not Available Not Available gabapenti n 100 mg capsule 09/28 completed Not Available Not Available Not Available metoprolo l succinate ER 25 mg tablet,ex tended release 24 hr 01/02 completed Not Available Not Available Not Available azelastin e 137 mcg (0.1 %) nasal spray 10/24 completed Not Available Not Available Not Available diazepam 10 mg tablet TAKE 1 TABLET BY MOUTH TWICE DAILY 10/24 completed Not Available Not Available Not Available cefuroxim e axetil 500 mg tablet TAKE 1 TABLET BY MOUTH TWICE A DAY X3 WEEKS 09/28 completed Not Available Not Available Not Available levofloxa majo 500 mg tablet 10/24 completed Not Available Not Available Not Available methylpre dnisolone 4 mg tablets in a dose pack TAKE 6 TABLETS ON DAY 1 DIRECTED ON PACKAGE AND DECREASE BY 1 TAB EACH DAY FOR A TOTAL OF 6 DAYS 07/08 completed Not Available Not Available Not Available diltiazem 30 mg tablet TAKE 1 TABLET BY MOUTH THREE TIMES A DAY 10/21 completed Not Available Not Available Not Available fluticaso ne propionat e 50 mcg/actua tion nasal spray,brittany pension USE 1 SPRAY INTRANAS ALLY DAILY NEEDED FOR ALLERGIC SYMPTOMS ADMINIST ER INTO EACH NOSTRIL active Not Available Not Available No t Available metformin ER 500 mg tablet,ex tended release 24 hr TAKE 1 TABLET BY MOUTH EVERY DAY WITH EVENING MEAL FOR 90 DAYS 10/21 completed Not Available Not Available Not Available colestipo l 1 gram tablet TAKE 1 TABLET BY MOUTH TWICE A DAY 07/08 completed Not Available Not Available Not Available lamotrigi ne 100 mg tablet TAKE 1 TABLET EVERY DAY BY ORAL ROUTE FOR 30 DAYS. 01/02 completed Not Available Not Available Not Available finasteri de 5 mg tablet 09/28 completed Not Available Not Available Not Available diazepam 5 mg tablet TAKE 1/2 TO 1 TABLET BY MOUTH EVERY DAY AT BEDTIME 10/21 completed Not Available Not Available Not Available amoxicill in 875 mg-potass ium clavulana te 125 mg tablet TAKE 1 TABLET BY MOUTH TWICE A DAY FOR 3 DAYS 11/28 completed Not Available Not Available Not Available esomepraz ole magnesium 20 mg capsule,d elayed release TAKE 1 CAPSULE BY MOUTH TWICE A DAY active Not Available Not Available No t Available oxycodone 5 mg tablet Take 1 tablet every 4 hours by oral route. active Not Available Not Available No t Available modafinil 100 mg tablet TAKE 1 TABLET ONCE A DAY FOR 1 WK IF NO SIDE EFFECTS MAY TAKE 2 TABLETS ONCE A DAY THEREAFT ER. 10/24 completed Not Available Not Available Not Available neomycin- polymyxin -hydrocor t 3.5 mg-10,000 unit/mL-1 % ear drops,brittany p PLACE 4 DROPS INTO AFFECTED EAR(S) THREE TIMES DAILY FOR 7 DAYS 09/28 completed Not Available Not Available Not Available paroxetin e ER 12.5 mg tablet,ex tended release 24 hr TAKE 1 TABLET BY MOUTH EVERY DAY 09/28 completed Not Available Not Available Not Available Bactrim DS 800 mg-160 mg tablet Take 1 tablet twice a day by oral route. 2024 active changed from Cipro Not Available Not Available Not Available dextroamp hetamine- amphetami ne ER 5 mg 24hr capsule,e xtend release TAKE 1 CAPSULE BY MOUTH EVERY DAY IN THE MORNING FOR 30 DAYS 10/21 completed Not Available Not Available Not Available ketamine (bulk) 100 % powder 09/28 completed Not Available Not Available Not Available cyclobenz aprine 5 mg tablet TAKE 1 TABLET BY MOUTH THREE TIMES A DAY NEEDED FOR MUSCLE SPASM active Not Available Not Available No t Available cyclospor ine 0.05 % eye drops in a dropperet te APPLY ONE DROP INTO BOTH EYES 2 TIMES A DAY. active Not Available Not Available No t Available cholestyr amine (with sugar) 4 gram oral powder TAKE 4 GRAMS TWICE A DAY W/MEAL. AVOID OTHER MEDS WITHIN 1HR BEFORE OR 4-6HR AFTER DOSE 07/08 completed Not Available Not Available Not Available bupropion HCl XL 150 mg 24 hr tablet, extended release TAKE 1 TABLET BY MOUTH EVERY DAY IN THE MORNING FOR 30 DAYS 10/21 completed Not Available Not Available Not Available tadalafil 5 mg tablet TAKE 1 TABLET BY MOUTH EVERY DAY active Not Available Not Available No t Available tadalafil 20 mg tablet TAKE 1 TABLET BY MOUTH ONCE DAILY PRN active Not Available Not Available No t Available metoprolo l tartrate 25 mg tablet TAKE 1 TABLET BY MOUTH TWICE A DAY PRN active Not Available Not Available No t Available ORTHOVISC 30 mg/2 mL intra-art icular syringe Injectio ns given in the office by the doctor 10/[address] [facility]: [id number] 001 Not Available Not Available Not Available eszopiclo ne 3 mg tablet TAKE 1 TABLET BY MOUTH AT BEDTIME NEEDED FOR INSOMNIA 07/09 completed Not Available Not Available Not Available eszopiclo ne 1 mg tablet TAKE 3 TABLETS BY MOUTH AT BEDTIME AT SLEEP ONSET FOR INSOMNIA AND NEW BIPAP MACHINE TO ACCLIMAT E 07/08 completed Not Available Not Available Not Available Pain Relief Extra Strength (acetamin ophen) 500 mg tablet 10/21 completed Not Available Not Available Not Available clobetaso l 0.05 % topical spray 10/24 completed Not Available Not Available Not Available Pepcid 07/09 completed Not Available Not Available Not Available Zantac 11/17 completed Not Available Not Available Not Available Valium 07/08 completed Not Available Not Available Not Available Zyrtec 11/17 completed Not Available Not Available Not Available Rogaine 2020 active Not Available Not Available Not Avai lable Xalatan 2020 active Not Available Not Available Not Avai lable Cardene 01/14 completed Not Available Not Available Not Available Doxycycli ne 01/02 completed Not Available Not Available Not Available mometason e 0.1 % topical solution APPLY TOPICALL Y 2 (TWO) TIMES A DAY TO RIGHT EAR FOR 10 DAYS 10/24 completed Not Available Not Available Not Available lidocaine (PF) 10 mg/mL (1 %) injection solution In office injectio n administ ered by the provider 10/[address] [facility]: [id number] 08-09 Not Available Not Available Not Available doxycycli ne monohydra te 40 mg capsule,i mmediate - delay release TAKE 1 CAPSULE BY MOUTH EVERY DAY 01/02 completed Not Available Not Available Not Available PCCA Lipoderm Base cream 09/28 completed Not Available Not Available Not Available ProAir HFA 90 mcg/actua tion aerosol inhaler INHALE 2 PUFFS BY MOUTH EVERY 4 HOURS NEEDED active Not Available Not Available No t Available tramadol ER 100 mg tablet,ex tended release 24 hr 09/28 completed Not Available Not Available Not Available Toviaz 4 mg tablet,ex tended release 09/28 completed Not Available Not Available Not Available Creon 24,000-76 ,000-120, 000 unit capsule,d elayed release TAKE 1 CAPSULE BY MOUTH 3 TIMES A DAY ADMINIST ER WITH MEALS AND/OR SNACKS 03/03 completed Not Available Not Available Not Available azelastin e 205.5 mcg (0.15 %) nasal spray 04/12 completed Not Available Not Available Not Available cetyl myristole ate (bulk) 20 % powder 09/28 completed Not Available Not Available Not Available AndroGel 20.25 mg/1.25 gram per pump act. (1.62 %) transderm al gel 09/28 completed Not Available Not Available Not Available ropivacai ne (PF) 5 mg/mL (0.5 %) injection solution in office 10/[address] [facility] [id number] 05-24 Not Available Not Available Not Available metoprolo l succ 25 mg-hydroc hlorothia zide 12.5 mg tablet,ex t.rel 24 hr Take 1 tablet every day by oral route. 07/09 completed Not Available Not Available Not Available AndroGel 1.62 % (20.25 mg/1.25 gram) transderm al gel packet Apply 1 packet every day by transder mal route. 09/28 completed Not Available Not Available Not Available Eliquis 5 mg tablet TAKE 1 TABLET BY MOUTH TWICE A DAY active Not Available Not Available No t Available Eliquis 2.5 mg tablet Take 1 tablet twice a day by oral route. active Not Available Not Available No t Available BD Insulin Syringe Ultra-Fin e 1 mL 31 gauge x 5/16 INJECT B12 UNDER SKIN ONCE WEEKLY X 90 DAYS 10/21 completed Not Available Not Available Not Available Suclear 210 gram-17.5 gram-3.13 gram oral solutions 09/28 completed Not Available Not Available Not Available Creon 36,000 unit-114, 000 unit-180, 000 unit capsule,d elayed release TAKE 2 CAPSULES BY MOUTH FOUR TIMES DAILY. ADMINIST ER 2 CAPS WITH MEALS AND ONE CAPSULE WITH SNACKS active Not Available Not Available No t Available Belsomra 5 mg tablet 10/24 completed Not Available Not Available Not Available Belsomra 20 mg tablet 10/24 completed Not Available Not Available Not Available Savaysa 60 mg tablet 09/28 completed Not Available Not Available Not Available Viberzi 75 mg tablet TAKE 1 TABLET BY MOUTH TWICE A DAY 07/08 completed Not Available Not Available Not Available Trintelli x 5 mg tablet 10/24 completed Not Available Not Available Not Available Shingrix (PF) 50 mcg/0.5 mL intramusc ular suspensio n, kit 10/24 completed Not Available Not Available Not Available Tiadylt ER 180 mg capsule,e xtended release TAKE 1 CAPSULE BY MOUTH EVERY DAY active Not Available Not Available No t Available Fluzone High-Dose Quad (PF) 240 mcg/0.7 mL IM syringe PHARMACY ADMINIST ERED active Not Available Not Available No t Available Ozempic 1 mg/dose (4 mg/3 mL) subcutane ous pen injector Inject 1 mg every week by subcutan eous route at dinner for 90 days. 11/28 completed Not Available Not Available Not Available Mounjaro 7.5 mg/0.5 mL subcutane ous pen injector DIRECTED SUBCUTAN EOUS WEEKLY active Not Available Not Available No t Available Mounjaro 5 mg/0.5 mL subcutane ous pen injector DIRECTED SUBCUTAN EOUS WEEKLY 90 DAYS 10/21 completed Not Available Not Available Not Available Mounjaro 2.5 mg/0.5 mL subcutane ous pen injector INJECT 2.5 MG SUBCUTAN EOUSLY ONCE A WEEK 30 DAYS 10/21 completed Not Available Not Available Not Available Ozempic 0.25 mg or 0.5 mg (2 mg/3 mL) subcutane ous pen injector INJECT 0.25 MG SUBCUTAN EOUSLY WEEKLY DIRECTED 11/29 completed Not Available Not Available Not Available Vitals Date Recorded Body height Body mass index (BMI) Body weight Provider Name and Address Organization Details Last Updated DateTime 07/09/2022 180.34 cm 28.6 kg/m2 84389.44 g [employer] [employer] 07/09/2022 15:16:09 Date Recorded Body height Body mass index (BMI) Body weight Provider Name and Address Organization Details Last Updated DateTime 10/21/2024 177.8 cm 27.1 kg/m2 30521.96 g [employer] 10/21/2024 12:26:29 Date Recorded Body height Body mass index (BMI) Body weight Provider Name and Address Organization Details Last Updated DateTime 10/28/2024 177.8 cm 27.1 kg/m2 51939.96 g [employer] [employer] 10/28/2024 11:51:43 Date Recorded Body height Body mass index (BMI) Body weight Provider Name and Address Organization Details Last Updated DateTime 11/21/2024 177.8 cm 27.3 kg/m2 89702.55 g [employer] [employer] 11/21/2024 09:31:09 Date Recorded Body height Body mass index (BMI) Body weight Heart rate Systolic And Diastolic Provider Name and Address Organization Details Last Updated DateTime 11/28/2022 180.34 cm 28.7 kg/m2 66376.03 g 59 /min 111/67 mm[Hg] Agatha Guerrero Lola Pirindola 11/28/2022 13:59:52 Social History Question Answer Notes LastModified by Organizat ion Details LastModified Time Tobacco Smoking Status Never Smoker Zina escalante, [facility] 07/09/2022 14:48:30 What Was The Date Of Your Most Recent Tobacco Screening? 11/21/2024 Information not available 11/21/2024 Sex: Male Functional Status Question Answer Note LastModified by Organizat ion Details LastModified Time What is your level of alcohol consumption? Moderate [id number] Information not available 04/23/2022 Mental Status None recorded. Family History Relationship Description Onset Age of this Age Resolved Age Notes LastModified by Organization Details LastModified Time Mother Family history of malignant neoplasm [email or web address] Not available 2022 14:48:30 Mother Family history of stroke [email or web address] Not available 2022 14:48:30 Mother Heart disease [email or web address] Not available 2024 12:32:55 Mother Arthritis Not available 10/21/2024 12:33:28 Mother Hypertensive disorder [id number] Not available 04/23/2022 07:27:00 Sister Family history of stroke [email or web address] Not available 2022 14:48:30 Sister Family history of malignant neoplasm [email or web address] Not available 2022 15:19:26 Maternal Grandmother Diabetes mellitus [email or web address] Not available 2024 12:33:11 Medical History Condition Response BLINDNESS N KIDNEY STONES N MRSA N CARPAL TUNNEL SYNDROME N LUNG DISEASE/DISORDER N HISTORY OF DRUG ABUSE N RADIATION / CHEMOTHERAPY N COPD N SPORTS INJURY N ANKLE PAIN N BLOOD DISEASES N SCHIZOPHRENIA N SHINGLES N BOWEL PROBLEMS N SHOULDER PAIN N DEPRESSION (INCLUDING POST ) Y STROKE/TIA N KNEE PAIN N ULCERS N BENIGN PROSTATIC HYPERPLASIA N OBESITY N GERD/NAUSEA N ANEURYSM N URINARY/BLADDER/KIDNEY PROBLEMS Y CORONARY ARTERY DISEASE (CAD) N ADDICTION CONCERNS N USE OF BLOOD THINNERS Y SKIN PROBLEMS Y EMPHYSEMA N MUSCLE,JOINT OR BONE PROBLEMS N DVT N STOMACH ULCERS N BLOOD CLOTS N USE OF NSAIDS Y CONCUSSION OR SPINAL TRAUMA N NEUROPATHY N AIDS/HIV N FRACTURES N ELBOW PAIN N HYPERTENSION Y TOURETTE'S N ANXIETY DISORDER N Metal allergy N BLOOD TRANSFUSION N ANEMIA/BLOOD DISORDER N BIPOLAR DISORDER N BRONCHITIS N OSTEOARTHRITIS N TUBERCULOSIS N GLAUCOMA Y FOOT PROBLEM N HEART VALVE DISORDERS N ALLERGIES/HAYFEVER N SOFT TISSUE INJURY N INFECTIOUS DISEASE N HEART ARRHYTHMIA Y INSOMNIA N RHEUMATOID ARTHRITIS N HIGH CHOLESTEROL / HYPERLIPIDEMIA N EYE PROBLEMS Y EDEMA N CHRONIC PAIN SYNDROME N CAROTID BLOCKAGE N BACK / NECK PROBLEMS N HAVE YOU BEEN HOSPITALIZED OR SEEN IN [facility] IN THE PAST YEAR ? N BURSITIS N HERNIATED DISC N DIALYSIS N FIBROMYALGIA N OSTEOPOROSIS N ARTHRITIS Y NO SIGNIFICANT PAST MEDICAL HISTORY N PERIPHERAL NEUROPATHY N DIABETES, TYPE N HEARTBURN / REFLUX N HEPATITIS / LIVER DISEASE N GOUT N SLEEP DISORDER N ALZHEIMER'S DISEASE N HERPES N SEIZURES/EPILEPSY N HEADACHES/MIGRAINES N VASCULAR DISEASE Y HIP PAIN N Blood Disorder N DIZZINESS N HEAD TRAUMA OR INJURY N HEART DISEASE/HEART PROBLEMS N MULTIPLE SCLEROSIS N CARDIAC ARRHYTHMIA N CANCER: SPECIFY Y ANESTHESIA COMPLICATIONS N ATRIAL FIBRILLATION Y AUTOIMMUNE DISEASE N Past Encounters Encounter ID Performer Location Encounter Start Date Encounter Closed Date Diagnosis/Indication Diagnosis SNOMED-CT Code Diagnosis ICD10 Code Diagnosis IMO Codes Diagnosis Note [id number] Niranjan Galloway MD [facility] [place] [address] [facility] [address] [place] [address] 10/24/2020 00:00:00 10/31/2020 11:49:36 [id number] Niranjan Galloway MD [facility] [place] [address] [facility] [address] [place] [address] 12/14/2020 00:00:00 12/14/2020 11:39:48 [id number] Sami Ayala MD [facility] [place] [address] [facility] [address] [place] [address] 12/27/2020 00:00:00 12/27/2020 11:32:02 [id number] Niranjan Galloway MD [facility] [place] [address] [facility] [address] [place] [address] 01/02/2021 00:00:00 01/02/2021 11:06:10 [id number] Niranjan Galloway MD [facility] [place] [address] [facility] [address] [place] [address] 01/14/2021 00:00:00 01/14/2021 15:10:09 [id number] Merline Junior MD [facility] [place] [address] [place] [address] 03/03/2022 00:00:00 03/03/2022 11:53:11 [id number] Merline Junior MD [facility] [place] [place] [address] [place] [address] 07/08/2022 11:38:28 07/08/2022 12:34:19 Osteoporosis 59462528 M81.0 Well contr olled type 2 diabetes mellitus 478500884 E11.9 a1c of 6.3% down from 6.6% continue on ozempic 0.25 mg once weekly and after 4 weeks he is aware to titrate up to 0.5 mg once weekly. okay to discontinu e metformin if having any issues with diarrhea which we are treated patient for EPI on creon. Discussed carb counting and how to read food labels. Recommende d patient to utilize the diabetesfo [employer]it[employer] from the ADA website to help with food preparatio n as this presents ideal carb content per meal so this will make carb counting much easier for patient. Recommende d he incorporat e natural insulin automatic glove turner and former s such as pears, apples, cinnamon, whitney and sweet potatoes to help mobilize his endogenous insulin. Recommende d up to 150 minutes of moderate level activity/e xercise weekly. Exocrine p ancreatic insufficiency 14074296 K86.81 secondary to cyst on uncinate process of pancreas- continue creon with meals. Thyroid nodule 532042750 E04.1 monitor thyroid functionre [facility] u/s this fall. Recommende d a thyroid supplement similar to actalin by Dr. Alex Black that contains, iodine, magnesium, manganese, carnitine and other elements to help maintain endogenous thyroid function and help to reduce swelling to take in meantime to help reduce time frame to burn out and to help with fatigue, hair thinning etc. Family his tory of osteoporosis 320166889 Z82.62 send for bone density scan to assess bone health. Vitamin B1 2 deficiency (non anemic) 35283181 E53.8 send for B12 injections once weekly for energy and focus, on metformin so known to reduce stores. Osteoarthr osis of the carpometacarpal joint of the thumb 80190407 M18.9 send for orthopedic evaluation he has a large herbeden nodule on thumb that is affecting fitter armament and strength -seeing if options for steroid injections or surgical interventi on if possible. Spent up to 28 minutes preparing to see the patient (eg, review of tests), obtaining and/or reviewing separately obtained history, performing a medically appropriat e examinatio n and evaluation , counseling and educating the patient, ordering medication s, tests, along with documentin g clinical informatio n in the electronic health record, independen tly interpreti ng results and communicat ing results to the patient. rtc in 6 months. Patient was provided a handwritte n lab order which contains our fax number. If he chooses to go outside of the [facility] system to obtain labwork he was advised to provide our fax number and my informatio n to the lab he will be obtaining labwork from in order to have his labs properly forwarded over for me to review so there is no loss of follow up due to use of outside network. He was also advised to contact our clinic informing us that he has completed his labwork so we are aware we will need to reach out to the appropriat e laboratory to request his results be forwarded to us so I might have the ability to review and make further medical decision making in his case. He voiced understand ing. [id number] Sarath Marks MD [facility] [place] [address] [place] [address] 07/09/2022 14:47:13 07/09/2022 16:10:20 Pain of right hand [id number] 25280 M79.641 Arthritis of first carpometacarpal joint of right hand 9128572294 672104 M13.781 [id number] Merline Junior MD [facility] [place] [address] [place] [address] 11/28/2022 13:52:57 11/28/2022 14:30:16 Well controlled type 2 diabetes mellitus 768915918 E11.9 A1C of 5.7% in range- continue with GLP 1 agonist therapy but he feels the ozempic no longer helps with appetite suppressio n and he has had weight gain- will transition off ozempic to mounjaro 2.5 mg once weekly x 4 weeks (sample provided) then increase to 5 mg once weekly thereafter with large meal. Continue on metformin for insulin sensitizat ion. Discussed carb counting and how to read food labels. Recommende d patient to utilize the diabetesfo [employer] from the ADA website to help with food preparatio n as this presents ideal carb content per meal so this will make carb counting much easier for patient. Recommende d he incorporat e natural insulin automatic glove turner and former s such as pears, apples, cinnamon, whitney and sweet potatoes to help mobilize his endogenous insulin. Recommende d up to 150 minutes of moderate level activity/e xercise weekly. Exocrine p ancreatic insufficiency 89320106 K86.81 secondary to cyst on uncinate process of pancreas- continue creon with meals. Managed by gastroente rology Spent up to 25 minutes preparing to see the patient (eg, review of tests), obtaining and/or reviewing separately obtained history, performing a medically appropriat e examinatio n and evaluation , counseling and educating the patient, ordering medication s, tests, along with documentin g clinical informatio n in the electronic health record, independen tly interpreti ng results and communicat ing results to the patient. Patient can be followed by PCP - she/he is aware of my resignatio n and last day of December 05. If needed his/her PCP can refer patient to another endocrinol ogist in the area. All questions /concerns answered and refills necessary at visit today. [id number] Alex Ashton [facility] [place] [address] [place] [address] 10/21/2024 11:56:14 10/21/2024 12:56:18 Pain of left elbow joint [id number] 8847671 M25.522 [id number] Bursitis o f olecranon of left elbow 6193551857 63914 M70.22 [id number] Alex Ashton MD [facility] [place] [address] [place] [address] 10/28/2024 11:45:29 10/28/2024 12:43:16 Pain of left elbow joint 1947107330 6666645 M25.522 [id number] Bursitis o f olecranon of left elbow 8955865269 00569 M70.22 [id number] Alex Ashton [facility] [place] [address] [place] [address] 11/21/2024 09:27:22 11/21/2024 10:51:27 Pain of left elbow joint [id number] 0794072 M25.522 [id number] Bursitis o f olecranon of left elbow 4293417976 83806 M70.22 [id number] Health Concerns Section Related Observation LastModified by Organization Detai ls LastModified Time None Recorded Concern Status LastModified by Organization Details LastModified Time None Recorded Advance Directives Directive None Recorded Payers Insurance Date Sequence Insurance Name Policy Number Policy Swain Covered Member ID Swain Member ID Guarantor Name 11/22/2024 1 [facility] (MEDICARE REPLACEMENT/A DVANTAGE - PPO) [id number] Mike Barton [id number] Mike Barton Notes Date Note Type Note Provider Name and Address Organization Details Recorded Time 07/09/2022 text/html 77-year-old male presents to clinic concerning stiffness and gripping/pinching weakness of his Left thumb. He has large Heberden nodes at the IP joint of his left thumb that has been enlarging. he has previously participated in therapy and tried bracing. He has not tried taking any oral anti-inflammatories due to previous ablation and being on Eliquis. he is interested in a steroid injection into his IP joint of his thumb. He denies any numbness or tingling. BECKI Zeng [address] [place] [address], [facility], [place], [address], [place] [facility] [place] [employer] [facility] 07/09/2022 17:00:22 11/28/2022 text/html ROS as noted in the HPI 77 yo male comes in for follow up in management of well controlled type 2 DM (A1C of 5.7%), thyroid nodule, EPI and B12 def. last seen in June at that time we continued ozempic and continued to hold metformin we continued B12 injections. He is thinking to stop these as he doesn't notice an improvement in his energy. we continued creon for EPI. Normal bone density from September 2022 He ended up stopping the ozempic since his last visit- last shot was one week ago and he went back down to 0.5 mg dose. He does take metformin with meals. He does follow gastroenterology in September and pancreatic cyst is stable. He was advised to cut the creon down. He has kept 3 pounds off. He is now taking ASA and off the eliquis and now on sotalol and not diltiazem for atrial fibrillation-he had ablation two years in February. He will be going to [place] next week for evaluation of disability. labs from 11/24/22:a1c 5.7%TPO 17 IU/mlFT3 of 3.1 pg/mlLFT normalCr normalglucose 125 mg/dLTSH of 0.676 uIU/mlFT4 of 1.4 ng/dLH/H normal Merline Junior MD [address] [facility], [facility], [place], [address], [facility] [employer] 11/29/2022 12:07:21 10/21/2024 text/html The patient returns with a new problem today. He is having swelling with a fluid sac over the left elbow olecranon region. He states it is minimally tender this started to develop over the last week or 2. He denies any specific trauma or injury he states he does go to the gym and work out every day. He is not sure why it started to swell up 1 day he noticed that he was having some swelling there and he notes a fluid sac consistent with olecranon bursitis. He denies any fevers chills night sweats no constitutional symptoms no erythema heat or other signs of infection. His full range of motion of his left elbow denies any pain with working out or other daily activities. He states it has never looked infected but he states if he leans on it it is a little uncomfortable he is concerned about the fluid collection. He has not had this problem previously. He had x-rays today which show some calcific debris at the triceps tendon insertion is unclear whether this is an old chip fracture or hypertrophic spur that has from the main body of the olecranon. This is not palpable in his likely within the triceps distally. He comes in today for initial evaluation and treatment. The patient is past medical history sheet was reviewed and signed on the intake sheet of today's date drug allergies current medications family social history previous surgical history 10 point review of systems was reviewed and discussed in detail today with the patient. 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 BECKI Sorensen [address], [place], [address], Lola Pirindola 10/21/2024 14:53:42 10/28/2024 text/html The patient returns for recheck of his left elbow. A week ago he had an olecranon bursitis this was about the size of a golf ball. There was no erythema heat no signs of infection no drainage. Under sterile conditions I aspirated the elbow bursa on the left as able to obtain about 20 cc of serous straw-colored fluid no evidence of infection. We applied a compression bandage asked him to follow up this week to see if everything looks good. He states he has had no recurrence of the fluid collection the sac has decompressed nicely. He is still wearing a compression sleeve. Overall he states he really does not have any discomfort unless he bumps it too hard or leans on it he has been avoiding that. Everything looks good everything is clean and dry he comes in today for recheck. BECKI Sorensen [address], [place], [address], Lola Pirindola 10/28/2024 12:07:32 11/21/2024 text/html the patient returns for recurrent left olecranon bursitis. I saw him a month ago he had good results from an elbow aspiration on a follow up with the following week. He had been using a compression sleeve and trying to avoid leaning on it. He states he likes to work out daily unfortunately he is on Eliquis so he can not take nonsteroidal anti-inflammatory medication. He denies any erythema heat skin breakdown no fevers chills no signs of infection. Everything looks good otherwise. He does have recurrence of fluid about the size of a walnut on his left elbow. He comes in today for recheck he would like to have this aspirated again today. Denies any pain or discomfort. BECKI Sorensen [address], [address], [place], [address], Lola Pirindola 11/21/2024 10:51:10
--- OUTSIDE RECORDS SUMMARY | 2025-01-08 19:14 | XMS_ITS | Clinical Summary ---
Author Organization [facility] Address [address] [place] [address] Phone Care Team Providers Care Mainspring Fabrication Supervisor Name Role Phone Unavailable Unavailable Unavailable Reason [...]
--- OUTSIDE RECORDS SUMMARY | 2025-01-08 19:14 | XMS_ITS | Clinical Summary ---
Author Organization [facility] Address [address] [place] [address] Care Team Providers Care Painter Mirror Name Role Phone Brebrandon Milan Esdras Primary [...] this topic Insurance [employer] Care Teams Painter Mirror Relationship Specialty Start Date End Date Milan Black DO [address] [place] [address] PCP - General Internal Medicine 01/09/23
--- OUTSIDE RECORDS SUMMARY | 2025-01-08 19:14 | XMS_ITS ---
Care Plan - [facility] Created on: January 08, 2025 MARY RAMOS : 1945 Sex: Male Author Organization [facility] Address [address] [place] [address] Phone Care Team Providers Care Long Term Acute Care Registered Nurse Name Role Phone Unavailable Unavailable Unavailable
--- OUTSIDE RECORDS SUMMARY | 2025-01-08 19:15 | XMS_ITS | Clinical Summary ---
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 Atypical atrial flutter 02/22/2015 Cardiac arrhythmia 12/14/2014 Dizziness 12/14/2014 Essential hypertension 12/14/2014 Encounters Date Type Department Care Team Description 12/23/2024 Scan [facility], [address] [address] Scanned, Doc Pccl 12/19/2024 Telephone [facility], [address] [address] Irwin Salazar MD Refill Request (FLECAINIDE) 12/05/2024 Results Follow-Up [facility] [place] [address] [place], COBY CTA CHEST 11/23/2024 10:11 AM CDT - 11/23/2024 11:59 PM CDT Hospital Encounter [place] [address] Irwin Salazar MD Discharge Disposition: Home or Self Care (Routine Discharge) 11/23/2024 Travel 11/08/2024 Results Follow-Up [facility], [address] [address] Joyce Martin ANP-BC XA [facility] POSS, USE TRANSESOPHAGEAL ECHO 11/07/2024 12:15 PM CDT Office Visit [facility] [place] [address] Irwin Salazar MD Atrial Fibrillation (2-3MO) 11/07/2024 Travel 11/04/2024 9:23 AM CDT Anesthesia Event [facility] [place] [address] Eliel Kruse MD 11/04/2024 6:51 AM CDT - 11/04/2024 2:11 PM CDT Hospital Encounter [facility] [address] Joyce Martin ANP-BC Discharge Disposition: Home or Self Care (Routine Discharge) 11/04/2024 Travel 10/26/2024 9:04 AM CDT - 10/26/2024 11:59 PM CDT Hospital Encounter [facility] [address] Joyce Martin ANP-BC Discharge Disposition: Home or Self Care (Routine Discharge) 10/26/2024 8:30 AM CDT Procedure Only [facility], [facility] [address] [place] [address] Khurram Kaplan MD 10/26/2024 Travel 10/26/2024 Orders Only [facility], [facility] [address] [place] [address] Giuliana Muro, FORESTRY FIRE AIDE from Last 3 Months Immunizations Immunization Administration Dates Next Due Influenza (Generic) 12/09/2018 Influenza Adult (Generic) 11/13/2019,11/12/2017, 09/23/2017 MODERNA COVID-19 (12+) MRNA, LNP-S, PF, 100 MCG/ 0.5 ML DOSE 11/20/2021,07/05/2021 Pneumococcal (Pneumovax 23) 10/20/2020, 5 Pneumococcal (Prevnar 7) 02/23/2013 Shingrix 10/08/2018,05/13/2018 Td (TDVAX) 07/01/2018 Zoster (Zostavax) [address] Unt/0.65Ml 10/08/2018, Social History Tobacco Use Types [...] st Contact Info) Description 01/09/2025 1:15 PM 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 Office Visit [facility] [address] [place] [address] Irwin Salazar MD [facility] [address] [place] [address] Health Maintenance Due Date Last Done Comments [...] 1-dose 75+ series) 05/23/2022 COVID-19 Vaccine ( - season) 2024 11/20/2021, 07/05/2021, 01/11/2021, Additional history [...] Procedure Name Priority Date/Time Associated Diagnosis Comments IMAGE GENERIC Routine 12/23/2024 CTA CHEST Routine 11/23/2024 10:56 AM CDT Dilated aortic root XA LHC POSS Routine 11/04/2024 10:27 AM CDT Abnormal stress test Other forms of angina pectoris SOB (shortness of breath) USE TRANSESOPHAGEAL ECHO Routine 10:00 AM CDT Moderate aortic regurgitation Mitral regurgitation SOB (shortness of breath) POCT GLUCOSE - DOCKED DEVICE Routine 11/04/2024 7:35 AM CDT ELECTROCARDIOGRAM (NON MIDMARK ACQUIRED) Routine 10/26/2024 9:40 AM CDT Atypical atrial flutter (CMS/HCC HHS/HCC) Paroxysmal atrial fibrillation (CMS/HCC HHS/HCC) Mitral regurgitation Abnormal stress test HC PROTHROMBIN TIME (PT) Routine 9:11 AM CDT Moderate aortic regurgitation Abnormal stress test Mitral regurgitation Other forms of angina pectoris SOB (shortness of breath) HC LIPID PANEL Routine 10/26/2024 9:11 AM CDT Screening for cholesterol level HC CBC AUTO W/AUTO DIFF Routine 10/27/19 25 9:11 AM CDT Moderate aortic regurgitation Abnormal stress test Mitral regurgitation Other forms of angina pectoris SOB (shortness of breath) HC BASIC METABOLIC PANEL Routine 9:11 AM CDT Moderate aortic regurgitation Abnormal stress test Mitral regurgitation Other forms of angina pectoris SOB (shortness of breath) LIPID PANEL Routine 02/06/2011 12:00 AM 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 from Last 3 Months or Most Recently Relevant to Health Maintenance Results * IMAGE STUDY (12/23/2024) Anatomical Region Laterality Modality Other us Doc Pccl Scanned SCANNING Final Result * CTA CHEST (11/23/2024 10:56 AM CDT) [...] 12:53 PM Narrative 12/04/2024 12:59 PM CDT [address] [address] PATIENT NAME: MIKE RAMOS EXAM: CTA chest [...] Procedure Note Regino Shaffer MD - 12/04/2024 [facility] [address] [place], [place] [address] PATIENT NAME: MIKE RAMOS EXAM: CTA chest [...] By: Regino Shaffer MD, 12/04/2024 12:53 PM us Irwin Salazar MD CT Final Res ult * XA LHC POSS (11/04/2024 10:27 AM CDT) Anatomical Region Laterality Modality Cardiac Supervisor Fertilizer 11/04/2024 9:00 AM CDT us Joyce Martin ANP-BC COLLECTION SYSTEMS ADMINISTRATOR Final Resu lt * USE TRANSESOPHAGEAL ECHO (11/04/2024 10:00 AM CDT) Anatomical Region Laterality Modality Cardiac Supervisor Fertilizer 11/04/2024 9:22 AM CDT Narrative 11/07/2024 4:02 PM CDT [facility] Report Pat.Name: MIKE RAMOS Pat.ID: [id number] .Date: 11/04/2024 Refer.: [id number], joyce martin Exam Time: 9:22:00 AM Study Type:TRANSESOPHAGEAL ECHO ([facility]) Height: 70 in Weight: 184 lb BSA: 2.01 m2 Age: 3 1945,79Y Sex: M BP: 152/74 HR: 63 bpm Sonogrphr: Milady Begum [facility] Pat. Stat.:Outpatient Reason for Study:Aortic insufficiency [...] 11/07/2024 [facility] Report Pat.Name: MIKE RAMOS Pat.ID: [id number] .Date: 11/04/2024 Refer.: [id number], paolo martini Exam Time: 9:22:00 AM Study Type:TRANSESOPHAGEAL ECHO ([facility]Z) Height: 70 in Weight: 184 lb BSA: 2.01 m2 Age: 3 1945,79Y Sex: M BP: 152/74 HR: 63 bpm Sonogrphr: Milady Begum [facility] Pat. Stat.:Outpatient Reason for Study:Aortic insufficiency [...] 11/07/2024 04:02 PM Irwin Salazar M.D. Joyce BOYKIN-SHARON ECHO Final Resu lt * (ABNORMAL) POCT glucose (11/04/2024 7:35 AM CDT) Pathologist [facility] GLUCOSE POC 103(H) 70 - 99 mg/dL 11/04/2024 7:36 AM CDT [facility] 11/04/2024 7:35 AM CDT Joyce BOYKIN-BC POCT ORDERABLES - DEVICE F inal Result [facility] [address] [place] [address], [place] [phone] * ELECTROCARDIOGRAM (10/26/2024 9:40 AM CDT) 10/26/2024 9:40 AM CDT Narrative [facility] - 10/29/2024 6:24 AM CDT [facility] Test Date: 2024-10-26 Pat Name: MIKE RAMOS Department: 112 Room: Gender: Male Office Assistant: shelbi : 1945 Requested By: KHURRAM KAPLAN Order Number: [id number] Reading MD: Khurram Kaplan Measurements Intervals Mumford Rate: 51 P: 71 WV: 205 QRS: -27 QRSD: 166 T: 90 QT: 447 QTc: 415 Interpretive Statements SINUS BRADYCARDIA BORDERLINE LEFT AXIS DEVIATION INTRAVENTRICULAR CONDUCTION DELAY Procedure Note Khurram Kaplan MD - 10/29/2024 [facility] Test Date: 2024-10-26 Pat Name: MIKE RAMOS Department: 112 Room: Gender: Male Office Assistant: shelbi : 1945 Requested By: KHURRAM KAPLAN Order Number: [id number] Reading MD: Khurram Kaplan Measurements Intervals Mumford Rate: 51 P: 71 WV: 205 QRS: -27 QRSD: 166 T: 90 QT: 447 QTc: 415 Interpretive Statements SINUS BRADYCARDIA BORDERLINE LEFT AXIS DEVIATION INTRAVENTRICULAR CONDUCTION DELAY us Khurram Kaplan MD PROCEDURES-ORDERABLE NO CHARGE F inal Result [facility] * (ABNORMAL) PROTHROMBIN TIME, VENOUS (10/26/2024 9:11 AM CDT) PROTIME 14.9(H) 10.2 - 12.9 SEC 10/26/2024 9:47 AM CDT [facility] INR 1.3 10/26/2024 9:47 AM CDT [facility] Comment: Recommended INR Therapeutic Goals: 2.0-3.0 Routine Therapy 2.5-3.5 Mechanical Prosthetic Valves (High Risk) 10/26/2024 9:11 AM CDT us Joyce Martin ANP-BC LABORATORY Final Resu lt [facility] [address] [place] [address], * (ABNORMAL) BASIC METABOLIC PANEL (10/26/2024 9:11 AM CDT) GLUCOSE 109(H) 70 - 99 MG/DL 10/26/2024 9:55 AM CDT [facility] BUN 24(H) 7 - 18 MG/DL 10/26/2024 9:55 AM CDT [facility] CREATININE S/P/B 0.99 0.7 - 1.3 MG/DL 10/26/2024 9:55 AM CDT [facility] SODIUM S/P/B 133(L) 136 - 145 MMOL/L 10/26/2024 9:55 AM CDT [facility] POTASSIUM S/P/B 3.6 3.5 - 5.1 MMOL/L 10/26/2024 9:55 AM CDT [facility] CHLORIDE S/P/B 98 97 - 115 MMOL/L 10/26/2024 9:55 AM CDT [facility] CO2 32.6(H) 21 - 32 MMOL/L 10/26/2024 9:55 AM CDT [facility] CALCIUM S/P/B 9.4 8.5 - 10.1 MG/DL 10/26/2024 9:55 AM CDT [facility] ANION GAP 2.4 2 - 10 MMOL/L 10/26/2024 9:55 AM T [facility] BUN CREATININE RATIO 24.2 6 - 26 10/26/2024 9:55 AM CDT [facility] GFR ESTIMATE 78(L) >90 ML/MIN/1.7 3 M2 10/26/2024 9:55 AM CDT [facility] Comment: NOTE: eGFR is not calculated for patients <18 years of age or gender unknown. This is an estimated GFR calculation using the new CKD EPI creatinine equation without race and so does not require a correction factor for race. This estimated GFR should not be used for calculating drug doses. 10/26/2024 9:11 AM CDT Joyce Martin [facility] Final Resu lt [facility] [address] [place] [id number], * LIPID PANEL (10/26/2024 9:11 AM CDT) Only the most recent of2 resultswithin the time period is included. CHOLESTEROL 157 <200 MG/DL 10/26/2024 9:55 AM CDT [facility] TRIGLYCERIDES 73 <150 MG/DL 10/26/2024 9:55 AM T [facility] HDL 97 >40.0 MG/DL 10/26/2024 9:55 AM T [facility] LDL (CALCULATED) 45 <100 MG/DL 10/27/19 25 9:55 AM T [facility] Comment:CALCULATED USING THE FRIEDEWALD EQUATION NON HDL CHOLESTEROL 60 <130 MG/DL 10/26 9:55 AM CDT [facility] CHOL/HDL RATIO 1.6 0.0 - 4.5 10/26/2024 9:55 AM CDT [facility] VLDL CALCULATION 15 5 - 55 MG/DL 10/26/2024 9:55 AM CDT [facility] LIPID INTERPRETATION 10/26/2024 9:55 AM T [facility] Comment: [facility] REPORT RECOMMENDATIONS: ADULT CHILD LOW RISK: CHOLESTEROL <200 <170 TRIGLYCERIDE <150 --- HDL >=60 --- LDL <100 <110 BORDERLINE: CHOLESTEROL 200-239 170-199 TRIGLYCERIDE 150-199 --- HDL 40-59 --- LDL 100-159 110-129 HIGH RISK: CHOLESTEROL >=240 >=200 TRIGLYCERIDE >=200 --- HDL <40 --- LDL >=160 >=130 10/26/2024 9:11 AM CDT Joyce Martin [facility] Final Resu lt [facility] [address] [place] [address], * (ABNORMAL) CBC W/DIFF AUTOMATED (10/26/2024 9:11 AM CDT) WBC 5.24 4.5 - 11.0 x10'3/uL 10/26/2024 9:26 AM CDT [facility] RBC 3.93(L) 4.70 - 6.10 x10'6/uL 10/26/2024 9:26 AM CDT [facility] HGB 12.7(L) 14.0 - 18.0 G/DL 10/26/2024 9:26 AM CDT [facility] HCT 35.8(L) 43.0 - 54.0 % 10/26/2024 9:26 AM CDT [facility] MCV 91.1 80.0 - 94.0 FL 10/26/2024 9:26 AM CDT [facility] MCH 32.3(H) 27.0 - 31.0 PG 10/26/2024 9:26 AM CDT [facility] MCHC 35.5 32.0 - 36.0 G/DL 10/26/2024 9:26 AM CDT [facility] RDW 12.5 11.5 - 14.5 % 10/26/2024 9:26 AM CDT [facility] PLT 192 130 - 400 x10'3/uL 10/26/2024 9:26 AM CDT [facility] MPV 8.9(L) 9.3 - 12.2 FL 10/26/2024 9:26 AM CDT [facility] DIFFERENTIAL TYPE AUTOMATED DIFFERENTIAL 10/26/2024 9:26 AM CDT [facility] NEUTROPHILS % 72.4 % 10/26/2024 9:26 AM CDT [facility] LYMPHOCYTES % 20.2 % 10/26/2024 9:26 AM CDT [facility] MONOCYTES % 5.3 % 10/26/2024 9:26 AM CDT [facility] EOSINOPHILS 1.5 % 10/26/2024 9:26 AM CDT [facility] BASOPHILS 0.2 % 10/26/2024 9:26 AM CDT [facility] IMMATURE GRANS % 0.4 % 10/27/19 9:26 AM CDT [facility] ABS. NEUTROPHILS 3.79 1.80 - 7.70 x10'3/uL 10/26/2024 9:26 AM CDT [facility] ABS. LYMPHOCYTES 1.06 1.00 - 4.80 x10'3/uL 10/26/2024 9:26 AM CDT [facility] ABS. MONOCYTES 0.28(L) 0.30 - 0.82 x10'3/uL 10/26/2024 9:26 AM CDT [facility] ABS. EOSINOPHILS 0.08 0.04 - 0.54 x10'3/uL 10/26/2024 9:26 AM CDT [facility] ABS. BASOPHILS 0.01 0.01 - 0.08 x10'3/uL 10/26/2024 9:26 AM CDT [facility] ABS. IMMATURE GRANULOCYTES 0.02 0.00 - 0.49 x10'3/uL 10/26/2024 9:26 AM CDT [facility] 10/26/2024 9:11 AM CDT Joyce Martin [facility] Final Resu lt [facility] [address] [place] [address], from Last 3 Months or Most Recently Relevant to Health Maintenance Insurance [facility] MEDICARE Advance Directives Healthcare Agents on File Name Relationship Healthcare Agent Relationshi p Communication Chandu Henley Friend Health Care Agent Filiberto Schaefer Friend First Alternate Health Care Agent Ranulfo Stuart Friend Second Alternate Health Ca re Agent Care Teams Improvement Manager Relationship Specialty Start Date End Date Milan Black DO [address] [facility] [address] [address] PCP - General INTERNAL MEDICINE 07/26/24
--- OUTSIDE RECORDS SUMMARY | 2025-01-08 19:15 | XMS_ITS ---
Author Organization [facility] Address [address] [place] [address] Phone Care Team Providers Care Armhole Sewer Name Role Phone Unavailable Unavailable Unavailable Plan of Treatment No Plan of Treatment Recorded Assessments Includes: Assessments for all patient encounters No Assessments Recorded Medical Equipment - Implanted Devices Includes: Current and historical Devices No Medical Equipment Recorded Medications Administered Includes: Administered Medications in patient's chart No Administered Medications Recorded Results Includes: Results from 01/09/2024 through 01/08/2025 No Results Recorded For Specified Dates History [...]
--- OUTSIDE RECORDS SUMMARY | 2025-01-08 19:15 | XMS_ITS | Clinical Summary ---
Author Organization [facility] Address [address] [place] [address] Phone Care Team Providers Care Linux Systems Administrator Name Role Phone Unavailable Unavailable Unavailable Reason [...]
--- OUTSIDE RECORDS SUMMARY | 2025-01-08 19:15 | XMS_ITS | Patient Health Record ---
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 Active confirmed Problem Generalized anxiety disorder (61188551) Generalized anxiety disorder (F41.1) 4 Active confirmed Problem Cognitive decline (687939121) Cognitive decline (R41.89) Active confirmed Encounters Encounter Location Date Provider Diagnosis [facility] [address] [address] 04/07/2024 Jyoti Hall [facility] [address] [address] 06/01/2024 Erlin Schaefer Plan Of Treatment No Information Insurance Providers Payer Name Payer Address Payer Phone Subscriber Number Group Number Insured Name Patient Relationship to Insured Coverage Start Date Coverage End Date [employer] Medicare Replacement/ Advantage - Ppo [address] [address] [place] [address] [id number] DANILO RAMOS Self - patient is the [...] 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
--- OUTSIDE RECORDS SUMMARY | 2025-01-08 19:16 | XMS_ITS | Clinical Summary ---
Author Organization [facility] [address] [place] [address] Address [address] [place] [address] Care Team Providers Care Grocery Department Manager Name Role Phone Milan Black DO Primary [...] 11/12/2017 ZOSTER VACCINE Completed 10/08/2018, 05/13/2018 [facility] [id number] [facility] Care Teams Grocery Department Manager Relationship Specialty Start Date End Date Milan Black DO [address] [address] PCP - General Internal Medicine 10/01/23
--- OUTSIDE RECORDS SUMMARY | 2025-01-08 19:16 | XMS_ITS | Patient Health Record ---
Author Organization [facility] Address [address] [place] [address] Care Team Providers Care Chip Washer Name Role Phone Merline Junior Primary Care Provider [phone] Migration, Provider Unavailable Unavailable iLzzie Ruggiero Unavailable [phone] Allergies Allergen (clinical drug ingredient) Drug/Non Drug Allergy documented on EMR Reaction Allergy Type Onset Date Status levofloxacin levoFLOXacin Unknown Drug Allergy A ctive Results Component Value Reference Range Flag Notes INSULIN (561) Reviewed date:09/16/2024 08:52:47 AM Interpretation: Performing Lab:[facility][id number] Melisa Vines, [id number] Gregorio Shah MD Notes/Report: FASTING:UNKNOWN FASTING: UNKNOWN INSULIN 9.8 N Reference Range < or = 18.4 High >18.4 Adult cardiovascular event risk category Risk: Optimal < or = 18.4 Moderate NA cut points (optimal, moderate, high) are based on Insulin Reference Interval studies performed at [facility] in 2021. DHEA SULFATE (402) Reviewed date:09/16/2024 08:51:50 AM Interpretation: Performing Lab:[facility][id number] Melisa Vines, [id number] Gregorio Shah MD Notes/Report: FASTING:UNKNOWN FASTING: UNKNOWN [...] Notes/Report: HEMOGLOBIN A1c % 5.47 4.5-6.3 % COPY RECEIVED FROM: Reviewed date:09/22/2024 01:05:14 PM Interpretation: Performing Lab: Notes/Report: FASTING:UNKNOWN FASTING: UNKNOWN COPY RECEIVED FROM: [facility] [id number] [place] [id number] COPY(IES) SENT TO: Reviewed date:09/16/2024 08:52:53 AM Interpretation: Performing Lab: Notes/Report: FASTING:UNKNOWN FASTING: UNKNOWN COPY(IES) SENT TO: [facility] [address] [place] [address] Reason For Referral No Information Medications Medication SIG (Take, Route, Frequency, Duration) Notes Start Date End Date Status Xalatan 0.005 % Solution 1 gtt in each eye once a day (in the evening) Active Eliquis 5 MG Tablet as directed orally 2 times a day Active Doxazosin Mesylate 4 MG Tablet 1 tab(s) orally once a day Active Creon 22935-81451 UNIT Capsule Delayed Release Particles as directed [...] review and pick correct strength-formulat ion from [employer] options. If intended option is not shown, discontinue and re-order from Quick Search* *Reorder from [employer] for eRx and Interaction Alerts* Active Tylenol [...] Hyperglycemia due to type 2 diabetes mellitus (809499699182491) Type 2 diabetes mellitus with hyperglycemia (E11.65) Active confirmed Problem Disorder of pituitary gland (841912735) Disorder of pituitary gland, unspecified (E23.7) Active confirmed Problem Obesity (484584122) Obesity, unspecified (E66.9) Active confirmed Problem Mixed hyperlipidemia (763787374) Mixed hyperlipidemia (E78.2) Active confirmed Problem Obstructive sleep apnea syndrome (disorder) (28640305) Obstructive sleep apnea (adult) (pediatric) (G47.33) Active confirmed Problem Essential hypertension (02856196) Essential (primary) hypertension (I10) Active confirmed Problem Atypical atrial flutter (6670200712974507 7) Atypical atrial flutter (I48.4) Active confirmed Problem Attention deficit hyperactivity disorder, predominantly inattentive type (disorder) (18159905) Attention and concentration deficit (R41.840) Active confirmed Problem Lower urinary tract symptoms due to benign prostatic hypertrophy (33942447797035) Benign prostatic hyperplasia with lower urinary tract symptoms (N40.1) Active confirmed Problem Menopausal syndrome (738719519) Menopausal syndrome (N95.1) Active confirmed Problem Dyslipidemia (560219458) Dyslipidemia (E78.5) Active confirmed Vital Signs Heart Rate 71 /min 12/22/2024 Height-cm 177.8 cm 12/22/2024 Blood pressure diastolic 70 mm Hg 12/22/2024 Weight-kg 87.63 kg 12/22/2024 Height 70 in 12/22/2024 Blood pressure systolic 133 mm Hg 12/22/2024 Weight 193.2 lbs 12/22/2024 BMI 27.72 kg/m2 12/22/2024 Encounters Encounter Location Date Provider Diagnosis [address] [id number] 01/09/2024 Provider Migration Type 2 diabetes mellitus with hyperglycemia E11.65 ; Attention and concentration deficit R41.840 and Other fatigue R53.[address] [phone] 09/12/2024 Merline Junior Mixed hyperlipidemia E78.2 ; Menopausal syndrome N95.1 ; Fatigue R53.83 and Abnormal glucose R73.[address] Junior [id number] [place] [phone] 01/18/2024 Lizzie Ruggiero Type 2 diabetes mellitus with hyperglycemia E11.65 ; Attention and concentration deficit R41.840 ; Atypical atrial flutter I48.4 ; Essential (primary) hypertension I10 ; Benign prostatic hyperplasia with lower urinary tract symptoms N40.1 and Obstructive sleep apnea (adult) (pediatric) G47.[address] Junior [address] [place] [address] 03/24/2024 Merline Junior Type 2 diabetes mellitus with hyperglycemia E11.65 ; Attention and concentration deficit R41.840 ; Obesity, unspecified E66.9 and Disorder of pituitary gland, unspecified E23.[address] Junior [address] [place] [phone] 05/16/2024 Merline Junior Type 2 diabetes mellitus with hyperglycemia E11.65 ; Attention and concentration deficit R41.840 ; Essential (primary) hypertension I10 ; Obstructive sleep apnea (adult) (pediatric) G47.33 ; Dyslipidemia E78.5 and Dietary counseling and surveillance Z71.[address] Junior [address] [place] [phone] 09/12/2024 Merline Junior Type 2 diabetes mellitus with hyperglycemia E11.65 ; Essential (primary) hypertension I10 ; Obstructive sleep apnea (adult) (pediatric) G47.33 ; Dyslipidemia E78.5 ; Dizziness R42 and Dietary counseling and surveillance Z71.[address] Junior [address] [place] [phone] 12/22/2024 Merline Junior Type 2 diabetes mellitus with hyperglycemia E11.65 ; Essential (primary) hypertension I10 ; Mixed hyperlipidemia E78.2 and Dietary counseling and surveillance Z71.[address] Junior [address] [place] [phone] 01/25/2024 Merline Junior Type 2 diabetes mellitus with hyperglycemia E11.[address] Junior [address] [place] [phone] 02/10/2024 Merline Junior Type 2 diabetes mellitus with hyperglycemia E11.[address] Junior [address] [place] [phone] 03/14/2024 Merline Junior [address] [place] [phone] 03/14/2024 Merline Junior [address] [place] [phone] 03/21/2024 Merline SERRATO [facility] [address] [place] [phone] 03/24/2024 Merline SERRATO [facility] [address] [place] [phone] 03/31/2024 Merline SERRATO [facility] [address] [place] [phone] 04/18/2024 Merline SERRATO [facility] [address] [place] [phone] 05/15/2024 Merline Junior [address] [place] [address] 07/19/2024 Merline Junior [address] [place] [address] 07/25/2024 Merline SERRATO [facility] [address] [place] [phone] 09/14/2024 Merline Junior [address] [place] [phone] 09/23/2024 Merline SERRATO [facility] [address] [place] [phone] 12/22/2024 Merline Junior Assessments Encounter Date Diagnosis (ICD Code) Assessment Notes Treatment Notes Treatment Clinical Notes Section Notes 01/09/2024 Type 2 diabetes mellitus with hyperglycemia (ICD-10 - E11.65) 01/09/2024 Attention and concentration deficit (ICD-10 - R41.840) 01/09/2024 Other fatigue (ICD-10 - R53.83) 01/18/2024 Type 2 diabetes mellitus with hyperglycemia (ICD-10 - E11.65) 01/25/2024 Type 2 diabetes mellitus with hyperglycemia (ICD-10 - E11.65) 02/10/2024 Type 2 diabetes mellitus with hyperglycemia (ICD-10 - E11.65) 03/24/2024 Type 2 diabetes mellitus with hyperglycemia (ICD-10 - E11.65) 01/18/2024 Attention and concentration deficit (ICD-10 - R41.840) 03/24/2024 Attention and concentration deficit (ICD-10 - R41.840) 05/16/2024 Type 2 diabetes mellitus with hyperglycemia (ICD-10 - E11.65) 05/16/2024 Attention and concentration deficit (ICD-10 - R41.840) 09/12/2024 Type 2 diabetes mellitus with hyperglycemia (ICD-10 - E11.65) 09/12/2024 Essential (primary) hypertension (ICD-10 - I10) 09/12/2024 Mixed hyperlipidemia (ICD-10 - E78.2) 09/12/2024 Menopausal syndrome (ICD-10 - N95.1) 12/22/2024 Type 2 diabetes mellitus with hyperglycemia (ICD-10 - E11.65) 09/12/2024 Fatigue (ICD-10 - R53.83) 09/12/2024 Obstructive sleep apnea (adult) (pediatric) (ICD-10 - G47.33) 03/24/2024 Obesity, unspecified (ICD-10 - E66.9) 05/16/2024 Essential (primary) hypertension (ICD-10 - I10) 01/18/2024 Atypical atrial flutter (ICD-10 - I48.4) 12/22/2024 Essential (primary) hypertension (ICD-10 - I10) 01/18/2024 Essential (primary) hypertension (ICD-10 - I10) 05/16/2024 Obstructive sleep apnea (adult) (pediatric) (ICD-10 - G47.33) 03/24/2024 Disorder of pituitary gland, unspecified (ICD-10 - E23.7) 09/12/2024 Dyslipidemia (ICD-10 - E78.5) 12/22/2024 Mixed hyperlipidemia (ICD-10 - E78.2) 09/12/2024 Abnormal glucose (ICD-10 - R73.09) 05/16/2024 Dyslipidemia (ICD-10 - E78.5) 09/12/2024 Dizziness (ICD-10 - R42) 01/18/2024 Benign prostatic hyperplasia with lower urinary tract symptoms (ICD-10 - N40.1) 12/22/2024 Dietary counseling and surveillance (ICD-10 - Z71.3) Spent 15 minutes preventative counseling patient on dietary recommendations and changes in setting of hyperglycemia- need to restrict refined sugars and processed foods and incorporate up to 150 minutes of moderate level activity weekly. 01/18/2024 Obstructive sleep apnea (adult) (pediatric) (ICD-10 - G47.33) 05/16/2024 Dietary counseling and surveillance (ICD-10 - Z71.3) Spent 15 minutes preventative counseling patient on dietary recommendations and changes in setting of hyperglycemia- need to restrict refined sugars and processed foods and incorporate up to 150 minutes of moderate level activity weekly. 09/12/2024 Dietary counseling and surveillance (ICD-10 - [...] for 2 more days- Follow up with drapery hanger Dr. Goins for possible ablation- Avoid Adderall [...] Memory and aging concerns- Participate in the [facility] memory and aging study- Monitor for changes in cognitive function and memory 9. Follow-up- Schedule a follow-up appointment in six weeks, around mid-February- Print Operator appointment on March 18 Dear Mr. Barton, Thank you for visiting today and [...] monitoring of your heart condition with your drapery hanger, Dr. Goins, and follow his guidance regarding the use of diltiazem and HCTZ for your heart rate and blood pressure.- Discontinue Metoprolol as advised by Dr. Buster due to its effect of lowering your [...] our next appointment. Best regards, Lizzie Ruggiero [facility] Patient assessment and plan of care [...] Referral to vein surgeon (Dr. Henderson) at [facility] for follow-up Sleep ApneaPatient uses Bi-Pap machine [...] procedures, referring and communicating with other health point of care specialist, documenting clinical information in the electronic or [...] lifelong anticoagulation with Eliquis as recommended by family service aide. He is also taking diltiazem 180 mg [...] reports bilateral shoulder pain. Dr. Lozada at [facility] has recommended complete shoulder replacements.- Consider referral [...] procedures, referring and communicating with other health point of care specialist, documenting clinical information in the electronic or [...] Reflux Disease (GERD)- Continue current PPI therapy- Civil Engineering Director to evaluate esophagus during upcoming endoscopic procedure 4. Atrial Fibrillation and Atrial Flutter- Continue diltiazem 180 mg- Proceed with scheduled chemical stress test and echocardiogram with new drapery hanger- Order carotid ultrasound 5. Hypertension- Continue lisinopril-HCTZ [...] thyroid function tests, cortisol level- [facility] Follow up [...] procedures, referring and communicating with other health point of care specialist, documenting clinical information in the electronic or [...] nt: Patient underwent dexamethasone suppression test at [facility] on Thursday with results pending. Previous psychiatric [...] low.Plan:- Await dexamethasone suppression test results from [facility]- Will call patient if cortisol levels are [...] with valvular diseaseAssessment: Recent cardiac evaluation at [facility] including stress test, cardiac catheterization, and LUKASZ [...] colonoscopy 3 years ago showed polyps but sv[employer] marketing [employer] at [employer] advised no concern.Plan:- Continue Metamucil tablets and powder- Reduce Mounjaro frequency to improve symptoms- Avoid overuse of stimulant laxatives like Ex-Lax Fatigue and brain fogAssessment: Persistent fatigue, brain fog, lightheadedness, depression, joint pain, and weakness. Unable to perform weight training due to lack of energy. 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 Recent urgent care visit for fever following vaccinations.Plan:- Continue magnesium supplementation (one pill daily) for muscle function and aches- Await cortisol testing results to evaluate for Octavio's syndrome- Monitor symptom progression Sleep disturbancesAssessment: Difficulty with sleep maintenance due to nocturia, body aches, and environmental factors (noisy neighbor). Uses CPAP device. Has not used Lunesta recently. Sleep issues may be related to cortisol excess if Octavio's syndrome is confirmed.Plan:- Address underlying causes including [...] procedures, referring and communicating with other health point of care specialist, documenting clinical information in the electronic or other health record, independently interpreting results and communicating results to the patient/family/caregiver and care coordinating patient plan. Patient alert and oriented x 4 and aware of discussion noted above and in agreeance to plan in management of type 2 DM, hypertension, mixed dyslipidemia Plan Of Treatment Pending Test Test Name Order Date CAROTID DOPPLER ULTRASOUND [id number] 025 -MRI ABDOMEN W&W/O CONTST 03/24/2024 Next Appt Details Provider Name:Merline Junior, 01:00:00 PM, [address] [place] [address], [phone], Insurance Providers Payer Name Payer Address Payer Phone Subscriber Number Group Number Insured Name Patient Relationship to Insured Coverage Start Date Coverage End Date [facility] [address] [place] [address] [id number] Mike Barton Self - patient is the insured Medical (General) History Medical History History ICD Code hypertension diabetes mallitus Arthritis thyroid disease PTSD Surgical History Surgery Date(Month/Year) Knee surgeries x3 Shoulder surgery x3 Neck Surgery x3 Lower back surgery- 2006
[2025-01-08 20:53] VITALS: BP 163/84; PULSE 60; RESP 14; O2SAT 98
--- OUTSIDE RECORDS SUMMARY | 2025-01-08 22:34 | XMS_ITS | Clinical Summary ---
Author Organization [facility] Address [address] [place] [address] Phone Care Team Providers Care Tipple Greaser Name Role Phone Unavailable Unavailable Unavailable Reason [...]
--- OUTSIDE RECORDS SUMMARY | 2025-01-08 22:34 | XMS_ITS ---
Author Organization [facility] Address [address] [place] [address] Phone Care Team Providers Care Counseling Center Director Name Role Phone Unavailable Unavailable Unavailable Plan [...]
--- OUTSIDE RECORDS SUMMARY | 2025-01-08 22:37 | XMS_ITS ---
Care Plan - [facility] Created on: January 08, 2025 MARY RAMOS : 1945 Sex: Male Author Organization [facility] Address [address] [place] [address] Phone Care Team Providers Care Investment Banker Name Role Phone Unavailable Unavailable Unavailable
--- OUTSIDE RECORDS SUMMARY | 2025-01-08 22:37 | XMS_ITS | Clinical Summary ---
Author Organization [facility] Address [address] [place] [address] Phone Care Team Providers Care Manufacturing Assembler Name Role Phone Unavailable Unavailable Unavailable Reason [...] Check- Out Time Diagnosis GENERAL OFFICE VISIT HECOTR DOUGLASS-PSYCHIA KARIE 1 9:46AM 10:52AM Clinical Notes Includes: Clinical Notes from this encounter No Clinical Notes Recorded
--- OUTSIDE RECORDS SUMMARY | 2025-01-08 22:38 | XMS_ITS | Clinical Summary ---
Author Organization [facility] Address [address] [place] [address] Care Team Providers Care Planning Supervisor Name Role Phone Brebrandon Milan Esdras Primary [...] this topic Insurance [employer] Care Teams Planning Supervisor Relationship Specialty Start Date End Date Milan Black DO [address] [place] [address] PCP - General Internal Medicine 01/09/23
--- NOTE | 2025-01-08 22:45 | ED.GENADULT ---
HPI - General Adult General Chief complaint: Head Injury Stated complaint: head injury, takes Eliquis Time Seen by Provider: 01/08/25 22:17 History of Present Illness HPI narrative: This is a 79-year-old male with atrial fibrillation on Eliquis presenting after ground level fall. Yesterday he was walking in his garage when he tripped landing on his knee and then striking his head on the ground. He did not lose consciousness. He has not had any persistent vomiting visual changes or weakness to any extremity. He was talking his family today and they sent her on Eliquis should go to ER to be evaluated if you strike her head. No other injuries. Related Data Home Medications ?Medication ?Instructions ?Recorded ?Confirmed ?Last Taken ?Type latanoprost 0.005 % eye drops 1 drp EACH EYE HS 05/14/22 12/23/24 08/20/22 09:00 History 500 metformin 500 mg tablet 500 mg PO DAILY 12/16/23 12/23/24 Unknown History acetaminophen 650 mg 650 mg PO Q8H 09/22/24 12/23/24 Unknown History tablet,extended release (Tylenol 8 Hour) tirzepatide 7.5 mg/0.5 mL 7.5 mg subcut 09/22/24 12/23/24 Unknown History subcutaneous pen injector (Mounjaro) testosterone 10 mg/0.5 2 pump transdermal QAM 12/23/24 12/23/24 Unknown History gram/actuation transdermal gel pump ferrous sulfate 325 mg (65 mg 325 mg PO DAILY 01/05/25 Unknown History iron) tablet Allergies Allergy/AdvReac Type Severity Reaction Status Date / Time levofloxacin (From Levuin) Allergy Mild ''not feel Verified 12/23/24 08:30 right'' [facility] Past Medical History Medical History Urinary tract infection in male BMI 29.0-29.9,adult Diabetes mellitus without complication Milk intolerance Irritable bowel syndrome with diarrhea Pancreatic cyst Arthritis IBS (irritable bowel syndrome) Fatigue Fecal occult blood test positive Pancreatic insufficiency Dysuria Prediabetes H/O Mohs micrographic surgery for skin cancer Positive colorectal cancer screening using Cologuard test IPMN (intraductal papillary mucinous neoplasm) Depression Central sleep apnea Chronic pain IBS (irritable bowel syndrome) Seasonal allergies Obstructive sleep apnea Dyslipidemia CAD (coronary artery disease) PAT (paroxysmal atrial tachycardia) Anxiety Essential hypertension Seasonal allergic rhinitis due to pollen Surgical History Surgical History H/O cataract extraction History of shoulder surgery S/P ablation operation for arrhythmia 2015 [facility] for a fib; Mar 08, 2021 ablation via pulmonary vein isolation; additional linear ablation for a fib, cardioversion Mar 20 S/P right knee surgery 12/05/2020 Hx of spinal surgery 2009, C3-4, C4-5, C6-7 ant cervical decomp/fusion; 2012 C7-T1 posterior cervical decompression/fusion. H/O right knee surgery Family History Family History Mother Cerebrovascular accident Hypertension Father Malignant neoplasm of prostate Depression Patient's father is , Onset Age: 50 Family history of heart disease in male family member before age 55 Sibling Depression Family history of lymphoma Cancer Other Family history of malignant neoplasm of male breast Family history of sudden Social History Social History Smoking status: Never smoker Second hand tobacco smoke exposure: Yes Alcohol intake: current Drinks per week: 2 Substance use: never Substance use type: does not use Do You Feel Safe in your Home?: Yes Lack of Transportation: No Lack of Food: Never True Current Housing: I Have Housing Concerned About Future Housing: No Difficulty Paying Gas/Electric Bills: No Difficulty Paying for Meds: No Currently Unemployed: No Education: Master's Degree or Higher Difficulty w/ Childcare or Family Care: No Living arrangements: alone Occupation/Education: retired Additional occupation/education comments: [employer] Gender identity (if verbalized by the patient): Male Sexual Orientation (if Verbalized by the Patient): Straight or Heterosexual Spiritual care concerns: No Agree to blood products: Yes Exam Narrative: APPEARANCE: No apparent distress. Head: Abrasion to left forehead with bruising over the left eye EYES: EOMI, NOSE: Atraumatic NECK: Trachea midline RESPIRATORY: No increased rate of breathing, clear to auscultation CARDIOVASCULAR: RRR, no peripheral edema ABDOMINAL: Non-distended soft nontender MUSCULOSKELETAl: Head to toe trauma exam performed without any injuries other than the forehead. NEURO: Alert. Moving 4/4 extremities SKIN:: Warm, dry. Normal color PSYCHIATRIC: Normal affect Course Vital Signs Vital signs: Vital Signs Temperature 97.7 F 01/08/25 19:14 Pulse Rate 73 01/08/25 19:14 Respiratory Rate 16 01/08/25 19:14 Blood Pressure 175/76 H 01/08/25 19:14 Pulse Oximetry 99 01/08/25 19:14 Oxygen Delivery Room Air 01/08/25 19:14 Temperature 97.7 F 01/08/25 19:14 Pulse Rate 60 01/08/25 20:53 Respiratory Rate 14 01/08/25 20:53 Blood Pressure 163/84 H 01/08/25 20:53 Pulse Oximetry 98 01/08/25 20:53 Oxygen Delivery Room Air 01/08/25 19:14 Medical Decision Making MDM Narrative Medical decision making narrative: -Course: 79-year-old male presenting almost 24 hours after a ground level fall. He is on Eliquis. CT of the brain and C-spine did not reveal any traumatic injuries. His neurologic exam is normal and he is well appearing overall. No serious injuries noted on head-to-toe trauma exam. Tdap is up-to-date. He will be discharged follow-up with primary care physician. -DDX includes but is not limited to: Intracranial hemorrhage, concussion, abrasion Vital Signs Vital Signs: Vital Signs Temperature 97.7 F 01/08/25 19:14 Pulse Rate 73 01/08/25 19:14 Respiratory Rate 16 01/08/25 19:14 Blood Pressure 175/76 H 01/08/25 19:14 Pulse Oximetry 99 01/08/25 19:14 Oxygen Delivery Room Air 01/08/25 19:14 Temperature 97.7 F 01/08/25 19:14 Pulse Rate 60 01/08/25 20:53 Respiratory Rate 14 01/08/25 20:53 Blood Pressure 163/84 H 01/08/25 20:53 Pulse Oximetry 98 01/08/25 20:53 Oxygen Delivery Room Air 01/08/25 19:14 Discharge Plan Discharge Clinical Impression: Anticoagulated on Eliquis, Fall Patient Disposition: Home Condition: Stable Instructions: Antibiotic Form, Fall Prevention (ED) Additional Instructions: Please follow-up with your primary care physician further management. If you develop any new or worsening symptoms return to the ED for re-evaluation. Patient Language: Chinese Prescriptions: No Action latanoprost 0.005 % drops 1 drp EACH EYE HS metformin 500 mg tablet 500 mg PO DAILY acetaminophen [Tylenol 8 Hour] 650 mg tablet extended release 650 mg PO Q8H Mounjaro 7.5 mg/0.5 mL pen injector 7.5 mg subcut fluticasone propionate [Flonase Allergy Relief] 50 mcg/actuation spray,suspension 1 spray intranasal DAILY PRN (Reason: Allergic Symptoms) Qty: 16 5RF Rx Instructions: administer into each nostril testosterone 10 mg/0.5 gram /actuation gel in metered-dose pump 2 pump transdermal QAM Rx Instructions: apply evenly over front and inner area of EACH thigh; avoid water for >=2 hrs esomeprazole magnesium [Nexium] 20 mg capsule,delayed release(DR/EC) 20 mg PO BID Qty: 60 12RF flecainide 100 mg tablet See Rx Instructions .ROUTE .COMPLEX Qty: 180 2RF Dose Instruction: TAKE 1 TABLET BY MOUTH EVERY 12 HOURS Rx Instructions: TAKE 1 TABLET BY MOUTH EVERY 12 HOURS Creon 36,000-114,000- 180,000 unit capsule,delayed release(DR/EC) See Rx Instructions .ROUTE .COMPLEX Qty: 800 3RF Dose Instruction: TAKE 2 CAPSULES BY MOUTH FOUR TIMES DAILY. ADMINISTER 2 CAPS WITH MEALS AND ONE CAPSULE WITH SNACKS Rx Instructions: TAKE 2 CAPSULES BY MOUTH FOUR TIMES DAILY. ADMINISTER 2 CAPS WITH MEALS AND ONE CAPSULE WITH SNACKS diltiazem HCl [Tiadylt ER] 180 mg capsule,extended release 24hr See Rx Instructions .ROUTE .COMPLEX Qty: 90 2RF Dose Instruction: TAKE 1 CAPSULE BY MOUTH EVERY DAY Rx Instructions: TAKE 1 CAPSULE BY MOUTH EVERY DAY doxazosin 4 mg tablet See Rx Instructions .ROUTE .COMPLEX Qty: 90 1RF Dose Instruction: TAKE 1 TABLET BY MOUTH EVERYDAY AT BEDTIME Rx Instructions: TAKE 1 TABLET BY MOUTH EVERYDAY AT BEDTIME lisinopril 20 mg tablet 20 mg PO DAILY Qty: 90 2RF Eliquis 5 mg tablet See Rx Instructions .ROUTE .COMPLEX Qty: 180 2RF Dose Instruction: TAKE 1 TABLET BY MOUTH TWICE A DAY Rx Instructions: TAKE 1 TABLET BY MOUTH TWICE A DAY ferrous sulfate 325 mg (65 mg iron) tablet 325 mg PO DAILY Follow-up/Referrals: Milan Black, DO [Primary Care Provider, Internal Medicine]
[2025-01-08 22:58] VITALS: BP 171/70; PULSE 67; RESP 18; O2SAT 98
== END 2025-01-08 23:00 | disposition home or self-care (01) ==
PROVIDERS: Emergency Provider Emergency Medicine; PCP Internal Medicine
DX: S09.90XA Unspecified injury of head, initial encounter (principal); W18.30XA Fall on same level, unspecified, initial encounter; I48.91 Unspecified atrial fibrillation; Z79.01 Long term (current) use of anticoagulants; E11.9 Type 2 diabetes mellitus without complications; Z79.85 Long-term (current) use of injectable non-insulin antidiabetic drugs; Z79.84 Long term (current) use of oral hypoglycemic drugs; E78.5 Hyperlipidemia, unspecified; I10 Essential (primary) hypertension
CPT/HCPCS: 70450; 72125; 99284